=== PATIENT | female | born 1980 | race Caucasian/White ===

== ENCOUNTER 2019-06-24 12:27 | Inpatient (IN) | payer OTHER ==
[2019-06-24] MEDS ORDERED: ONDANSETRON 4 MG/2 ML VIAL IVP STA (12:46)
[2019-06-24] MEDS ORDERED: SODIUM CHLORIDE 0.9% 1,000 ML IV STA ×3 (12:46→13:57)
[2019-06-24] MEDS ORDERED: MORPHINE SULFATE 4 MG/ML SYRINGE IV STA ×2 (12:53→13:30)
[2019-06-24 13:33] LABS: ALT 45 U/L (9-52); AST 95 U/L (14-36); African American GFR (CKD) >90 (>60 ml/min/1.73 sqM); Albumin 3.7 g/dL (3.5-5.0); Alkaline Phosphatase 164 U/L (38-126); Anion Gap 13 mmol/L; Blood Urea Nitrogen 21 mg/dL (7-17); Calcium 8.1 mg/dL (8.4-10.2); Carbon Dioxide 23 mmol/L (22-30); Chloride 99 mmol/L (98-107); Glucose 119 mg/dL (74-99); Sodium 135 mmol/L (137-145); Total Bilirubin 0.8 mg/dL (0.2-1.3); Total Protein 6.3 g/dL (6.3-8.2)
--- NOTE | 2019-06-24 13:34 | ED ---
General Adult HPI - General Source: patient, RN notes reviewed, old records reviewed Mode of arrival: ambulatory Limitations: no limitations <Stanton Meza - Last Filed: 06/24/19 14:08> <Dae Villar - Last Filed: 06/24/19 14:49> - General Chief complaint: Abdominal Pain Stated complaint: stomach pain Time Seen by Provider: 06/24/19 12:46 - History of Present Illness Initial comments: 39-year-old female patient presents to ED with chief complaint of epigastric pain which radiates to her back. Patient also reports that she has had nausea vomiting for approximately 3 days. Patient does report that she has had significant alcohol intake and prior days. Patient denies any chest pain or shortness of breath. She cannot be secondary to tubal ligation. Systemic: Pt denies fatigue, fever/chills, rash. Pt denies weakness, night sweats, weight loss. Neuro: Pt denies headache, visual disturbances, syncope or pre-syncope. HEENT: Pt denies ocular discharge or irritation, otalgia, rhinorrhea, pharyngitis or notable lymphadenopathy. Cardiopulmonary: Pt denies chest pain, SOB, heart palpitations, dyspnea on exertion. : Pt denies dysuria, burning w/ urination, frequency/urgency. Denies new onset urinary or bowel incontinence. MSK: Pt denies myalgia, loss of strength or function in extremities. Neuro: Pt denies new onset weakness, paresthesias. (Stanton Meza) - Related Data Home Medications Medication Instructions Recorded Confirmed Albuterol Inhaler [Ventolin Hfa 2 puff INHALATION RT-Q6H PRN 10/08/14 06/24/19 Inhaler] Carvedilol [Coreg] 6.25 mg PO BID 06/24/19 06/24/19 Gemfibrozil [Lopid] 600 mg PO BID 06/24/19 06/24/19 Levothyroxine Sodium [Synthroid] 25 mcg PO DAILY 06/24/19 06/24/19 Lisinopril [Zestril] 10 mg PO DAILY 06/24/19 06/24/19 Lurasidone HCl [Latuda] 120 mg PO HS 06/24/19 06/24/19 QUEtiapine FUMARATE [SEROquel] 600 mg PO HS 06/24/19 06/24/19 clonazePAM [KlonoPIN] 0.5 mg PO TID 06/24/19 06/24/19 rOPINIRole HCL [Requip] 1 mg PO HS 06/24/19 06/24/19 Allergies Allergy/AdvReac Type Severity Reaction Status Date / Time cefaclor [From Ceclor] Allergy Unknown Verified 06/24/19 13:01 Childhood Penicillins Allergy Unknown Verified 06/24/19 13:01 Childhood pineapple Allergy Rash/Hives Verified 06/24/19 13:01 Review of Systems ROS Other: All systems not noted in ROS Statement are negative. <Stanton Meza - Last Filed: 06/24/19 14:08> ROS Other: All systems not noted in ROS Statement are negative. <Dae Villar - Last Filed: 06/24/19 14:49> ROS Statement: Those systems with pertinent positive or pertinent negative responses have been documented in the HPI. Past Medical History Past Medical History: Asthma, Hypertension, Pneumonia Additional Past Medical History / Comment(s): Chronic migraines, pneumonia-pt. reports she has been hospitalized 6 times for this, Left knee needs ACL repairment, PMS-pt. reports she believes she has this due to increased emotional symptoms around her period. History of Any Multi-Drug Resistant Organisms: None Reported Past Surgical History: Section, Orthopedic Surgery Additional Past Surgical History / Comment(s): Left knee meniscus repair x3. Past Anesthesia/Blood Transfusion Reactions: Unable to Obtain Past Psychological History: Anxiety, Bipolar, Depression Smoking Status: Current every day smoker Past Alcohol Use History: Occasional Past Drug Use History: Marijuana - Past Family History Mother Additional Family Medical History / Comment(s): Mom in 2004 from septic shock when she was 54 years old. Father Family Medical History: Cancer, COPD Additional Family Medical History / Comment(s): Pt. reports her father currently has prostate cancer <Stanton Meza - Last Filed: 06/24/19 14:08> General Exam Limitations: no limitations <Stanton Meza - Last Filed: 06/24/19 14:08> - General Exam Comments Initial Comments: Constitutional: NAD, AOX3, Pt has pleasant affect. HEENT: NC/AT, trachea midline, neck supple, no lymphadenopathy. Posterior pharynx non erythematous, without exudates. External ears appear normal, without discharge. Mucous membranes moist. Eyes PERRLA, EOM intact. There is no scleral icterus. No pallor noted. Cardiopulmonary: RRR, no murmurs, rubs or gallops, no JVD noted. Lungs CTAB in anterior and posterior kelly. No peripheral edema. Abdominal exam: Abdomen soft and non-distended. Abdomen moderately tender to palpation in epigastric region, no other gene of abdominal tenderness. Bowel sounds active in LLQ. No hepatosplenomegaly. No ecchymosis Neuro: CN II-XII grossly intact. No nuchal rigidity. No raccon eyes, no corbett sign, no hemotympanum. No cervical spinal tenderness. MSK: No posterior calf tenderness bilaterally, homans sign negative bilaterally. Posterior tibialis and radial pulse +2 bilaterally. Sensation intact in upper and lower extremities. Full active ROM in upper and lower extremities, 5/5 stregnth. (Stanton Meza) Course Vital Signs 06/24/19 06/24/19 06/24/19 12:30 13:00 13:18 Temperature 98.1 F Pulse Rate 131 H 116 H Respiratory 20 18 Rate Blood Pressure 87/62 101/64 97/65 O2 Sat by Pulse 97 99 Oximetry 06/24/19 06/24/19 14:00 14:30 Temperature Pulse Rate 105 H Respiratory 17 18 Rate Blood Pressure 113/75 135/77 O2 Sat by Pulse 97 98 Oximetry Procedures - Sepsis Sepsis Focused Exam #1 Time Sepsis Criteria Met: 14:45 Sepsis Focused Exam Date: 06/24/19 Sepsis Focused Exam Time: 14:49 Sepsis Focused Exam Complete: Yes Vital Signs & RN Notes Reviewed: Yes Capillary Refill: < 2 Seconds: Fingers, Toes Peripheral Pulses: Normal: Radial (R), Radial (L) Skin Color: Normal for Patient Respiratory Exam: normal lung sounds Cardiovascular Exam: tachycardia <Dae Villar - Last Filed: 06/24/19 14:49> Medical Decision Making - Lab Data Result diagrams: 06/24/19 13:00 06/24/19 13:00 - EKG Data -: EKG Interpreted by Mi <Stanton Meza - Last Filed: 06/24/19 14:08> - Lab Data Result diagrams: 06/24/19 13:00 06/24/19 13:00 <Dae Villar - Last Filed: 06/24/19 14:49> - Medical Decision Making 39-year-old female patient presents to ED with chief complaint of epigastric pain which radiates to her back. Patient also reports that she has had nausea vomiting for approximately 3 days. Patient does report that she has had significant alcohol intake and prior days. Patient denies any chest pain or shortness of breath. She cannot be secondary to tubal ligation. Patient vital signs as displayed mild hypotension responded well to fluids, tachycardia likely secondary to pain and also responding well to fluids. Physical exam displayed epigastric tenderness. To be seen noncompressive. CMP noncompressive. Lipase 2000. Lactic acid 4.4. Patient rehydrated with 3 L bolus. EKG displayed sinus tachycardia, no concern for acute ischemia. Patient will be admitted for acute pancreatitis, CT pending. Case discussed with Dr. Villar. (Stanton Meza) Case reviewed with practitioner Harvinder. Chart reviewed. Results reviewed. Case also discussed with Dr. Mora, who will admit for medical call. (Dae Villar) - Lab Data Lab Results 06/24/19 06/24/19 06/24/19 Range/Units 13:00 13:00 13:00 WBC 10.2 (3.8-10.6) k/uL RBC 4.45 (3.80-5.40) m/uL Hgb 15.3 (11.4-16.0) gm/dL Hct 41.6 (34.0-46.0) % MCV 93.5 (80.0-100.0) fL MCH 34.3 (25.0-35.0) pg MCHC 36.7 (31.0-37.0) g/dL RDW 14.0 (11.5-15.5) % Plt Count 141 L (150-450) k/uL Neutrophils % 90 % Lymphocytes % 6 % Monocytes % 3 % Eosinophils % 1 % Basophils % 0 % Neutrophils # 9.2 H (1.3-7.7) k/uL Lymphocytes # 0.6 L (1.0-4.8) k/uL Monocytes # 0.3 (0-1.0) k/uL Eosinophils # 0.1 (0-0.7) k/uL Basophils # 0.0 (0-0.2) k/uL Sodium 135 L (137-145) mmol/L Potassium 4.0 (3.5-5.1) mmol/L Chloride 99 (98-107) mmol/L Carbon Dioxide 23 (22-30) mmol/L Anion Gap 13 mmol/L BUN 21 H (7-17) mg/dL Creatinine 0.73 (0.52-1.04) mg/dL Est GFR (CKD-EPI)AfAm >90 (>60 ml/min/1.73 sqM) Est GFR (CKD-EPI)NonAf >90 (>60 ml/min/1.73 sqM) Glucose 119 H (74-99) mg/dL Plasma Lactic Acid Catrachito 4.4 H* (0.7-2.0) mmol/L Calcium 8.1 L (8.4-10.2) mg/dL Total Bilirubin 0.8 (0.2-1.3) mg/dL AST 95 H (14-36) U/L ALT 45 (9-52) U/L Alkaline Phosphatase 164 H (38-126) U/L Troponin I (0.000-0.034) ng/mL Total Protein 6.3 (6.3-8.2) g/dL Albumin 3.7 (3.5-5.0) g/dL Lipase 2009 H (23-300) U/L 06/24/19 Range/Units 13:00 WBC (3.8-10.6) k/uL RBC (3.80-5.40) m/uL Hgb (11.4-16.0) gm/dL Hct (34.0-46.0) % MCV (80.0-100.0) fL MCH (25.0-35.0) pg MCHC (31.0-37.0) g/dL RDW (11.5-15.5) % Plt Count (150-450) k/uL Neutrophils % % Lymphocytes % % Monocytes % % Eosinophils % % Basophils % % Neutrophils # (1.3-7.7) k/uL Lymphocytes # (1.0-4.8) k/uL Monocytes # (0-1.0) k/uL Eosinophils # (0-0.7) k/uL Basophils # (0-0.2) k/uL Sodium (137-145) mmol/L Potassium (3.5-5.1) mmol/L Chloride (98-107) mmol/L Carbon Dioxide (22-30) mmol/L Anion Gap mmol/L BUN (7-17) mg/dL Creatinine (0.52-1.04) mg/dL Est GFR (CKD-EPI)AfAm (>60 ml/min/1.73 sqM) Est GFR (CKD-EPI)NonAf (>60 ml/min/1.73 sqM) Glucose (74-99) mg/dL Plasma Lactic Acid Catrachito (0.7-2.0) mmol/L Calcium (8.4-10.2) mg/dL Total Bilirubin (0.2-1.3) mg/dL AST (14-36) U/L ALT (9-52) U/L Alkaline Phosphatase (38-126) U/L Troponin I <0.012 (0.000-0.034) ng/mL Total Protein (6.3-8.2) g/dL Albumin (3.5-5.0) g/dL Lipase (23-300) U/L - EKG Data EKG Comments: QRS 112, JUNI 132, QRS 86, QT/QTC 338/461. Sinus tachycardia, possible left atrial enlargement, borderline EKG. (Stanton Meza) Disposition Is patient prescribed a controlled substance at d/c from ED?: No <Stanton Meza - Last Filed: 06/24/19 14:08> <Dae Villar - Last Filed: 06/24/19 14:49> Clinical Impression: Acute pancreatitis Disposition: ADMITTED IP TO THIS HOSP Condition: Serious
[2019-06-24 13:35] LABS: Basophils % (A) 0 %; Eosinophils # (A) 0.1 k/uL (0-0.7); Eosinophils % (A) 1 %; HCT 41.6 % (34.0-46.0); HGB 15.3 gm/dL (11.4-16.0); Lymphocytes # (A) 0.6 k/uL (1.0-4.8); Lymphocytes % (A) 6 %; MCH 34.3 pg (25.0-35.0); MCHC 36.7 g/dL (31.0-37.0); MCV 93.5 fL (80.0-100.0); Mean Platelet Volume 7.8; Monocytes # (A) 0.3 k/uL (0-1.0); Monocytes % (A) 3 %; Neutrophils # (A) 9.2 k/uL (1.3-7.7); Neutrophils % (A) 90 %; Platelet Count 141 k/uL (150-450); RBC 4.45 m/uL (3.80-5.40); WBC 10.2 k/uL (3.8-10.6)
[2019-06-24] MEDS ORDERED: MORPHINE SULFATE 4 MG/ML SYRINGE IV PRN (14:05)
[2019-06-24] MEDS ORDERED: NALOXONE 0.4 MG/ML 1 ML VIAL IV PRN ×2 (14:05→16:31)
--- NOTE | 2019-06-24 14:17 | CT ---
EXAMINATION TYPE: CT abdomen pelvis w con DATE OF EXAM: 06/24/2019 COMPARISON: None HISTORY: Stomach pains CT DLP: 1451.5 mGycm Automated exposure control for dose reduction was used. TECHNIQUE: Helical acquisition of images was performed from the lung bases through the pelvis. CONTRAST: Performed without Oral Contrast and with IV Contrast, patient injected with 100 mL of Isovue 300. FINDINGS: Lung bases are clear. There is no pleural effusion. Heart size is normal. There is fatty infiltration of the liver. The bile ducts are not dilated. Gallbladder is dilated and measures 4.7 cm. Spleen appears normal. There is some fat stranding around the pancreatic head. There is retroperitoneal fluid in the anterior pararenal space bilaterally. This is more on the right side . There is fluid around the duodenum. There is no adrenal mass. Kidneys show satisfactory contrast opacification. There is no hydronephrosi s. Bladder distends smoothly. There is no retroperitoneal adenopathy. There is no inguinal hernia. Th ere is no pelvic mass. Uterus is anteverted. Lumbar spine is intact. Bony pelvis appears intact. There is wall thickening and edema of the ascending colon and transverse colon. IMPRESSION: RETROPERITONEAL FLUID AND FAT STRANDING AROUND THE PANCREAS CONSISTENT WITH PANCREATITIS. MILDLY DILA BETTE GALLBLADDER SUGGESTIVE OF CHOLECYSTITIS. FATTY INFILTRATION OF THE LIVER. DIFFUSE EDEMA IN THE LARGE BOWEL CONSISTENT WITH NONSPECIFIC COLITIS.
[2019-06-24] MEDS: SODIUM CHLORIDE 0.9% 1,000 ML IV SCH ×2 (14:38→21:12)
[2019-06-24] MEDS ORDERED: HYDROmorphone 1 MG/ML 1 ML SYRINGE IVP STA (14:48)
[2019-06-24] MEDS ORDERED: cefTRIAXone IN SWFI 1,000 MG/10 ML SYRINGE IVP STA (14:50)
[2019-06-24] MEDS ORDERED: metroNIDAZOLE-NS PMX 500 MG in SALINE 1 100ML.BAG IVPB STA (14:51)
[2019-06-24] MEDS ORDERED: LEVOFLOXACIN 750MG-D5W PMX 750 MG in DEXTROSE/WATER 1 150ML.BAG IVPB STA (14:51)
[2019-06-24] MEDS ORDERED: LEVOFLOXACIN 750MG-D5W PMX 750 MG in DEXTROSE/WATER 1 150ML.BAG IVPB SCH (15:00)
[2019-06-24 15:03] LABS: Amphetamine Screen,Urine Not Detected (NotDetected); Barbiturate Screen,Urine Not Detected (NotDetected); Benzodiazepines Screen,Urine Not Detected (NotDetected); Cocaine Screen,Urine Not Detected (NotDetected); Methadone Screen, Urine Not Detected (NotDetected); Opiate Screen,Urine Detected (NotDetected); Oxycodone Screen, Urine Not Detected (NotDetected); Phencyclidine Screen,Urine Not Detected (NotDetected); Tricyclic Antidepressant,Urine Detected (NotDetected); Urn Cannabinoid Scrn Not Detected (NotDetected)
[2019-06-24 15:04] LABS: Appearance,Urine Clear (Clear); Bacteria,Urine Moderate /hpf; Bilirubin,Urine Negative (Negative); Blood,Urine Moderate (Negative); Color,Urine Light Yellow; Glucose,Urine (UA) Negative (Negative); Ketones,Urine Trace (Negative); Leukocyte Esterase,Urine Negative (Negative); Mucus,Urine Rare /hpf; Nitrite,Urine Negative (Negative); PH, Urine 5.5 (5.0-8.0); Protein,Urine Negative (Negative); RBC,Urine 64 /hpf (0-5); Squamous Epithelial Cell,Urine 4 /hpf (0-4); Urobilinogen,Urine <2.0 mg/dL (<2.0); WBC,Urine 3 /hpf (0-5)
[2019-06-24 15:05] LABS: Specific Gravity,Urine >1.050 (1.001-1.035)
--- NOTE | 2019-06-24 15:18 | ED ---
Medical Decision Making - Medical Decision Making CT was reviewed and displayed retroperitoneal fluid and fat stranding around the pancreas consistent with pancreatitis. Mildly dilated gallbladder suggestive of cholecystitis, fatty infiltration of the liver. Diffuse edema in large bowel consistent with nonspecific colitis. Patient was began on Rocephin and Flagyl for possible cholecystitis, patient does have a penicillin ALLERGY however has been able to use Rocephin without difficulty. Blood cultures were obtained. Surgery consult. Ultrasound gallbladder was ordered. Case discussed with Dr. Villar. - Lab Data Result diagrams: 06/24/19 13:00 06/24/19 13:00 Lab Results 06/24/19 06/24/19 06/24/19 Range/Units 13:00 13:00 13:00 WBC 10.2 (3.8-10.6) k/uL RBC 4.45 (3.80-5.40) m/uL Hgb 15.3 (11.4-16.0) gm/dL Hct 41.6 (34.0-46.0) % MCV 93.5 (80.0-100.0) fL MCH 34.3 (25.0-35.0) pg MCHC 36.7 (31.0-37.0) g/dL RDW 14.0 (11.5-15.5) % Plt Count 141 L (150-450) k/uL Neutrophils % 90 % Lymphocytes % 6 % Monocytes % 3 % Eosinophils % 1 % Basophils % 0 % Neutrophils # 9.2 H (1.3-7.7) k/uL Lymphocytes # 0.6 L (1.0-4.8) k/uL Monocytes # 0.3 (0-1.0) k/uL Eosinophils # 0.1 (0-0.7) k/uL Basophils # 0.0 (0-0.2) k/uL Sodium 135 L (137-145) mmol/L Potassium 4.0 (3.5-5.1) mmol/L Chloride 99 (98-107) mmol/L Carbon Dioxide 23 (22-30) mmol/L Anion Gap 13 mmol/L BUN 21 H (7-17) mg/dL Creatinine 0.73 (0.52-1.04) mg/dL Est GFR (CKD-EPI)AfAm >90 (>60 ml/min/1.73 sqM) Est GFR (CKD-EPI)NonAf >90 (>60 ml/min/1.73 sqM) Glucose 119 H (74-99) mg/dL Plasma Lactic Acid Catrachito 4.4 H* (0.7-2.0) mmol/L Calcium 8.1 L (8.4-10.2) mg/dL Total Bilirubin 0.8 (0.2-1.3) mg/dL AST 95 H (14-36) U/L ALT 45 (9-52) U/L Alkaline Phosphatase 164 H (38-126) U/L Troponin I (0.000-0.034) ng/mL Total Protein 6.3 (6.3-8.2) g/dL Albumin 3.7 (3.5-5.0) g/dL Lipase 2009 H (23-300) U/L 06/24/19 Range/Units 13:00 WBC (3.8-10.6) k/uL RBC (3.80-5.40) m/uL Hgb (11.4-16.0) gm/dL Hct (34.0-46.0) % MCV (80.0-100.0) fL MCH (25.0-35.0) pg MCHC (31.0-37.0) g/dL RDW (11.5-15.5) % Plt Count (150-450) k/uL Neutrophils % % Lymphocytes % % Monocytes % % Eosinophils % % Basophils % % Neutrophils # (1.3-7.7) k/uL Lymphocytes # (1.0-4.8) k/uL Monocytes # (0-1.0) k/uL Eosinophils # (0-0.7) k/uL Basophils # (0-0.2) k/uL Sodium (137-145) mmol/L Potassium (3.5-5.1) mmol/L Chloride (98-107) mmol/L Carbon Dioxide (22-30) mmol/L Anion Gap mmol/L BUN (7-17) mg/dL Creatinine (0.52-1.04) mg/dL Est GFR (CKD-EPI)AfAm (>60 ml/min/1.73 sqM) Est GFR (CKD-EPI)NonAf (>60 ml/min/1.73 sqM) Glucose (74-99) mg/dL Plasma Lactic Acid Catrachito (0.7-2.0) mmol/L Calcium (8.4-10.2) mg/dL Total Bilirubin (0.2-1.3) mg/dL AST (14-36) U/L ALT (9-52) U/L Alkaline Phosphatase (38-126) U/L Troponin I <0.012 (0.000-0.034) ng/mL Total Protein (6.3-8.2) g/dL Albumin (3.5-5.0) g/dL Lipase (23-300) U/L Disposition Clinical Impression: Acute pancreatitis Disposition: ADMITTED IP TO THIS HOSP Condition: Serious Is patient prescribed a controlled substance at d/c from ED?: No Procedures - [place] Protocol (Time Out) Nurse: Myrna Gonzalez - Sepsis Sepsis Focused Exam #1 Time Sepsis Criteria Met: 14:45
[2019-06-24] MEDS: metroNIDAZOLE-NS PMX 500 MG in SALINE 1 100ML.BAG IVPB SCH (16:33)
--- NOTE | 2019-06-24 16:41 | P.HPIM ---
History of Present Illness H&P Date: 06/24/19 Chief Complaint: Abdominal pain 39-year-old female presents to ED with chief complaint of epigastric pain which radiates to her back. It is associated with nausea, vomiting for approximately 3 days. No fevers or chills. It is hard for her to be secondary to the pain. No chest pain. No recent illness. She states that she came back from [place] and she has been drinking about 3 drinks every day over the past 3 days. No diarrhea. No urinary symptoms. Never had issues with pancreatitis in the past. In the emergency department she was found to have elevated lipase and evidence of pancreatitis and cholecystitis on the CAT scan, she was started on opiates for pain management, IV fluids and was subsequently admitted for further evaluation and management. Review of Systems Complete review of system performed, pertinent positives per HPI otherwise negative. Past Medical History Past Medical History: Asthma, Hypertension, Pneumonia Additional Past Medical History / Comment(s): Chronic migraines, pneumonia-pt. reports she has been hospitalized 6 times for this, Left knee needs ACL repairment, PMS-pt. reports she believes she has this due to increased emotional symptoms around her period. History of Any Multi-Drug Resistant Organisms: None Reported Past Surgical History: Section, Orthopedic Surgery Additional Past Surgical History / Comment(s): Left knee meniscus repair x3. Past Anesthesia/Blood Transfusion Reactions: Unable to Obtain Past Psychological History: Anxiety, Bipolar, Depression Smoking Status: Current every day smoker Past Alcohol Use History: Occasional Past Drug Use History: Marijuana - Past Family History Mother Additional Family Medical History / Comment(s): Mom in 2004 from septic shock when she was 54 years old. Father Family Medical History: Cancer, COPD Additional Family Medical History / Comment(s): Pt. reports her father currently has prostate cancer Medications and Allergies Home Medications Medication Instructions Recorded Confirmed Type Albuterol Inhaler [Ventolin Hfa 2 puff INHALATION RT-Q6H PRN 10/08/14 06/24/19 History Inhaler] Carvedilol [Coreg] 6.25 mg PO BID 06/24/19 06/24/19 History Gemfibrozil [Lopid] 600 mg PO BID 06/24/19 06/24/19 History Levothyroxine Sodium [Synthroid] 25 mcg PO DAILY 06/24/19 06/24/19 History Lisinopril [Zestril] 10 mg PO DAILY 06/24/19 06/24/19 History Lurasidone HCl [Latuda] 120 mg PO HS 06/24/19 06/24/19 History QUEtiapine FUMARATE [SEROquel] 600 mg PO HS 06/24/19 06/24/19 History clonazePAM [KlonoPIN] 0.5 mg PO TID 06/24/19 06/24/19 History rOPINIRole HCL [Requip] 1 mg PO HS 06/24/19 06/24/19 History Allergies Allergy/AdvReac Type Severity Reaction Status Date / Time cefaclor [From [facility]] Allergy Unknown Verified 06/24/19 13:01 Childhood Penicillins Allergy Unknown Verified 06/24/19 13:01 Childhood pineapple Allergy Rash/Hives Verified 06/24/19 13:01 Physical Exam Vitals: Vital Signs Temp Pulse Resp BP Pulse Ox 06/24/19 14:30 105 H 18 135/77 98 06/24/19 14:00 17 113/75 97 06/24/19 13:18 97/65 06/24/19 13:00 116 H 18 101/64 99 06/24/19 12:30 98.1 F 131 H 20 87/62 97 Intake and Output 06/24/19 06/24/19 06/24/19 06:59 14:59 22:59 Other: Weight 102.058 kg Constitutional: No acute distress, conversant, pleasant Eyes:Anicteric sclerae, moist conjunctiva, no lid-lag, PERRLA, ENMT: Oropharynx clear, no erythema, exudates Neck: Supple, FROM, no masses, or JVD, No carotid bruits, No thyromegaly Lungs: Clear to auscultation, Clear to percussion, Normal respiratory effort, no accessory muscle use Cardiovascular: Tachycardic, regular, no murmurs, gallops, or rubs, No peripheral edema Abdominal: Soft, severe upper abdominal tenderness, no guarding, rebound or rigidity, Normoactive bowel sounds, No hepatomegaly, No splenomegaly, No palpable mass Skin: Normal temperature, tone, texture, turgor, no induration, No subcutaneous nodules, No rash, lesions, No ulcers Extremities: No digital cyanosis, No clubbing, Pedal pulses intact and symmetrical, Radial pulses intact and symmetrical, No calf tenderness Psychiatric: Alert and oriented to person, place and time, appropriate affect, intact judgement Neuro: Muscles Strength 5/5 in all 4 extremities, Sensation to light touch grossly present throughout, Cranial nerves II-XII grossly intact, no focal sensory deficits Results CBC & Chem 7: 06/24/19 13:00 06/24/19 13:00 Labs: Abnormal Lab Results - Last 24 Hours (Table) 06/24/19 06/24/19 06/24/19 Range/Units 13:00 13:00 13:00 Plt Count 141 L (150-450) k/uL Neutrophils # 9.2 H (1.3-7.7) k/uL Lymphocytes # 0.6 L (1.0-4.8) k/uL Sodium 135 L (137-145) mmol/L BUN 21 H (7-17) mg/dL Glucose 119 H (74-99) mg/dL Plasma Lactic Acid Catrachito 4.4 H* (0.7-2.0) mmol/L Calcium 8.1 L (8.4-10.2) mg/dL AST 95 H (14-36) U/L Alkaline Phosphatase 164 H (38-126) U/L Lipase 2009 H (23-300) U/L Ur Specific [place] (1.001-1.035) Urine Ketones (Negative) Urine Blood (Negative) Urine RBC (0-5) /hpf Urine Bacteria (None) /hpf Urine Mucus (None) /hpf Urine Opiates Screen (NotDetected) U Tricyclic Antidepress (NotDetected) 06/24/19 Range/Units 14:30 Plt Count (150-450) k/uL Neutrophils # (1.3-7.7) k/uL Lymphocytes # (1.0-4.8) k/uL Sodium (137-145) mmol/L BUN (7-17) mg/dL Glucose (74-99) mg/dL Plasma Lactic Acid Catrachito (0.7-2.0) mmol/L Calcium (8.4-10.2) mg/dL AST (14-36) U/L Alkaline Phosphatase (38-126) U/L Lipase (23-300) U/L Ur Specific [place] >1.050 H (1.001-1.035) Urine Ketones Trace H (Negative) Urine Blood Moderate H (Negative) Urine RBC 64 H (0-5) /hpf Urine Bacteria Moderate H (None) /hpf Urine Mucus Rare H (None) /hpf Urine Opiates Screen Detected H (NotDetected) U Tricyclic Antidepress Detected H (NotDetected) Assessment and Plan Plan: Acute pancreatitis Likely secondary to gallstones IV fluids Nothing by mouth Pain control with morphine Acute cholecystitis Consult surgery Nothing by mouth Ceftriaxone and Flagyl Asthma/hypertension/hypothyroidism All stable Hold by mouth meds Monitor blood pressure DVT prophylaxis Patient is ambulatory Disposition: Likely home Anticipated date of discharge 06/28 I certify that patient medical condition would require more than 2 nights stay.
--- NOTE | 2019-06-24 17:31 | US ---
EXAMINATION TYPE: US gallbladder DATE OF EXAM: 06/24/2019 COMPARISON: NONE CLINICAL HISTORY: pain, acute pancreatitis EXAM MEASUREMENTS: Liver Length: 22.8 cm Gallbladder Wall: 0.4 cm CBD: 1.0 cm Right Kidney: 11.7 x 4.7 x 5.0 cm Severe overlying bowel gas, large body habitus, technically difficult study Pancreas: mostly obscured by bowel gas, duct dilated at 5 mm Liver: limited visualization, hepatomegaly, attenuating Gallbladder: wall thickened, some possible sludge vs small stones, hydropic Evidence for sonographic Chavez's sign: patient has tender abdomen all over CBD: dilated Right Kidney: No hydronephrosis or masses seen IMPRESSION: There is echogenic bile and tiny gallstones. There is large common bile duct but no dilat ion of the intrahepatic bile ducts. This is consistent with gallbladder dysfunction. Normal right kid trang.
[2019-06-24] MEDS ORDERED: metroNIDAZOLE-NS PMX 500 MG in SALINE 1 100ML.BAG IVPB SCH (18:00)
[2019-06-24] MEDS: HYDROmorphone 1 MG/ML 1 ML SYRINGE IVP PRN ×2 (19:28→22:32)
[2019-06-24] MEDS: NICOTINE 21MG/24HR PATCH TRANSDERM SCH (20:33)
[2019-06-24] MEDS: ONDANSETRON 4 MG/2 ML VIAL IVP PRN (22:36)
[2019-06-25] MEDS: metroNIDAZOLE-NS PMX 500 MG in SALINE 1 100ML.BAG IVPB SCH ×4 (00:36→23:53)
[2019-06-25] MEDS: HYDROmorphone 1 MG/ML 1 ML SYRINGE IVP PRN ×8 (01:29→22:55)
[2019-06-25] MEDS: SODIUM CHLORIDE 0.9% 1,000 ML IV SCH ×3 (04:31→22:07)
[2019-06-25 05:43] LABS: Basophils % (A) 0 %; Eosinophils # (A) 0.1 k/uL (0-0.7); Eosinophils % (A) 1 %; HCT 44.5 % (34.0-46.0); HGB 14.9 gm/dL (11.4-16.0); Lymphocytes % (A) 10 %; MCH 32.6 pg (25.0-35.0); MCHC 33.5 g/dL (31.0-37.0); MCV 97.6 fL (80.0-100.0); Mean Platelet Volume 7.7; Monocytes # (A) 0.3 k/uL (0-1.0); Monocytes % (A) 2 %; Neutrophils # (A) 8.8 k/uL (1.3-7.7); Neutrophils % (A) 86 %; Platelet Count 110 k/uL (150-450); RBC 4.56 m/uL (3.80-5.40); RDW 14.4 % (11.5-15.5); WBC 10.2 k/uL (3.8-10.6)
[2019-06-25 05:53] LABS: ALT 40 U/L (9-52); AST 85 U/L (14-36); African American GFR (CKD) >90 (>60 ml/min/1.73 sqM); Albumin 2.9 g/dL (3.5-5.0); Alkaline Phosphatase 102 U/L (38-126); Anion Gap 10 mmol/L; Blood Urea Nitrogen 16 mg/dL (7-17); Carbon Dioxide 20 mmol/L (22-30); Chloride 104 mmol/L (98-107); Glucose 105 mg/dL (74-99); Potassium 3.8 mmol/L (3.5-5.1); Sodium 134 mmol/L (137-145); Total Protein 5.1 g/dL (6.3-8.2)
[2019-06-25 06:03] LABS: Calcium 6.2 mg/dL (8.4-10.2)
[2019-06-25] MEDS: NICOTINE 21MG/24HR PATCH TRANSDERM SCH (07:42)
--- NOTE | 2019-06-25 08:53 | P.CONS ---
History of Present Illness - Reason for Consult Consult date: 06/25/19 Pancreatitis Requesting physician: Aung Soto - Chief Complaint Abdominal pain - History of Present Illness 39-year-old female PMH HTN, asthma, migraines, marijuana, bipolar depression, admitted with acute epigastric pain radiating to her back side with nausea vom iting 3 days. Patient was celebrating over the weekend for 3 days with Bloody Lisa. Normally drinks wine. No history of ETOH abuse however she reports binge drinking more than 10 years ago after her mother . CT abdomen retroperitoneal fluid fat stranding around the pancreas consistent with pancreatitis a mildly dilated gallbladder suggesting cholecystitis fatty infiltration of the liver. Ultrasound abdomen tiny gallstones. CBD 1 cm no dilation of intrahepatic bile ducts. White count 10.2. Hemoglobin 14.9. Platelet 110. Admission total bilirubin 0.8. AST 95. ALT 45. AP 164. Lipase 2090. Lactic acid 4.4 with hydration 2.8. Today total bilirubin 1.0. AST 85. ALT 40. AP 102. Lipase 2324. BUN 16. Creatinine 0.8. Afebrile. HCG not detected. No history of pancreatitis. No changes in medications. Review of Systems Constitutional: Denies fever, chills, sweats, weight gain, or loss. HEENT: Negative for migraines, blurred vision or loss, earaches, drainage, tinnitus, oral mucosal lesions, dysphagia, or odynophagia. CARDIAC: Negative for chest pain, arrhythmias, or palpitation. RESPIRATORY: Negative for shortness of breath, hemoptysis, cough, or sputum production. GI: See HPI for pertinent findings. : Negative for hematuria, urgency, frequency, polyuria, or dysuria. GYNc: Denies possibility of . Negative vaginal discharge. MUSCULOSKELETAL: Negative for muscle aches, swelling, arthritis, and arthralgias . NEUROLOGIC: Negative for stroke or TIA. ENDOCRINE: Negative for thyroid problems. SKIN: Negative for rash or itching. PSYCHIATRIC: Negative history for depression and anxiety Past Medical History Past Medical History: Asthma, Hypertension, Pneumonia, Thyroid Disorder Additional Past Medical History / Comment(s): Chronic migraines, pneumonia-pt. reports she has been hospitalized 6 times for this, Left knee needs ACL repairment, PMS-pt. reports she believes she has this due to increased emotional symptoms around her period. History of Any Multi-Drug Resistant Organisms: None Reported Past Surgical History: Section, Orthopedic Surgery Additional Past Surgical History / Comment(s): Left knee meniscus repair x3. Past Anesthesia/Blood Transfusion Reactions: No Reported Reaction Past Psychological History: Anxiety, Bipolar, Depression Smoking Status: Current every day smoker Past Alcohol Use History: Occasional Additional Past Alcohol Use History / Comment(s): Pt. reports she drinks approximately 1 bottles of wine a week currently. Pt. admits she went through a binge drinking period in 2004 when her mother . Past Drug Use History: Marijuana - Past Family History Mother Additional Family Medical History / Comment(s): Mom in 2004 from septic shock when she was 54 years old. Father Family Medical History: Cancer, COPD Additional Family Medical History / Comment(s): Pt. reports her father currently has prostate cancer Medications and Allergies Home Medications Medication Instructions Recorded Confirmed Type Albuterol Inhaler [Ventolin Hfa 2 puff INHALATION RT-Q6H PRN 10/08/14 06/24/19 History Inhaler] Carvedilol [Coreg] 6.25 mg PO BID 06/24/19 06/24/19 History Gemfibrozil [Lopid] 600 mg PO BID 06/24/19 06/24/19 History Levothyroxine Sodium [Synthroid] 25 mcg PO DAILY 06/24/19 06/24/19 History Lisinopril [Zestril] 10 mg PO DAILY 06/24/19 06/24/19 History Lurasidone HCl [Latuda] 120 mg PO HS 06/24/19 06/24/19 History QUEtiapine FUMARATE [SEROquel] 600 mg PO HS 06/24/19 06/24/19 History clonazePAM [KlonoPIN] 0.5 mg PO TID 06/24/19 06/24/19 History rOPINIRole HCL [Requip] 1 mg PO HS 06/24/19 06/24/19 History Allergies Allergy/AdvReac Type Severity Reaction Status Date / [facility] Allergy Unknown Verified 06/24/19 13:01 Childhood Penicillins Allergy Unknown Verified 06/24/19 13:01 Childhood pineapple Allergy Rash/Hives Verified 06/24/19 13:01 Physical Exam Vitals: Vital Signs Temp Pulse Pulse Resp BP BP Pulse Ox 06/25/19 05:00 98.1 F 122 H 16 113/74 94 L 06/25/19 00:15 120 H 16 06/24/19 21:00 98.0 F 128 H 16 125/88 95 06/24/19 16:33 98.1 F 123 H 18 99/62 97 06/24/19 14:30 105 H 18 135/77 98 06/24/19 14:00 17 113/75 97 06/24/19 13:18 97/65 06/24/19 13:00 116 H 18 101/64 99 06/24/19 12:30 98.1 F 131 H 20 87/62 97 Intake and Output 06/24/19 06/25/19 06/25/19 22:59 06:59 14:59 Intake Total 590 590 Balance 590 590 Intake: Oral 590 590 Other: # Voids 2 2 General appearance: The patient is alert, oriented. HET: Head is normocephalic and atraumatic. Pupils are equal and reactive. Oropharynx is clear without lesions. Neck: Supple without lymphadenopathy. Trachea midline. Heart: S1 S2. Regular rate and rhythm. Lungs: No crackles or wheezes are heard. Abdomen: Soft, tender bilateral upper abdomen, with bowel sounds. No peritoneal signs. + hepatomegaly. Extremities: Normal skin color and turgor. No cyanosis, rash, ulceration, clubbing, or edema. Radial and pedal pulses are 2/4 bilaterally. Neurological: No focal deficits. Strength and sensation are grossly intact. Results CBC & Chem 7: 06/25/19 05:34 06/25/19 05:34 Labs: Abnormal Lab Results - Last 24 Hours (Table) 06/24/19 06/24/19 06/24/19 Range/Units 13:00 13:00 13:00 Plt Count 141 L (150-450) k/uL Neutrophils # 9.2 H (1.3-7.7) k/uL Lymphocytes # 0.6 L (1.0-4.8) k/uL Sodium 135 L (137-145) mmol/L Carbon Dioxide (22-30) mmol/L BUN 21 H (7-17) mg/dL Glucose 119 H (74-99) mg/dL Plasma Lactic Acid Catrachito 4.4 H* (0.7-2.0) mmol/L Calcium 8.1 L (8.4-10.2) mg/dL AST 95 H (14-36) U/L Alkaline Phosphatase 164 H (38-126) U/L Total Protein (6.3-8.2) g/dL Albumin (3.5-5.0) g/dL Lipase 2009 H (23-300) U/L Ur Specific [place] (1.001-1.035) Urine Ketones (Negative) Urine Blood (Negative) Urine RBC (0-5) /hpf Urine Bacteria (None) /hpf Urine Mucus (None) /hpf Urine Opiates Screen (NotDetected) U Tricyclic Antidepress (NotDetected) 06/24/19 06/24/19 06/24/19 Range/Units 14:30 17:03 20:50 Plt Count (150-450) k/uL Neutrophils # (1.3-7.7) k/uL Lymphocytes # (1.0-4.8) k/uL Sodium (137-145) mmol/L Carbon Dioxide (22-30) mmol/L BUN (7-17) mg/dL Glucose (74-99) mg/dL Plasma Lactic Acid Catr[place] 2.8 H* 2.7 H* (0.7-2.0) mmol/L Calcium (8.4-10.2) mg/dL AST (14-36) U/L Alkaline Phosphatase (38-126) U/L Total Protein (6.3-8.2) g/dL Albumin (3.5-5.0) g/dL Lipase (23-300) U/L Ur Specific [place] >1.050 H (1.001-1.035) Urine Ketones Trace H (Negative) Urine Blood Moderate H (Negative) Urine RBC 64 H (0-5) /hpf Urine Bacteria Moderate H (None) /hpf Urine Mucus Rare H (None) /hpf Urine Opiates Screen Detected H (NotDetected) U Tricyclic Antidepress Detected H (NotDetected) 06/25/19 06/25/19 06/25/19 Range/Units 00:58 05:34 05:34 Plt Count 110 L (150-450) k/uL Neutrophils # 8.8 H (1.3-7.7) k/uL Lymphocytes # (1.0-4.8) k/uL Sodium 134 L (137-145) mmol/L Carbon Dioxide 20 L (22-30) mmol/L BUN (7-17) mg/dL Glucose 105 H (74-99) mg/dL Plasma Lactic Acid [place] 2.2 H* (0.7-2.0) mmol/L Calcium 6.2 L* (8.4-10.2) mg/dL AST 85 H (14-36) U/L Alkaline Phosphatase (38-126) U/L Total Protein 5.1 L (6.3-8.2) g/dL Albumin 2.9 L (3.5-5.0) g/dL Lipase 2324 H (23-300) U/L Ur Specific [place] (1.001-1.035) Urine Ketones (Negative) Urine Blood (Negative) Urine RBC (0-5) /hpf Urine Bacteria (None) /hpf Urine Mucus (None) /hpf Urine Opiates Screen (NotDetected) U Tricyclic Antidepress (NotDetected) 06/25/19 Range/Units 05:34 Plt Count (150-450) k/uL Neutrophils # (1.3-7.7) k/uL Lymphocytes # (1.0-4.8) k/uL Sodium (137-145) mmol/L Carbon Dioxide (22-30) mmol/L BUN (7-17) mg/dL Glucose (74-99) mg/dL Plasma Lactic Acid [place] 2.2 H* (0.7-2.0) mmol/L Calcium (8.4-10.2) mg/dL AST (14-36) U/L Alkaline Phosphatase (38-126) U/L Total Protein (6.3-8.2) g/dL Albumin (3.5-5.0) g/dL Lipase (23-300) U/L Ur Specific [place] (1.001-1.035) Urine Ketones (Negative) Urine Blood (Negative) Urine RBC (0-5) /hpf Urine Bacteria (None) /hpf Urine Mucus (None) /hpf Urine Opiates Screen (NotDetected) U Tricyclic Antidepress (NotDetected) CT scan - abdomen: report reviewed (Dr. Mccoy) US - abdomen: report reviewed (Nadine) Assessment and Plan (1) Acute pancreatitis Narrative/Plan: 39 y/o female admitted with acute pancreatitis after celebrating over the weekend x 3 days with [employer] Lisa with abdominal imaging reporting a dilated CBD 1.0 cm without jaundice AST > ALT as well as small cholelithiasis. Possible acute biliary pancreatitis however an underlying superimposed alcohol induced pancreatitis cannot be excluded. Current Visit: Yes Status: Acute Code(s): K85.90 - ACUTE PANCREATITIS WITHOUT NECROSIS OR INFECTION, UNSP SNOMED Code(s): 994309330 (2) Cholelithiases Current Visit: Yes Status: Acute Code(s): K80.20 - CALCULUS OF GALLBLADDER W/O CHOLECYSTITIS W/O OBSTRUCTION SNOMED Code(s): 007189574 (3) Hepatomegaly Current Visit: Yes Status: Acute Code(s): R16.0 - HEPATOMEGALY, NOT ELSEWHERE CLASSIFIED SNOMED Code(s): 67188937 Plan: 1. Daily CBC, CMP, lipase. Check triglycerides. 2. Alcohol abstinence advised. 3. NPO except ice chips and popsicles. 4. GS consult. Thank you for this kind referral and the opportunity to participate in the care of your patient. This consultation was discussed with Dr. Mccoy. The impression and plan of care have been directed as dictated.
--- NOTE | 2019-06-25 09:39 | P.PN ---
Subjective Progress Note Date: 06/25/19 Principal diagnosis: Abdominal pain Patient still having severe abdominal pain, she is being medicated with Dilaudid. Any movement will worsen the pain. No fevers or chills. No chest pain or shortness of breath. Objective - Vital Signs Vital signs: Vital Signs Temp 98.1 F 06/25/19 05:00 Pulse 122 H 06/25/19 05:00 Resp 16 06/25/19 05:00 BP 113/74 06/25/19 05:00 Pulse Ox 94 L 06/25/19 05:00 Intake & Output 06/24/19 06/25/19 06/25/19 18:59 06:59 18:59 Intake Total 1180 Balance 1180 Weight 102.058 kg Intake: Oral 1180 Other: # Voids 2 - Exam Constitutional: No acute distress, conversant, pleasant Eyes:Anicteric sclerae, moist conjunctiva, no lid-lag, PERRLA, ENMT: Oropharynx clear, no erythema, exudates Neck: Supple, FROM, no masses, or JVD, No carotid bruits, No thyromegaly Lungs: Clear to auscultation, Clear to percussion, Normal respiratory effort, no accessory muscle use Cardiovascular: Tachycardic, regular, No murmurs, gallops, or rubs, No peripheral edema Abdominal: Soft, severely tender, no guarding, rebound or rigidity, Normoactive bowel sounds, No hepatomegaly, No splenomegaly, No palpable mass Skin: Normal temperature, tone, texture, turgor, no induration, No subcutaneous nodules, No rash, lesions, No ulcers Extremities: No digital cyanosis, No clubbing, Pedal pulses intact and sym metrical, Radial pulses intact and symmetrical, No calf tenderness Psychiatric: Alert and oriented to person, place and time, appropriate affect, intact judgement Neuro: Muscles Strength 5/5 in all 4 extremities, Sensation to light touch grossly present throughout, Cranial nerves II-XII grossly intact, no focal sensory deficits - Labs CBC & Chem 7: 06/25/19 05:34 06/25/19 05:34 Labs: Abnormal Lab Results - Last 24 Hours (Table) 06/24/19 06/24/19 06/24/19 Range/Units 13:00 13:00 13:00 Plt Count 141 L (150-450) k/uL Neutrophils # 9.2 H (1.3-7.7) k/uL Lymphocytes # 0.6 L (1.0-4.8) k/uL Sodium 135 L (137-145) mmol/L Carbon Dioxide (22-30) mmol/L BUN 21 H (7-17) mg/dL Glucose 119 H (74-99) mg/dL Plasma Lactic Acid Catrachito 4.4 H* (0.7-2.0) mmol/L Calcium 8.1 L (8.4-10.2) mg/dL AST 95 H (14-36) U/L Alkaline Phosphatase 164 H (38-126) U/L Total Protein (6.3-8.2) g/dL Albumin (3.5-5.0) g/dL Lipase 2009 H (23-300) U/L Ur Specific [place] (1.001-1.035) Urine Ketones (Negative) Urine Blood (Negative) Urine RBC (0-5) /hpf Urine Bacteria (None) /hpf Urine Mucus (None) /hpf Urine Opiates Screen (NotDetected) U Tricyclic Antidepress (NotDetected) 06/24/19 06/24/19 06/24/19 Range/Units 14:30 17:03 20:50 Plt Count (150-450) k/uL Neutrophils # (1.3-7.7) k/uL Lymphocytes # (1.0-4.8) k/uL Sodium (137-145) mmol/L Carbon Dioxide (22-30) mmol/L BUN (7-17) mg/dL Glucose (74-99) mg/dL Plasma Lactic Acid Catrachito 2.8 H* 2.7 H* (0.7-2.0) mmol/L Calcium (8.4-10.2) mg/dL AST (14-36) U/L Alkaline Phosphatase (38-126) U/L Total Protein (6.3-8.2) g/dL Albumin (3.5-5.0) g/dL Lipase (23-300) U/L Ur Specific [place] >1.050 H (1.001-1.035) Urine Ketones Trace H (Negative) Urine Blood Moderate H (Negative) Urine RBC 64 H (0-5) /hpf Urine Bacteria Moderate H (None) /hpf Urine Mucus Rare H (None) /hpf Urine Opiates Screen Detected H (NotDetected) U Tricyclic Antidepress Detected H (NotDetected) 06/25/19 06/25/19 06/25/19 Range/Units 00:58 05:34 05:34 Plt Count 110 L (150-450) k/uL Neutrophils # 8.8 H (1.3-7.7) k/uL Lymphocytes # (1.0-4.8) k/uL Sodium 134 L (137-145) mmol/L Carbon Dioxide 20 L (22-30) mmol/L BUN (7-17) mg/dL Glucose 105 H (74-99) mg/dL Plasma Lactic Acid Catrachito 2.2 H* (0.7-2.0) mmol/L Calcium 6.2 L* (8.4-10.2) mg/dL AST 85 H (14-36) U/L Alkaline Phosphatase (38-126) U/L Total Protein 5.1 L (6.3-8.2) g/dL Albumin 2.9 L (3.5-5.0) g/dL Lipase 2324 H (23-300) U/L Ur Specific [place] (1.001-1.035) Urine Ketones (Negative) Urine Blood (Negative) Urine RBC (0-5) /hpf Urine Bacteria (None) /hpf Urine Mucus (None) /hpf Urine Opiates Screen (NotDetected) U Tricyclic Antidepress (NotDetected) 06/25/19 Range/Units 05:34 Plt Count (150-450) k/uL Neutrophils # (1.3-7.7) k/uL Lymphocytes # (1.0-4.8) k/uL Sodium (137-145) mmol/L Carbon Dioxide (22-30) mmol/L BUN (7-17) mg/dL Glucose (74-99) mg/dL Plasma Lactic Acid Cat[place] 2.2 H* (0.7-2.0) mmol/L Calcium (8.4-10.2) mg/dL AST (14-36) U/L Alkaline Phosphatase (38-126) U/L Total Protein (6.3-8.2) g/dL Albumin (3.5-5.0) g/dL Lipase (23-300) U/L Ur Specific [place] (1.001-1.035) Urine Ketones (Negative) Urine Blood (Negative) Urine RBC (0-5) /hpf Urine Bacteria (None) /hpf Urine Mucus (None) /hpf Urine Opiates Screen (NotDetected) U Tricyclic Antidepress (NotDetected) Assessment and Plan Plan: Acute pancreatitis Likely secondary to gallstones, rule out alcohol induced IV fluids Nothing by mouth Pain control with Dilaudid Acute cholecystitis Consult surgery, called Nothing by mouth Ceftriaxone and Flagyl Asthma/hypertension/hypothyroidism All stable Hold by mouth meds Monitor blood pressure DVT prophylaxis Patient is ambulatory Disposition: Likely home Anticipated date of discharge 06/28 I certify that patient medical condition would require more than 2 nights stay.
[2019-06-25] MEDS: PANTOPRAZOLE 40 MG/10 ML VIAL IVP SCH (09:50)
[2019-06-25] MEDS: ALBUTEROL NEBULIZED 2.5 MG/3 ML INHALATION PRN (15:07)
--- NOTE | 2019-06-25 15:12 | P.GSCN ---
History of Present Illness Consult date: 06/25/19 History of present illness: This 39-year-old female who began experiencing acute midepigastric abdominal pain which is wrapping around to her back. She was then strength kinks the last 3 days. She states that she was having a 3 day [place] [employer] party drinking bloody Zita's. She states normally she drinks about 1 a week or so. She's never had pancreatitis before in the past. She states that her abdominal pain is still pretty severe. She admits to some nausea and vomiting. Normal bowel movements. No other complaints at this time. She denies any past surgical history other than C-sections. Past Medical History Past Medical History: Asthma, Hypertension, Pneumonia, Thyroid Disorder Additional Past Medical History / Comment(s): Chronic migraines, pneumonia-pt. reports she has been hospitalized 6 times for this, Left knee needs ACL repairment, PMS-pt. reports she believes she has this due to increased emotional symptoms around her period. History of Any Multi-Drug Resistant Organisms: None Reported Past Surgical History: Section, Orthopedic Surgery Additional Past Surgical History / Comment(s): Left knee meniscus repair x3. Past Anesthesia/Blood Transfusion Reactions: No Reported Reaction Past Psychological History: Anxiety, Bipolar, Depression Smoking Status: Current every day smoker Past Alcohol Use History: Occasional Additional Past Alcohol Use History / Comment(s): Pt. reports she drinks approximately 1 bottles of wine a week currently. Pt. admits she went through a binge drinking period in 2004 when her mother . Past Drug Use History: Marijuana - Past Family History Mother Additional Family Medical History / Comment(s): Mom in 2004 from septic shock when she was 54 years old. Father Family Medical History: Cancer, COPD Additional Family Medical History / Comment(s): Pt. reports her father currently has prostate cancer Medications and Allergies Home Medications Medication Instructions Recorded Confirmed Type Albuterol Inhaler [Ventolin Hfa 2 puff INHALATION RT-Q6H PRN 10/08/14 06/24/19 History Inhaler] Carvedilol [Coreg] 6.25 mg PO BID 06/24/19 06/24/19 History Gemfibrozil [Lopid] 600 mg PO BID 06/24/19 06/24/19 History Levothyroxine Sodium [Synthroid] 25 mcg PO DAILY 06/24/19 06/24/19 History Lisinopril [Zestril] 10 mg PO DAILY 06/24/19 06/24/19 History Lurasidone HCl [Latuda] 120 mg PO HS 06/24/19 06/24/19 History QUEtiapine FUMARATE [SEROquel] 600 mg PO HS 06/24/19 06/24/19 History clonazePAM [KlonoPIN] 0.5 mg PO TID 06/24/19 06/24/19 History rOPINIRole HCL [Requip] 1 mg PO HS 06/24/19 06/24/19 History Allergies Allergy/AdvReac Type Severity Reaction Status Date / Time cefaclor [From Ceclor] Allergy Unknown Verified 06/24/19 13:01 Childhood Penicillins Allergy Unknown Verified 06/24/19 13:01 Childhood pineapple Allergy Rash/Hives Verified 06/24/19 13:01 Surgical - Exam Osteopathic Statement: *. No significant issues noted on an osteopathic structural exam other than those noted in the History and Physical/Consult. Vital Signs Temp Pulse Resp BP Pulse Ox 98.1 F 131 H 20 87/62 97 06/24/19 12:30 06/24/19 12:30 06/24/19 12:30 06/24/19 12:30 06/24/19 12:30 - General well developed, well nourished, no distress, obese - Eyes PERRL - Neck trachea midline - Respiratory normal expansion, normal respiratory effort - Cardiovascular Rhythm: regular - Abdomen nondistended tenderness palpation midepigastric Abdomen: soft - Neurologic normal coordination, normal sensation - Psychiatric oriented to time, oriented to person, oriented to place Results - Labs 06/25/19 05:34 06/25/19 05:34 Abnormal Lab Results - Last 24 Hours (Table) 06/24/19 06/24/19 06/25/19 Range/Units 17:03 20:50 00:58 Plt Count (150-450) k/uL Neutrophils # (1.3-7.7) k/uL Sodium (137-145) mmol/L Carbon Dioxide (22-30) mmol/L Glucose (74-99) mg/dL Plasma Lactic Acid Catrachito 2.8 H* 2.7 H* 2.2 H* (0.7-2.0) mmol/L Calcium (8.4-10.2) mg/dL Ionized Calcium Rink[place] (4.5-5.3) mg/dL AST (14-36) U/L Total Protein (6.3-8.2) g/dL Albumin (3.5-5.0) g/dL Triglycerides (<150) mg/dL Lipase (23-300) U/L 06/25/19 06/25/19 06/25/19 Range/Units 05:34 05:34 05:34 Plt Count 110 L (150-450) k/uL Neutrophils # 8.8 H (1.3-7.7) k/uL Sodium 134 L (137-145) mmol/L Carbon Dioxide 20 L (22-30) mmol/L Glucose 105 H (74-99) mg/dL Plasma Lactic Acid Catr[place] 2.2 H* (0.7-2.0) mmol/L Calcium 6.2 L* (8.4-10.2) mg/dL Ionized Calcium [place] (4.5-5.3) mg/dL AST 85 H (14-36) U/L Total Protein 5.1 L (6.3-8.2) g/dL Albumin 2.9 L (3.5-5.0) g/dL Triglycerides (<150) mg/dL Lipase 2324 H (23-300) U/L 06/25/19 06/25/19 Range/Units 05:34 09:01 Plt Count (150-450) k/uL Neutrophils # (1.3-7.7) k/uL Sodium (137-145) mmol/L Carbon Dioxide (22-30) mmol/L Glucose (74-99) mg/dL Plasma Lactic Acid [place] (0.7-2.0) mmol/L Calcium (8.4-10.2) mg/dL Ionized Calcium R[place] 3.7 L (4.5-5.3) mg/dL AST (14-36) U/L Total Protein (6.3-8.2) g/dL Albumin (3.5-5.0) g/dL Triglycerides 280 H (<150) mg/dL Lipase (23-300) U/L Diabetes panel 06/25/19 06/25/19 Range/Units 05:34 05:34 Sodium 134 L (137-145) mmol/L Potassium 3.8 (3.5-5.1) mmol/L Chloride 104 (98-107) mmol/L Carbon Dioxide 20 L (22-30) mmol/L BUN 16 (7-17) mg/dL Creatinine 0.86 (0.52-1.04) mg/dL Glucose 105 H (74-99) mg/dL Calcium 6.2 L* (8.4-10.2) mg/dL AST 85 H (14-36) U/L ALT 40 (9-52) U/L Alkaline Phosphatase 102 (38-126) U/L Total Protein 5.1 L (6.3-8.2) g/dL Albumin 2.9 L (3.5-5.0) g/dL Triglycerides 280 H (<150) mg/dL Calcium panel 06/25/19 06/25/19 Range/Units 05:34 09:01 Calcium 6.2 L* (8.4-10.2) mg/dL Ionized Calcium R[place] 3.7 L (4.5-5.3) mg/dL Albumin 2.9 L (3.5-5.0) g/dL Pituitary panel 06/25/19 Range/Units 05:34 Sodium 134 L (137-145) mmol/L Potassium 3.8 (3.5-5.1) mmol/L Chloride 104 (98-107) mmol/L Carbon Dioxide 20 L (22-30) mmol/L BUN 16 (7-17) mg/dL Creatinine 0.86 (0.52-1.04) mg/dL Glucose 105 H (74-99) mg/dL Calcium 6.2 L* (8.4-10.2) mg/dL Adrenal panel 06/25/19 Range/Units 05:34 Sodium 134 L (137-145) mmol/L Potassium 3.8 (3.5-5.1) mmol/L Chloride 104 (98-107) mmol/L Carbon Dioxide 20 L (22-30) mmol/L BUN 16 (7-17) mg/dL Creatinine 0.86 (0.52-1.04) mg/dL Glucose 105 H (74-99) mg/dL Calcium 6.2 L* (8.4-10.2) mg/dL Total Bilirubin 1.0 (0.2-1.3) mg/dL AST 85 H (14-36) U/L ALT 40 (9-52) U/L Alkaline Phosphatase 102 (38-126) U/L Total Protein 5.1 L (6.3-8.2) g/dL Albumin 2.9 L (3.5-5.0) g/dL Assessment and Plan Assessment: moderate to severe pancreatitis Plan: etiology of patient's pancreatitis is unknown at this time. She did have some gallstones on CT however her common bile duct was normal caliber and her biliru bin was normal upon arrival. This is likely secondary to the alcohol she was drinking prior to her pain.she did have a significant amount of retroperitoneal fluid and inflammation around her pancreas consistent with a moderate to severe pancreatitis. Either way I do not recommend cholecystectomy until the pancreatitis is resolved as surgery could worsen her condition.. I discussed with the patient laparoscopic cholecystectomy as an outpatient after her pain and inflammation has resolved.I would continue nothing by mouth IV fluids and advance her diet to clears when her pain improves. No plans for surgical intervention at this time
[2019-06-25] MEDS: ONDANSETRON 4 MG/2 ML VIAL IVP PRN (16:47)
[2019-06-25] MEDS ORDERED: FAMOTIDINE 20 MG/2 ML VIAL IV SCH (17:12)
[2019-06-26] MEDS: HYDROmorphone 1 MG/ML 1 ML SYRINGE IVP PRN ×7 (02:44→21:33)
[2019-06-26] MEDS: SODIUM CHLORIDE 0.9% 1,000 ML IV SCH ×3 (05:32→16:50)
[2019-06-26] MEDS: ALBUTEROL NEBULIZED 2.5 MG/3 ML INHALATION PRN ×2 (05:46→13:03)
[2019-06-26] MEDS: NICOTINE 21MG/24HR PATCH TRANSDERM SCH (08:26)
[2019-06-26] MEDS: PANTOPRAZOLE 40 MG/10 ML VIAL IVP SCH (08:27)
[2019-06-26] MEDS: metroNIDAZOLE-NS PMX 500 MG in SALINE 1 100ML.BAG IVPB SCH ×2 (08:27→16:44)
[2019-06-26] MEDS: ONDANSETRON 4 MG/2 ML VIAL IVP PRN (08:27)
[2019-06-26 08:31] LABS: Basophils % (A) 0 %; Eosinophils # (A) 0.1 k/uL (0-0.7); Eosinophils % (A) 1 %; HCT 35.4 % (34.0-46.0); Lymphocytes % (A) 10 %; MCH 33.2 pg (25.0-35.0); MCHC 33.7 g/dL (31.0-37.0); MCV 98.4 fL (80.0-100.0); Macrocytosis Slight; Mean Platelet Volume 7.9; Monocytes # (A) 0.2 k/uL (0-1.0); Monocytes % (A) 2 %; Neutrophils # (A) 8.7 k/uL (1.3-7.7); Neutrophils % (A) 86 %; Platelet Count 100 k/uL (150-450); RBC 3.59 m/uL (3.80-5.40); WBC 10.2 k/uL (3.8-10.6)
[2019-06-26 08:40] LABS: HGB 11.9 gm/dL (11.4-16.0)
[2019-06-26 08:44] LABS: ALT 34 U/L (9-52); AST 44 U/L (14-36); African American GFR (CKD) >90 (>60 ml/min/1.73 sqM); Albumin 2.5 g/dL (3.5-5.0); Alkaline Phosphatase 87 U/L (38-126); Amylase 200 U/L (30-110); Anion Gap 8 mmol/L; Blood Urea Nitrogen 13 mg/dL (7-17); Carbon Dioxide 22 mmol/L (22-30); Chloride 102 mmol/L (98-107); Glucose 102 mg/dL (74-99); Potassium 3.9 mmol/L (3.5-5.1); Sodium 132 mmol/L (137-145); Total Bilirubin 0.6 mg/dL (0.2-1.3); Total Protein 4.6 g/dL (6.3-8.2)
[2019-06-26 08:57] LABS: INR 1.1 (<1.2); Prothrombin Time 11.5 sec (9.0-12.0)
[2019-06-26] MEDS ORDERED: CALCIUM GLUCONATE 1 GM in SODIUM CHLORIDE 0.9% 100 ML IVPB ONE (09:04)
[2019-06-26] MEDS ORDERED: METOCLOPRAMIDE 5 MG/ML 2 ML VIAL IVP PRN (09:09)
[2019-06-26] MEDS ORDERED: ONDANSETRON 4 MG/2 ML VIAL IVP PRN (09:13)
[2019-06-26] MEDS: clonazePAM 0.5 MG TAB PO SCH ×3 (09:41→21:32)
[2019-06-26] MEDS: CARVEDILOL 6.25 MG TAB PO SCH ×2 (11:14→16:50)
--- NOTE | 2019-06-26 11:18 | P.PN ---
Subjective Progress Note Date: 06/26/19 Principal diagnosis: Abdominal pain Doing better, pain is improving. No nausea or vomiting. No diarrhea. She was started on ice chips and popsicles by GI. Objective - Vital Signs Vital signs: Vital Signs Temp 98.0 F 06/26/19 05:00 Pulse 130 H 06/26/19 08:00 Resp 18 06/26/19 05:00 BP 118/72 06/26/19 05:00 Pulse Ox 93 L 06/26/19 05:00 Intake & Output 06/25/19 06/26/19 06/26/19 18:59 06:59 18:59 Intake Total 1120 1860 Balance 1120 1860 Intake: Intake, IV Titration 1120 1740 Amount Sodium Chloride 0.9% 1, 1120 1540 000 ml @ 140 mls/hr IV . Q7H9M [facility] Rx#:[id number] metroNIDAZOLE-NS PMX 500 200 mg In Saline 1 100ml.bag @ 100 mls/hr IVPB Q8HR [facility] Rx#:[id number] Oral 120 Other: # Voids 4 2 - Exam Constitutional: No acute distress, conversant, pleasant Eyes:Anicteric sclerae, moist conjunctiva, no lid-lag, PERRLA, ENMT: Oropharynx clear, no erythema, exudates Neck: Supple, FROM, no masses, or JVD, No carotid bruits, No thyromegaly Lungs: Clear to auscultation, Clear to percussion, Normal respiratory effort, no accessory muscle use Cardiovascular: Tachycardic, regular, No murmurs, gallops, or rubs, No peripheral edema Abdominal: Soft, severely tender, no guarding, rebound or rigidity, Normoactive bowel sounds, No hepatomegaly, No splenomegaly, No palpable mass Skin: Normal temperature, tone, texture, turgor, no induration, No subcutaneous nodules, No rash, lesions, No ulcers Extremities: No digital cyanosis, No clubbing, Pedal pulses intact and symmetrical, Radial pulses intact and symmetrical, No calf tenderness Psychiatric: Alert and oriented to person, place and time, appropriate affect, intact judgement Neuro: Muscles Strength 5/5 in all 4 extremities, Sensation to light touch grossly present throughout, Cranial nerves II-XII grossly intact, no focal sensory deficits - Labs CBC & Chem 7: 06/26/19 08:15 06/26/19 08:15 Labs: Abnormal Lab Results - Last 24 Hours (Table) 06/26/19 06/26/19 Range/Units 08:15 08:15 RBC 3.59 L (3.80-5.40) m/uL Plt Count 100 L (150-450) k/uL Neutrophils # 8.7 H (1.3-7.7) k/uL Sodium 132 L (137-145) mmol/L Glucose 102 H (74-99) mg/dL Calcium 6.0 L* (8.4-10.2) mg/dL AST 44 H (14-36) U/L Total Protein 4.6 L (6.3-8.2) g/dL Albumin 2.5 L (3.5-5.0) g/dL Amylase 200 H (30-110) U/L Lipase 940 H (23-300) U/L Microbiology - Last 24 Hours (Table) 06/24/19 15:14 Blood Culture - Preliminary Blood No Growth after 24 hours Assessment and Plan Plan: Acute pancreatitis Likely secondary to gallstones, rule out alcohol induced IV fluids She was started on ice chips and popsicles by GI. Pain control with Dilaudid Acute cholecystitis Surgery recommending outpatient cholecystectomy once pancreatitis resolves Ceftriaxone and Flagyl Bipolar disorder Resume meds Asthma/hypertension/hypothyroidism All stable Hold meds Monitor blood pressure DVT prophylaxis Patient is ambulatory Disposition: Likely home Anticipated date of discharge 06/28 I certify that patient medical condition would require more than 2 nights stay.
[2019-06-26 12:09] LABS: Glucose,Whole Blood 102 mg/dL (75-99)
[2019-06-26 12:29] LABS: ABG Base Excess -0.8 mmol/L; ABG HCO3 25 mmol/L (21-25); ABG Oxygen Saturation 94.8 % (94-97); ABG PCO2 46 mmHg (35-45); ABG PH 7.34 (7.35-7.45); ABG PO2 72 mmHg (83-108); ABG TCO2 26 mmol/L (19-24); Allen Test Performed? Yes
[2019-06-26 12:47] LABS: Glucose,Whole Blood 100 mg/dL (75-99)
--- NOTE | 2019-06-26 13:00 | XR ---
EXAMINATION TYPE: XR chest 1V portable DATE OF EXAM: 06/26/2019 CLINICAL HISTORY: Hypoxia. TECHNIQUE: Single AP portable frontal upright view of the chest is obtained. COMPARISON: Chest x-ray February 18, 2015. CT abdomen and pelvis earlier today. FINDINGS: There is diminished inspiration on current study. Cardiac silhouette size is within normal limits. There is new mild to moderate central vascular congestion with some Chelsi B lines in the pe riphery inferior left greater than right bibasilar opacities. No pleural effusion or pneumothorax. Os seous structures are intact. IMPRESSION: Low lung volumes with new mild to moderate central vascular congestion and interstitial e beth present. Developing underlying lower lung acute infiltrates are difficult to exclude.
[2019-06-26] MEDS ORDERED: FUROSEMIDE 10 MG/ML 4 ML VIAL IV STA ×2 (13:03→21:33)
[2019-06-26] MEDS ORDERED: IPRATROPIUM-ALBUTEROL 3 ML NEB INHALATION PRN (13:07)
--- NOTE | 2019-06-26 14:56 | P.PN ---
Subjective Progress Note Date: 06/26/19 Patient now in ICU secondary to respiratory distress and desat. She is complaining of abdominal pain and distention. Objective - Vital Signs Vital signs: Vital Signs Temp 99.3 F 06/26/19 11:55 Pulse 105 H 06/26/19 13:14 Resp 20 06/26/19 11:55 BP 99/63 06/26/19 12:00 Pulse Ox 91 L 06/26/19 12:05 Intake & Output 06/25/19 06/26/19 06/26/19 18:59 06:59 18:59 Intake Total 1120 1860 Balance 1120 1860 Intake: Intake, IV Titration 1120 1740 Amount Sodium Chloride 0.9% 1, 1120 1540 000 ml @ 140 mls/hr IV . Q7H9M [facility] Rx#:[id number] metroNIDAZOLE-NS PMX 500 200 mg In Saline 1 100ml.bag @ 100 mls/hr IVPB Q8HR [facility] Rx#:[id number] Oral 120 Other: # Voids 4 2 - Constitutional General appearance: Present: cooperative - Respiratory Details: on nonlabored on NC - Cardiovascular Details: tachy Rhythm: regular - Gastrointestinal Gastrointestinal Comment(s): soft, TTP mid epigastric General gastrointestinal: Present: distended - Psychiatric Psychiatric: Present: A&O x's 3 - Labs CBC & Chem 7: 06/26/19 08:15 06/26/19 08:15 Labs: Abnormal Lab Results - Last 24 Hours (Table) 06/26/19 06/26/19 06/26/19 Range/Units 08:15 08:15 12:06 RBC 3.59 L (3.80-5.40) m/uL Plt Count 100 L (150-450) k/uL Neutrophils # 8.7 H (1.3-7.7) k/uL ABG pH (7.35-7.45) ABG pCO2 (35-45) mmHg ABG pO2 (83-108) mmHg ABG Total CO2 (19-24) mmol/L Sodium 132 L (137-145) mmol/L Glucose 102 H (74-99) mg/dL POC Glucose (mg/dL) 102 H (75-99) mg/dL Calcium 6.0 L* (8.4-10.2) mg/dL AST 44 H (14-36) U/L Total Protein 4.6 L (6.3-8.2) g/dL Albumin 2.5 L (3.5-5.0) g/dL Amylase 200 H (30-110) U/L Lipase 940 H (23-300) U/L 06/26/19 06/26/19 Range/Units 12:20 12:43 RBC (3.80-5.40) m/uL Plt Count (150-450) k/uL Neutrophils # (1.3-7.7) k/uL ABG pH 7.34 L (7.35-7.45) ABG pCO2 46 H (35-45) mmHg ABG pO2 72 L (83-108) mmHg ABG Total CO2 26 H (19-24) mmol/L Sodium (137-145) mmol/L Glucose (74-99) mg/dL POC Glucose (mg/dL) 100 H (75-99) mg/dL Calcium (8.4-10.2) mg/dL AST (14-36) U/L Total Protein (6.3-8.2) g/dL Albumin (3.5-5.0) g/dL Amylase (30-110) U/L Lipase (23-300) U/L Microbiology - Last 24 Hours (Table) 06/24/19 15:14 Blood Culture - Preliminary Blood No Growth after 24 hours Assessment and Plan Assessment: moderate to severe pancreatitis Plan: Continue NPO. ICU care. no plans for surgical intervention
[2019-06-26] MEDS: IPRATROPIUM-ALBUTEROL 3 ML NEB INHALATION SCH ×4 (15:05→23:50)
--- NOTE | 2019-06-26 15:34 | P.CNPUL ---
History of Present Illness Consult date: 06/26/19 Requesting physician: Aung Soto Reason for consult: dyspnea, hypoxemia, abnormal CXR/CT Chief complaint: Acute hypoxemic respiratory failure, r/to fluid overload, interstitial merlene History of present illness: A 39-year-old daughter white female patient who was admitted on 06/24/2019 with the chief complaint of epigastric pain radiating to her back associated with nausea, and vomiting for 3 days prior to presentation. She denied any fever or chills, denied any chest pain, she recently him back from [place] where she had been drinking for a few days, no prior history of pancreatitis in the past, in the emergency department patient was found to have elevated lipase, and evidence of pancreatitis and cholecystitis on the CAT scan, which showed a retroperitoneal fluid and fat stranding around the pancreas consistent with pancreatitis, and mildly dilated gallbladder suggestive of cholecystitis in addition there was a fatty infiltration of the liver. [place] of the abdomen showed tiny gallstones, common bile duct showed a 1 cm with no dilation of intrahepatic bile ducts. Patient was being treated conservatively, by mouth except for ice and popsicles, IV fluids, antibiotics, surgical consultation was obtained, and surgery was considering surgical intervention once the panc reatitis has resolved. This morning patient was noted to be hypoxemic, pulse ox of 67% on room air, yesterday patient was not requiring any supplemental oxygen, and was maintaining O2 saturations at or above 93%. Patient complaining of increasing dyspnea, and tachycardic, started having a headache and a low-grade fever. She was placed on the 100% nonrebreather, stat blood gas was obtained, showing pO2 of 72, pCO2 46, pH of 7.34, this was done on FiO2 of 100%, and is consistent with mild hypercapnic respiratory failure, and acute hypoxemic respiratory failure. Chest x-ray was completed showing low lung volumes with the new [id number] central vascular congestion and interstitial edema. In addition patient was bronchospastic, and she does have a history of asthma, and she states she was previously treated with Zithromax and prednisone in the recent past for asthma exacerbation and tracheobronchitis. BiPAP support was considered, however patient's condition started to improve, she was started on nebulized bronchodilators, a dose of IV Lasix was given. She was refusing IV steroids at first, but in view of her wheezing and chest congestion we will start her on IV steroids. Blood cultures and lactic acid have been sent. Patient denied any chest pain, did have some epigastric discomfort, which and ongoing since admission, and abdominal discomfort across the lower quadrants, abdomen is soft, nontender. Labs today have been reviewed, showing white blood cell count of 10.2, hemoglobin of 11.9, coagulation profile was within normal limits, sodium was 132, the rest of electrolytes and renal profile were unremarkable, repeat lactic acid came back normal at 0.9, proBNP was normal at 194, her enzymes are trending down, lipase is down to 940, down from 2324 on yesterday's labs. Review of Systems All systems: negative Constitutional: Denies chills, Denies fever Eyes: denies blurred vision, denies pain Ears, nose, mouth and throat: Denies headache, Denies sore throat Cardiovascular: Denies chest pain, Denies shortness of breath Respiratory: Reports congestion, Reports cough, Reports dyspnea, Reports wheezing Gastrointestinal: Reports abdominal pain, Denies diarrhea, Denies nausea, Denies vomiting Genitourinary: Denies dysuria, Denies hematuria Musculoskeletal: Denies myalgias Integumentary: Denies pruritus, Denies rash Neurological: Denies numbness, Denies weakness Psychiatric: Denies anxiety, Denies depression Endocrine: Denies fatigue, Denies weight change Past Medical History Past Medical History: Asthma, Hypertension, Pneumonia, Thyroid Disorder Additional Past Medical History / Comment(s): Chronic migraines, pneumonia-pt. reports she has been hospitalized 6 times for this, Left knee needs ACL repairment, PMS-pt. reports she believes she has this due to increased emotional symptoms around her period. History of Any Multi-Drug Resistant Organisms: None Reported Past Surgical History: Section, Orthopedic Surgery Additional Past Surgical History / Comment(s): Left knee meniscus repair x3. Past Anesthesia/Blood Transfusion Reactions: No Reported Reaction Past Psychological History: Anxiety, Bipolar, Depression Smoking Status: Current every day smoker Past Alcohol Use History: Occasional Additional Past Alcohol Use History / Comment(s): Pt. reports she drinks approximately 1 bottles of wine a week currently. Pt. admits she went through a binge drinking period in 2004 when her mother . Past Drug Use History: Marijuana - Past Family History Mother Additional Family Medical History / Comment(s): Mom in 2004 from septic shock when she was 54 years old. Father Family Medical History: Cancer, COPD Additional Family Medical History / Comment(s): Pt. reports her father currently has prostate cancer Medications and Allergies Home Medications Medication Instructions Recorded Confirmed Type Albuterol Inhaler [Ventolin Hfa 2 puff INHALATION RT-Q6H PRN 10/08/14 06/24/19 History Inhaler] Carvedilol [Coreg] 6.25 mg PO BID 06/24/19 06/24/19 History Gemfibrozil [Lopid] 600 mg PO BID 06/24/19 06/24/19 History Levothyroxine Sodium [Synthroid] 25 mcg PO DAILY 06/24/19 06/24/19 History Lisinopril [Zestril] 10 mg PO DAILY 06/24/19 06/24/19 History Lurasidone HCl [Latuda] 120 mg PO HS 06/24/19 06/24/19 History QUEtiapine FUMARATE [SEROquel] 600 mg PO HS 06/24/19 06/24/19 History clonazePAM [KlonoPIN] 0.5 mg PO TID 06/24/19 06/24/19 History rOPINIRole HCL [Requip] 1 mg PO HS 06/24/19 06/24/19 History Allergies Allergy/AdvReac Type Severity Reaction Status Date / Time cefaclor [From [facility]] Allergy Unknown Verified 06/24/19 13:01 Childhood Penicillins Allergy Unknown Verified 06/24/19 13:01 Childhood pineapple Allergy Rash/Hives Verified 06/24/19 13:01 Physical Exam Vitals: Vital Signs Temp Pulse Pulse Resp BP Pulse Ox 06/26/19 13:14 105 H 06/26/19 13:03 108 H 06/26/19 12:05 91 L 06/26/19 12:00 99/63 82 L 06/26/19 11:55 99.3 F 133 H 20 101/66 67 L 06/26/19 08:00 130 H 06/26/19 05:57 124 H 06/26/19 05:47 126 H 06/26/19 05:00 98.0 F 135 H 18 118/72 93 L 06/26/19 00:05 126 H 18 06/25/19 19:57 98.1 F 124 H 18 115/83 94 L 06/25/19 15:20 80 Intake and Output 06/26/19 06/26/19 06/26/19 06:59 14:59 22:59 Intake Total 1240 Balance 1240 Intake: Intake, IV Titration 1120 Amount Sodium Chloride 0.9% 1, 1020 000 ml @ 140 mls/hr IV . Q7H9M [facility] Rx#:[id number] metroNIDAZOLE-NS PMX 500 100 mg In Saline 1 100ml.bag @ 100 mls/hr IVPB Q8HR [facility] Rx#:[id number] Oral 120 Other: # Voids 2 GENERAL EXAM: Alert, pleasant, 39-year-old white female, on 100% nonrebreather, in a mild respiratory distress, comfortable in no apparent distress. HEAD: Normocephalic/atraumatic. EYES: Normal reaction of pupils, equal size. Conjunctiva pink, sclera white. NOSE: Clear with pink turbinates. THROAT: No erythema or exudates. NECK: No masses, no JVD, no thyroid enlargement, no adenopathy. CHEST: No chest wall deformity. Symmetrical expansion. LUNGS: Equal air entry with diffuse wheezes, and rhonchi CVS: Regular rate and rhythm, normal S1 and S2, no gallops, no murmurs, no rubs ABDOMEN: Soft, nontender. No hepatosplenomegaly, normal bowel sounds, no guarding or rigidity. EXTREMITIES: No clubbing, no edema, no cyanosis, 2+ pulses and upper and lower extremities. MUSCULOSKELETAL: Muscle strength and tone normal. SPINE: No scoliosis or deformity SKIN: No rashes CENTRAL NERVOUS SYSTEM: Alert and oriented -3. No focal deficits, tone is normal in all 4 extremities. PSYCHIATRIC: Alert and oriented -3. Appropriate affect. Intact judgment and insight. Results - Laboratory Findings CBC and BMP: 06/26/19 08:15 06/26/19 08:15 ABG ABG pH 7.34 (7.35-7.45) L 06/26/19 12:20 ABG pCO2 46 mmHg (35-45) H 06/26/19 12:20 ABG pO2 72 mmHg (83-108) L 06/26/19 12:20 ABG O2 Saturation 94.8 % (94-97) 06/26/19 12:20 PT/INR, D-dimer PT 11.5 sec (9.0-12.0) 06/26/19 08:15 INR 1.1 (<1.2) 06/26/19 08:15 Abnormal lab findings: Abnormal Labs 06/24/19 06/24/19 06/24/19 13:00 13:00 13:00 RBC Plt Count 141 L Neutrophils # 9.2 H Lymphocytes # 0.6 L ABG pH ABG pCO2 ABG pO2 ABG Total CO2 Sodium 135 L Carbon Dioxide BUN 21 H Glucose 119 H POC Glucose (mg/dL) Plasma Lactic Acid Catr[place] 4.4 H* Calcium 8.1 L Ionized Calcium Rinku AST 95 H Alkaline Phosphatase 164 H Total Protein Albumin Triglycerides Amylase Lipase 2009 H Ur Specific [place] Urine Ketones Urine Blood Urine RBC Urine Bacteria Urine Mucus Urine Opiates Screen U Tricyclic Antidepress 06/24/19 06/24/19 06/24/19 14:30 17:03 20:50 RBC Plt Count Neutrophils # Lymphocytes # ABG pH ABG pCO2 ABG pO2 ABG Total CO2 Sodium Carbon Dioxide BUN Glucose POC Glucose (mg/dL) Plasma Lactic Acid [place] 2.8 H* 2.7 H* Calcium Ionized Calcium Rinku AST Alkaline Phosphatase Total Protein Albumin Triglycerides Amylase Lipase Ur Specific [place] >1.050 H Urine Ketones Trace H Urine Blood Moderate H Urine RBC 64 H Urine Bacteria Moderate H Urine Mucus Rare H Urine Opiates Screen Detected H U Tricyclic Antidepress Detected H 06/25/19 06/25/19 06/25/19 00:58 05:34 05:34 RBC Plt Count 110 L Neutrophils # 8.8 H Lymphocytes # ABG pH ABG pCO2 ABG pO2 ABG Total CO2 Sodium 134 L Carbon Dioxide 20 L BUN Glucose 105 H POC Glucose (mg/dL) Plasma Lactic Acid Catr[place] 2.2 H* Calcium 6.2 L* Ionized Calcium Rinku AST 85 H Alkaline Phosphatase Total Protein 5.1 L Albumin 2.9 L Triglycerides Amylase Lipase 2324 H Ur Specific [place] Urine Ketones Urine Blood Urine RBC Urine Bacteria Urine Mucus Urine Opiates Screen U Tricyclic Antidepress 06/25/19 06/25/19 06/25/19 05:34 05:34 09:01 RBC Plt Count Neutrophils # Lymphocytes # ABG pH ABG pCO2 ABG pO2 ABG Total CO2 Sodium Carbon Dioxide BUN Glucose POC Glucose (mg/dL) Plasma Lactic Acid [place] 2.2 H* Calcium Ionized Calcium Rinku 3.7 L AST Alkaline Phosphatase Total Protein Albumin Triglycerides 280 H Amylase Lipase Ur Specific [place] Urine Ketones Urine Blood Urine RBC Urine Bacteria Urine Mucus Urine Opiates Screen U Tricyclic Antidepress 06/26/19 06/26/19 06/26/19 08:15 08:15 12:06 RBC 3.59 L Plt Count 100 L Neutrophils # 8.7 H Lymphocytes # ABG pH ABG pCO2 ABG pO2 ABG Total CO2 Sodium 132 L Carbon Dioxide BUN Glucose 102 H POC Glucose (mg/dL) 102 H Plasma Lactic Acid Catr[place] Calcium 6.0 L* Ionized Calcium Rinku AST 44 H Alkaline Phosphatase Total Protein 4.6 L Albumin 2.5 L Triglycerides Amylase 200 H Lipase 940 H Ur Specific [place] Urine Ketones Urine Blood Urine RBC Urine Bacteria Urine Mucus Urine Opiates Screen U Tricyclic Antidepress 06/26/19 06/26/19 12:20 12:43 RBC Plt Count Neutrophils # Lymphocytes # ABG pH 7.34 L ABG pCO2 46 H ABG pO2 72 L ABG Total CO2 26 H Sodium Carbon Dioxide BUN Glucose POC Glucose (mg/dL) 100 H Plasma Lactic Acid [place] Calcium Ionized Calcium Rinku AST Alkaline Phosphatase Total Protein Albumin Triglycerides Amylase Lipase Ur Specific [place] Urine Ketones Urine Blood Urine RBC Urine Bacteria Urine Mucus Urine Opiates Screen U Tricyclic Antidepress - Diagnostic Findings Chest x-ray: report reviewed, image reviewed Assessment and Plan Plan: Assessment: #1. Acute hypoxemic respiratory failure, related to possibility of fluid overload, chest x-ray showed central vascular congestion, interstitial edema. There is also component of acute COPD exacerbation #2. Acute gallstone pancreatitis, and cholecystitis #3. Acute exacerbation of COPD #4. History of chronic bronchial asthma, unspecified #5. History of hypertension #6. History of hypothyroidism #7. Chronic migraines #8. history of pneumonia #9. Bipolar disorder #10. Anxiety #11. Current every day smoker Plan: Patient has been transferred to the intensive care unit, will be maintained on high flow oxygen, BiPAP support as needed, no significant ventilation abnormality evident on the blood gas at this time, no need for BiPAP right now. We'll give the patient on dose of IV Lasix, and contact IV fluids down to 50 ML per hour, echocardiogram has been ordered and is pending at this time, proBNP came back within normal limits, chest x-ray has been reviewed showing central vessel congestion and interstitial edema. We will start the patient on IV steroids, nebulized bronchodilators, Pulmicort and Perforomist. Patient will remain in the intensive care unit, surgeries following, liver enzymes are down trending, lipase is improving. We'll continue to follow I performed a history & physical examination of the patient and discussed their management with my nurse practitioner, Rohini Vanessa. I reviewed the nurse practitioner's note and agree with the documented findings and plan of care. Lung sounds are positive for diffuse wheezes throughout the lung kelly. The findings and the impression was discussed with the patient. I attest to the documentation by the nurse practitioner. Time with Patient: Greater than 30
[2019-06-26] MEDS: methylPREDNISolone SOD SUCCI 125 MG/2 ML VIAL IV SCH (16:43)
--- NOTE | 2019-06-26 17:00 | ECHOF ---
Referral Reason:hypoxemic respiratory failure MEASUREMENTS -------- HEIGHT: 172.7 cm WEIGHT: 102.1 kg BP: RVIDd: 2.7 cm (< 3.3) IVSd: 1.3 cm (0.6 - 1.1) LVIDd: 3.9 cm (3.9 - 5.3) LVPWd: 1.3 cm (0.6 - 1.1) IVSs: 1.4 cm LVIDs: 2.8 cm LVPWs: 1.6 cm LA Diam: 3.2 cm (2.7 - 3.8) Ao Diam: 3.2 cm (2.0 - 3.7) AV Cusp: 2.2 cm (1.5 - 2.6) LA Diam: 3.4 cm (2.7 - 3.8) MV EXCURSION: 14.642 mm (> 18.000) MV EF SLOPE: 68 mm/s (70 - 150) EPSS: 0.5 cm MV E Jarad: 1.01 m/s MV DecT: 156 ms MV A Jarad: 0.88 m/s MV E/A Ratio: 1.14 RAP: 5.00 mmHg RVSP: 15.61 mmHg FINDINGS -------- Sinus rhythm. This was a technically adequate study. The left ventricular size is normal. There is mild concentric left ventricular hypertrophy. Overa ll left ventricular systolic function is low-normal with, an EF between 50 - 55 %. The right ventricle is normal in size. The left atrial size is normal. The right atrial size is normal. There is mild aortic valve sclerosis. There is no evidence of aortic regurgitation. Mild mitral annular calcification present. Mild mitral regurgitation is present. Mild tricuspid regurgitation present. There is no evidence of pulmonary hypertension. The right v entricular systolic pressure, as measured by Doppler, is 15.61mmHg. There is no pulmonic regurgitation present. The aortic root size is normal. There is no pericardial effusion. CONCLUSIONS -------- 1. Sinus rhythm. 2. This was a technically adequate study. 3. The left ventricular size is normal. 4. There is mild concentric left ventricular hypertrophy. 5. Overall left ventricular systolic function is low-normal with, an EF between 50 - 55 %. 6. The right ventricle is normal in size. 7. The left atrial size is normal. 8. The right atrial size is normal. 9. There is mild aortic valve sclerosis. 10. Mild mitral annular calcification present. 11. Mild mitral regurgitation is present. 12. Mild tricuspid regurgitation present. 13. There is no evidence of pulmonary hypertension. 14. The right ventricular systolic pressure, as measured by Doppler, is 15.61mmHg. 15. There is no pulmonic regurgitation present. 16. The aortic root size is normal. 17. There is no pericardial effusion. CITY SURVEYOR: Maria Ahn RDCS
[2019-06-26] MEDS: BUDESONIDE 1 MG/2 ML NEBU INHALATION SCH (20:23)
[2019-06-26] MEDS: FORMOTEROL FUMARATE 20 MCG/2 ML NEBU INHALATION SCH (20:23)
[2019-06-26] MEDS: QUEtiapine 200 MG TAB PO SCH (21:32)
[2019-06-26] MEDS: LURASIDONE 40 MG TAB PO SCH (21:33)
--- NOTE | 2019-06-26 22:31 | P.PN ---
Subjective Progress Note Date: 06/26/19 Principal diagnosis: Abdominal pain, acute uncomplicated pancreatitis Patient seen lying in the bed after transfer from the medical floor to the ICU for respiratory distress, felt secondary to fluid overload. Continues to report some abdominal pain. Reports one bowel movement since admission. However passing flatus at this time. Still reporting diffuse abdominal pain. Objective - Vital Signs Vital signs: Vital Signs Temp 98.7 F 06/26/19 13:00 Pulse 104 H 06/26/19 15:00 Resp 16 06/26/19 15:00 BP 113/73 06/26/19 15:00 Pulse Ox 92 L 06/26/19 15:00 Intake & Output 06/25/19 06/26/19 06/26/19 18:59 06:59 18:59 Intake Total 1120 1860 75 Output Total 1500 Balance 1120 1860 -1425 Intake: IV 75 Sodium Chloride 0.9% 1, 75 000 ml @ 25 mls/hr IV . Q24H [facility] Rx#:[id number] Intake, IV Titration 1120 1740 Amount Sodium Chloride 0.9% 1, 1120 1540 000 ml @ 25 mls/hr IV . Q24H [facility] Rx#:[id number] metroNIDAZOLE-NS PMX 500 200 mg In Saline 1 100ml.bag @ 100 mls/hr IVPB Q8HR [facility] Rx#:[id number] Oral 120 Output: Urine 1500 Other: # Voids 4 2 - Exam On physical examination, patient appears comfortable in no apparent distress. HEAD: Normocephalic, atraumatic. EYES: No scleral icterus. No conjunctival injection. MOUTH: No lesions, tongue midline. NECK: Trachea midline, no gross abnormalities. CHEST: Decreased air entry bilaterally, with some expiratory wheezing heard bilaterally. HEART: Regular rate and rhythm. ABDOMEN: Soft, obese. Bowel sounds are positive. No organomegaly. No guarding or rigidity, but tender. EXTREMITIES: No pedal edema. SKIN: No rashes, no jaundice. NEUROLOGIC: Alert and oriented x3. No focal deficits. - Labs CBC & Chem 7: 06/26/19 08:15 06/26/19 08:15 Labs: Abnormal Lab Results - Last 24 Hours (Table) 06/26/19 06/26/19 06/26/19 Range/Units 08:15 08:15 12:06 RBC 3.59 L (3.80-5.40) m/uL Plt Count 100 L (150-450) k/uL Neutrophils # 8.7 H (1.3-7.7) k/uL ABG pH (7.35-7.45) ABG pCO2 (35-45) mmHg ABG pO2 (83-108) mmHg ABG Total CO2 (19-24) mmol/L Sodium 132 L (137-145) mmol/L Glucose 102 H (74-99) mg/dL POC Glucose (mg/dL) 102 H (75-99) mg/dL Calcium 6.0 L* (8.4-10.2) mg/dL AST 44 H (14-36) U/L Total Protein 4.6 L (6.3-8.2) g/dL Albumin 2.5 L (3.5-5.0) g/dL Amylase 200 H (30-110) U/L Lipase 940 H (23-300) U/L 06/26/19 06/26/19 Range/Units 12:20 12:43 RBC (3.80-5.40) m/uL Plt Count (150-450) k/uL Neutrophils # (1.3-7.7) k/uL ABG pH 7.34 L (7.35-7.45) ABG pCO2 46 H (35-45) mmHg ABG pO2 72 L (83-108) mmHg ABG Total CO2 26 H (19-24) mmol/L Sodium (137-145) mmol/L Glucose (74-99) mg/dL POC Glucose (mg/dL) 100 H (75-99) mg/dL Calcium (8.4-10.2) mg/dL AST (14-36) U/L Total Protein (6.3-8.2) g/dL Albumin (3.5-5.0) g/dL Amylase (30-110) U/L Lipase (23-300) U/L Microbiology - Last 24 Hours (Table) 06/24/19 15:14 Blood Culture - Preliminary Blood No Growth after 24 hours Assessment and Plan (1) Acute pancreatitis Narrative/Plan: 39-year-old female who was admitted with abdominal pain and findings of acute pancreatitis after recent binge alcohol drinking. Imaging reported a dilated CBD of 1 cm, with findings of cholelithiasis. Suspicion is for acute biliary pancreatitis, however EtOH induced pancreatitis cannot be excluded. Patient transferred to the ICU due to respiratory distress likely secondary to fluid hydration. Current Visit: Yes Status: Acute Code(s): K85.90 - ACUTE PANCREATITIS WI THOUT NECROSIS OR INFECTION, UNSP SNOMED Code(s): 543545605 (2) Cholelithiases Current Visit: Yes Status: Acute Code(s): K80.20 - CALCULUS OF GALLBLADDER W/O CHOLECYSTITIS W/O OBSTRUCTION SNOMED Code(s): 497027330 Plan: Supportive care Appreciate recommendations from general surgery and channel layer service Nothing by mouth for now, okay for ice chips Continue to monitor CBC, CMP and clinically Alcohol abstinence Continue pain control Encourage ambulation Thank you for allowing us to participate
[2019-06-27] MEDS: metroNIDAZOLE-NS PMX 500 MG in SALINE 1 100ML.BAG IVPB SCH ×5 (00:19→23:30)
[2019-06-27] MEDS: methylPREDNISolone SOD SUCCI 125 MG/2 ML VIAL IV SCH ×4 (00:20→23:29)
[2019-06-27] MEDS: HYDROmorphone 1 MG/ML 1 ML SYRINGE IVP PRN ×6 (00:28→23:31)
[2019-06-27 01:36] LABS: Allen Test Performed? Yes
[2019-06-27 01:41] LABS: ABG Base Excess 5.5 mmol/L; ABG HCO3 31 mmol/L (21-25); ABG Oxygen Saturation 89.9 % (94-97); ABG PCO2 53 mmHg (35-45); ABG PH 7.37 (7.35-7.45); ABG TCO2 32 mmol/L (19-24)
[2019-06-27 01:42] LABS: ABG PO2 55 mmHg (83-108)
--- NOTE | 2019-06-27 01:49 | XR ---
EXAM: XR Chest, 1 View CLINICAL HISTORY: decreased O2 saturation TECHNIQUE: Frontal view of the chest. COMPARISON: 06/26/2019 1207 FINDINGS: Lungs: Hypoventilatory lungs. Persistent bilateral interstitial alveolar opacities. Pleural space: Probable small bilateral pleural effusions. No pneumothorax. Heart: Stable cardiomediastinal silhouette. Mediastinum: See above. Bones/joints: No acute osseous abnormality. IMPRESSION: Query small bilateral pleural effusions. Persistent nonspecific bilateral alveolar and interstitial opacities.
[2019-06-27] MEDS ORDERED: LORazepam 2 MG/ML INJ IV PRN (03:47)
[2019-06-27] MEDS: IPRATROPIUM-ALBUTEROL 3 ML NEB INHALATION SCH ×6 (04:42→23:17)
[2019-06-27] MEDS: LORazepam 2 MG/ML INJ IV PRN ×3 (06:18→23:32)
[2019-06-27] MEDS: FORMOTEROL FUMARATE 20 MCG/2 ML NEBU INHALATION SCH ×2 (07:38→20:08)
[2019-06-27] MEDS: BUDESONIDE 1 MG/2 ML NEBU INHALATION SCH ×2 (07:38→20:08)
[2019-06-27 08:28] LABS: Anisocytosis Slight; Basophils % (A) 0 %; Eosinophils % (A) 0 %; HCT 31.4 % (34.0-46.0); HGB 10.5 gm/dL (11.4-16.0); Lymphocytes # (A) 0.5 k/uL (1.0-4.8); Lymphocytes % (A) 5 %; MCH 33.2 pg (25.0-35.0); MCHC 33.6 g/dL (31.0-37.0); MCV 98.7 fL (80.0-100.0); Macrocytosis Slight; Mean Platelet Volume 8.6; Monocytes # (A) 0.3 k/uL (0-1.0); Monocytes % (A) 3 %; Neutrophils # (A) 8.6 k/uL (1.3-7.7); Neutrophils % (A) 91 %; Platelet Count 120 k/uL (150-450); RBC 3.18 m/uL (3.80-5.40); RDW 17.5 % (11.5-15.5); WBC 9.5 k/uL (3.8-10.6)
[2019-06-27 08:44] LABS: ALT 32 U/L (9-52); AST 39 U/L (14-36); African American GFR (CKD) >90 (>60 ml/min/1.73 sqM); Albumin 2.5 g/dL (3.5-5.0); Alkaline Phosphatase 84 U/L (38-126); Anion Gap 9 mmol/L; Blood Urea Nitrogen 10 mg/dL (7-17); Calcium 6.6 mg/dL (8.4-10.2); Carbon Dioxide 31 mmol/L (22-30); Chloride 96 mmol/L (98-107); Glucose 108 mg/dL (74-99); Magnesium 1.4 mg/dL (1.6-2.3); Phosphorus 1.9 mg/dL (2.5-4.5); Potassium 3.5 mmol/L (3.5-5.1); Sodium 136 mmol/L (137-145); Total Bilirubin 0.6 mg/dL (0.2-1.3); Total Protein 4.8 g/dL (6.3-8.2)
[2019-06-27] MEDS: CARVEDILOL 6.25 MG TAB PO SCH ×2 (08:49→17:38)
[2019-06-27] MEDS: clonazePAM 0.5 MG TAB PO SCH ×3 (08:49→20:26)
[2019-06-27] MEDS: FUROSEMIDE 10 MG/ML 4 ML VIAL IV SCH (08:53)
[2019-06-27] MEDS: NICOTINE 21MG/24HR PATCH TRANSDERM SCH (08:53)
[2019-06-27] MEDS: PANTOPRAZOLE 40 MG/10 ML VIAL IVP SCH (08:53)
--- NOTE | 2019-06-27 09:27 | XR ---
EXAMINATION TYPE: XR chest 1V portable DATE OF EXAM: 06/27/2019 COMPARISON: 06/27/2019 earlier exam INDICATION: Decreasing O2 sat TECHNIQUE: Single frontal view of the chest is obtained. FINDINGS: The heart size is normal. The pulmonary vasculature is slightly prominent, diminished from earlier exam. There is bibasilar infiltrates. This is diminished from comparison. Pulmonary edema should be conside red. Resolving atelectasis could be considered. IMPRESSION: 1. Improving bibasilar basilar infiltrates. Correlate for atelectasis versus atypical pulmonary edema . Continued follow-up is recommended.
[2019-06-27] MEDS ORDERED: Potassium Replacement Protocol 1 EACH MISC MISCELLANE PRN (10:28)
[2019-06-27] MEDS ORDERED: Phosphorus Replacement Protoco 1 EACH MISC MISCELLANE PRN (10:28)
[2019-06-27] MEDS ORDERED: Magnesium Replacement Protocol 1 EACH MISC MISCELLANE PRN (10:28)
[2019-06-27] MEDS ORDERED: CALCIUM GLUCONATE 2 GM in SODIUM CHLORIDE 0.9% 100 ML IVPB ONE (10:30)
[2019-06-27] MEDS ORDERED: POTASSIUM PHOSPHATE 10 MMOL in SODIUM CHLORIDE 0.9% 250 ML IV ONE (11:30)
[2019-06-27] MEDS ORDERED: POTASSIUM PHOSPHATE 10 MMOL in SODIUM CHLORIDE 0.9% 250 ML IV SCH (11:30)
[2019-06-27] MEDS: MAGNESIUM SULFATE-D5W PMX 1 GM in DEXTROSE/WATER 1 100ML.BAG IVPB SCH ×3 (11:50→14:44)
[2019-06-27] MEDS: POTASSIUM CHLORIDE ER 20 MEQ TAB.ER PO SCH ×2 (11:51→15:07)
[2019-06-27 12:18] LABS: Glucose,Whole Blood 125 mg/dL (75-99)
--- NOTE | 2019-06-27 12:24 | P.PN ---
Subjective Progress Note Date: 06/27/19 Principal diagnosis: Acute hypoxic respiratory failure secondary to noncardiogenic pulmonary edema/ARDS. A 39-year-old daughter white female patient who was admitted on 06/24/2019 with the chief complaint of epigastric pain radiating to her back associated with nausea, and vomiting for 3 days prior to presentation. She denied any fever or chills, denied any chest pain, she recently him back from [place] where she had been drinking for a few days, no prior history of pancreatitis in the past, in the emergency department patient was found to have elevated lipase, and evidence of pancreatitis and cholecystitis on the CAT scan, which showed a retroperitoneal fluid and fat stranding around the pancreas consistent with pancreatitis, and mildly dilated gallbladder suggestive of cholecystitis in addition there was a fatty infiltration of the liver. Lamont of the abdomen laura wed tiny gallstones, common bile duct showed a 1 cm with no dilation of intrahepatic bile ducts. Patient was being treated conservatively, by mouth except for ice and popsicles, IV fluids, antibiotics, surgical consultation was obtained, and surgery was considering surgical intervention once the pa ncreatitis has resolved. This morning patient was noted to be hypoxemic, pulse ox of 67% on room air, yesterday patient was not requiring any supplemental oxygen, and was maintaining O2 saturations at or above 93%. Patient complaining of increasing dyspnea, and tachycardic, started having a headache and a low- grade fever. She was placed on the 100% nonrebreather, stat blood gas was obtained, showing pO2 of 72, pCO2 46, pH of 7.34, this was done on FiO2 of 100%, and is consistent with mild hypercapnic respiratory failure, and acute hypoxemic respiratory failure. Chest x-ray was completed showing low lung volumes with the new [id number] central vascular congestion and interstitial edema. In addition patient was bronchospastic, and she does have a history of asthma, and she states she was previously treated with Zithromax and prednisone in the recent past for asthma exacerbation and tracheobronchitis. BiPAP support was considered, however patient's condition started to improve, she was started on nebulized bronchodilators, a dose of IV Lasix was given. She was refusing IV s teroids at first, but in view of her wheezing and chest congestion we will start her on IV steroids. Blood cultures and lactic acid have been sent. Patient denied any chest pain, did have some epigastric discomfort, which and ongoing since admission, and abdominal discomfort across the lower quadrants, abdomen is soft, nontender. Labs today have been reviewed, showing white blood cell count of 10.2, hemoglobin of 11.9, coagulation profile was within normal limits, sodium was 132, the rest of electrolytes and renal profile were unremarkable, repeat lactic acid came back normal at 0.9, proBNP was normal at 194, her enzymes are trending down, lipase is down to 940, down from 2324 on yesterday's labs. Reevaluated today on 06/27/2019, patient remains on high flow FiO2/high flow nasal cannula, last night she became worse, and she required placement on BiPAP most of the night. The issue of intubation and mechanical ventilation was discussed with the patient last night, patient refused to be intubated. And did relatively well on BiPAP overnight and she kept it until early this morning. Today she was switched to a high flow nasal cannula, O2 saturation remains very marginal. Barely 90% on high flow nasal cannula. Chest x-ray continues to show bilateral interstitial edema, more likely consistent with ARDS secondary to acute pancreatitis. Although the possibility of cardiogenic pulmonary edema is not entirely ruled out, but felt to be less likely considering the patient had a relatively normal echocardiogram, and not much improvement in spite of diuretics. CBC is relatively normal today, WBC count 9.5 hemoglobin is 10.5. Electrolytes are normal. ABG last night showed a pO2 of 55 pCO2 of 5:30 pH of 7.37, and this was on 80% FiO2. Her BNP level was normal. And echocardiogram did not reveal any LV dysfunction. Objective - Vital Signs Vital signs: Vital Signs Temp 98.3 F 06/27/19 08:00 Pulse 104 H 06/27/19 10:00 Resp 10 L 06/27/19 10:00 BP 108/89 06/27/19 10:00 Pulse Ox 90 L 06/27/19 10:00 Intake & Output 06/26/19 06/27/19 06/27/19 18:59 06:59 18:59 Intake Total 250 400 300 Output Total 2100 2400 1650 Balance -1850 -2000 -1350 Weight 106.3 kg Intake: IV 150 300 100 Sodium Chloride 0.9% 1, 150 300 100 000 ml @ 25 mls/hr IV . Q24H [facility] Rx#:[id number] Intake, IV Titration 100 100 200 Amount cefTRIAXone 1 gm In 100 Sodium Chloride 0.9% 50 ml @ 100 mls/hr IVPB Q24HR [facility] Rx#:[id number] metroNIDAZOLE-NS PMX 500 100 100 100 mg In Saline 1 100ml.bag @ 100 mls/hr IVPB Q8HR [facility] Rx#:[id number] Output: Urine 2100 2400 1650 Other: Voiding Method Bedside Commode Bedside Commode - Exam GENERAL EXAM: Alert, pleasant, 39-year-old white female, high flow nasal cannula, O2 saturation is 90%, feels comfortable, not in distress. HEAD: Normocephalic/atraumatic. EYES: Normal reaction of pupils, equal size. Conjunctiva pink, sclera white. NOSE: Clear with pink turbinates. THROAT: No erythema or exudates. NECK: No masses, no JVD, no thyroid enlargement, no adenopathy. CHEST: No chest wall deformity. Symmetrical expansion. LUNGS: Minimal crackles bilaterally, some wheezing on forced expiratory maneuver. CVS: Regular rate and rhythm, normal S1 and S2, no gallops, no murmurs, no rubs ABDOMEN: Soft, nontender. No hepatosplenomegaly, normal bowel sounds, no guarding or rigidity. EXTREMITIES: No clubbing, no edema, no cyanosis, 2+ pulses and upper and lower extremities. MUSCULOSKELETAL: Muscle strength and tone normal. SPINE: No scoliosis or deformity SKIN: No rashes CENTRAL NERVOUS SYSTEM: Slightly anxious, alert oriented 3. PSYCHIATRIC: Anxious, intact mental status, blunt affect - Labs CBC & Chem 7: 06/27/19 07:53 06/27/19 07:53 Labs: Abnormal Lab Results - Last 24 Hours (Table) 06/26/19 06/26/19 06/27/19 Range/Units 12:20 12:43 01:34 RBC (3.80-5.40) m/uL Hgb (11.4-16.0) gm/dL Hct (34.0-46.0) % RDW (11.5-15.5) % Plt Count (150-450) k/uL Neutrophils # (1.3-7.7) k/uL Lymphocytes # (1.0-4.8) k/uL ABG pH 7.34 L (7.35-7.45) ABG pCO2 46 H 53 H (35-45) mmHg ABG pO2 72 L 55 L* (83-108) mmHg ABG HCO3 31 H (21-25) mmol/L ABG Total CO2 26 H 32 H (19-24) mmol/L ABG O2 Saturation 89.9 L (94-97) % Sodium (137-145) mmol/L Chloride (98-107) mmol/L Carbon Dioxide (22-30) mmol/L Glucose (74-99) mg/dL POC Glucose (mg/dL) 100 H (75-99) mg/dL Calcium (8.4-10.2) mg/dL Ionized Calcium Rinku (4.5-5.3) mg/dL Phosphorus (2.5-4.5) mg/dL Magnesium (1.6-2.3) mg/dL AST (14-36) U/L Total Protein (6.3-8.2) g/dL Albumin (3.5-5.0) g/dL Lipase (23-300) U/L 06/27/19 06/27/19 Range/Units 07:53 07:53 RBC 3.18 L (3.80-5.40) m/uL Hgb 10.5 L (11.4-16.0) gm/dL Hct 31.4 L (34.0-46.0) % RDW 17.5 H (11.5-15.5) % Plt Count 120 L (150-450) k/uL Neutrophils # 8.6 H (1.3-7.7) k/uL Lymphocytes # 0.5 L (1.0-4.8) k/uL ABG pH (7.35-7.45) ABG pCO2 (35-45) mmHg ABG pO2 (83-108) mmHg ABG HCO3 (21-25) mmol/L ABG Total CO2 (19-24) mmol/L ABG O2 Saturation (94-97) % Sodium 136 L (137-145) mmol/L Chloride 96 L (98-107) mmol/L Carbon Dioxide 31 H (22-30) mmol/L Glucose 108 H (74-99) mg/dL POC Glucose (mg/dL) (75-99) mg/dL Calcium 6.6 L (8.4-10.2) mg/dL Ionized Calcium Rinku 4.0 L (4.5-5.3) mg/dL Phosphorus 1.9 L (2.5-4.5) mg/dL Magnesium 1.4 L (1.6-2.3) mg/dL AST 39 H (14-36) U/L Total Protein 4.8 L (6.3-8.2) g/dL Albumin 2.5 L (3.5-5.0) g/dL Lipase 431 H (23-300) U/L Microbiology - Last 24 Hours (Table) 06/24/19 15:14 Blood Culture - Preliminary Blood No Growth after 48 hours Assessment and Plan Assessment: #1. Acute hypoxemic respiratory failure, secondary to noncardiogenic pulmonary edema/ARDS, secondary to acute pancreatitis. #2. Acute gallstone pancreatitis, and cholecystitis #3. Acute exacerbation of COPD, possible asthma, however the patient has been a smoker, and she may have a combination of COPD and bronchial asthma. #4. History of chronic moderate severe bronchial asthma, #5. History of hypertension #6. History of hypothyroidism #7. Chronic migraines #8. history of pneumonia #9. Bipolar disorder #10. Anxiety #11. Current every day smoker #12 suspect ARDS secondary to acute pancreatitis. Recommendation: Continue to monitor the patient in the ICU. Continue high flow O2, intermittently place the patient on BiPAP depending on her overall clinical status, continue steroids, antibiotics, bronchodilators, GI and DVT prophylaxis, keep the patient nothing by mouth except for water, continue to monitor pancreatic enzymes, lipase today is 431, no malaise was done today. Patient was made aware of how serious her condition is, she doesn't seem to comprehend that she has a potential serious problem, and she may actually eventually and up requiring intubation and mechanical ventilation. Explained to her about her condition, and I explained to her that she needs to remain in the ICU, and we'll continue to follow. Time with Patient: Less than 30
[2019-06-27 12:42] LABS: Appearance,Urine Clear (Clear); Bilirubin,Urine Negative (Negative); Blood,Urine Negative (Negative); Color,Urine Light Yellow; Glucose,Urine (UA) Negative (Negative); Ketones,Urine 1+ (Negative); Leukocyte Esterase,Urine Negative (Negative); Nitrite,Urine Negative (Negative); Protein,Urine Negative (Negative); Specific Gravity,Urine 1.007 (1.001-1.035); Urobilinogen,Urine <2.0 mg/dL (<2.0)
[2019-06-27] MEDS ORDERED: SODIUM PHOSPHATE 10 MMOL in SODIUM CHLORIDE 0.9% 250 ML IVPB ONE (13:30)
--- NOTE | 2019-06-27 14:28 | P.PN ---
Subjective Progress Note Date: 06/27/19 Principal diagnosis: Abdominal pain Patient doing well. Currently off BiPAP on high flow nasal cannula, satting in the low 90s when I saw her. Denied shortness of breath or chest pain. She is feeling hungry and asking to eat. Objective - Vital Signs Vital signs: Vital Signs Temp 98.3 F 06/27/19 08:00 Pulse 105 H 06/27/19 13:28 Resp 10 L 06/27/19 10:00 BP 108/89 06/27/19 10:00 Pulse Ox 90 L 06/27/19 10:00 Intake & Output 06/26/19 06/27/19 06/27/19 18:59 06:59 18:59 Intake Total 250 400 300 Output Total 2100 2400 1650 Balance -1850 -1999 -1350 Weight 106.3 kg Intake: IV 150 300 100 Sodium Chloride 0.9% 1, 150 300 100 000 ml @ 25 mls/hr IV . Q24H [facility] Rx#:[id number] Intake, IV Titration 100 100 200 Amount cefTRIAXone 1 gm In 100 Sodium Chloride 0.9% 50 ml @ 100 mls/hr IVPB Q24HR [facility] Rx#:[id number] metroNIDAZOLE-NS PMX 500 100 100 100 mg In Saline 1 100ml.bag @ 100 mls/hr IVPB Q8HR [facility] Rx#:[id number] Output: Urine 2100 2400 1650 Other: Voiding Method Bedside Commode Bedside Commode - Exam Constitutional: No acute distress, conversant, pleasant Eyes:Anicteric sclerae, moist conjunctiva, no lid-lag, PERRLA, ENMT: Oropharynx clear, no erythema, exudates Neck: Supple, FROM, no masses, or JVD, No carotid bruits, No thyromegaly Lungs: Clear to auscultation, Clear to percussion, Normal respiratory effort, no accessory muscle use Cardiovascular: Tachycardic, regular, No murmurs, gallops, or rubs, No perip heral edema Abdominal: Soft, severely tender, no guarding, rebound or rigidity, Normoactive bowel sounds, No hepatomegaly, No splenomegaly, No palpable mass Skin: Normal temperature, tone, texture, turgor, no induration, No subcutaneous nodules, No rash, lesions, No ulcers Extremities: No digital cyanosis, No clubbing, Pedal pulses intact and symmetrical, Radial pulses intact and symmetrical, No calf tenderness Psychiatric: Alert and oriented to person, place and time, appropriate affect, intact judgement Neuro: Muscles Strength 5/5 in all 4 extremities, Sensation to light touch grossly present throughout, Cranial nerves II-XII grossly intact, no focal sensory deficits - Labs CBC & Chem 7: 06/27/19 07:53 06/27/19 07:53 Labs: Abnormal Lab Results - Last 24 Hours (Table) 06/27/19 06/27/19 06/27/19 Range/Units 01:34 07:53 07:53 RBC 3.18 L (3.80-5.40) m/uL Hgb 10.5 L (11.4-16.0) gm/dL Hct 31.4 L (34.0-46.0) % RDW 17.5 H (11.5-15.5) % Plt Count 120 L (150-450) k/uL Neutrophils # 8.6 H (1.3-7.7) k/uL Lymphocytes # 0.5 L (1.0-4.8) k/uL ABG pCO2 53 H (35-45) mmHg ABG pO2 55 L* (83-108) mmHg ABG HCO3 31 H (21-25) mmol/L ABG Total CO2 32 H (19-24) mmol/L ABG O2 Saturation 89.9 L (94-97) % Sodium 136 L (137-145) mmol/L Chloride 96 L (98-107) mmol/L Carbon Dioxide 31 H (22-30) mmol/L Glucose 108 H (74-99) mg/dL POC Glucose (mg/dL) (75-99) mg/dL Calcium 6.6 L (8.4-10.2) mg/dL Ionized Calcium Rinku 4.0 L (4.5-5.3) mg/dL Phosphorus 1.9 L (2.5-4.5) mg/dL Magnesium 1.4 L (1.6-2.3) mg/dL AST 39 H (14-36) U/L Total Protein 4.8 L (6.3-8.2) g/dL Albumin 2.5 L (3.5-5.0) g/dL Lipase 431 H (23-300) U/L Urine Ketones (Negative) 06/27/19 06/27/19 Range/Units 11:55 12:15 RBC (3.80-5.40) m/uL Hgb (11.4-16.0) gm/dL Hct (34.0-46.0) % RDW (11.5-15.5) % Plt Count (150-450) k/uL Neutrophils # (1.3-7.7) k/uL Lymphocytes # (1.0-4.8) k/uL ABG pCO2 (35-45) mmHg ABG pO2 (83-108) mmHg ABG HCO3 (21-25) mmol/L ABG Total CO2 (19-24) mmol/L ABG O2 Saturation (94-97) % Sodium (137-145) mmol/L Chloride (98-107) mmol/L Carbon Dioxide (22-30) mmol/L Glucose (74-99) mg/dL POC Glucose (mg/dL) 125 H (75-99) mg/dL Calcium (8.4-10.2) mg/dL Ionized Calcium Rinku (4.5-5.3) mg/dL Phosphorus (2.5-4.5) mg/dL Magnesium (1.6-2.3) mg/dL AST (14-36) U/L Total Protein (6.3-8.2) g/dL Albumin (3.5-5.0) g/dL Lipase (23-300) U/L Urine Ketones 1+ H (Negative) Microbiology - Last 24 Hours (Table) 06/24/19 15:14 Blood Culture - Preliminary Blood No Growth after 48 hours Assessment and Plan Plan: Acute pancreatitis Likely secondary to gallstones, rule out alcohol induced IV fluids Advance diet ?, RN will call surgery Pain control with Dilaudid Acute cholecystitis Surgery recommending outpatient cholecystectomy once pancreatitis resolves Ceftriaxone and Flagyl Acute hypoxic respiratory faiilure: Likely sec to fluid overload/pulm edema. ARDS from acute pancreatitis less likely Echo looking ok, BNP ok. Pulm on board. Bipolar disorder Resume meds Asthma/hypertension/hypothyroidism All stable Hold meds Monitor blood pressure DVT prophylaxis Patient is ambulatory Disposition: Likely home Anticipated date of discharge 06/30
[2019-06-27] MEDS ORDERED: QUEtiapine 50 MG TAB PO SCH (16:15)
--- NOTE | 2019-06-27 16:21 | P.CN ---
Psychiatric Consult - . Consult date: 06/27/19 Consult:: 06/27/19 16:08 IDENTIFYING DATA: This patient is a 39-year-old female who is as a 2-year-old daughter and lives with her uncle currently collects Social Security disability. HISTORY OF PRESENT ILLNESS: The patient was admitted to the hospital for acute pancreatitis likely secondary to gallstone complicated by acute respiratory failure/ARDS. Psychiatry was consulted for anxiety and depression. According to nurse outside the patient's room, patient has been fidgeting and taking off her mask at times has been irritable. Patient was interviewed at the bedside and was cooperative and appropriate with a video game script writer. Patient states that she does not like being in the hospital and feels claustrophobic when her mask is on her face, states that it is hard to sleep with it on. Patient claims that anxiety is also that as she misses her daughter at home however understands that she does need to be here and how serious her lung in injury and pancreatitis were. Patient claims that she has had stressors at home claiming that her mother 13 years ago. Patient also spoke of moving up to [facility] from [place] approximately a month ago. She states that she was in [place] with her best friend and met her fianc got with him and he ended up passing away secondary to a stroke. Patient states that being in the hospital is away from her comfort and feels that since her Seroquel was restarted she was able to sleep better last night along with her look to it as well. Patient claims that she is concerned about not being able to find a psychiatrist and also not being registered with Medicaid for insurance coverage. At this time patient denies any suicidal or homical ideations, intent or plan. Patient denies any auditory, visual hallucinations and denies any paranoia or delusions. PAST PSYCHIATRIC HISTORY: Patient's last admission to the mental health unit was in 2014 for an overdose. Patient has a diagnoses of bipolar disorder, anxiety, depression. Patient currently does not have an outpatient psychiatrist as she is recently moved to [facility] from [place] and is attempting to get established. PAST MEDICAL HISTORY: Asthma, migraines. ALLERGIES: As per EMR. CHEMICAL DEPENDENCY HISTORY: Patient claims that she smokes marijuana approximately 2 times a month. Patient also claims that she does drink alcohol 3-4 times per week. She also states that she does smoke cigarettes 1 pack per day. She denies any other recreational drug use.. FAMILY PSYCHIATRIC HISTORY: Claims her father had bipolar as well. FAMILY CHEMICAL DEPENDENCY HISTORY:denies. SOCIAL HISTORY: Patient is originally from [facility] however moved to [place] approximately 4 years ago and now moved back up to [facility] last month. Patient currently lives with her uncle and her 2-year-old daughter. She is . She currently collects Social Security disability. MENTAL STATUS EXAM: General Appearance: Patient appears to be stated age, alert and directable. Patient does not appear to be in acute distress Behavior: Patient is laying down calmly, no agitated behavior. Speech: Patient's speech is fluent and nonpressured. Mood/Affect: Patient reports their mood is "okay", affect is congruent and constricted Suicidality/Homicidality: Patient denies having any suicidal or homicidal ideation intent or plan. Perceptions: Patient denies any auditory or visual hallucinations. Though content/process: There is no evidence of any delusional thought content and thought process is linear and goal-directed. Memory and concentration: AOX3, grossly intact for the purposes of this session. Can spell "WORLD" backwards Judgment and insight: fair IMPRESSIONS: History of bipolar disorder unspecified. Anxiety disorder unspecified Cannabis use disorder PLAN: -At this time patient patient does NOT meet criteria for inpatient psychiatric admission. -Would recommend the following medication changes/additions: At this time ordered 50 mg Seroquel daily by mouth +600 mg daily at bedtime for good stabilization/irritability/insomnia. Patient can continue on the to do 120 mg daily at bedtime. Would recommend that the 2 to be given with dinner to allow for better absorption. Can continue Ativan to 4 hours when necessary for anxiety. Klonopin currently at 0.5 mg 3 times a day by mouth however patient is not able to take this as she is on BiPAP. Can increase to 1 mg twice a day or 3 times a day tomorrow if patient continues to be fairly anxious. -It was explained to patient that the steroids plus the beta agonists are possibly contributing to/exacerbating her anxiety and that it would be a transient treatment in order for her lungs to recover. Attempt to limit these when possible. -Continue 1:1 sitter for safety -Psychiatry will sign off at this point Thank you for the consult
[2019-06-27] MEDS: POTASSIUM CHLORIDE 10 MEQ in WATER FOR INJECTION 1 100ML.BAG IVPB SCH ×2 (16:30→17:36)
[2019-06-27] MEDS ORDERED: QUEtiapine 50 MG TAB PO ONE (16:30)
[2019-06-27 17:06] LABS: Glucose,Whole Blood 139 mg/dL (75-99)
--- NOTE | 2019-06-27 18:27 | P.PN ---
Subjective Progress Note Date: 06/27/19 Patient is still requiring high flow NC and Bipap. She is still ahving abdominal pain but states it is not worse than yesterday Objective - Vital Signs Vital signs: Vital Signs Temp 98.3 F 06/27/19 16:00 Pulse 102 H 06/27/19 18:00 Resp 15 06/27/19 18:00 BP 92/77 06/27/19 18:00 Pulse Ox 91 L 06/27/19 18:00 Intake & Output 06/26/19 06/27/19 06/27/19 18:59 06:59 18:59 Intake Total 100 678 6457 Output Total 2100 2400 2800 Balance -1850 -1999 -1200 Weight 106.3 kg Intake: IV 150 300 300 Sodium Chloride 0.9% 1, 150 300 300 000 ml @ 25 mls/hr IV . Q24H [facility] Rx#:[id number] Intake, IV Titration 120 359 8623 Amount Calcium Gluconate 2 gm In 100 Sodium Chloride 0.9% 100 ml @ 100 mls/hr IVPB ONCE ONE Rx#:[id number] Magnesium Sulfate-D5w Pmx 300 1 gm In Dextrose/Water 1 100ml.bag @ 100 mls/hr IVPB Q1H [facility] Rx#: [id number] Potassium Chloride 10 meq 200 In Water For Injection 1 100ml.bag @ 100 mls/hr IVPB Q1H [facility] Rx#: [id number] Potassium Phosphate 10 250 mmol In Sodium Chloride 0 .9% 250 ml @ 125 mls/hr IV ONCE ONE Rx#:[id number] Sodium Phosphate 10 mmol 250 In Sodium Chloride 0.9% 250 ml @ 125 mls/hr IVPB ONCE ONE Rx#:[id number] cefTRIAXone 1 gm In 100 Sodium Chloride 0.9% 50 ml @ 100 mls/hr IVPB Q24HR [facility] Rx#:[id number] metroNIDAZOLE-NS PMX 500 100 100 100 mg In Saline 1 100ml.bag @ 100 mls/hr IVPB Q8HR [facility] Rx#:[id number] Output: Urine 2100 2400 2800 Other: Voiding Method Bedside Commode Bedside Commode # Voids 1 - Constitutional General appearance: Present: cooperative - Respiratory Details: on high flow NC - Cardiovascular Details: tachy - Gastrointestinal Gastrointestinal Comment(s): distended, TTP mid epigastric - Psychiatric Psychiatric: Present: A&O x's 3 - Labs CBC & Chem 7: 06/27/19 07:53 06/27/19 07:53 Labs: Abnormal Lab Results - Last 24 Hours (Table) 06/27/19 06/27/19 06/27/19 Range/Units 01:34 07:53 07:53 RBC 3.18 L (3.80-5.40) m/uL Hgb 10.5 L (11.4-16.0) gm/dL Hct 31.4 L (34.0-46.0) % RDW 17.5 H (11.5-15.5) % Plt Count 120 L (150-450) k/uL Neutrophils # 8.6 H (1.3-7.7) k/uL Lymphocytes # 0.5 L (1.0-4.8) k/uL ABG pCO2 53 H (35-45) mmHg ABG pO2 55 L* (83-108) mmHg ABG HCO3 31 H (21-25) mmol/L ABG Total CO2 32 H (19-24) mmol/L ABG O2 Saturation 89.9 L (94-97) % Sodium 136 L (137-145) mmol/L Chloride 96 L (98-107) mmol/L Carbon Dioxide 31 H (22-30) mmol/L Glucose 108 H (74-99) mg/dL POC Glucose (mg/dL) (75-99) mg/dL Calcium 6.6 L (8.4-10.2) mg/dL Ionized Calcium Rinku 4.0 L (4.5-5.3) mg/dL Phosphorus 1.9 L (2.5-4.5) mg/dL Magnesium 1.4 L (1.6-2.3) mg/dL AST 39 H (14-36) U/L Total Protein 4.8 L (6.3-8.2) g/dL Albumin 2.5 L (3.5-5.0) g/dL Lipase 431 H (23-300) U/L Urine Ketones (Negative) 06/27/19 06/27/19 06/27/19 Range/Units 11:55 12:15 17:03 RBC (3.80-5.40) m/uL Hgb (11.4-16.0) gm/dL Hct (34.0-46.0) % RDW (11.5-15.5) % Plt Count (150-450) k/uL Neutrophils # (1.3-7.7) k/uL Lymphocytes # (1.0-4.8) k/uL ABG pCO2 (35-45) mmHg ABG pO2 (83-108) mmHg ABG HCO3 (21-25) mmol/L ABG Total CO2 (19-24) mmol/L ABG O2 Saturation (94-97) % Sodium (137-145) mmol/L Chloride (98-107) mmol/L Carbon Dioxide (22-30) mmol/L Glucose (74-99) mg/dL POC Glucose (mg/dL) 125 H 139 H (75-99) mg/dL Calcium (8.4-10.2) mg/dL Ionized Calcium Rinku (4.5-5.3) mg/dL Phosphorus (2.5-4.5) mg/dL Magnesium (1.6-2.3) mg/dL AST (14-36) U/L Total Protein (6.3-8.2) g/dL Albumin (3.5-5.0) g/dL Lipase (23-300) U/L Urine Ketones 1+ H (Negative) Microbiology - Last 24 Hours (Table) 06/24/19 15:14 Blood Culture - Preliminary Blood No Growth after 72 hours 06/26/19 13:55 Blood Culture - Preliminary Blood No Growth after 24 hours 06/26/19 13:50 Blood Culture - Preliminary Blood No Growth after 24 hours Assessment and Plan Assessment: moderate to severe pancreatitis Plan: Sips of clears ok if resp status allows her to without aspiration risk. ICU care. no plans for surgical intervention patient can follow up with me after resolution of pancreatitis for cholecystectomy. If pancreatitis worsens or appears to be necrotic requiring surgery I would recommend transfer to tertiary care facility.
--- NOTE | 2019-06-27 19:41 | P.PN ---
Subjective Progress Note Date: 06/27/19 Principal diagnosis: Abdominal pain, acute uncomplicated pancreatitis Patient seen lying in the bed after. Continues to report some abdominal pain. Asking for diet to be advanced. Objective - Vital Signs Vital signs: Vital Signs Temp 98.3 F 06/27/19 16:00 Pulse 102 H 06/27/19 18:00 Resp 15 06/27/19 18:00 BP 92/77 06/27/19 18:00 Pulse Ox 91 L 06/27/19 18:00 Intake & Output 06/27/19 06/27/19 06/28/19 06:59 18:59 06:59 Intake Total 400 1600 Output Total 2400 2800 Balance -2000 -1200 Weight 106.3 kg Intake: IV 300 300 Sodium Chloride 0.9% 1, 300 300 000 ml @ 25 mls/hr IV . Q24H [facility] Rx#:[id number] Intake, IV Titration 100 1300 Amount Calcium Gluconate 2 gm In 100 Sodium Chloride 0.9% 100 ml @ 100 mls/hr IVPB ONCE ONE Rx#:[id number] Magnesium Sulfate-D5w Pmx 300 1 gm In Dextrose/Water 1 100ml.bag @ 100 mls/hr IVPB Q1H [facility] Rx#: [id number] Potassium Chloride 10 meq 200 In Water For Injection 1 100ml.bag @ 100 mls/hr IVPB Q1H [facility] Rx#: [id number] Potassium Phosphate 10 250 mmol In Sodium Chloride 0 .9% 250 ml @ 125 mls/hr IV ONCE ONE Rx#:[id number] Sodium Phosphate 10 mmol 250 In Sodium Chloride 0.9% 250 ml @ 125 mls/hr IVPB ONCE ONE Rx#:[id number] cefTRIAXone 1 gm In 100 Sodium Chloride 0.9% 50 ml @ 100 mls/hr IVPB Q24HR [facility] Rx#:[id number] metroNIDAZOLE-NS PMX 500 100 100 mg In Saline 1 100ml.bag @ 100 mls/hr IVPB Q8HR [facility] Rx#:[id number] Output: Urine 2400 2800 Other: Voiding Method Bedside Commode # Voids 1 - Exam On physical examination, patient appears comfortable in no apparent distress. HEAD: Normocephalic, atraumatic. EYES: No scleral icterus. No conjunctival injection. MOUTH: No lesions, tongue midline. NECK: Trachea midline, no gross abnormalities. CHEST: Decreased air entry bilaterally, with some expiratory wheezing heard bilaterally. HEART: Regular rate and rhythm. ABDOMEN: Soft, obese. Bowel sounds are positive. No organomegaly. No guarding or rigidity, but tender. EXTREMITIES: No pedal edema. SKIN: No rashes, no jaundice. NEUROLOGIC: Alert and oriented x3. No focal deficits. - Labs CBC & Chem 7: 06/27/19 07:53 06/27/19 07:53 Labs: Abnormal Lab Results - Last 24 Hours (Table) 06/27/19 06/27/19 06/27/19 Range/Units 01:34 07:53 07:53 RBC 3.18 L (3.80-5.40) m/uL Hgb 10.5 L (11.4-16.0) gm/dL Hct 31.4 L (34.0-46.0) % RDW 17.5 H (11.5-15.5) % Plt Count 120 L (150-450) k/uL Neutrophils # 8.6 H (1.3-7.7) k/uL Lymphocytes # 0.5 L (1.0-4.8) k/uL ABG pCO2 53 H (35-45) mmHg ABG pO2 55 L* (83-108) mmHg ABG HCO3 31 H (21-25) mmol/L ABG Total CO2 32 H (19-24) mmol/L ABG O2 Saturation 89.9 L (94-97) % Sodium 136 L (137-145) mmol/L Chloride 96 L (98-107) mmol/L Carbon Dioxide 31 H (22-30) mmol/L Glucose 108 H (74-99) mg/dL POC Glucose (mg/dL) (75-99) mg/dL Calcium 6.6 L (8.4-10.2) mg/dL Ionized Calcium Rinku 4.0 L (4.5-5.3) mg/dL Phosphorus 1.9 L (2.5-4.5) mg/dL Magnesium 1.4 L (1.6-2.3) mg/dL AST 39 H (14-36) U/L Total Protein 4.8 L (6.3-8.2) g/dL Albumin 2.5 L (3.5-5.0) g/dL Lipase 431 H (23-300) U/L Urine Ketones (Negative) 06/27/19 06/27/19 06/27/19 Range/Units 11:55 12:15 17:03 RBC (3.80-5.40) m/uL Hgb (11.4-16.0) gm/dL Hct (34.0-46.0) % RDW (11.5-15.5) % Plt Count (150-450) k/uL Neutrophils # (1.3-7.7) k/uL Lymphocytes # (1.0-4.8) k/uL ABG pCO2 (35-45) mmHg ABG pO2 (83-108) mmHg ABG HCO3 (21-25) mmol/L ABG Total CO2 (19-24) mmol/L ABG O2 Saturation (94-97) % Sodium (137-145) mmol/L Chloride (98-107) mmol/L Carbon Dioxide (22-30) mmol/L Glucose (74-99) mg/dL POC Glucose (mg/dL) 125 H 139 H (75-99) mg/dL Calcium (8.4-10.2) mg/dL Ionized Calcium Rinku (4.5-5.3) mg/dL Phosphorus (2.5-4.5) mg/dL Magnesium (1.6-2.3) mg/dL AST (14-36) U/L Total Protein (6.3-8.2) g/dL Albumin (3.5-5.0) g/dL Lipase (23-300) U/L Urine Ketones 1+ H (Negative) Microbiology - Last 24 Hours (Table) 06/24/19 15:14 Blood Culture - Preliminary Blood No Growth after 72 hours 06/26/19 13:55 Blood Culture - Preliminary Blood No Growth after 24 hours 06/26/19 13:50 Blood Culture - Preliminary Blood No Growth after 24 hours Assessment and Plan (1) Acute pancreatitis Narrative/Plan: 39-year-old female who was admitted with abdominal pain and findings of acute pancreatitis after recent binge alcohol drinking. Imaging reported a dilated CBD of 1 cm, with findings of cholelithiasis. Suspicion is for acute biliary pancreatitis, however EtOH induced pancreatitis cannot be excluded. Current Visit: Yes Status: Acute Code(s): K85.90 - ACUTE PANCREATITIS WITHOUT NECROSIS OR INFECTION, UNSP SNOMED Code(s): 911790701 (2) Cholelithiases Current Visit: Yes Status: Acute Code(s): K80.20 - CALCULUS OF GALLBLADDER W/O CHOLECYSTITIS W/O OBSTRUCTION SNOMED Code(s): 896223961 Plan: Supportive care Appreciate recommendations from general surgery and clinic charge nurse service Okay for clear liquid diet when off of BiPAP Continue to monitor CBC, CMP and clinically Alcohol abstinence Continue pain control Encourage ambulation Thank you for allowing us to participate in the care of this patient we will continue to
[2019-06-27] MEDS: SODIUM CHLORIDE 0.9% 1,000 ML IV SCH (19:52)
[2019-06-27] MEDS: QUEtiapine 200 MG TAB PO SCH (20:25)
[2019-06-27] MEDS: LURASIDONE 40 MG TAB PO SCH (20:25)
[2019-06-28] MEDS: IPRATROPIUM-ALBUTEROL 3 ML NEB INHALATION SCH ×6 (03:16→23:14)
[2019-06-28 05:17] LABS: Anisocytosis Slight; Basophils % (A) 0 %; Eosinophils % (A) 0 %; HCT 28.2 % (34.0-46.0); HGB 9.6 gm/dL (11.4-16.0); Lymphocytes # (A) 0.5 k/uL (1.0-4.8); Lymphocytes % (A) 6 %; MCH 33.4 pg (25.0-35.0); MCV 98.2 fL (80.0-100.0); Macrocytosis Slight; Mean Platelet Volume 8.5; Monocytes # (A) 0.5 k/uL (0-1.0); Monocytes % (A) 5 %; Neutrophils # (A) 8.1 k/uL (1.3-7.7); Neutrophils % (A) 88 %; Platelet Count 135 k/uL (150-450); RBC 2.87 m/uL (3.80-5.40); RDW 17.6 % (11.5-15.5); WBC 9.2 k/uL (3.8-10.6)
[2019-06-28 05:42] LABS: Ionized Calcium 4.4 mg/dL (4.5-5.3)
[2019-06-28] MEDS: methylPREDNISolone SOD SUCCI 125 MG/2 ML VIAL IV SCH (05:44)
[2019-06-28 05:52] LABS: ALT 25 U/L (9-52); AST 51 U/L (14-36); African American GFR (CKD) >90 (>60 ml/min/1.73 sqM); Albumin 2.5 g/dL (3.5-5.0); Alkaline Phosphatase 139 U/L (38-126); Anion Gap 4 mmol/L; Blood Urea Nitrogen 11 mg/dL (7-17); Calcium 7.7 mg/dL (8.4-10.2); Carbon Dioxide 30 mmol/L (22-30); Chloride 100 mmol/L (98-107); Glucose 136 mg/dL (74-99); Magnesium 2.3 mg/dL (1.6-2.3); Potassium 4.6 mmol/L (3.5-5.1); Sodium 134 mmol/L (137-145); Total Bilirubin 0.4 mg/dL (0.2-1.3); Total Protein 4.6 g/dL (6.3-8.2)
[2019-06-28] MEDS: LORazepam 2 MG/ML INJ IV PRN ×3 (06:19→21:23)
[2019-06-28] MEDS: HYDROmorphone 1 MG/ML 1 ML SYRINGE IVP PRN ×5 (06:19→22:34)
[2019-06-28] MEDS: CARVEDILOL 6.25 MG TAB PO SCH ×2 (06:34→17:55)
[2019-06-28] MEDS: FORMOTEROL FUMARATE 20 MCG/2 ML NEBU INHALATION SCH ×2 (07:37→19:45)
[2019-06-28] MEDS: BUDESONIDE 1 MG/2 ML NEBU INHALATION SCH ×2 (07:37→19:45)
--- NOTE | 2019-06-28 07:46 | XR ---
EXAMINATION TYPE: XR chest 1V portable DATE OF EXAM: 06/28/2019 COMPARISON: 06/27/2019 INDICATION: Adventitious lung sounds TECHNIQUE: Single frontal view of the chest is obtained. FINDINGS: The heart size is normal. The pulmonary vasculature is normal. There is a right lower lobe infiltrate which has worsened. A left perihilar infiltrate is present whi ch has worsened. Correlate for atelectasis and pneumonia. A typical pulmonary edema is considered les s likely. Continued follow-up is recommended. IMPRESSION: 1. Right lower lobe and left perihilar infiltrate worsening from comparison study.
[2019-06-28 08:30] LABS: Glucose,Whole Blood 132 mg/dL (75-99)
[2019-06-28] MEDS: NICOTINE 21MG/24HR PATCH TRANSDERM SCH (08:41)
[2019-06-28] MEDS: metroNIDAZOLE-NS PMX 500 MG in SALINE 1 100ML.BAG IVPB SCH ×2 (08:41→17:55)
[2019-06-28] MEDS: FUROSEMIDE 10 MG/ML 4 ML VIAL IV SCH (08:41)
[2019-06-28] MEDS: clonazePAM 0.5 MG TAB PO SCH ×3 (08:41→22:35)
[2019-06-28] MEDS: QUEtiapine 50 MG TAB PO SCH (08:41)
[2019-06-28] MEDS: PANTOPRAZOLE 40 MG/10 ML VIAL IVP SCH (08:42)
[2019-06-28] MEDS: INSULIN ASPART (NovoLOG) 100 UNIT/ML VIAL SQ SCH ×3 (08:53→19:10)
--- NOTE | 2019-06-28 09:28 | P.PN ---
Subjective Progress Note Date: 06/28/19 Principal diagnosis: Abdominal pain Doing well, still requiring bipap on and off. Still with abdominal pain but that is improved. Started on clears, doing ok with it. Objective - Vital Signs Vital signs: Vital Signs Temp 97.7 F 06/28/19 04:00 Pulse 100 06/28/19 08:00 Resp 17 06/28/19 07:00 BP 118/77 06/28/19 07:00 Pulse Ox 93 L 06/28/19 07:00 Intake & Output 06/27/19 06/28/19 06/28/19 18:59 06:59 18:59 Intake Total 1600 325 Output Total 2800 1100 525 Balance -1200 -775 -525 Weight 108 kg Intake: IV 300 325 Sodium Chloride 0.9% 1, 300 325 000 ml @ 25 mls/hr IV . Q24H [facility] Rx#:[id number] Intake, IV Titration 1300 Amount Calcium Gluconate 2 gm In 100 Sodium Chloride 0.9% 100 ml @ 100 mls/hr IVPB ONCE ONE Rx#:[id number] Magnesium Sulfate-D5w Pmx 300 1 gm In Dextrose/Water 1 100ml.bag @ 100 mls/hr IVPB Q1H [facility] Rx#: [id number] Potassium Chloride 10 meq 200 In Water For Injection 1 100ml.bag @ 100 mls/hr IVPB Q1H [facility] Rx#: [id number] Potassium Phosphate 10 250 mmol In Sodium Chloride 0 .9% 250 ml @ 125 mls/hr IV ONCE ONE Rx#:[id number] Sodium Phosphate 10 mmol 250 In Sodium Chloride 0.9% 250 ml @ 125 mls/hr IVPB ONCE ONE Rx#:[id number] cefTRIAXone 1 gm In 100 Sodium Chloride 0.9% 50 ml @ 100 mls/hr IVPB Q24HR [facility] Rx#:[id number] metroNIDAZOLE-NS PMX 500 100 mg In Saline 1 100ml.bag @ 100 mls/hr IVPB Q8HR [facility] Rx#:[id number] Output: Urine 2800 1100 525 Other: Voiding Method Bedside Commode # Voids 1 1 - Exam Constitutional: No acute distress, conversant, pleasant Eyes:Anicteric sclerae, moist conjunctiva, no lid-lag, PERRLA, ENMT: Oropharynx clear, no erythema, exudates Neck: Supple, FROM, no masses, or JVD, No carotid bruits, No thyromegaly Lungs: Clear to auscultation, Clear to percussion, Normal respiratory effort, no accessory muscle use Cardiovascular: Tachycardic, regular, No murmurs, gallops, or rubs, No p eripheral edema Abdominal: Soft, severely tender, no guarding, rebound or rigidity, Normoactive bowel sounds, No hepatomegaly, No splenomegaly, No palpable mass Skin: Normal temperature, tone, texture, turgor, no induration, No subcutaneous nodules, No rash, lesions, No ulcers Extremities: No digital cyanosis, No clubbing, Pedal pulses intact and symmetrical, Radial pulses intact and symmetrical, No calf tenderness Psychiatric: Alert and oriented to person, place and time, appropriate affect, intact judgement Neuro: Muscles Strength 5/5 in all 4 extremities, Sensation to light touch gross ly present throughout, Cranial nerves II-XII grossly intact, no focal sensory deficits - Labs CBC & Chem 7: 06/28/19 04:46 06/28/19 04:46 Labs: Abnormal Lab Results - Last 24 Hours (Table) 06/27/19 06/27/19 06/27/19 Range/Units 11:55 12:15 17:03 RBC (3.80-5.40) m/uL Hgb (11.4-16.0) gm/dL Hct (34.0-46.0) % RDW (11.5-15.5) % Plt Count (150-450) k/uL Neutrophils # (1.3-7.7) k/uL Lymphocytes # (1.0-4.8) k/uL Sodium (137-145) mmol/L Creatinine (0.52-1.04) mg/dL Glucose (74-99) mg/dL POC Glucose (mg/dL) 125 H 139 H (75-99) mg/dL Calcium (8.4-10.2) mg/dL Ionized Calcium Rinku (4.5-5.3) mg/dL Phosphorus (2.5-4.5) mg/dL AST (14-36) U/L Alkaline Phosphatase (38-126) U/L Total Protein (6.3-8.2) g/dL Albumin (3.5-5.0) g/dL Lipase (23-300) U/L Urine Ketones 1+ H (Negative) 06/28/19 06/28/19 06/28/19 Range/Units 04:46 04:46 04:46 RBC 2.87 L (3.80-5.40) m/uL Hgb 9.6 L (11.4-16.0) gm/dL Hct 28.2 L (34.0-46.0) % RDW 17.6 H (11.5-15.5) % Plt Count 135 L (150-450) k/uL Neutrophils # 8.1 H (1.3-7.7) k/uL Lymphocytes # 0.5 L (1.0-4.8) k/uL Sodium 134 L (137-145) mmol/L Creatinine 0.37 L (0.52-1.04) mg/dL Glucose 136 H (74-99) mg/dL POC Glucose (mg/dL) (75-99) mg/dL Calcium 7.7 L (8.4-10.2) mg/dL Ionized Calcium Rinku 4.4 L (4.5-5.3) mg/dL Phosphorus (2.5-4.5) mg/dL AST 51 H (14-36) U/L Alkaline Phosphatase 139 H (38-126) U/L Total Protein 4.6 L (6.3-8.2) g/dL Albumin 2.5 L (3.5-5.0) g/dL Lipase 344 H (23-300) U/L Urine Ketones (Negative) 06/28/19 06/28/19 Range/Units 04:46 08:28 RBC (3.80-5.40) m/uL Hgb (11.4-16.0) gm/dL Hct (34.0-46.0) % RDW (11.5-15.5) % Plt Count (150-450) k/uL Neutrophils # (1.3-7.7) k/uL Lymphocytes # (1.0-4.8) k/uL Sodium (137-145) mmol/L Creatinine (0.52-1.04) mg/dL Glucose (74-99) mg/dL POC Glucose (mg/dL) 132 H (75-99) mg/dL Calcium (8.4-10.2) mg/dL Ionized Calcium Rinku (4.5-5.3) mg/dL Phosphorus 2.0 L (2.5-4.5) mg/dL AST (14-36) U/L Alkaline Phosphatase (38-126) U/L Total Protein (6.3-8.2) g/dL Albumin (3.5-5.0) g/dL Lipase (23-300) U/L Urine Ketones (Negative) Microbiology - Last 24 Hours (Table) 06/24/19 15:14 Blood Culture - Preliminary Blood No Growth after 72 hours 06/26/19 13:55 Blood Culture - Preliminary Blood No Growth after 24 hours 06/26/19 13:50 Blood Culture - Preliminary Blood No Growth after 24 hours Assessment and Plan Plan: Acute pancreatitis Likely secondary to gallstones, rule out alcohol induced Lipase improving, started on clears Pain control with Dilaudid Acute cholecystitis Surgery recommending outpatient cholecystectomy once pancreatitis resolves Ceftriaxone and Flagyl Acute hypoxic respiratory faiilure: Likely sec to fluid overload/pulm edema. ARDS from acute pancreatitis less likely On lasix Echo looking ok, BNP ok. Pulm on board. Bipolar disorder Resume meds Asthma/hypertension/hypothyroidism All stable Hold meds Monitor blood pressure DVT prophylaxis Patient is ambulatory Disposition: Likely home Anticipated date of discharge 06/30
[2019-06-28] MEDS: SODIUM PHOSPHATE 10 MMOL in SODIUM CHLORIDE 0.9% 250 ML IV SCH ×2 (11:51→14:56)
[2019-06-28 12:24] LABS: Glucose,Whole Blood 104 mg/dL (75-99)
--- NOTE | 2019-06-28 13:45 | P.PN ---
Subjective Progress Note Date: 06/28/19 Principal diagnosis: Acute hypoxic respiratory failure secondary to noncardiogenic pulmonary edema/ARDS. A 39-year-old daughter white female patient who was admitted on 06/24/2019 with the chief complaint of epigastric pain radiating to her back associated with nausea, and vomiting for 3 days prior to presentation. She denied any fever or chills, denied any chest pain, she recently him back from [place] where she had been drinking for a few days, no prior history of pancreatitis in the past, in the emergency department patient was found to have elevated lipase, and evidence of pancreatitis and cholecystitis on the CAT scan, which showed a retroperitoneal fluid and fat stranding around the pancreas consistent with pancreatitis, and mildly dilated gallbladder suggestive of cholecystitis in addition there was a fatty infiltration of the liver. [place] of the abdomen laura wed tiny gallstones, common bile duct showed a 1 cm with no dilation of intrahepatic bile ducts. Patient was being treated conservatively, by mouth except for ice and popsicles, IV fluids, antibiotics, surgical consultation was obtained, and surgery was considering surgical intervention once the pa ncreatitis has resolved. This morning patient was noted to be hypoxemic, pulse ox of 67% on room air, yesterday patient was not requiring any supplemental oxygen, and was maintaining O2 saturations at or above 93%. Patient complaining of increasing dyspnea, and tachycardic, started having a headache and a low- grade fever. She was placed on the 100% nonrebreather, stat blood gas was obtained, showing pO2 of 72, pCO2 46, pH of 7.34, this was done on FiO2 of 100%, and is consistent with mild hypercapnic respiratory failure, and acute hypoxemic respiratory failure. Chest x-ray was completed showing low lung volumes with the new [id number] central vascular congestion and interstitial edema. In addition patient was bronchospastic, and she does have a history of asthma, and she states she was previously treated with Zithromax and prednisone in the recent past for asthma exacerbation and tracheobronchitis. BiPAP support was considered, however patient's condition started to improve, she was started on nebulized bronchodilators, a dose of IV Lasix was given. She was refusing IV s teroids at first, but in view of her wheezing and chest congestion we will start her on IV steroids. Blood cultures and lactic acid have been sent. Patient denied any chest pain, did have some epigastric discomfort, which and ongoing since admission, and abdominal discomfort across the lower quadrants, abdomen is soft, nontender. Labs today have been reviewed, showing white blood cell count of 10.2, hemoglobin of 11.9, coagulation profile was within normal limits, sodium was 132, the rest of electrolytes and renal profile were unremarkable, repeat lactic acid came back normal at 0.9, proBNP was normal at 194, her enzymes are trending down, lipase is down to 940, down from 2324 on yesterday's labs. Reevaluated today on 06/27/2019, patient remains on high flow FiO2/high flow nasal cannula, last night she became worse, and she required placement on BiPAP most of the night. The issue of intubation and mechanical ventilation was discussed with the patient last night, patient refused to be intubated. And did relatively well on BiPAP overnight and she kept it until early this morning. Today she was switched to a high flow nasal cannula, O2 saturation remains very marginal. Barely 90% on high flow nasal cannula. Chest x-ray continues to show bilateral interstitial edema, more likely consistent with ARDS secondary to acute pancreatitis. Although the possibility of cardiogenic pulmonary edema is not entirely ruled out, but felt to be less likely considering the patient had a relatively normal echocardiogram, and not much improvement in spite of diuretics. CBC is relatively normal today, WBC count 9.5 hemoglobin is 10.5. Electrolytes are normal. ABG last night showed a pO2 of 55 pCO2 of 5:30 pH of 7.37, and this was on 80% FiO2. Her BNP level was normal. And echocardiogram did not reveal any LV dysfunction. Reevaluated today on 06/28/2019, patient remains on high FiO2, and intermittently on BiPAP. O2 saturation remains marginal. Chest x-ray continues to show b ilateral interstitial infiltrates. Patient denies being in distress, but again her O2 saturation is in the low 90s on a high flow nasal cannula and on BiPAP. Patient denies any cough, no wheezing, no fever, no chills, her amylase level today is down to 344 electrolytes are normal. CBC is relatively unremarkable. Objective - Vital Signs Vital signs: Vital Signs Temp 97.7 F 06/28/19 04:00 Pulse 99 06/28/19 11:37 Resp 17 06/28/19 07:00 BP 118/77 06/28/19 07:00 Pulse Ox 93 L 06/28/19 07:00 Intake & Output 06/27/19 06/28/19 06/28/19 18:59 06:59 18:59 Intake Total 1600 325 Output Total 2800 1100 525 Balance -1200 -775 -525 Weight 108 kg Intake: IV 300 325 Sodium Chloride 0.9% 1, 300 325 000 ml @ 25 mls/hr IV . Q24H [facility] Rx#:[id number] Intake, IV Titration 1300 Amount Calcium Gluconate 2 gm In 100 Sodium Chloride 0.9% 100 ml @ 100 mls/hr IVPB ONCE ONE Rx#:[id number] Magnesium Sulfate-D5w Pmx 300 1 gm In Dextrose/Water 1 100ml.bag @ 100 mls/hr IVPB Q1H [facility] Rx#: [id number] Potassium Chloride 10 meq 200 In Water For Injection 1 100ml.bag @ 100 mls/hr IVPB Q1H [facility] Rx#: [id number] Potassium Phosphate 10 250 mmol In Sodium Chloride 0 .9% 250 ml @ 125 mls/hr IV ONCE ONE Rx#:[id number] Sodium Phosphate 10 mmol 250 In Sodium Chloride 0.9% 250 ml @ 125 mls/hr IVPB ONCE ONE Rx#:[id number] cefTRIAXone 1 gm In 100 Sodium Chloride 0.9% 50 ml @ 100 mls/hr IVPB Q24HR [facility] Rx#:[id number] metroNIDAZOLE-NS PMX 500 100 mg In Saline 1 100ml.bag @ 100 mls/hr IVPB Q8HR [facility] Rx#:[id number] Output: Urine 2800 1100 525 Other: Voiding Method Bedside Commode # Voids 1 1 - Exam GENERAL EXAM: Alert, pleasant, 39-year-old white female, high flow nasal cannula, O2 saturation is 90%, feels comfortable, not in distress. Unchanged from yesterday. HEAD: Normocephalic/atraumatic. EYES: Normal reaction of pupils, equal size. Conjunctiva pink, sclera white. NOSE: Clear with pink turbinates. THROAT: No erythema or exudates. NECK: No masses, no JVD, no thyroid enlargement, no adenopathy. CHEST: No chest wall deformity. Symmetrical expansion. LUNGS: Minimal crackles bilaterally, some wheezing on forced expiratory maneuver. CVS: Regular rate and rhythm, normal S1 and S2, no gallops, no murmurs, no rubs ABDOMEN: Soft, nontender. No hepatosplenomegaly, normal bowel sounds, no guarding or rigidity. EXTREMITIES: No clubbing, no edema, no cyanosis, 2+ pulses and upper and lower extremities. MUSCULOSKELETAL: Muscle strength and tone normal. SPINE: No scoliosis or deformity SKIN: No rashes CENTRAL NERVOUS SYSTEM: Slightly anxious, alert oriented 3. PSYCHIATRIC: Anxious, intact mental status, blunt affect - Labs CBC & Chem 7: 06/28/19 04:46 06/28/19 04:46 Labs: Abnormal Lab Results - Last 24 Hours (Table) 06/27/19 06/28/19 06/28/19 Range/Units 17:03 04:46 04:46 RBC 2.87 L (3.80-5.40) m/uL Hgb 9.6 L (11.4-16.0) gm/dL Hct 28.2 L (34.0-46.0) % RDW 17.6 H (11.5-15.5) % Plt Count 135 L (150-450) k/uL Neutrophils # 8.1 H (1.3-7.7) k/uL Lymphocytes # 0.5 L (1.0-4.8) k/uL Sodium 134 L (137-145) mmol/L Creatinine 0.37 L (0.52-1.04) mg/dL Glucose 136 H (74-99) mg/dL POC Glucose (mg/dL) 139 H (75-99) mg/dL Calcium 7.7 L (8.4-10.2) mg/dL Ionized Calcium Rinku 4.4 L (4.5-5.3) mg/dL Phosphorus (2.5-4.5) mg/dL AST 51 H (14-36) U/L Alkaline Phosphatase 139 H (38-126) U/L Total Protein 4.6 L (6.3-8.2) g/dL Albumin 2.5 L (3.5-5.0) g/dL Lipase (23-300) U/L 06/28/19 06/28/19 06/28/19 Range/Units 04:46 04:46 08:28 RBC (3.80-5.40) m/uL Hgb (11.4-16.0) gm/dL Hct (34.0-46.0) % RDW (11.5-15.5) % Plt Count (150-450) k/uL Neutrophils # (1.3-7.7) k/uL Lymphocytes # (1.0-4.8) k/uL Sodium (137-145) mmol/L Creatinine (0.52-1.04) mg/dL Glucose (74-99) mg/dL POC Glucose (mg/dL) 132 H (75-99) mg/dL Calcium (8.4-10.2) mg/dL Ionized Calcium Rinku (4.5-5.3) mg/dL Phosphorus 2.0 L (2.5-4.5) mg/dL AST (14-36) U/L Alkaline Phosphatase (38-126) U/L Total Protein (6.3-8.2) g/dL Albumin (3.5-5.0) g/dL Lipase 344 H (23-300) U/L 06/28/19 Range/Units 12:08 RBC (3.80-5.40) m/uL Hgb (11.4-16.0) gm/dL Hct (34.0-46.0) % RDW (11.5-15.5) % Plt Count (150-450) k/uL Neutrophils # (1.3-7.7) k/uL Lymphocytes # (1.0-4.8) k/uL Sodium (137-145) mmol/L Creatinine (0.52-1.04) mg/dL Glucose (74-99) mg/dL POC Glucose (mg/dL) 104 H (75-99) mg/dL Calcium (8.4-10.2) mg/dL Ionized Calcium Rinku (4.5-5.3) mg/dL Phosphorus (2.5-4.5) mg/dL AST (14-36) U/L Alkaline Phosphatase (38-126) U/L Total Protein (6.3-8.2) g/dL Albumin (3.5-5.0) g/dL Lipase (23-300) U/L Microbiology - Last 24 Hours (Table) 06/24/19 15:14 Blood Culture - Preliminary Blood No Growth after 72 hours 06/26/19 13:55 Blood Culture - Preliminary Blood No Growth after 24 hours 06/26/19 13:50 Blood Culture - Preliminary Blood No Growth after 24 hours Assessment and Plan Assessment: #1. Acute hypoxemic respiratory failure, secondary to noncardiogenic pulmonary edema/ARDS, secondary to acute pancreatitis. #2. Acute gallstone pancreatitis, and cholecystitis #3. Acute exacerbation of COPD, possible asthma, however the patient has been a smoker, and she may have a combination of COPD and bronchial asthma. #4. History of chronic moderate severe bronchial asthma, #5. History of hypertension #6. History of hypothyroidism #7. Chronic migraines #8. history of pneumonia #9. Bipolar disorder #10. Anxiety #11. Current every day smoker #12 suspect ARDS secondary to acute pancreatitis. Recommendation: Discussed her condition with her and with her family member today, made aware that her condition is potentially very serious, and she may still and up requiring intubation and mechanical ventilation. Patient is very well aware of the potential deterioration in her condition, and if she does deteriorate will consider intubation and mechanical ventilation. In the meantimeContinue to monitor the patient in the ICU. Continue high flow O2, intermittently place the patient on BiPAP depending on her overall clinical status, continue steroids, antibiotics, bronchodilators, GI and DVT prophylaxis, keep the patient nothing by mouth except for water, continue to monitor pancreatic enzymes, lipase today is 344, . Patient was made aware of how serious her condition is, she doesn't seem to comprehend that she has a potential serious problem, and she may actually eventually and up requiring intubation and mechanical ventilation. We'll continue to monitor in the ICU Time with Patient: Less than 30
[2019-06-28 17:34] LABS: Glucose,Whole Blood 113 mg/dL (75-99)
[2019-06-28] MEDS: methylPREDNISolone SOD SUCCI 40 MG/ML 1 ML VIAL IV SCH (17:55)
[2019-06-28] MEDS: SODIUM CHLORIDE 0.9% 1,000 ML IV SCH (19:14)
[2019-06-28 20:48] LABS: Glucose,Whole Blood 128 mg/dL (75-99)
[2019-06-28] MEDS: LURASIDONE 40 MG TAB PO SCH (21:23)
[2019-06-28] MEDS: QUEtiapine 200 MG TAB PO SCH (21:23)
[2019-06-29] MEDS: methylPREDNISolone SOD SUCCI 40 MG/ML 1 ML VIAL IV SCH ×4 (01:27→17:26)
[2019-06-29] MEDS: metroNIDAZOLE-NS PMX 500 MG in SALINE 1 100ML.BAG IVPB SCH ×2 (01:27→08:19)
[2019-06-29] MEDS: INSULIN ASPART (NovoLOG) 100 UNIT/ML VIAL SQ SCH ×5 (01:35→21:32)
[2019-06-29] MEDS: IPRATROPIUM-ALBUTEROL 3 ML NEB INHALATION SCH ×5 (03:14→19:54)
[2019-06-29] MEDS: HYDROmorphone 1 MG/ML 1 ML SYRINGE IVP PRN ×2 (03:14→06:45)
[2019-06-29 06:01] LABS: ALT 25 U/L (9-52); AST 28 U/L (14-36); African American GFR (CKD) >90 (>60 ml/min/1.73 sqM); Albumin 2.5 g/dL (3.5-5.0); Alkaline Phosphatase 69 U/L (38-126); Anion Gap 5 mmol/L; Blood Urea Nitrogen 14 mg/dL (7-17); Carbon Dioxide 31 mmol/L (22-30); Chloride 100 mmol/L (98-107); Glucose 140 mg/dL (74-99); Phosphorus 2.9 mg/dL (2.5-4.5); Potassium 4.3 mmol/L (3.5-5.1); Sodium 136 mmol/L (137-145); Total Bilirubin 0.2 mg/dL (0.2-1.3); Total Protein 4.7 g/dL (6.3-8.2)
[2019-06-29 06:13] LABS: Anisocytosis Slight; Basophils % (A) 0 %; Eosinophils # (A) 0.1 k/uL (0-0.7); Eosinophils % (A) 1 %; HCT 30.5 % (34.0-46.0); HGB 10.4 gm/dL (11.4-16.0); Lymphocytes # (A) 0.7 k/uL (1.0-4.8); Lymphocytes % (A) 9 %; MCH 33.4 pg (25.0-35.0); MCHC 34.1 g/dL (31.0-37.0); Macrocytosis Slight; Mean Platelet Volume 9.7; Monocytes # (A) 0.5 k/uL (0-1.0); Monocytes % (A) 7 %; Neutrophils # (A) 6.4 k/uL (1.3-7.7); Neutrophils % (A) 82 %; Platelet Count 106 k/uL (150-450); RBC 3.11 m/uL (3.80-5.40); RDW 17.8 % (11.5-15.5); WBC 7.8 k/uL (3.8-10.6)
[2019-06-29 06:58] LABS: Glucose,Whole Blood 146 mg/dL (75-99)
[2019-06-29] MEDS: CARVEDILOL 6.25 MG TAB PO SCH ×2 (07:14→17:26)
[2019-06-29] MEDS: BUDESONIDE 1 MG/2 ML NEBU INHALATION SCH ×2 (07:15→19:54)
[2019-06-29] MEDS: FORMOTEROL FUMARATE 20 MCG/2 ML NEBU INHALATION SCH ×2 (07:15→19:54)
[2019-06-29] MEDS: SODIUM CHLORIDE 0.9% 1,000 ML IV SCH (07:15)
[2019-06-29] MEDS: FUROSEMIDE 10 MG/ML 4 ML VIAL IV SCH (08:18)
[2019-06-29] MEDS: clonazePAM 0.5 MG TAB PO SCH ×2 (08:19→15:26)
[2019-06-29] MEDS: QUEtiapine 50 MG TAB PO SCH (08:19)
[2019-06-29] MEDS: NICOTINE 21MG/24HR PATCH TRANSDERM SCH (08:19)
[2019-06-29] MEDS: PANTOPRAZOLE 40 MG/10 ML VIAL IVP SCH (08:19)
--- NOTE | 2019-06-29 08:22 | XR ---
EXAMINATION TYPE: XR chest 1V portable DATE OF EXAM: 06/29/2019 COMPARISON: 06/28/2019 INDICATION: Adventitious lung sounds TECHNIQUE: Single frontal view of the chest is obtained. FINDINGS: The heart size is normal. The pulmonary vasculature is normal. Bibasilar infiltrates are present and similar to prior study. Continued follow-up is recommended. IMPRESSION: 1. Continued follow-up of bibasilar infiltrates is recommended.
--- NOTE | 2019-06-29 09:33 | P.PN ---
Subjective Progress Note Date: 06/29/19 Principal diagnosis: Abdominal pain Patient is still hypoxic at times, especially when she is not wearing BiPAP or the nasal cannula. Currently she is on high flow nasal cannula. He is not complaining of shortness of breath, chest pain. She states that her abdominal pain is getting better. Objective - Vital Signs Vital signs: Vital Signs Temp 98.8 F 06/29/19 04:00 Pulse 93 06/29/19 07:35 Resp 14 06/29/19 06:00 BP 103/70 06/29/19 06:00 Pulse Ox 95 06/29/19 07:18 Intake & Output 06/28/19 06/29/19 06/29/19 18:59 06:59 18:59 Intake Total 1325 375 Output Total 2024 152 Balance -700 -1150 Weight 108 kg 107.4 kg Intake: IV 225 375 Sodium Chloride 0.9% 1, 225 275 000 ml @ 25 mls/hr IV . Q24H [facility] Rx#:[id number] metroNIDAZOLE-NS PMX 500 100 mg In Saline 1 100ml.bag @ 100 mls/hr IVPB Q8HR [facility] Rx#:[id number] Intake, IV Titration 500 Amount Sodium Phosphate 10 mmol 500 In Sodium Chloride 0.9% 250 ml @ 125 mls/hr IV Q2H [facility] Rx#:[id number] Oral 600 Output: Urine 2024 152 Other: Voiding Method Bedside Commode # Voids 1 0 - Exam Constitutional: No acute distress, conversant, pleasant Eyes:Anicteric sclerae, moist conjunctiva, no lid-lag, PERRLA, ENMT: Oropharynx clear, no erythema, exudates Neck: Supple, FROM, no masses, or JVD, No carotid bruits, No thyromegaly Lungs: Clear to auscultation, Clear to percussion, Normal respiratory effort, no accessory muscle use Cardiovascular: Tachycardic, regular, No murmurs, gallops, or rubs, No peripheral edema Abdominal: Soft, severely tender, no guarding, rebound or rigidity, Normoactive bowel sounds, No hepatomegaly, No splenomegaly, No palpable mass Skin: Normal temperature, tone, texture, turgor, no induration, No subcutaneous nodules, No rash, lesions, No ulcers Extremities: No digital cyanosis, No clubbing, Pedal pulses intact and symmetrical, Radial pulses intact and symmetrical, No calf tenderness Psychiatric: Alert and oriented to person, place and time, appropriate affect, intact judgement Neuro: Muscles Strength 5/5 in all 4 extremities, Sensation to light touch grossly present throughout, Cranial nerves II-XII grossly intact, no focal sensory deficits - Labs CBC & Chem 7: 06/29/19 05:25 06/29/19 05:25 Labs: Abnormal Lab Results - Last 24 Hours (Table) 06/28/19 06/28/19 06/28/19 Range/Units 12:08 17:30 20:45 RBC (3.80-5.40) m/uL Hgb (11.4-16.0) gm/dL Hct (34.0-46.0) % RDW (11.5-15.5) % Plt Count (150-450) k/uL Lymphocytes # (1.0-4.8) k/uL Sodium (137-145) mmol/L Carbon Dioxide (22-30) mmol/L Creatinine (0.52-1.04) mg/dL Glucose (74-99) mg/dL POC Glucose (mg/dL) 104 H 113 H 128 H (75-99) mg/dL Calcium (8.4-10.2) mg/dL Total Protein (6.3-8.2) g/dL Albumin (3.5-5.0) g/dL 06/29/19 06/29/19 06/29/19 Range/Units 05:25 05:25 06:55 RBC 3.11 L (3.80-5.40) m/uL Hgb 10.4 L (11.4-16.0) gm/dL Hct 30.5 L (34.0-46.0) % RDW 17.8 H (11.5-15.5) % Plt Count 106 L (150-450) k/uL Lymphocytes # 0.7 L (1.0-4.8) k/uL Sodium 136 L (137-145) mmol/L Carbon Dioxide 31 H (22-30) mmol/L Creatinine 0.44 L (0.52-1.04) mg/dL Glucose 140 H (74-99) mg/dL POC Glucose (mg/dL) 146 H (75-99) mg/dL Calcium 8.0 L (8.4-10.2) mg/dL Total Protein 4.7 L (6.3-8.2) g/dL Albumin 2.5 L (3.5-5.0) g/dL Microbiology - Last 24 Hours (Table) 06/24/19 15:14 Blood Culture - Preliminary Blood No Growth after 96 hours 06/26/19 13:55 Blood Culture - Preliminary Blood No Growth after 48 hours 06/26/19 13:50 Blood Culture - Preliminary Blood No Growth after 48 hours Assessment and Plan Plan: Acute pancreatitis Likely secondary to gallstones, rule out alcohol induced Advance diet Pain control with Dilaudid Acute cholecystitis Surgery recommending outpatient cholecystectomy once pancreatitis resolves Ceftriaxone and Flagyl Acute hypoxic respiratory faiilure: Likely sec to fluid overload/pulm edema. ARDS from acute pancreatitis less likely On lasix Echo looking ok, BNP ok. Pulm on board. Bipolar disorder Resume meds Asthma/hypertension/hypothyroidism All stable Hold meds Monitor blood pressure DVT prophylaxis Patient is ambulatory Disposition: Likely home Anticipated date of discharge 07/01
[2019-06-29] MEDS: HYDROmorphone 0.5 MG/0.5 ML SYRINGE IVP PRN ×3 (09:54→21:30)
[2019-06-29 11:48] LABS: Glucose,Whole Blood 140 mg/dL (75-99)
--- NOTE | 2019-06-29 11:52 | P.PN ---
Subjective Progress Note Date: 06/29/19 Principal diagnosis: Acute hypoxic respiratory failure secondary to noncardiogenic pulmonary edema/ARDS. A 39-year-old daughter white female patient who was admitted on 06/24/2019 with the chief complaint of epigastric pain radiating to her back associated with nausea, and vomiting for 3 days prior to presentation. She denied any fever or chills, denied any chest pain, she recently him back from [place] where she had been drinking for a few days, no prior history of pancreatitis in the past, in the emergency department patient was found to have elevated lipase, and evidence of pancreatitis and cholecystitis on the CAT scan, which showed a retroperitoneal fluid and fat stranding around the pancreas consistent with pancreatitis, and mildly dilated gallbladder suggestive of cholecystitis in addition there was a fatty infiltration of the liver. Josephine of the abdomen laura wed tiny gallstones, common bile duct showed a 1 cm with no dilation of intrahepatic bile ducts. Patient was being treated conservatively, by mouth except for ice and popsicles, IV fluids, antibiotics, surgical consultation was obtained, and surgery was considering surgical intervention once the pa ncreatitis has resolved. This morning patient was noted to be hypoxemic, pulse ox of 67% on room air, yesterday patient was not requiring any supplemental oxygen, and was maintaining O2 saturations at or above 93%. Patient complaining of increasing dyspnea, and tachycardic, started having a headache and a low- grade fever. She was placed on the 100% nonrebreather, stat blood gas was obtained, showing pO2 of 72, pCO2 46, pH of 7.34, this was done on FiO2 of 100%, and is consistent with mild hypercapnic respiratory failure, and acute hypoxemic respiratory failure. Chest x-ray was completed showing low lung volumes with the new [id number] central vascular congestion and interstitial edema. In addition patient was bronchospastic, and she does have a history of asthma, and she states she was previously treated with Zithromax and prednisone in the recent past for asthma exacerbation and tracheobronchitis. BiPAP support was considered, however patient's condition started to improve, she was started on nebulized bronchodilators, a dose of IV Lasix was given. She was refusing IV s teroids at first, but in view of her wheezing and chest congestion we will start her on IV steroids. Blood cultures and lactic acid have been sent. Patient denied any chest pain, did have some epigastric discomfort, which and ongoing since admission, and abdominal discomfort across the lower quadrants, abdomen is soft, nontender. Labs today have been reviewed, showing white blood cell count of 10.2, hemoglobin of 11.9, coagulation profile was within normal limits, sodium was 132, the rest of electrolytes and renal profile were unremarkable, repeat lactic acid came back normal at 0.9, proBNP was normal at 194, her enzymes are trending down, lipase is down to 940, down from 2324 on yesterday's labs. Reevaluated today on 06/27/2019, patient remains on high flow FiO2/high flow nasal cannula, last night she became worse, and she required placement on BiPAP most of the night. The issue of intubation and mechanical ventilation was discussed with the patient last night, patient refused to be intubated. And did relatively well on BiPAP overnight and she kept it until early this morning. Today she was switched to a high flow nasal cannula, O2 saturation remains very marginal. Barely 90% on high flow nasal cannula. Chest x-ray continues to show bilateral interstitial edema, more likely consistent with ARDS secondary to acute pancreatitis. Although the possibility of cardiogenic pulmonary edema is not entirely ruled out, but felt to be less likely considering the patient had a relatively normal echocardiogram, and not much improvement in spite of diuretics. CBC is relatively normal today, WBC count 9.5 hemoglobin is 10.5. Electrolytes are normal. ABG last night showed a pO2 of 55 pCO2 of 5:30 pH of 7.37, and this was on 80% FiO2. Her BNP level was normal. And echocardiogram did not reveal any LV dysfunction. Reevaluated today on 06/28/2019, patient remains on high FiO2, and intermittently on BiPAP. O2 saturation remains marginal. Chest x-ray continues to show b ilateral interstitial infiltrates. Patient denies being in distress, but again her O2 saturation is in the low 90s on a high flow nasal cannula and on BiPAP. Patient denies any cough, no wheezing, no fever, no chills, her amylase level today is down to 344 electrolytes are normal. CBC is relatively unremarkable. Reevaluated today on 06/29/2019, patient remains marginal, she has been intermittently on high FiO2, BiPAP, and now on airvo at high flow and high FiO2. O2 saturation remains marginal in the low 90s at best. Clinically however the patient does not seem to be in any distress. And feels comfortable. Denies any cough, no wheezing, denies any shortness of breath denies any chest pain. CBC is relatively normal hemoglobin is 10.4 electrodes are normal renal profile is normal patient remains empirically on antibiotics, she is also on bronchodilators, steroids, and the dose of diuretics was increased this morning. Chest x-ray continues to show significant airspace disease in both lungs specially the bases a left lower lobe and right lower lobe. Objective - Vital Signs Vital signs: Vital Signs Temp 98.3 F 06/29/19 08:00 Pulse 90 06/29/19 11:34 Resp 12 06/29/19 11:00 BP 114/82 06/29/19 11:00 Pulse Ox 93 L 06/29/19 11:00 Intake & Output 06/28/19 06/29/19 06/29/19 18:59 06:59 18:59 Intake Total 1325 375 475 Output Total 2024 1524 1999 Balance -700 -9560 -1525 Weight 108 kg 107.4 kg Intake: IV 225 375 225 Sodium Chloride 0.9% 1, 225 275 125 000 ml @ 25 mls/hr IV . Q24H [facility] Rx#:[id number] metroNIDAZOLE-NS PMX 500 100 100 mg In Saline 1 100ml.bag @ 100 mls/hr IVPB Q8HR [facility] Rx#:[id number] Intake, IV Titration 500 Amount Sodium Phosphate 10 mmol 500 In Sodium Chloride 0.9% 250 ml @ 125 mls/hr IV Q2H [facility] Rx#:[id number] Oral 600 250 Output: Urine 2024 1524 1999 Other: Voiding Method Bedside Commode # Voids 1 0 4 - Exam GENERAL EXAM: Alert, pleasant, 39-year-old white female, high flow oxygen.. HEAD: Normocephalic/atraumatic. EYES: Normal reaction of pupils, equal size. Conjunctiva pink, sclera white. NOSE: Clear with pink turbinates. THROAT: No erythema or exudates. NECK: No masses, no JVD, no thyroid enlargement, no adenopathy. CHEST: No chest wall deformity. Symmetrical expansion. LUNGS: Crackles and rhonchi at the bases no wheezes. CVS: Regular rate and rhythm, normal S1 and S2, no gallops, no murmurs, no rubs ABDOMEN: Soft, nontender. No hepatosplenomegaly, normal bowel sounds, no guarding or rigidity. EXTREMITIES: No clubbing, no edema, no cyanosis, 2+ pulses and upper and lower extremities. MUSCULOSKELETAL: Muscle strength and tone normal. SPINE: No scoliosis or deformity SKIN: No rashes CENTRAL NERVOUS SYSTEM: Slightly anxious, alert oriented 3. PSYCHIATRIC: Anxious, intact mental status, blunt affect - Labs CBC & Chem 7: 06/29/19 05:25 06/29/19 05:25 Labs: Abnormal Lab Results - Last 24 Hours (Table) 06/28/19 06/28/19 06/28/19 Range/Units 12:08 17:30 20:45 RBC (3.80-5.40) m/uL Hgb (11.4-16.0) gm/dL Hct (34.0-46.0) % RDW (11.5-15.5) % Plt Count (150-450) k/uL Lymphocytes # (1.0-4.8) k/uL Sodium (137-145) mmol/L Carbon Dioxide (22-30) mmol/L Creatinine (0.52-1.04) mg/dL Glucose (74-99) mg/dL POC Glucose (mg/dL) 104 H 113 H 128 H (75-99) mg/dL Calcium (8.4-10.2) mg/dL Total Protein (6.3-8.2) g/dL Albumin (3.5-5.0) g/dL Lipase (23-300) U/L 06/29/19 06/29/19 06/29/19 Range/Units 05:25 05:25 05:25 RBC 3.11 L (3.80-5.40) m/uL Hgb 10.4 L (11.4-16.0) gm/dL Hct 30.5 L (34.0-46.0) % RDW 17.8 H (11.5-15.5) % Plt Count 106 L (150-450) k/uL Lymphocytes # 0.7 L (1.0-4.8) k/uL Sodium 136 L (137-145) mmol/L Carbon Dioxide 31 H (22-30) mmol/L Creatinine 0.44 L (0.52-1.04) mg/dL Glucose 140 H (74-99) mg/dL POC Glucose (mg/dL) (75-99) mg/dL Calcium 8.0 L (8.4-10.2) mg/dL Total Protein 4.7 L (6.3-8.2) g/dL Albumin 2.5 L (3.5-5.0) g/dL Lipase 310 H (23-300) U/L 06/29/19 Range/Units 06:55 RBC (3.80-5.40) m/uL Hgb (11.4-16.0) gm/dL Hct (34.0-46.0) % RDW (11.5-15.5) % Plt Count (150-450) k/uL Lymphocytes # (1.0-4.8) k/uL Sodium (137-145) mmol/L Carbon Dioxide (22-30) mmol/L Creatinine (0.52-1.04) mg/dL Glucose (74-99) mg/dL POC Glucose (mg/dL) 146 H (75-99) mg/dL Calcium (8.4-10.2) mg/dL Total Protein (6.3-8.2) g/dL Albumin (3.5-5.0) g/dL Lipase (23-300) U/L Microbiology - Last 24 Hours (Table) 06/24/19 15:14 Blood Culture - Preliminary Blood No Growth after 96 hours 06/26/19 13:55 Blood Culture - Preliminary Blood No Growth after 48 hours 06/26/19 13:50 Blood Culture - Preliminary Blood No Growth after 48 hours Assessment and Plan Assessment: #1. Acute hypoxemic respiratory failure, secondary to noncardiogenic pulmonary edema/ARDS, secondary to acute pancreatitis. #2. Acute gallstone pancreatitis, and cholecystitis #3. Acute exacerbation of COPD, possible asthma, however the patient has been a smoker, and she may have a combination of COPD and bronchial asthma. #4. History of chronic moderate severe bronchial asthma, #5. History of hypertension #6. History of hypothyroidism #7. Chronic migraines #8. history of pneumonia #9. Bipolar disorder #10. Anxiety #11. Current every day smoker #12 suspect ARDS secondary to acute pancreatitis. Recommendation: Continue to titrate FiO2, keep O2 saturation above 90%. Continue pain control however the dose of narcotics will be cut down significantly/Dilaudid. Continue steroids, antibiotics, and diuretics. Bronchodilators. Continue GI and DVT prophylaxis. Continue to monitor pancreatic enzymes, her lipase today is down to 310. And it is gradually improving. Updated the patient on her condition, and I explained to her that she will remain in the ICU, and I would not be surprised if she ends up requiring intubation and mechanical ventilation, but at least not at this point yet. We'll continue to follow. Time with Patient: Less than 30
[2019-06-29] MEDS: LORazepam 2 MG/ML INJ IV PRN ×3 (12:09→19:52)
[2019-06-29] MEDS: metroNIDAZOLE 500 MG TAB PO SCH (15:26)
[2019-06-29 16:58] LABS: Glucose,Whole Blood 136 mg/dL (75-99)
[2019-06-29 20:39] LABS: Glucose,Whole Blood 210 mg/dL (75-99)
[2019-06-29] MEDS ORDERED: FUROSEMIDE 10 MG/ML 4 ML VIAL IV SCH (21:00)
[2019-06-29] MEDS: QUEtiapine 200 MG TAB PO SCH (21:32)
[2019-06-29] MEDS: LURASIDONE 40 MG TAB PO SCH (21:32)
[2019-06-30] MEDS: methylPREDNISolone SOD SUCCI 40 MG/ML 1 ML VIAL IV SCH ×4 (00:27→17:24)
[2019-06-30] MEDS: metroNIDAZOLE 500 MG TAB PO SCH ×3 (00:27→16:05)
[2019-06-30] MEDS: clonazePAM 0.5 MG TAB PO SCH ×3 (00:27→17:24)
[2019-06-30] MEDS: IPRATROPIUM-ALBUTEROL 3 ML NEB INHALATION SCH ×7 (01:13→23:48)
[2019-06-30 05:50] LABS: Basophils % (A) 0 %; Eosinophils % (A) 0 %; HCT 32.9 % (34.0-46.0); HGB 10.8 gm/dL (11.4-16.0); Lymphocytes # (A) 0.9 k/uL (1.0-4.8); Lymphocytes % (A) 11 %; MCH 32.8 pg (25.0-35.0); MCHC 32.8 g/dL (31.0-37.0); MCV 99.9 fL (80.0-100.0); Macrocytosis Slight; Mean Platelet Volume 8.3; Monocytes # (A) 0.4 k/uL (0-1.0); Monocytes % (A) 5 %; Neutrophils # (A) 6.7 k/uL (1.3-7.7); Neutrophils % (A) 81 %; RDW 15.7 % (11.5-15.5); WBC 8.3 k/uL (3.8-10.6)
[2019-06-30 05:53] LABS: Platelet Count 259 k/uL (150-450)
[2019-06-30 06:07] LABS: African American GFR (CKD) >90 (>60 ml/min/1.73 sqM); Anion Gap 8 mmol/L; Blood Urea Nitrogen 24 mg/dL (7-17); Calcium 8.5 mg/dL (8.4-10.2); Carbon Dioxide 31 mmol/L (22-30); Chloride 97 mmol/L (98-107); Glucose 167 mg/dL (74-99); Phosphorus 3.6 mg/dL (2.5-4.5); Sodium 136 mmol/L (137-145)
[2019-06-30] MEDS: LORazepam 2 MG/ML INJ IV PRN ×3 (06:43→20:08)
[2019-06-30 07:01] LABS: Glucose,Whole Blood 163 mg/dL (75-99)
[2019-06-30] MEDS: FUROSEMIDE 10 MG/ML 4 ML VIAL IV SCH ×2 (07:16→17:24)
[2019-06-30] MEDS: CARVEDILOL 6.25 MG TAB PO SCH ×2 (07:17→17:24)
[2019-06-30] MEDS: INSULIN ASPART (NovoLOG) 100 UNIT/ML VIAL SQ SCH ×4 (07:17→20:42)
[2019-06-30] MEDS: QUEtiapine 50 MG TAB PO SCH (08:13)
[2019-06-30] MEDS: PANTOPRAZOLE 40 MG TABLET PO SCH (08:13)
[2019-06-30] MEDS: HYDROmorphone 0.5 MG/0.5 ML SYRINGE IVP PRN ×5 (08:13→22:08)
[2019-06-30] MEDS: NICOTINE 21MG/24HR PATCH TRANSDERM SCH (08:29)
[2019-06-30] MEDS: BUDESONIDE 1 MG/2 ML NEBU INHALATION SCH ×2 (08:35→19:24)
[2019-06-30] MEDS: FORMOTEROL FUMARATE 20 MCG/2 ML NEBU INHALATION SCH ×2 (08:35→19:24)
--- NOTE | 2019-06-30 09:07 | P.PN ---
Subjective Progress Note Date: 06/30/19 Principal diagnosis: Abdominal pain Patient is still requiring 15 L of high flow nasal cannula, whenever she gets out to the bedside commode she desats to the 80s. She is not complaining from shortness of breath or chest pain. No nausea or vomiting. Abdominal pain getting better. Objective - Vital Signs Vital signs: Vital Signs Temp 98.0 F 06/30/19 08:00 Pulse 95 06/30/19 09:02 Resp 19 06/30/19 08:00 BP 115/86 06/30/19 08:00 Pulse Ox 90 L 06/30/19 08:00 Intake & Output 06/29/19 06/30/19 06/30/19 18:59 06:59 18:59 Intake Total 875 50 Output Total 4000 1075 1100 Balance -7689 -9157 -7837 Weight 107.4 kg 105.2 kg Intake: IV 375 Sodium Chloride 0.9% 1, 275 000 ml @ 25 mls/hr IV . Q24H [facility] Rx#:[id number] metroNIDAZOLE-NS PMX 500 100 mg In Saline 1 100ml.bag @ 100 mls/hr IVPB Q8HR [facility] Rx#:[id number] Intake, IV Titration 50 Amount cefTRIAXone 1 gm In 50 Sodium Chloride 0.9% 50 ml @ 100 mls/hr IVPB Q24HR [facility] Rx#:[id number] Oral 500 Output: Urine 4000 1075 1100 Other: Voiding Method Bedside Commode # Voids 4 1 0 - Exam Constitutional: No acute distress, conversant, pleasant Eyes:Anicteric sclerae, moist conjunctiva, no lid-lag, PERRLA, ENMT: Oropharynx clear, no erythema, exudates Neck: Supple, FROM, no masses, or JVD, No carotid bruits, No thyromegaly Lungs: Clear to auscultation, Clear to percussion, Normal respiratory effort, no accessory muscle use Cardiovascular: Tachycardic, regular, No murmurs, gallops, or rubs, No peripheral edema Abdominal: Soft, severely tender, no guarding, rebound or rigidity, Normoactive bowel sounds, No hepatomegaly, No splenomegaly, No palpable mass Skin: Normal temperature, tone, texture, turgor, no induration, No subcutaneous nodules, No rash, lesions, No ulcers Extremities: No digital cyanosis, No clubbing, Pedal pulses intact and symmet rical, Radial pulses intact and symmetrical, No calf tenderness Psychiatric: Alert and oriented to person, place and time, appropriate affect, intact judgement Neuro: Muscles Strength 5/5 in all 4 extremities, Sensation to light touch grossly present throughout, Cranial nerves II-XII grossly intact, no focal sensory deficits - Labs CBC & Chem 7: 06/30/19 04:33 06/30/19 04:33 Labs: Abnormal Lab Results - Last 24 Hours (Table) 06/29/19 06/29/19 06/29/19 Range/Units 05:25 11:46 16:55 RBC (3.80-5.40) m/uL Hgb (11.4-16.0) gm/dL Hct (34.0-46.0) % RDW (11.5-15.5) % Lymphocytes # (1.0-4.8) k/uL Sodium (137-145) mmol/L Chloride (98-107) mmol/L Carbon Dioxide (22-30) mmol/L BUN (7-17) mg/dL Glucose (74-99) mg/dL POC Glucose (mg/dL) 140 H 136 H (75-99) mg/dL Lipase 310 H (23-300) U/L 06/29/19 06/30/19 06/30/19 Range/Units 20:36 04:33 04:33 RBC 3.30 L (3.80-5.40) m/uL Hgb 10.8 L (11.4-16.0) gm/dL Hct 32.9 L (34.0-46.0) % RDW 15.7 H (11.5-15.5) % Lymphocytes # 0.9 L (1.0-4.8) k/uL Sodium 136 L (137-145) mmol/L Chloride 97 L (98-107) mmol/L Carbon Dioxide 31 H (22-30) mmol/L BUN 24 H (7-17) mg/dL Glucose 167 H (74-99) mg/dL POC Glucose (mg/dL) 210 H (75-99) mg/dL Lipase (23-300) U/L 06/30/19 Range/Units 06:59 RBC (3.80-5.40) m/uL Hgb (11.4-16.0) gm/dL Hct (34.0-46.0) % RDW (11.5-15.5) % Lymphocytes # (1.0-4.8) k/uL Sodium (137-145) mmol/L Chloride (98-107) mmol/L Carbon Dioxide (22-30) mmol/L BUN (7-17) mg/dL Glucose (74-99) mg/dL POC Glucose (mg/dL) 163 H (75-99) mg/dL Lipase (23-300) U/L Microbiology - Last 24 Hours (Table) 06/24/19 15:14 Blood Culture - Preliminary Blood No Growth after 120 hours 06/26/19 13:55 Blood Culture - Preliminary Blood No Growth after 72 hours 06/26/19 13:50 Blood Culture - Preliminary Blood No Growth after 72 hours Assessment and Plan Plan: Acute pancreatitis Resolved Likely secondary to gallstones, rule out alcohol induced Currently on a regular diet Acute cholecystitis Surgery recommending outpatient cholecystectomy once pancreatitis resolves Ceftriaxone and Flagyl Acute hypoxic respiratory faiilure: Likely sec to fluid overload/pulm edema. ARDS from acute pancreatitis in the differential as well On lasix, steroids and nebulizers Echo looking ok, BNP ok. Pulm on board. Bipolar disorder Resume meds Hypertension/hypothyroidism All stable Hold meds Monitor blood pressure DVT prophylaxis Patient is ambulatory Disposition: Likely home Anticipated date of discharge 07/03
--- NOTE | 2019-06-30 09:25 | XR ---
EXAMINATION TYPE: XR chest 1V portable DATE OF EXAM: 06/30/2019 COMPARISON: 06/29/2019 INDICATION: Adventitious lung sounds TECHNIQUE: Single frontal view of the chest is obtained. FINDINGS: The heart size is normal. The pulmonary vasculature is normal. Right lower lobe infiltrate is present. This is more consolidated than comparison. Left lower lung fi eld infiltrate is largely resolved. IMPRESSION: 1. Resolving lower lobe infiltrates. Moderate residual remains at the right lung base and continued f ollow-up is recommended.
[2019-06-30] MEDS: GABAPENTIN 100 MG CAP PO SCH ×2 (11:44→16:00)
[2019-06-30 11:50] LABS: Glucose,Whole Blood 218 mg/dL (75-99)
--- NOTE | 2019-06-30 13:57 | P.PN ---
Subjective Progress Note Date: 06/30/19 Principal diagnosis: Acute hypoxic respiratory failure secondary to noncardiogenic pulmonary edema/ARDS. A 39-year-old daughter white female patient who was admitted on 06/24/2019 with the chief complaint of epigastric pain radiating to her back associated with nausea, and vomiting for 3 days prior to presentation. She denied any fever or chills, denied any chest pain, she recently him back from [place] where she had been drinking for a few days, no prior history of pancreatitis in the past, in the emergency department patient was found to have elevated lipase, and evidence of pancreatitis and cholecystitis on the CAT scan, which showed a retroperitoneal fluid and fat stranding around the pancreas consistent with pancreatitis, and mildly dilated gallbladder suggestive of cholecystitis in addition there was a fatty infiltration of the liver. [place] of the abdomen laura wed tiny gallstones, common bile duct showed a 1 cm with no dilation of intrahepatic bile ducts. Patient was being treated conservatively, by mouth except for ice and popsicles, IV fluids, antibiotics, surgical consultation was obtained, and surgery was considering surgical intervention once the pa ncreatitis has resolved. This morning patient was noted to be hypoxemic, pulse ox of 67% on room air, yesterday patient was not requiring any supplemental oxygen, and was maintaining O2 saturations at or above 93%. Patient complaining of increasing dyspnea, and tachycardic, started having a headache and a low- grade fever. She was placed on the 100% nonrebreather, stat blood gas was obtained, showing pO2 of 72, pCO2 46, pH of 7.34, this was done on FiO2 of 100%, and is consistent with mild hypercapnic respiratory failure, and acute hypoxemic respiratory failure. Chest x-ray was completed showing low lung volumes with the new [id number] central vascular congestion and interstitial edema. In addition patient was bronchospastic, and she does have a history of asthma, and she states she was previously treated with Zithromax and prednisone in the recent past for asthma exacerbation and tracheobronchitis. BiPAP support was considered, however patient's condition started to improve, she was started on nebulized bronchodilators, a dose of IV Lasix was given. She was refusing IV s teroids at first, but in view of her wheezing and chest congestion we will start her on IV steroids. Blood cultures and lactic acid have been sent. Patient denied any chest pain, did have some epigastric discomfort, which and ongoing since admission, and abdominal discomfort across the lower quadrants, abdomen is soft, nontender. Labs today have been reviewed, showing white blood cell count of 10.2, hemoglobin of 11.9, coagulation profile was within normal limits, sodium was 132, the rest of electrolytes and renal profile were unremarkable, repeat lactic acid came back normal at 0.9, proBNP was normal at 194, her enzymes are trending down, lipase is down to 940, down from 2324 on yesterday's labs. Reevaluated today on 06/27/2019, patient remains on high flow FiO2/high flow nasal cannula, last night she became worse, and she required placement on BiPAP most of the night. The issue of intubation and mechanical ventilation was discussed with the patient last night, patient refused to be intubated. And did relatively well on BiPAP overnight and she kept it until early this morning. Today she was switched to a high flow nasal cannula, O2 saturation remains very marginal. Barely 90% on high flow nasal cannula. Chest x-ray continues to show bilateral interstitial edema, more likely consistent with ARDS secondary to acute pancreatitis. Although the possibility of cardiogenic pulmonary edema is not entirely ruled out, but felt to be less likely considering the patient had a relatively normal echocardiogram, and not much improvement in spite of diuretics. CBC is relatively normal today, WBC count 9.5 hemoglobin is 10.5. Electrolytes are normal. ABG last night showed a pO2 of 55 pCO2 of 5:30 pH of 7.37, and this was on 80% FiO2. Her BNP level was normal. And echocardiogram did not reveal any LV dysfunction. Reevaluated today on 06/28/2019, patient remains on high FiO2, and intermittently on BiPAP. O2 saturation remains marginal. Chest x-ray continues to show b ilateral interstitial infiltrates. Patient denies being in distress, but again her O2 saturation is in the low 90s on a high flow nasal cannula and on BiPAP. Patient denies any cough, no wheezing, no fever, no chills, her amylase level today is down to 344 electrolytes are normal. CBC is relatively unremarkable. Reevaluated today on 06/29/2019, patient remains marginal, she has been intermittently on high FiO2, BiPAP, and now on airvo at high flow and high FiO2. O2 saturation remains marginal in the low 90s at best. Clinically however the patient does not seem to be in any distress. And feels comfortable. Denies any cough, no wheezing, denies any shortness of breath denies any chest pain. CBC is relatively normal hemoglobin is 10.4 electrodes are normal renal profile is normal patient remains empirically on antibiotics, she is also on bronchodilators, steroids, and the dose of diuretics was increased this morning. Chest x-ray continues to show significant airspace disease in both lungs specially the bases a left lower lobe and right lower lobe. Reevaluated today on 06/30/2019, remains in the ICU, remains on high flow FiO2, she is presently on high flow nasal cannula at 15 L/m. Intermittently on BiPAP especially at night. Patient is improving. Chest x-ray is showing slight improvement. Less shortness of breath, minimal productive cough is noted. Denies any fever no chills no hemoptysis and no chest pain. Patient desaturates easily with any activity. Chest x-ray clearly showed some airspace disease involving mostly the right lower lobe, and to lesser extent the left lower lobe today. CBC is normal hemoglobin is 10.8 electrodes are normal renal profile is normal, no lipase was done today. Blood sugar is 167 Objective - Vital Signs Vital signs: Vital Signs Temp 97.9 F 06/30/19 12:00 Pulse 95 06/30/19 13:00 Resp 12 06/30/19 13:00 BP 90/71 06/30/19 13:00 Pulse Ox 94 L 06/30/19 13:00 Intake & Output 06/29/19 06/30/19 06/30/19 18:59 06:59 18:59 Intake Total 875 50 Output Total 4000 1075 2050 Balance -3124 -1074 Weight 107.4 kg 105.2 kg Intake: IV 375 Sodium Chloride 0.9% 1, 275 000 ml @ 25 mls/hr IV . Q24H [facility] Rx#:[id number] metroNIDAZOLE-NS PMX 500 100 mg In Saline 1 100ml.bag @ 100 mls/hr IVPB Q8HR [facility] Rx#:[id number] Intake, IV Titration 50 Amount cefTRIAXone 1 gm In 50 Sodium Chloride 0.9% 50 ml @ 100 mls/hr IVPB Q24HR [facility] Rx#:[id number] Oral 500 Output: Urine 4000 1075 2050 Other: Voiding Method Bedside Commode Bedside Commode # Voids 4 1 0 - Exam GENERAL EXAM: Revealed a 59-year-old female on high flow nasal cannula, in no distress. Quite calm today. HEAD: Normocephalic/atraumatic. EYES: Normal reaction of pupils, equal size. Conjunctiva pink, sclera white. NOSE: Clear with pink turbinates. THROAT: No erythema or exudates. NECK: No masses, no JVD, no thyroid enlargement, no adenopathy. CHEST: No chest wall deformity. Symmetrical expansion. LUNGS: Crackles at the bases, no wheezes. Special that the right base. CVS: Regular rate and rhythm, normal S1 and S2, no gallops, no murmurs, no rubs ABDOMEN: Soft, nontender. No hepatosplenomegaly, normal bowel sounds, no guarding or rigidity. EXTREMITIES: No clubbing, no edema, no cyanosis, 2+ pulses and upper and lower extremities. MUSCULOSKELETAL: Muscle strength and tone normal. SPINE: No scoliosis or deformity SKIN: No rashes CENTRAL NERVOUS SYSTEM: Alert oriented 3, no gross focal neurologic deficits. PSYCHIATRIC: Normal mood affect and normal mental status examination. - Labs CBC & Chem 7: 06/30/19 04:33 06/30/19 04:33 Labs: Abnormal Lab Results - Last 24 Hours (Table) 06/29/19 06/29/19 06/30/19 Range/Units 16:55 20:36 04:33 RBC (3.80-5.40) m/uL Hgb (11.4-16.0) gm/dL Hct (34.0-46.0) % RDW (11.5-15.5) % Lymphocytes # (1.0-4.8) k/uL Sodium 136 L (137-145) mmol/L Chloride 97 L (98-107) mmol/L Carbon Dioxide 31 H (22-30) mmol/L BUN 24 H (7-17) mg/dL Glucose 167 H (74-99) mg/dL POC Glucose (mg/dL) 136 H 210 H (75-99) mg/dL 06/30/19 06/30/19 06/30/19 Range/Units 04:33 06:59 11:46 RBC 3.30 L (3.80-5.40) m/uL Hgb 10.8 L (11.4-16.0) gm/dL Hct 32.9 L (34.0-46.0) % RDW 15.7 H (11.5-15.5) % Lymphocytes # 0.9 L (1.0-4.8) k/uL Sodium (137-145) mmol/L Chloride (98-107) mmol/L Carbon Dioxide (22-30) mmol/L BUN (7-17) mg/dL Glucose (74-99) mg/dL POC Glucose (mg/dL) 163 H 218 H (75-99) mg/dL Microbiology - Last 24 Hours (Table) 06/24/19 15:14 Blood Culture - Preliminary Blood No Growth after 120 hours 06/26/19 13:55 Blood Culture - Preliminary Blood No Growth after 72 hours 06/26/19 13:50 Blood Culture - Preliminary Blood No Growth after 72 hours Assessment and Plan Assessment: #1. Acute hypoxemic respiratory failure, secondary to noncardiogenic pulmonary edema/ARDS, secondary to acute pancreatitis. #2. Acute gallstone pancreatitis, and cholecystitis #3. Acute exacerbation of COPD, possible asthma, however the patient has been a smoker, and she may have a combination of COPD and bronchial asthma. #4. History of chronic moderate severe bronchial asthma, #5. History of hypertension #6. History of hypothyroidism #7. Chronic migraines #8. history of pneumonia #9. Bipolar disorder #10. Anxiety #11. Current every day smoker #12 suspect ARDS secondary to acute pancreatitis. Recommendation: Continue to titrate FiO2, keep O2 saturation above 90%. Continue pain control however the dose of narcotics will be cut down significantly/Dilaudid. Continue steroids, antibiotics, and diuretics. Bronchodilators. Continue GI and DVT prophylaxis. Continue incentive spirometry. Patient will remain in the ICU, her O2 saturation remains marginal in spite of a high flow nasal cannula, we'll continue to follow. Time with Patient: Less than 30
[2019-06-30] MEDS: SODIUM CHLORIDE 0.9% 1,000 ML IV SCH (16:18)
[2019-06-30 17:18] LABS: Glucose,Whole Blood 141 mg/dL (75-99)
[2019-06-30 20:35] LABS: Glucose,Whole Blood 170 mg/dL (75-99)
[2019-06-30] MEDS: LURASIDONE 40 MG TAB PO SCH (20:42)
[2019-06-30] MEDS: QUEtiapine 200 MG TAB PO SCH (20:42)
[2019-07-01] MEDS: GABAPENTIN 100 MG CAP PO SCH ×3 (00:41→16:25)
[2019-07-01] MEDS: clonazePAM 0.5 MG TAB PO SCH ×3 (00:41→16:26)
[2019-07-01] MEDS: methylPREDNISolone SOD SUCCI 40 MG/ML 1 ML VIAL IV SCH ×4 (00:41→17:26)
[2019-07-01] MEDS: metroNIDAZOLE 500 MG TAB PO SCH ×3 (00:41→16:26)
[2019-07-01] MEDS: IPRATROPIUM-ALBUTEROL 3 ML NEB INHALATION SCH ×5 (03:16→19:09)
[2019-07-01 05:40] LABS: HCT 34.4 % (34.0-46.0); HGB 11.6 gm/dL (11.4-16.0); MCH 32.9 pg (25.0-35.0); MCHC 33.6 g/dL (31.0-37.0); Macrocytosis Slight; Mean Platelet Volume 7.8; Platelet Count 357 k/uL (150-450); RBC 3.51 m/uL (3.80-5.40); RDW 15.5 % (11.5-15.5); WBC 11.2 k/uL (3.8-10.6)
[2019-07-01 05:50] LABS: African American GFR (CKD) >90 (>60 ml/min/1.73 sqM); Anion Gap 8 mmol/L; Blood Urea Nitrogen 31 mg/dL (7-17); Calcium 8.9 mg/dL (8.4-10.2); Carbon Dioxide 34 mmol/L (22-30); Chloride 94 mmol/L (98-107); Glucose 164 mg/dL (74-99); Sodium 136 mmol/L (137-145)
[2019-07-01 07:10] LABS: Glucose,Whole Blood 171 mg/dL (75-99)
[2019-07-01] MEDS: CARVEDILOL 6.25 MG TAB PO SCH ×2 (07:11→17:26)
[2019-07-01] MEDS: FUROSEMIDE 10 MG/ML 4 ML VIAL IV SCH ×2 (07:11→17:25)
[2019-07-01] MEDS: HYDROmorphone 0.5 MG/0.5 ML SYRINGE IVP PRN ×5 (07:11→20:39)
[2019-07-01] MEDS: INSULIN ASPART (NovoLOG) 100 UNIT/ML VIAL SQ SCH ×4 (07:11→20:40)
--- NOTE | 2019-07-01 07:17 | XR ---
EXAMINATION TYPE: XR chest 1V portable DATE OF EXAM: 07/01/2019 CLINICAL HISTORY: Difficulty breathing pulmonary edema progress study. TECHNIQUE: Single AP portable upright view of the chest is obtained. COMPARISON: Chest x-ray from one day earlier FINDINGS: Persistent bibasilar opacities. Upper lungs are clear without pneumothorax. Cardiac silhou ette size is stable and within normal limits. Osseous structures are intact. IMPRESSION: Overall stable findings, persistent bibasilar acute infiltrate and/or atelectasis
[2019-07-01 09:11] LABS: Band Neutrophils % 2 %; Eosinophils # (M) 0.11 k/uL (0-0.7); Lymphocytes # (M) 2.02 k/uL (1.0-4.8); Metamyelocytes # (M) 0.34 k/uL (0); Metamyelocytes % 3 %; Monocytes # (M) 0.34 k/uL (0-1.0); Myelocytes # (M) 0.22 k/uL (0); Myelocytes % 2 %; Neutrophils % (M) 73 %; Nucleated Red Blood Cells 0 /100 WBC (0-0); Total Cells Counted 200
[2019-07-01] MEDS: FORMOTEROL FUMARATE 20 MCG/2 ML NEBU INHALATION SCH ×2 (09:20→19:23)
[2019-07-01] MEDS: BUDESONIDE 1 MG/2 ML NEBU INHALATION SCH ×2 (09:20→19:09)
[2019-07-01] MEDS: QUEtiapine 50 MG TAB PO SCH (09:49)
[2019-07-01] MEDS: PANTOPRAZOLE 40 MG TABLET PO SCH (09:49)
[2019-07-01] MEDS: NICOTINE 21MG/24HR PATCH TRANSDERM SCH (10:12)
--- NOTE | 2019-07-01 11:19 | P.PN ---
Subjective Progress Note Date: 07/01/19 Principal diagnosis: Acute hypoxic respiratory failure secondary to noncardiogenic pulmonary edema/ARDS. A 39-year-old daughter white female patient who was admitted on 06/24/2019 with the chief complaint of epigastric pain radiating to her back associated with nausea, and vomiting for 3 days prior to presentation. She denied any fever or chills, denied any chest pain, she recently him back from [place] where she had been drinking for a few days, no prior history of pancreatitis in the past, in the emergency department patient was found to have elevated lipase, and evidence of pancreatitis and cholecystitis on the CAT scan, which showed a retroperitoneal fluid and fat stranding around the pancreas consistent with pancreatitis, and mildly dilated gallbladder suggestive of cholecystitis in addition there was a fatty infiltration of the liver. [place] of the abdomen laura wed tiny gallstones, common bile duct showed a 1 cm with no dilation of intrahepatic bile ducts. Patient was being treated conservatively, by mouth except for ice and popsicles, IV fluids, antibiotics, surgical consultation was obtained, and surgery was considering surgical intervention once the pa ncreatitis has resolved. This morning patient was noted to be hypoxemic, pulse ox of 67% on room air, yesterday patient was not requiring any supplemental oxygen, and was maintaining O2 saturations at or above 93%. Patient complaining of increasing dyspnea, and tachycardic, started having a headache and a low- grade fever. She was placed on the 100% nonrebreather, stat blood gas was obtained, showing pO2 of 72, pCO2 46, pH of 7.34, this was done on FiO2 of 100%, and is consistent with mild hypercapnic respiratory failure, and acute hypoxemic respiratory failure. Chest x-ray was completed showing low lung volumes with the new [id number] central vascular congestion and interstitial edema. In addition patient was bronchospastic, and she does have a history of asthma, and she states she was previously treated with Zithromax and prednisone in the recent past for asthma exacerbation and tracheobronchitis. BiPAP support was considered, however patient's condition started to improve, she was started on nebulized bronchodilators, a dose of IV Lasix was given. She was refusing IV s teroids at first, but in view of her wheezing and chest congestion we will start her on IV steroids. Blood cultures and lactic acid have been sent. Patient denied any chest pain, did have some epigastric discomfort, which and ongoing since admission, and abdominal discomfort across the lower quadrants, abdomen is soft, nontender. Labs today have been reviewed, showing white blood cell count of 10.2, hemoglobin of 11.9, coagulation profile was within normal limits, sodium was 132, the rest of electrolytes and renal profile were unremarkable, repeat lactic acid came back normal at 0.9, proBNP was normal at 194, her enzymes are trending down, lipase is down to 940, down from 2324 on yesterday's labs. Reevaluated today on 06/27/2019, patient remains on high flow FiO2/high flow nasal cannula, last night she became worse, and she required placement on BiPAP most of the night. The issue of intubation and mechanical ventilation was discussed with the patient last night, patient refused to be intubated. And did relatively well on BiPAP overnight and she kept it until early this morning. Today she was switched to a high flow nasal cannula, O2 saturation remains very marginal. Barely 90% on high flow nasal cannula. Chest x-ray continues to show bilateral interstitial edema, more likely consistent with ARDS secondary to acute pancreatitis. Although the possibility of cardiogenic pulmonary edema is not entirely ruled out, but felt to be less likely considering the patient had a relatively normal echocardiogram, and not much improvement in spite of diuretics. CBC is relatively normal today, WBC count 9.5 hemoglobin is 10.5. Electrolytes are normal. ABG last night showed a pO2 of 55 pCO2 of 5:30 pH of 7.37, and this was on 80% FiO2. Her BNP level was normal. And echocardiogram did not reveal any LV dysfunction. Reevaluated today on 06/28/2019, patient remains on high FiO2, and intermittently on BiPAP. O2 saturation remains marginal. Chest x-ray continues to show b ilateral interstitial infiltrates. Patient denies being in distress, but again her O2 saturation is in the low 90s on a high flow nasal cannula and on BiPAP. Patient denies any cough, no wheezing, no fever, no chills, her amylase level today is down to 344 electrolytes are normal. CBC is relatively unremarkable. Reevaluated today on 06/29/2019, patient remains marginal, she has been intermittently on high FiO2, BiPAP, and now on airvo at high flow and high FiO2. O2 saturation remains marginal in the low 90s at best. Clinically however the patient does not seem to be in any distress. And feels comfortable. Denies any cough, no wheezing, denies any shortness of breath denies any chest pain. CBC is relatively normal hemoglobin is 10.4 electrodes are normal renal profile is normal patient remains empirically on antibiotics, she is also on bronchodilators, steroids, and the dose of diuretics was increased this morning. Chest x-ray continues to show significant airspace disease in both lungs specially the bases a left lower lobe and right lower lobe. Reevaluated today on 06/30/2019, remains in the ICU, remains on high flow FiO2, she is presently on high flow nasal cannula at 15 L/m. Intermittently on BiPAP especially at night. Patient is improving. Chest x-ray is showing slight improvement. Less shortness of breath, minimal productive cough is noted. Denies any fever no chills no hemoptysis and no chest pain. Patient desaturates easily with any activity. Chest x-ray clearly showed some airspace disease involving mostly the right lower lobe, and to lesser extent the left lower lobe today. CBC is normal hemoglobin is 10.8 electrodes are normal renal profile is normal, no lipase was done today. Blood sugar is 167 Patient was reevaluated today on 07/01/2019, remains on airvo however I was able to cut down her FiO2 to 50%, and her flow down to 40 L/m, plan to switch her to a high flow nasal cannula, and we'll continue to titrate the FiO2. Patient is feeling much better compared to how she felt upon presentation. Her chest x-ray continues to show steady improvement in her by lateral interstitial infiltrates especially in the right lower lobe and left lower lobe. Patient denies any cough, no wheezing, no chest pain. No fever, no chills, no hemoptysis. Her WBC count is 11.2 hemoglobin is 11.6. Electrodes are normal renal profile is normal. No lipase was ordered today. Her last amylase was normal. Objective - Vital Signs Vital signs: Vital Signs Temp 97.9 F 07/01/19 08:00 Pulse 96 07/01/19 10:00 Resp 20 07/01/19 10:00 BP 124/85 07/01/19 10:00 Pulse Ox 94 L 07/01/19 10:00 Intake & Output 06/30/19 07/01/19 07/01/19 18:59 06:59 18:59 Intake Total 50 960 50 Output Total 3600 1300 100 Balance -3550 -340 -50 Weight 102.7 kg Intake: Intake, IV Titration 50 50 Amount cefTRIAXone 1 gm In 50 50 Sodium Chloride 0.9% 50 ml @ 100 mls/hr IVPB Q24HR [facility] Rx#:[id number] Oral 960 Output: Urine 3600 1300 100 Other: Voiding Method Bedside Commode Bedside Commode Bedside Commode # Voids 1 0 0 - Exam GENERAL EXAM: Revealed a 59-year-old female on high flow nasal cannula, in no distress. Quite calm today. HEAD: Normocephalic/atraumatic. EYES: Normal reaction of pupils, equal size. Conjunctiva pink, sclera white. NOSE: Clear with pink turbinates. THROAT: No erythema or exudates. NECK: No masses, no JVD, no thyroid enlargement, no adenopathy. CHEST: No chest wall deformity. Symmetrical expansion. LUNGS: Slightly diminished breath sounds at the bases no crackles or rhonchi or wheezes. CVS: Regular rate and rhythm, normal S1 and S2, no gallops, no murmurs, no rubs ABDOMEN: Soft, nontender. No hepatosplenomegaly, normal bowel sounds, no guarding or rigidity. EXTREMITIES: No clubbing, no edema, no cyanosis, 2+ pulses and upper and lower extremities. MUSCULOSKELETAL: Muscle strength and tone normal. SPINE: No scoliosis or deformity SKIN: No rashes CENTRAL NERVOUS SYSTEM: Alert oriented 3, no gross focal neurologic deficits. PSYCHIATRIC: Normal mood affect and normal mental status examination. - Labs CBC & Chem 7: 07/01/19 05:04 07/01/19 05:04 Labs: Abnormal Lab Results - Last 24 Hours (Table) 06/30/19 06/30/19 06/30/19 Range/Units 11:46 17:04 20:31 WBC (3.8-10.6) k/uL RBC (3.80-5.40) m/uL Neutrophils # (Manual) (1.3-7.7) k/uL Metamyelocytes # (Man) (0) k/uL Myelocytes # (Manual) (0) k/uL Sodium (137-145) mmol/L Chloride (98-107) mmol/L Carbon Dioxide (22-30) mmol/L BUN (7-17) mg/dL Glucose (74-99) mg/dL POC Glucose (mg/dL) 218 H 141 H 170 H (75-99) mg/dL 07/01/19 07/01/19 07/01/19 Range/Units 05:04 05:04 07:07 WBC 11.2 H (3.8-10.6) k/uL RBC 3.51 L (3.80-5.40) m/uL Neutrophils # (Manual) 8.40 H (1.3-7.7) k/uL Metamyelocytes # (Man) 0.34 H (0) k/uL Myelocytes # (Manual) 0.22 H (0) k/uL Sodium 136 L (137-145) mmol/L Chloride 94 L (98-107) mmol/L Carbon Dioxide 34 H (22-30) mmol/L BUN 31 H (7-17) mg/dL Glucose 164 H (74-99) mg/dL POC Glucose (mg/dL) 171 H (75-99) mg/dL Microbiology - Last 24 Hours (Table) 06/24/19 15:14 Blood Culture - Final Blood No Growth after 144 hours 06/26/19 13:55 Blood Culture - Preliminary Blood No Growth after 96 hours 06/26/19 13:50 Blood Culture - Preliminary Blood No Growth after 96 hours Assessment and Plan Assessment: #1. Acute hypoxemic respiratory failure, secondary to noncardiogenic pulmonary edema/ARDS, secondary to acute pancreatitis. Improving slowly but steadily. #2. Acute gallstone pancreatitis, and cholecystitis #3. Acute exacerbation of COPD, possible asthma, however the patient has been a smoker, and she may have a combination of COPD and bronchial asthma. #4. History of chronic moderate severe bronchial asthma, #5. History of hypertension #6. History of hypothyroidism #7. Chronic migraines #8. history of pneumonia #9. Bipolar disorder #10. Anxiety #11. Current every day smoker #12 suspect ARDS secondary to acute pancreatitis. Recommendation: Continue to titrate FiO2, keep O2 saturation above 90%. Continue steroids, antibiotics, and diuretics. Bronchodilators. Continue GI and DVT prophylaxis. Continue incentive spirometry. Consider transferring the patient out of the ICU in the next 24 hours. In the meantime I have instructed that a slight therapist to continue titrating the FiO2 and continue to titrate the flow as tolerated and to maintain O2 saturation above 90%. We'll continue to follow. Time with Patient: Less than 30
[2019-07-01 12:09] LABS: Glucose,Whole Blood 217 mg/dL (75-99)
--- NOTE | 2019-07-01 15:40 | P.PN ---
Subjective Progress Note Date: 07/01/19 Principal diagnosis: The patient is a 39-year-old female with a past medical history of asthma that was admitted with acute pancreatitis after presenting with epigastric abdominal pain with nausea and vomiting. The patient was placed on standard treatment for pancreatitis including being made nothing by mouth except for ice and popsicles, she was placed on IV fluids, empiric IV antibiotics with Rocephin and azithromycin and Flagyl. Workup with CT abdomen and pelvis showed a retroperitoneal fluid and fat stranding consistent with pancreatitis. The patient continued to have SIRS as due to her pancreatitis and subsequently went into respiratory failure with hypoxemia and hypercapnia secondary to ARDS/asthma exacerbation triggered by her acute pancreatitis, right upper quadrant ultrasound was consistent with tiny gallstones with CBD at 1 cm. the patient was placed on BiPAP along with DuoNeb bronchodilator breathing treatments, and IV steroids and Lasix. Echocardiogram performed showed a preserved LVEF of 55-60%. Chest x-ray continued to show bilateral interstitial edema. Patient was continued on high flow nasal cannula, AirVO2 and intermittent BiPAP general surgery was consulted and recommended no surgical intervention until the resolution of her pancreatitis with plans to follow-up for lap cholecystectomy in clinic. Patient seen and examined and follow-up, remains on airvo. Chest x-ray continues to show steady improvement WBC count is 11.2 remains afebrile no acute events overnight. Objective - Vital Signs Vital signs: Vital Signs Temp 98.4 F 07/01/19 12:00 Pulse 93 07/01/19 12:12 Resp 12 07/01/19 12:00 BP 122/80 07/01/19 11:00 Pulse Ox 94 L 07/01/19 12:00 Intake & Output 06/30/19 07/01/19 07/01/19 18:59 06:59 18:59 Intake Total 50 960 50 Output Total 3600 1300 350 Balance -3550 -340 -300 Weight 102.7 kg Intake: Intake, IV Titration 50 50 Amount cefTRIAXone 1 gm In 50 50 Sodium Chloride 0.9% 50 ml @ 100 mls/hr IVPB Q24HR [facility] Rx#:[id number] Oral 960 Output: Urine 3600 1300 350 Other: Voiding Method Bedside Commode Bedside Commode Bedside Commode # Voids 1 0 0 - Exam Constitutional: Currently on high flow nasal cannula in no distress Eyes: Anicteric sclerae, moist conjunctiva, no lid-lag, PERRLA ENMT: NC/AT,Oropharynx clear, no erythema, exudates Neck:Supple, FROM, no masses, or JVD, No carotid bruits; No thyromegaly Lungs: Diminished in the bases with right sided basilar crackles Cardiovascular: Heart regular in rate and rhythm, No murmurs, gallops, or rubs no peripheral edema Abdominal: Soft Nontender, nom distended, no guarding, no rebound or rigidity, Normoactive bowel sounds No hepatomegaly, No splenomegaly, No palpable mass No abdominal wall hernia noted Skin: Normal temperature, tone, texture, turgor, No induration No subcutaneous nodules, No rash, lesions, No ulcers Extremities:No digital cyanosis No clubbing, Pedal pulses intact and symmetrical Radial pulses intact and symmetrical Normal gait and station, No calf tenderness Psychiatric: Alert and oriented to person, place and time, Appropriate affect Intact judgement Neuro: Muscles Strength 5/5 in all 4 extremities, Sensation to light touch grossly present throughout, Cranial nerves II-XII grossly intact. No focal sensory deficits - Labs CBC & Chem 7: 07/01/19 05:04 07/01/19 05:04 Labs: Abnormal Lab Results - Last 24 Hours (Table) 06/30/19 06/30/19 07/01/19 Range/Units 17:04 20:31 05:04 WBC 11.2 H (3.8-10.6) k/uL RBC 3.51 L (3.80-5.40) m/uL Neutrophils # (Manual) 8.40 H (1.3-7.7) k/uL Metamyelocytes # (Man) 0.34 H (0) k/uL Myelocytes # (Manual) 0.22 H (0) k/uL Sodium (137-145) mmol/L Chloride (98-107) mmol/L Carbon Dioxide (22-30) mmol/L BUN (7-17) mg/dL Glucose (74-99) mg/dL POC Glucose (mg/dL) 141 H 170 H (75-99) mg/dL 07/01/19 07/01/19 07/01/19 Range/Units 05:04 07:07 11:43 WBC (3.8-10.6) k/uL RBC (3.80-5.40) m/uL Neutrophils # (Manual) (1.3-7.7) k/uL Metamyelocytes # (Man) (0) k/uL Myelocytes # (Manual) (0) k/uL Sodium 136 L (137-145) mmol/L Chloride 94 L (98-107) mmol/L Carbon Dioxide 34 H (22-30) mmol/L BUN 31 H (7-17) mg/dL Glucose 164 H (74-99) mg/dL POC Glucose (mg/dL) 171 H 217 H (75-99) mg/dL Microbiology - Last 24 Hours (Table) 06/24/19 15:14 Blood Culture - Final Blood No Growth after 144 hours 06/26/19 13:55 Blood Culture - Preliminary Blood No Growth after 96 hours 06/26/19 13:50 Blood Culture - Preliminary Blood No Growth after 96 hours Assessment and Plan (1) Acute hypoxemic respiratory failure Narrative/Plan: * Secondary to ARDS in the setting of acute pancreatitis * Continues on high flow nasal cannula AirV02 at FiO2 of 50% * Continue with supportive therapy is DuoNeb bronchodilator breathing treatments Current Visit: Yes Status: Acute Code(s): J96.01 - ACUTE RESPIRATORY FAILURE WITH HYPOXIA SNOMED Code(s): 559146314 (2) ARDS (adult respiratory distress syndrome) Narrative/Plan: * Continue supportive treatments with supplemental oxygen and steroids * Underlying trigger acute pancreatitis has resolved Current Visit: Yes Status: Acute Code(s): J80 - ACUTE RESPIRATORY DISTRESS SYNDROME SNOMED Code(s): 95582917 (3) Acute pancreatitis Current Visit: Yes Status: Acute Code(s): K85.90 - ACUTE PANCREATITIS WITHOUT NECROSIS OR INFECTION, UNSP SNOMED Code(s): 062134063 (4) Acute cholecystitis Narrative/Plan: * Evaluated by general surgery * Planning for laparoscopic cholecystectomy after pancreatitis resolves * Patient currently on empiric antibiotics with Flagyl and Rocephin Current Visit: Yes Status: Acute Code(s): K81.0 - ACUTE CHOLECYSTITIS SNOMED Code(s): 91031899 (5) Asthma exacerbation Narrative/Plan: * Continue systemic steroids breathing treatments and antibiotics Current Visit: No Status: Acute Code(s): J45.901 - UNSPECIFIED ASTHMA WITH (ACUTE) EXACERBATION SNOMED Code(s): 608445807 Plan: Disposition: Likely home Anticipated date of discharge 3-5 days
[2019-07-01] MEDS: SODIUM CHLORIDE 0.9% 1,000 ML IV SCH (16:31)
[2019-07-01 16:42] LABS: Glucose,Whole Blood 206 mg/dL (75-99)
[2019-07-01] MEDS: LORazepam 2 MG/ML INJ IV PRN (17:25)
[2019-07-01] MEDS ORDERED: DOCUSATE 100 MG CAP PO PRN (20:14)
[2019-07-01 20:15] LABS: Glucose,Whole Blood 157 mg/dL (75-99)
[2019-07-01] MEDS: LURASIDONE 40 MG TAB PO SCH (20:38)
[2019-07-01] MEDS: QUEtiapine 200 MG TAB PO SCH (20:39)
[2019-07-02] MEDS: methylPREDNISolone SOD SUCCI 40 MG/ML 1 ML VIAL IV SCH ×4 (00:29→17:29)
[2019-07-02] MEDS: HYDROmorphone 0.5 MG/0.5 ML SYRINGE IVP PRN ×2 (00:29→05:53)
[2019-07-02] MEDS: metroNIDAZOLE 500 MG TAB PO SCH ×3 (00:29→15:46)
[2019-07-02] MEDS: GABAPENTIN 100 MG CAP PO SCH ×4 (00:29→21:12)
[2019-07-02] MEDS: clonazePAM 0.5 MG TAB PO SCH ×4 (00:29→21:12)
[2019-07-02] MEDS: IPRATROPIUM-ALBUTEROL 3 ML NEB INHALATION SCH ×7 (00:55→23:52)
[2019-07-02] MEDS: LORazepam 2 MG/ML INJ IV PRN (03:04)
[2019-07-02 05:33] LABS: Basophils # (A) 0.1 k/uL (0-0.2); Basophils % (A) 1 %; Eosinophils # (A) 0.1 k/uL (0-0.7); Eosinophils % (A) 0 %; HCT 35.5 % (34.0-46.0); HGB 11.9 gm/dL (11.4-16.0); Lymphocytes # (A) 1.3 k/uL (1.0-4.8); Lymphocytes % (A) 9 %; MCH 32.8 pg (25.0-35.0); MCHC 33.5 g/dL (31.0-37.0); MCV 97.8 fL (80.0-100.0); Macrocytosis Slight; Mean Platelet Volume 7.7; Monocytes # (A) 0.6 k/uL (0-1.0); Monocytes % (A) 4 %; Neutrophils # (A) 12.6 k/uL (1.3-7.7); Neutrophils % (A) 85 %; Platelet Count 403 k/uL (150-450); RBC 3.63 m/uL (3.80-5.40); RDW 15.4 % (11.5-15.5); WBC 14.8 k/uL (3.8-10.6)
[2019-07-02 05:52] LABS: African American GFR (CKD) >90 (>60 ml/min/1.73 sqM); Anion Gap 8 mmol/L; Blood Urea Nitrogen 29 mg/dL (7-17); Calcium 8.9 mg/dL (8.4-10.2); Carbon Dioxide 35 mmol/L (22-30); Chloride 91 mmol/L (98-107); Glucose 175 mg/dL (74-99); Potassium 3.9 mmol/L (3.5-5.1); Sodium 134 mmol/L (137-145)
[2019-07-02 07:18] LABS: Glucose,Whole Blood 175 mg/dL (75-99)
--- NOTE | 2019-07-02 07:26 | XR ---
EXAMINATION TYPE: XR chest 1V portable DATE OF EXAM: 07/02/2019 COMPARISON: 07/01/2019 HISTORY: Shortness of breath TECHNIQUE: Single frontal view of the chest is obtained. FINDINGS: There is a slightly improving right basilar consolidation and haziness overlying the left hemidiaphragm. Remainder the lungs are well aerated. Cardiomediastinal silhouette is upper limits of normal and stable. Osseous structures are grossly intact. IMPRESSION: Improving bibasilar opacities, right greater than left. Considerations again are for pne umonia or atelectasis.
[2019-07-02] MEDS: FORMOTEROL FUMARATE 20 MCG/2 ML NEBU INHALATION SCH ×2 (08:14→19:40)
[2019-07-02] MEDS: BUDESONIDE 1 MG/2 ML NEBU INHALATION SCH ×2 (08:14→19:40)
[2019-07-02 08:39] LABS: Glucose,Whole Blood 229 mg/dL (75-99)
[2019-07-02] MEDS: PANTOPRAZOLE 40 MG TABLET PO SCH (08:42)
[2019-07-02] MEDS: CARVEDILOL 6.25 MG TAB PO SCH ×2 (08:43→17:29)
[2019-07-02] MEDS: QUEtiapine 50 MG TAB PO SCH (08:43)
[2019-07-02] MEDS: INSULIN ASPART (NovoLOG) 100 UNIT/ML VIAL SQ SCH ×4 (08:44→21:13)
[2019-07-02] MEDS: FUROSEMIDE 10 MG/ML 4 ML VIAL IV SCH (08:48)
[2019-07-02] MEDS: NICOTINE 21MG/24HR PATCH TRANSDERM SCH (09:26)
[2019-07-02] MEDS: Acetaminophen-Codeine 300-30mg TAB PO PRN ×3 (09:34→22:01)
--- NOTE | 2019-07-02 10:18 | P.PN ---
Subjective Progress Note Date: 07/02/19 Principal diagnosis: Acute hypoxemic respiratory failure related to ARDS/ALI A 39-year-old daughter white female patient who was admitted on 06/24/2019 with the chief complaint of epigastric pain radiating to her back associated with nausea, and vomiting for 3 days prior to presentation. She denied any fever or chills, denied any chest pain, she recently him back from [place] where she had been drinking for a few days, no prior history of pancreatitis in the past, in the emergency department patient was found to have elevated lipase, and evidence of pancreatitis and cholecystitis on the CAT scan, which showed a retroperitoneal fluid and fat stranding around the pancreas consistent with pancreatitis, and mildly dilated gallbladder suggestive of cholecystitis in addition there was a fatty infiltration of the liver. [place] of the abdomen showed tiny gallstones, common bile duct showed a 1 cm with no dilation of intrahepatic bile ducts. Patient was being treated conservatively, by mouth except for ice and popsicles, IV fluids, antibiotics, surgical consultation was obtained, and surgery was considering surgical intervention once the pancreatitis has resolved. This morning patient was noted to be hypoxemic, pulse ox of 67% on room air, yesterday patient was not requiring any supplemental oxygen, and was maintaining O2 saturations at or above 93%. Patient complaining of increasing dyspnea, and tachycardic, started having a headache and a low-grade fever. She was placed on the 100% nonrebreather, stat blood gas was obtained, showing pO2 of 72, pCO2 46, pH of 7.34, this was done on FiO2 of 100%, and is consistent with mild hypercapnic respiratory failure, and acute hypoxemic respiratory failure. Chest x-ray was completed showing low lung volumes with the new [id number] central vascular congestion and interstitial edema. In addition patient was bronchospastic, and she does have a history of asthma, and she states she was previously treated with Zithromax and prednisone in the recent past for asthma exacerbation and tracheobronchitis. BiPAP support was considered, however patient's condition started to improve, she was started on nebulized bronchodilators, a dose of IV Lasix was given. She was refusing IV steroids at first, but in view of her wheezing and chest congestion we will start her on IV steroids. Blood cultures and lactic acid have been sent. Patient denied any chest pain, did have some epigastric discomfort, which and ongoing since admission, and abdominal discomfort across the lower quadrants, abdomen is soft, nontender. Labs today have been reviewed, showing white blood cell count of 10.2, hemoglobin of 11.9, coagulation profile was within normal limits, sodium was 132, the rest of electrolytes and renal profile were unremarkable, repeat lactic acid came back normal at 0.9, proBNP was normal at 194, her enzymes are trending down, lipase is down to 940, down from 2324 on yesterday's labs. Reevaluated today on 06/27/2019, patient remains on high flow FiO2/high flow nasal cannula, last night she became worse, and she required placement on BiPAP most of the night. The issue of intubation and mechanical ventilation was discussed with the patient last night, patient refused to be intubated. And did relatively well on BiPAP overnight and she kept it until early this morning. Today she was switched to a high flow nasal cannula, O2 saturation remains very marginal. Barely 90% on high flow nasal cannula. Chest x-ray continues to show bilateral interstitial edema, more likely consistent with ARDS secondary to acute pancreatitis. Although the possibility of cardiogenic pulmonary edema is not entirely ruled out, but felt to be less likely considering the patient had a relatively normal echocardiogram, and not much improvement in spite of diuretics. CBC is relatively normal today, WBC count 9.5 hemoglobin is 10.5. Electrolytes are normal. ABG last night showed a pO2 of 55 pCO2 of 5:30 pH of 7.37, and this was on 80% FiO2. Her BNP level was normal. And echocardiogram did not reveal any LV dysfunction. Reevaluated today on 06/28/2019, patient remains on high FiO2, and intermittently on BiPAP. O2 saturation remains marginal. Chest x-ray continues to show bilateral interstitial infiltrates. Patient denies being in distress, but again her O2 saturation is in the low 90s on a high flow nasal cannula and on BiPAP. Patient denies any cough, no wheezing, no fever, no chills, her amylase level today is down to 344 electrolytes are normal. CBC is relatively unremarkable. Reevaluated today on 06/29/2019, patient remains marginal, she has been intermittently on high FiO2, BiPAP, and now on airvo at high flow and high FiO2. O2 saturation remains marginal in the low 90s at best. Clinically however the patient does not seem to be in any distress. And feels comfortable. Denies any cough, no wheezing, denies any shortness of breath denies any chest pain. CBC is relatively normal hemoglobin is 10.4 electrodes are normal renal profile is normal patient remains empirically on antibiotics, she is also on bronchodilators, steroids, and the dose of diuretics was increased this morning. Chest x-ray continues to show significant airspace disease in both lungs specially the bases a left lower lobe and right lower lobe. Reevaluated today on 06/30/2019, remains in the ICU, remains on high flow FiO2, she is presently on high flow nasal cannula at 15 L/m. Intermittently on BiPAP especially at night. Patient is improving. Chest x-ray is showing slight improvement. Less shortness of breath, minimal productive cough is noted. Denies any fever no chills no hemoptysis and no chest pain. Patient desaturates easily with any activity. Chest x-ray clearly showed some airspace disease involving mostly the right lower lobe, and to lesser extent the left lower lobe today. CBC is normal hemoglobin is 10.8 electrodes are normal renal profile is normal, no lipase was done today. Blood sugar is 167 Patient was reevaluated today on 07/01/2019, remains on airvo however I was able to cut down her FiO2 to 50%, and her flow down to 40 L/m, plan to switch her to a high flow nasal cannula, and we'll continue to titrate the FiO2. Patient is feeling much better compared to how she felt upon presentation. Her chest x-ray continues to show steady improvement in her by lateral interstitial infiltrates especially in the right lower lobe and left lower lobe. Patient denies any cough, no wheezing, no chest pain. No fever, no chills, no hemoptysis. Her WBC count is 11.2 hemoglobin is 11.6. Electrodes are normal renal profile is normal. No lipase was ordered today. Her last amylase was normal. On 07/02/2019 patient seen in follow-up in the intensive care unit, she is awake and alert, oriented 3, she remains on Airvo currently at 50 L/m, and FiO2 of 56%, her pulse ox is 94%. Using her incentive spirometer, achieving 2000 on it, lung sounds are clear, with crackles at the bases. She is tolerating AIrvo well, no tachypnea, denies any dyspnea. She does desaturate with exertion, she is afebrile, hemodynamically patient is stable. States occasionally she has so me burning sensation in her lungs. No wheezing noted. Culture showed no growth, we were unable to send the sputum culture. Today's chest x-ray has been reviewed and improvement in bibasilar opacities, right greater than the left. Patient is on empiric antibiotics in the form of Rocephin and Flagyl, surgical services are following. Denies abdominal pain, denies any nausea or vomiting, patient is tolerating regular diet, carbohydrate consistent. Remains on IV steroids 40 mg every 6 hours. Objective - Vital Signs Vital signs: Vital Signs Temp 97.9 F 07/02/19 08:18 Pulse 93 07/02/19 08:54 Resp 10 L 07/02/19 08:00 BP 111/76 07/02/19 08:00 Pulse Ox 95 07/02/19 08:00 Intake & Output 07/01/19 07/02/19 07/02/19 18:59 06:59 18:59 Intake Total 50 720 Output Total 1300 1150 Balance -1250 -430 Weight 103.7 kg Intake: Intake, IV Titration 50 Amount cefTRIAXone 1 gm In 50 Sodium Chloride 0.9% 50 ml @ 100 mls/hr IVPB Q24HR [facility] Rx#:[id number] Oral 720 Output: Urine 1300 1150 Other: Voiding Method Bedside Commode Bedside Commode # Voids 0 0 0 - Exam GENERAL EXAM: Alert, pleasant, 39-year-old white female, on Airvo at 50 l/min or 55 % comfortable in no apparent distress. HEAD: Normocephalic/atraumatic. EYES: Normal reaction of pupils, equal size. Conjunctiva pink, sclera white. NOSE: Clear with pink turbinates. THROAT: No erythema or exudates. NECK: No masses, no JVD, no thyroid enlargement, no adenopathy. CHEST: No chest wall deformity. Symmetrical expansion. LUNGS: Equal air entry bibasilar crackles, no wheezes CVS: Regular rate and rhythm, normal S1 and S2, no gallops, no murmurs, no rubs ABDOMEN: Soft, nontender. No hepatosplenomegaly, normal bowel sounds, no guarding or rigidity. EXTREMITIES: No clubbing, no edema, no cyanosis, 2+ pulses and upper and lower extremities. MUSCULOSKELETAL: Muscle strength and tone normal. SPINE: No scoliosis or deformity SKIN: No rashes CENTRAL NERVOUS SYSTEM: Alert and oriented -3. No focal deficits, tone is nor mal in all 4 extremities. PSYCHIATRIC: Alert and oriented -3. Appropriate affect. Intact judgment and insight. - Labs CBC & Chem 7: 07/02/19 05:11 07/02/19 05:11 Labs: Abnormal Lab Results - Last 24 Hours (Table) 07/01/19 07/01/19 07/01/19 Range/Units 11:43 16:39 20:12 WBC (3.8-10.6) k/uL RBC (3.80-5.40) m/uL Neutrophils # (1.3-7.7) k/uL Sodium (137-145) mmol/L Chloride (98-107) mmol/L Carbon Dioxide (22-30) mmol/L BUN (7-17) mg/dL Glucose (74-99) mg/dL POC Glucose (mg/dL) 217 H 206 H 157 H (75-99) mg/dL 07/02/19 07/02/19 07/02/19 Range/Units 05:11 05:11 07:14 WBC 14.8 H (3.8-10.6) k/uL RBC 3.63 L (3.80-5.40) m/uL Neutrophils # 12.6 H (1.3-7.7) k/uL Sodium 134 L (137-145) mmol/L Chloride 91 L (98-107) mmol/L Carbon Dioxide 35 H (22-30) mmol/L BUN 29 H (7-17) mg/dL Glucose 175 H (74-99) mg/dL POC Glucose (mg/dL) 175 H (75-99) mg/dL 07/02/19 Range/Units 08:36 WBC (3.8-10.6) k/uL RBC (3.80-5.40) m/uL Neutrophils # (1.3-7.7) k/uL Sodium (137-145) mmol/L Chloride (98-107) mmol/L Carbon Dioxide (22-30) mmol/L BUN (7-17) mg/dL Glucose (74-99) mg/dL POC Glucose (mg/dL) 229 H (75-99) mg/dL Microbiology - Last 24 Hours (Table) 06/26/19 13:55 Blood Culture - Preliminary Blood No Growth after 120 hours 06/26/19 13:50 Blood Culture - Preliminary Blood No Growth after 120 hours Assessment and Plan Plan: Assessment: #1. Acute hypoxemic respiratory failure, secondary to noncardiogenic pulmonary edema/ARDS, secondary to acute pancreatitis, improving slowly #2. Acute gallstone pancreatitis, and cholecystitis #3. Acute exacerbation of COPD #4. History of chronic moderately severe bronchial asthma #5. History of hypertension #6. History of hypothyroidism #7. Chronic migraines #8. history of pneumonia #9. Bipolar disorder #10. Anxiety #11. Current every day smoker #12. Suspect ARDS secondary to acute pancreatitis Plan: Continue to wean FiO2, continue with incentive spirometry use, today's chest x- ray has been reviewed and improving bibasilar opacities, continue with IV steroids, nebulized bronchodilators and antibiotics. Will remain in the ICU for another 24 hours, may consider transferring out of the intensive care unit tomorrow. Surgery is following, LFTs are improving, lipase is improving, patient is tolerating regular diet. We'll continue to follow. I performed a history & physical examination of the patient and discussed their management with my nurse practitioner, Rohini Vanessa. I reviewed the nurse practitioner's note and agree with the documented findings and plan of care. Lung sounds are positive for diffuse wheezes throughout the lung kelly. The findings and the impression was discussed with the patient. I attest to the documentation by the nurse practitioner. Time with Patient: Less than 30
[2019-07-02 11:41] LABS: Glucose,Whole Blood 253 mg/dL (75-99)
[2019-07-02 17:06] LABS: Glucose,Whole Blood 250 mg/dL (75-99)
[2019-07-02] MEDS: LORazepam 1 MG TAB PO PRN (17:33)
[2019-07-02] MEDS: SODIUM CHLORIDE 0.9% 1,000 ML IV SCH (17:48)
[2019-07-02] MEDS: LURASIDONE 40 MG TAB PO SCH (20:40)
[2019-07-02] MEDS: QUEtiapine 200 MG TAB PO SCH (20:41)
[2019-07-02 20:56] LABS: Glucose,Whole Blood 195 mg/dL (75-99)
[2019-07-03] MEDS: metroNIDAZOLE 500 MG TAB PO SCH ×4 (00:34→23:12)
[2019-07-03] MEDS: methylPREDNISolone SOD SUCCI 40 MG/ML 1 ML VIAL IV SCH ×5 (00:34→23:12)
[2019-07-03] MEDS: LORazepam 1 MG TAB PO PRN ×3 (01:39→18:14)
[2019-07-03] MEDS: IPRATROPIUM-ALBUTEROL 3 ML NEB INHALATION SCH ×5 (03:16→19:38)
[2019-07-03] MEDS: Acetaminophen-Codeine 300-30mg TAB PO PRN ×4 (04:32→23:11)
[2019-07-03 06:21] LABS: ALT 30 U/L (9-52); AST 21 U/L (14-36); African American GFR (CKD) >90 (>60 ml/min/1.73 sqM); Albumin 3.1 g/dL (3.5-5.0); Alkaline Phosphatase 67 U/L (38-126); Anion Gap 10 mmol/L; Blood Urea Nitrogen 27 mg/dL (7-17); Calcium 8.9 mg/dL (8.4-10.2); Carbon Dioxide 33 mmol/L (22-30); Chloride 92 mmol/L (98-107); Glucose 234 mg/dL (74-99); Potassium 4.2 mmol/L (3.5-5.1); Sodium 135 mmol/L (137-145); Total Bilirubin 0.3 mg/dL (0.2-1.3); Total Protein 5.6 g/dL (6.3-8.2)
[2019-07-03] MEDS: CARVEDILOL 6.25 MG TAB PO SCH ×2 (06:40→17:05)
[2019-07-03] MEDS: INSULIN ASPART (NovoLOG) 100 UNIT/ML VIAL SQ SCH ×4 (06:40→20:23)
[2019-07-03 06:43] LABS: Basophils # (A) 0.1 k/uL (0-0.2); Basophils % (A) 0 %; Eosinophils % (A) 0 %; HCT 34.9 % (34.0-46.0); HGB 11.7 gm/dL (11.4-16.0); Lymphocytes # (A) 1.3 k/uL (1.0-4.8); Lymphocytes % (A) 7 %; MCH 33.2 pg (25.0-35.0); MCHC 33.5 g/dL (31.0-37.0); MCV 99.1 fL (80.0-100.0); Macrocytosis Slight; Monocytes # (A) 0.7 k/uL (0-1.0); Monocytes % (A) 4 %; Neutrophils # (A) 14.7 k/uL (1.3-7.7); Neutrophils % (A) 87 %; Platelet Count 381 k/uL (150-450); RBC 3.52 m/uL (3.80-5.40); RDW 15.2 % (11.5-15.5); WBC 16.8 k/uL (3.8-10.6)
[2019-07-03 06:50] LABS: Glucose,Whole Blood 214 mg/dL (75-99)
[2019-07-03] MEDS: FORMOTEROL FUMARATE 20 MCG/2 ML NEBU INHALATION SCH ×2 (08:04→19:36)
[2019-07-03] MEDS: BUDESONIDE 1 MG/2 ML NEBU INHALATION SCH ×2 (08:04→19:36)
--- NOTE | 2019-07-03 08:04 | P.PN ---
Subjective Progress Note Date: 07/02/19 Principal diagnosis: The patient is a 39-year-old female with a past medical history of asthma that was admitted with acute pancreatitis after presenting with epigastric abdominal pain with nausea and vomiting. The patient was placed on standard treatment for pancreatitis including being made nothing by mouth except for ice and popsicles, she was placed on IV fluids, empiric IV antibiotics with Rocephin and azithromycin and Flagyl. Workup with CT abdomen and pelvis showed a retroperitoneal fluid and fat stranding consistent with pancreatitis. The patient continued to have SIRS as due to her pancreatitis and subsequently went into respiratory failure with hypoxemia and hypercapnia secondary to ARDS/asthma exacerbation triggered by her acute pancreatitis, right upper quadrant ultrasound was consistent with tiny gallstones with CBD at 1 cm. the patient was placed on BiPAP along with DuoNeb bronchodilator breathing treatments, and IV steroids and Lasix. Echocardiogram performed showed a preserved LVEF of 55-60%. Chest x-ray continued to show bilateral interstitial edema. Patient was continued on high flow nasal cannula, AirVO2 and intermittent BiPAP general surgery was consulted and recommended no surgical intervention until the resolution of her pancreatitis with plans to follow-up for lap cholecystectomy in clinic. Patient seen and examined and follow-up, remains on airvo current FiO2 of 55%. Chest x-ray continues to show steady improvement up to 14.8, she remains afebrile currently on antibiotics with Rocephin and Flagyl. Noted desaturations with minimal exertion. Blood sugars have been elevated. Patient mentions some pleuritic pain currently on Dilaudid Objective - Vital Signs Vital signs: Vital Signs Temp 97.8 F 07/02/19 12:00 Pulse 97 07/02/19 12:17 Resp 18 07/02/19 12:00 BP 104/74 07/02/19 12:00 Pulse Ox 90 L 07/02/19 12:00 Intake & Output 07/01/19 07/02/19 07/02/19 18:59 06:59 18:59 Intake Total 50 720 550 Output Total 1300 1150 1200 Balance -1250 -430 -650 Weight 103.7 kg Intake: Intake, IV Titration 50 100 Amount cefTRIAXone 1 gm In 50 100 Sodium Chloride 0.9% 50 ml @ 100 mls/hr IVPB Q24HR [facility] Rx#:[id number] Oral 720 450 Output: Urine 1300 1150 1200 Other: Voiding Method Bedside Commode Bedside Commode Bedside Commode # Voids 0 0 0 - Exam Constitutional: Currently on high flow nasal cannula in no distress Eyes: Anicteric sclerae, moist conjunctiva, no lid-lag, PERRLA ENMT: NC/AT,Oropharynx clear, no erythema, exudates Neck:Supple, FROM, no masses, or JVD, No carotid bruits; No thyromegaly Lungs: Diminished in the bases with right sided basilar crackles Cardiovascular: Heart regular in rate and rhythm, No murmurs, gallops, or rubs no peripheral edema Abdominal: Soft Nontender, nom distended, no guarding, no rebound or rigidity, Normoactive bowel sounds No hepatomegaly, No splenomegaly, No palpable mass No abdominal wall hernia noted Skin: Normal temperature, tone, texture, turgor, No induration No subcutaneous nodules, No rash, lesions, No ulcers Extremities:No digital cyanosis No clubbing, Pedal pulses intact and symmetrical Radial pulses intact and symmetrical Normal gait and station, No calf tenderness Psychiatric: Alert and oriented to person, place and time, Appropriate affect Intact judgement Neuro: Muscles Strength 5/5 in all 4 extremities, Sensation to light touch grossly present throughout, Cranial nerves II-XII grossly intact. No focal sensory deficits - Labs CBC & Chem 7: 07/03/19 05:39 07/03/19 05:39 Labs: Abnormal Lab Results - Last 24 Hours (Table) 07/01/19 07/01/19 07/02/19 Range/Units 16:39 20:12 05:11 WBC 14.8 H (3.8-10.6) k/uL RBC 3.63 L (3.80-5.40) m/uL Neutrophils # 12.6 H (1.3-7.7) k/uL Sodium (137-145) mmol/L Chloride (98-107) mmol/L Carbon Dioxide (22-30) mmol/L BUN (7-17) mg/dL Glucose (74-99) mg/dL POC Glucose (mg/dL) 206 H 157 H (75-99) mg/dL 07/02/19 07/02/19 07/02/19 Range/Units 05:11 07:14 08:36 WBC (3.8-10.6) k/uL RBC (3.80-5.40) m/uL Neutrophils # (1.3-7.7) k/uL Sodium 134 L (137-145) mmol/L Chloride 91 L (98-107) mmol/L Carbon Dioxide 35 H (22-30) mmol/L BUN 29 H (7-17) mg/dL Glucose 175 H (74-99) mg/dL POC Glucose (mg/dL) 175 H 229 H (75-99) mg/dL 07/02/19 Range/Units 11:39 WBC (3.8-10.6) k/uL RBC (3.80-5.40) m/uL Neutrophils # (1.3-7.7) k/uL Sodium (137-145) mmol/L Chloride (98-107) mmol/L Carbon Dioxide (22-30) mmol/L BUN (7-17) mg/dL Glucose (74-99) mg/dL POC Glucose (mg/dL) 253 H (75-99) mg/dL Microbiology - Last 24 Hours (Table) 06/26/19 13:55 Blood Culture - Preliminary Blood No Growth after 120 hours 06/26/19 13:50 Blood Culture - Preliminary Blood No Growth after 120 hours Assessment and Plan (1) Acute hypoxemic respiratory failure Narrative/Plan: * Secondary to ARDS in the setting of acute pancreatitis * Continues on high flow nasal cannula AirV02 at FiO2 of 50% * Continue with supportive therapy is DuoNeb bronchodilator breathing treatments Current Visit: Yes Status: Acute Code(s): J96.01 - ACUTE RESPIRATORY FAILURE WITH HYPOXIA SNOMED Code(s): 232329286 (2) ARDS (adult respiratory distress syndrome) Narrative/Plan: * Continue supportive treatments with supplemental oxygen and steroids * Underlying trigger acute pancreatitis has resolved Current Visit: Yes Status: Acute Code(s): J80 - ACUTE RESPIRATORY DISTRESS SYNDROME SNOMED Code(s): 10168497 (3) Acute pancreatitis Narrative/Plan: * Secondary to hepatobiliary disease triggered by acute cholecystitis * Now resolved Current Visit: Yes Status: Resolved Code(s): K85.90 - ACUTE PANCREATITIS WITHOUT NECROSIS OR INFECTION, UNSP SNOMED Code(s): 727600708 (4) Acute cholecystitis Narrative/Plan: * Evaluated by general surgery * Planning for laparoscopic cholecystectomy after pancreatitis resolves (outpatient follow up) * Patient currently on empiric antibiotics with Flagyl and Rocephin will d/c Rocpehin today Current Visit: Yes Status: Acute Code(s): K81.0 - ACUTE CHOLECYSTITIS SNOMED Code(s): 35227668 (5) Asthma exacerbation Narrative/Plan: * Continue systemic steroids breathing treatments and antibiotics Current Visit: No Status: Acute Code(s): J45.901 - UNSPECIFIED ASTHMA WITH (ACUTE) EXACERBATION SNOMED Code(s): 847117749 Plan: Disposition: Likely home Anticipated date of discharge 3-5 days
[2019-07-03] MEDS: QUEtiapine 50 MG TAB PO SCH (08:30)
[2019-07-03] MEDS: clonazePAM 0.5 MG TAB PO SCH ×3 (08:30→21:16)
[2019-07-03] MEDS: PANTOPRAZOLE 40 MG TABLET PO SCH (08:30)
[2019-07-03] MEDS: GABAPENTIN 100 MG CAP PO SCH ×3 (08:30→21:16)
[2019-07-03] MEDS: NICOTINE 21MG/24HR PATCH TRANSDERM SCH (08:31)
[2019-07-03] MEDS ORDERED: FUROSEMIDE 10 MG/ML 4 ML VIAL IV STA (08:46)
--- NOTE | 2019-07-03 08:46 | P.PN ---
Subjective Progress Note Date: 07/03/19 Principal diagnosis: Acute hypoxemic respiratory failure related to ARDS/ALI A 39-year-old daughter white female patient who was admitted on 06/24/2019 with the chief complaint of epigastric pain radiating to her back associated with nausea, and vomiting for 3 days prior to presentation. She denied any fever or chills, denied any chest pain, she recently him back from [place] where she had been drinking for a few days, no prior history of pancreatitis in the past, in the emergency department patient was found to have elevated lipase, and evidence of pancreatitis and cholecystitis on the CAT scan, which showed a retroperitoneal fluid and fat stranding around the pancreas consistent with pancreatitis, and mildly dilated gallbladder suggestive of cholecystitis in addition there was a fatty infiltration of the liver. [place] of the abdomen showed tiny gallstones, common bile duct showed a 1 cm with no dilation of intrahepatic bile ducts. Patient was being treated conservatively, by mouth except for ice and popsicles, IV fluids, antibiotics, surgical consultation was obtained, and surgery was considering surgical intervention once the pancreatitis has resolved. This morning patient was noted to be hypoxemic, pulse ox of 67% on room air, yesterday patient was not requiring any supplemental oxygen, and was maintaining O2 saturations at or above 93%. Patient complaining of increasing dyspnea, and tachycardic, started having a headache and a low-grade fever. She was placed on the 100% nonrebreather, stat blood gas was obtained, showing pO2 of 72, pCO2 46, pH of 7.34, this was done on FiO2 of 100%, and is consistent with mild hypercapnic respiratory failure, and acute hypoxemic respiratory failure. Chest x-ray was completed showing low lung volumes with the new [id number] central vascular congestion and interstitial edema. In addition patient was bronchospastic, and she does have a history of asthma, and she states she was previously treated with Zithromax and prednisone in the recent past for asthma exacerbation and tracheobronchitis. BiPAP support was considered, however patient's condition started to improve, she was started on nebulized bronchodilators, a dose of IV Lasix was given. She was refusing IV steroids at first, but in view of her wheezing and chest congestion we will start her on IV steroids. Blood cultures and lactic acid have been sent. Patient denied any chest pain, did have some epigastric discomfort, which and ongoing since admission, and abdominal discomfort across the lower quadrants, abdomen is soft, nontender. Labs today have been reviewed, showing white blood cell count of 10.2, hemoglobin of 11.9, coagulation profile was within normal limits, sodium was 132, the rest of electrolytes and renal profile were unremarkable, repeat lactic acid came back normal at 0.9, proBNP was normal at 194, her enzymes are trending down, lipase is down to 940, down from 2324 on yesterday's labs. Reevaluated today on 06/27/2019, patient remains on high flow FiO2/high flow nasal cannula, last night she became worse, and she required placement on BiPAP most of the night. The issue of intubation and mechanical ventilation was discussed with the patient last night, patient refused to be intubated. And did relatively well on BiPAP overnight and she kept it until early this morning. Today she was switched to a high flow nasal cannula, O2 saturation remains very marginal. Barely 90% on high flow nasal cannula. Chest x-ray continues to show bilateral interstitial edema, more likely consistent with ARDS secondary to acute pancreatitis. Although the possibility of cardiogenic pulmonary edema is not entirely ruled out, but felt to be less likely considering the patient had a relatively normal echocardiogram, and not much improvement in spite of diuretics. CBC is relatively normal today, WBC count 9.5 hemoglobin is 10.5. Electrolytes are normal. ABG last night showed a pO2 of 55 pCO2 of 5:30 pH of 7.37, and this was on 80% FiO2. Her BNP level was normal. And echocardiogram did not reveal any LV dysfunction. Reevaluated today on 06/28/2019, patient remains on high FiO2, and intermittently on BiPAP. O2 saturation remains marginal. Chest x-ray continues to show bilateral interstitial infiltrates. Patient denies being in distress, but again her O2 saturation is in the low 90s on a high flow nasal cannula and on BiPAP. Patient denies any cough, no wheezing, no fever, no chills, her amylase level today is down to 344 electrolytes are normal. CBC is relatively unremarkable. Reevaluated today on 06/29/2019, patient remains marginal, she has been intermittently on high FiO2, BiPAP, and now on airvo at high flow and high FiO2. O2 saturation remains marginal in the low 90s at best. Clinically however the patient does not seem to be in any distress. And feels comfortable. Denies any cough, no wheezing, denies any shortness of breath denies any chest pain. CBC is relatively normal hemoglobin is 10.4 electrodes are normal renal profile is normal patient remains empirically on antibiotics, she is also on bronchodilators, steroids, and the dose of diuretics was increased this morning. Chest x-ray continues to show significant airspace disease in both lungs specially the bases a left lower lobe and right lower lobe. Reevaluated today on 06/30/2019, remains in the ICU, remains on high flow FiO2, she is presently on high flow nasal cannula at 15 L/m. Intermittently on BiPAP especially at night. Patient is improving. Chest x-ray is showing slight improvement. Less shortness of breath, minimal productive cough is noted. Denies any fever no chills no hemoptysis and no chest pain. Patient desaturates easily with any activity. Chest x-ray clearly showed some airspace disease involving mostly the right lower lobe, and to lesser extent the left lower lobe today. CBC is normal hemoglobin is 10.8 electrodes are normal renal profile is normal, no lipase was done today. Blood sugar is 167 Patient was reevaluated today on 07/01/2019, remains on airvo however I was able to cut down her FiO2 to 50%, and her flow down to 40 L/m, plan to switch her to a high flow nasal cannula, and we'll continue to titrate the FiO2. Patient is feeling much better compared to how she felt upon presentation. Her chest x-ray continues to show steady improvement in her by lateral interstitial infiltrates especially in the right lower lobe and left lower lobe. Patient denies any cough, no wheezing, no chest pain. No fever, no chills, no hemoptysis. Her WBC count is 11.2 hemoglobin is 11.6. Electrodes are normal renal profile is normal. No lipase was ordered today. Her last amylase was normal. On 07/02/2019 patient seen in follow-up in the intensive care unit, she is awake and alert, oriented 3, she remains on Airvo currently at 50 L/m, and FiO2 of 56%, her pulse ox is 94%. Using her incentive spirometer, achieving 2000 on it, lung sounds are clear, with crackles at the bases. She is tolerating AIrvo well, no tachypnea, denies any dyspnea. She does desaturate with exertion, she is afebrile, hemodynamically patient is stable. States occasionally she has so me burning sensation in her lungs. No wheezing noted. Culture showed no growth, we were unable to send the sputum culture. Today's chest x-ray has been reviewed and improvement in bibasilar opacities, right greater than the left. Patient is on empiric antibiotics in the form of Rocephin and Flagyl, surgical services are following. Denies abdominal pain, denies any nausea or vomiting, patient is tolerating regular diet, carbohydrate consistent. Remains on IV steroids 40 mg every 6 hours. On 07/03/2019 patient has been seen in follow-up in the intensive care unit, remains on Airvo at 50 l/min, Fio2 of 49%. Dyspnea, occasional cough, at times she's been controlled sputum, no fever or chills. Patient is in negative fluid balance, no significant edema, chest x-ray has been reviewed, showing stable findings with bibasilar opacities, right greater than the left. Her culture showed no growth. She completed Rocephin, Flagyl, she states there is still some occasional sensation of some burning posterior left chest, patient epigastric discomfort, overall much improved since admission. LFTs are normal on today's labs, last lipase was done on the , and was down to 310. He is tolerating regular diet, today's labs have been reviewed. Yesterday patient received a dose of Lasix, patient's oxygenation did improve with that, we'll give the patient on the dose of IV Lasix today. Objective - Vital Signs Vital signs: Vital Signs Temp 97.5 F L 07/03/19 08:00 Pulse 86 07/03/19 08:33 Resp 6 L 07/03/19 08:00 BP 122/86 07/03/19 08:00 Pulse Ox 92 L 07/03/19 08:00 Intake & Output 07/02/19 07/03/19 07/03/19 18:59 06:59 18:59 Intake Total 1200 500 Output Total 1400 650 0 Balance -200 -150 0 Weight 102.1 kg Intake: Intake, IV Titration 100 Amount cefTRIAXone 1 gm In 100 Sodium Chloride 0.9% 50 ml @ 100 mls/hr IVPB Q24HR [facility] Rx#:[id number] Oral 1100 500 Output: Urine 1400 650 0 Other: Voiding Method Bedside Commode Bedside Commode # Voids 0 0 0 # Bowel Movements 1 - Exam GENERAL EXAM: Alert, pleasant, 39-year-old white female, on Airvo at 50 l/min or 55 % comfortable in no apparent distress. HEAD: Normocephalic/atraumatic. EYES: Normal reaction of pupils, equal size. Conjunctiva pink, sclera white. NOSE: Clear with pink turbinates. THROAT: No erythema or exudates. NECK: No masses, no JVD, no thyroid enlargement, no adenopathy. CHEST: No chest wall deformity. Symmetrical expansion. LUNGS: Equal air entry bibasilar crackles, no wheezes CVS: Regular rate and rhythm, normal S1 and S2, no gallops, no murmurs, no rubs ABDOMEN: Soft, nontender. No hepatosplenomegaly, normal bowel sounds, no guarding or rigidity. EXTREMITIES: No clubbing, no edema, no cyanosis, 2+ pulses and upper and lower extremities. MUSCULOSKELETAL: Muscle strength and tone normal. SPINE: No scoliosis or deformity SKIN: No rashes CENTRAL NERVOUS SYSTEM: Alert and oriented -3. No focal deficits, tone is normal in all 4 extremities. PSYCHIATRIC: Alert and oriented -3. Appropriate affect. Intact judgment and insight. - Labs CBC & Chem 7: 07/03/19 05:39 07/03/19 05:39 Labs: Abnormal Lab Results - Last 24 Hours (Table) 07/02/19 07/02/19 07/02/19 Range/Units 08:36 11:39 17:03 WBC (3.8-10.6) k/uL RBC (3.80-5.40) m/uL Neutrophils # (1.3-7.7) k/uL Sodium (137-145) mmol/L Chloride (98-107) mmol/L Carbon Dioxide (22-30) mmol/L BUN (7-17) mg/dL Glucose (74-99) mg/dL POC Glucose (mg/dL) 229 H 253 H 250 H (75-99) mg/dL Total Protein (6.3-8.2) g/dL Albumin (3.5-5.0) g/dL 07/02/19 07/03/19 07/03/19 Range/Units 20:54 05:39 05:39 WBC 16.8 H (3.8-10.6) k/uL RBC 3.52 L (3.80-5.40) m/uL Neutrophils # 14.7 H (1.3-7.7) k/uL Sodium 135 L (137-145) mmol/L Chloride 92 L (98-107) mmol/L Carbon Dioxide 33 H (22-30) mmol/L BUN 27 H (7-17) mg/dL Glucose 234 H (74-99) mg/dL POC Glucose (mg/dL) 195 H (75-99) mg/dL Total Protein 5.6 L (6.3-8.2) g/dL Albumin 3.1 L (3.5-5.0) g/dL 07/03/19 Range/Units 06:36 WBC (3.8-10.6) k/uL RBC (3.80-5.40) m/uL Neutrophils # (1.3-7.7) k/uL Sodium (137-145) mmol/L Chloride (98-107) mmol/L Carbon Dioxide (22-30) mmol/L BUN (7-17) mg/dL Glucose (74-99) mg/dL POC Glucose (mg/dL) 214 H (75-99) mg/dL Total Protein (6.3-8.2) g/dL Albumin (3.5-5.0) g/dL Microbiology - Last 24 Hours (Table) 06/26/19 13:55 Blood Culture - Final Blood No Growth after 144 hours 06/26/19 13:50 Blood Culture - Final Blood No Growth after 144 hours Assessment and Plan Plan: Assessment: #1. Acute hypoxemic respiratory failure, secondary to noncardiogenic pulmonary edema/ARDS, secondary to acute pancreatitis, improving slowly #2. Acute gallstone pancreatitis, and cholecystitis #3. Acute exacerbation of COPD #4. History of chronic moderately severe bronchial asthma #5. History of hypertension #6. History of hypothyroidism #7. Chronic migraines #8. history of pneumonia #9. Bipolar disorder #10. Anxiety #11. Current every day smoker #12. Suspect ARDS secondary to acute pancreatitis Plan: Chest x-ray has been reviewed, showing bibasilar infiltrates, atelectasis, yesterday patient received a dose of Lasix, and her oxygenation did improve with that, we'll give the patient on the dose of IV Lasix today, 40 mg, we'll add Mucinex, continue with IV steroids, continue with nebulized bronchodilators, switch the patient to high flow nasal cannula at 15 L, continue weaning FiO2. I performed a history & physical examination of the patient and discussed their management with my nurse practitioner, Rohini Vanessa. I reviewed the nurse pra ctitioner's note and agree with the documented findings and plan of care. Lung sounds are positive for diffuse wheezes throughout the lung kelly. The findings and the impression was discussed with the patient. I attest to the documentation by the nurse practitioner.
--- NOTE | 2019-07-03 09:29 | XR ---
EXAMINATION TYPE: XR chest 1V portable DATE OF EXAM: 07/03/2019 COMPARISON: 07/02/2019 HISTORY: Shortness of breath TECHNIQUE: Single frontal view of the chest is obtained. FINDINGS: There are persistent similar-appearing bibasilar opacities. Cardiomediastinal silhouette i s upper limits of normal. Osseous structures are grossly intact. No pneumothorax. IMPRESSION: Similar-appearing bibasilar opacities, suspicious for multifocal pneumonia.
[2019-07-03] MEDS: guaiFENesin 600 MG TABLET.ER PO SCH ×2 (10:12→20:16)
[2019-07-03 12:12] LABS: Glucose,Whole Blood 230 mg/dL (75-99)
--- NOTE | 2019-07-03 13:19 | P.PN ---
Subjective Progress Note Date: 07/03/19 Principal diagnosis: The patient is a 39-year-old female with a past medical history of asthma that was admitted with acute pancreatitis after presenting with epigastric abdominal pain with nausea and vomiting. The patient was placed on standard treatment for pancreatitis including being made nothing by mouth except for ice and popsicles, she was placed on IV fluids, empiric IV antibiotics with Rocephin and azithromycin and Flagyl. Workup with CT abdomen and pelvis showed a retroperitoneal fluid and fat stranding consistent with pancreatitis. The patient continued to have SIRS as due to her pancreatitis and subsequently went into respiratory failure with hypoxemia and hypercapnia secondary to ARDS/asthma exacerbation triggered by her acute pancreatitis, right upper quadrant ultrasound was consistent with tiny gallstones with CBD at 1 cm. the patient was placed on BiPAP along with DuoNeb bronchodilator breathing treatments, and IV steroids and Lasix. Echocardiogram performed showed a preserved LVEF of 55-60%. Chest x-ray continued to show bilateral interstitial edema. Patient was continued on high flow nasal cannula, AirVO2 and intermittent BiPAP general surgery was consulted and recommended no surgical intervention until the resolution of her pancreatitis with plans to follow-up for lap cholecystectomy in clinic. The patient seen and examined follow-up, was on Airvo2 50 L/min overnight and was de-escalated to nasal cannula high flow at 15 L this morning. The patient's blood sugars have been slightly elevated due to her steroids she is receiving correctional scale insulin coverage. Chest x-ray shows similar bibasilar opacities right greater than left, White count is elevated secondary to steroids that 16.8, patient's remains afebrile. The patient mentions some occasional burning on her left chest. Otherwise no acute events overnight Objective - Vital Signs Vital signs: Vital Signs Temp 97.5 F L 07/03/19 12:00 Pulse 77 07/03/19 12:00 Resp 12 07/03/19 12:00 BP 114/63 07/03/19 12:00 Pulse Ox 95 07/03/19 12:00 Intake & Output 07/02/19 07/03/19 07/03/19 18:59 06:59 18:59 Intake Total 1200 500 Output Total 3721 280 2731 Balance -200 -150 -2150 Weight 102.1 kg Intake: Intake, IV Titration 100 Amount cefTRIAXone 1 gm In 100 Sodium Chloride 0.9% 50 ml @ 100 mls/hr IVPB Q24HR ANS[facility] Rx#:[id number] Oral 1100 500 Output: Urine 5653 357 9006 Other: Voiding Method Bedside Commode Bedside Commode Bedside Commode # Voids 0 0 0 # Bowel Movements 1 1 - Exam Constitutional: Currently on high flow nasal cannula in no distress Eyes: Anicteric sclerae, moist conjunctiva, no lid-lag, PERRLA ENMT: NC/AT,Oropharynx clear, no erythema, exudates Neck:Supple, FROM, no masses, or JVD, No carotid bruits; No thyromegaly Lungs: Diminished in the bases with right sided basilar crackles Cardiovascular: Heart regular in rate and rhythm, No murmurs, gallops, or rubs no peripheral edema Abdominal: Soft Nontender, nom distended, no guarding, no rebound or rigidity, Normoactive bowel sounds No hepatomegaly, No splenomegaly, No palpable mass No abdominal wall hernia noted Skin: Normal temperature, tone, texture, turgor, No induration No subcutaneous nodules, No rash, lesions, No ulcers Extremities:No digital cyanosis No clubbing, Pedal pulses intact and symmetrical Radial pulses intact and symmetrical Normal gait and station, No calf tenderness Psychiatric: Alert and oriented to person, place and time, Appropriate affect Intact judgement Neuro: Muscles Strength 5/5 in all 4 extremities, Sensation to light touch grossly present throughout, Cranial nerves II-XII grossly intact. No focal sensory deficits - Labs CBC & Chem 7: 07/03/19 05:39 07/03/19 05:39 Labs: Abnormal Lab Results - Last 24 Hours (Table) 07/02/19 07/02/19 07/03/19 Range/Units 17:03 20:54 05:39 WBC 16.8 H (3.8-10.6) k/uL RBC 3.52 L (3.80-5.40) m/uL Neutrophils # 14.7 H (1.3-7.7) k/uL Sodium (137-145) mmol/L Chloride (98-107) mmol/L Carbon Dioxide (22-30) mmol/L BUN (7-17) mg/dL Glucose (74-99) mg/dL POC Glucose (mg/dL) 250 H 195 H (75-99) mg/dL Total Protein (6.3-8.2) g/dL Albumin (3.5-5.0) g/dL 07/03/19 07/03/19 07/03/19 Range/Units 05:39 06:36 11:50 WBC (3.8-10.6) k/uL RBC (3.80-5.40) m/uL Neutrophils # (1.3-7.7) k/uL Sodium 135 L (137-145) mmol/L Chloride 92 L (98-107) mmol/L Carbon Dioxide 33 H (22-30) mmol/L BUN 27 H (7-17) mg/dL Glucose 234 H (74-99) mg/dL POC Glucose (mg/dL) 214 H 230 H (75-99) mg/dL Total Protein 5.6 L (6.3-8.2) g/dL Albumin 3.1 L (3.5-5.0) g/dL Microbiology - Last 24 Hours (Table) 06/26/19 13:55 Blood Culture - Final Blood No Growth after 144 hours 06/26/19 13:50 Blood Culture - Final Blood No Growth after 144 hours Assessment and Plan (1) Acute hypoxemic respiratory failure Narrative/Plan: * Secondary to ARDS in the setting of acute pancreatitis * Continues on high flow nasal cannula AirV02 at FiO2 of 50% * Continue with supportive therapy is DuoNeb bronchodilator breathing treatments Current Visit: Yes Status: Acute Code(s): J96.01 - ACUTE RESPIRATORY FAILURE WITH HYPOXIA SNOMED Code(s): 603543079 (2) ARDS (adult respiratory distress syndrome) Narrative/Plan: * Continue supportive treatments with supplemental oxygen and steroids * Underlying trigger acute pancreatitis has resolved Current Visit: Yes Status: Acute Code(s): J80 - ACUTE RESPIRATORY DISTRESS SYNDROME SNOMED Code(s): 20698293 (3) Acute pancreatitis Narrative/Plan: * Secondary to hepatobiliary disease triggered by acute cholecystitis * Now resolved Current Visit: Yes Status: Resolved Code(s): K85.90 - ACUTE PANCREATITIS WITHOUT NECROSIS OR INFECTION, UNSP SNOMED Code(s): 627897944 (4) Acute cholecystitis Narrative/Plan: * Evaluated by general surgery * Planning for laparoscopic cholecystectomy after pancreatitis resolves (outpatient follow up) * Patient currently on empiric antibiotics with Flagyl and Rocephin will d/c Rocpehin today Current Visit: Yes Status: Acute Code(s): K81.0 - ACUTE CHOLECYSTITIS SNOMED Code(s): 45359587 (5) Asthma exacerbation Narrative/Plan: * Continue systemic steroids breathing treatments and antibiotics Current Visit: No Status: Acute Code(s): J45.901 - UNSPECIFIED ASTHMA WITH (ACUTE) EXACERBATION SNOMED Code(s): 875020776 (6) Steroid-induced hyperglycemia Narrative/Plan: * Continue with correctional scale coverage we will initiate long-acting insulin 15 units of Levemir Current Visit: Yes Status: Acute Code(s): R73.9 - HYPERGLYCEMIA, UNSPECIFIED; T38.0X5A - ADVERSE EFFECT OF GLUCOCORT/SYNTH ANALOG, INIT SNOMED Code(s): 566912276 Plan: Disposition: Stable for transfer to the medical floor Likely home Anticipated date of discharge 3-5 days
[2019-07-03 14:18] VITALS: BMI 34.2
[2019-07-03 16:57] LABS: Glucose,Whole Blood 180 mg/dL (75-99)
[2019-07-03] MEDS: QUEtiapine 200 MG TAB PO SCH (20:16)
[2019-07-03] MEDS: LURASIDONE 40 MG TAB PO SCH (20:16)
[2019-07-03 20:24] LABS: Glucose,Whole Blood 181 mg/dL (75-99)
[2019-07-04] MEDS: LORazepam 1 MG TAB PO PRN ×3 (01:27→17:45)
[2019-07-04] MEDS: IPRATROPIUM-ALBUTEROL 3 ML NEB INHALATION SCH ×7 (01:35→23:35)
[2019-07-04] MEDS ORDERED: Acetaminophen-Codeine 300-30mg TAB ONE (04:30)
[2019-07-04] MEDS: methylPREDNISolone SOD SUCCI 40 MG/ML 1 ML VIAL IV SCH ×4 (06:36→23:21)
[2019-07-04 06:56] LABS: Glucose,Whole Blood 232 mg/dL (75-99)
[2019-07-04] MEDS: CARVEDILOL 6.25 MG TAB PO SCH ×2 (07:26→16:11)
[2019-07-04] MEDS: INSULIN ASPART (NovoLOG) 100 UNIT/ML VIAL SQ SCH ×4 (07:26→21:06)
--- NOTE | 2019-07-04 08:21 | XR ---
EXAMINATION TYPE: XR chest 1V portable DATE OF EXAM: 07/04/2019 COMPARISON: 07/03/2019 INDICATION: Short of breath TECHNIQUE: Single frontal view of the chest is obtained. FINDINGS: The heart size is normal. The pulmonary vasculature is normal. Bibasilar infiltrates are present likely atelectasis. This is improving from comparison. Resolving pn eumonia could be considered. IMPRESSION: 1. Mild bibasilar infiltrates more likely related atelectasis or possibly resolving pneumonia. Contin ued follow-up is recommended
[2019-07-04] MEDS: NICOTINE 21MG/24HR PATCH TRANSDERM SCH (08:42)
[2019-07-04] MEDS: clonazePAM 0.5 MG TAB PO SCH ×3 (08:42→21:05)
[2019-07-04] MEDS: metroNIDAZOLE 500 MG TAB PO SCH ×3 (08:42→23:20)
[2019-07-04] MEDS: GABAPENTIN 100 MG CAP PO SCH ×3 (08:43→21:05)
[2019-07-04] MEDS: QUEtiapine 50 MG TAB PO SCH (08:44)
[2019-07-04] MEDS: PANTOPRAZOLE 40 MG TABLET PO SCH (08:44)
[2019-07-04] MEDS: guaiFENesin 600 MG TABLET.ER PO SCH ×2 (08:44→21:05)
[2019-07-04] MEDS: FORMOTEROL FUMARATE 20 MCG/2 ML NEBU INHALATION SCH ×2 (08:53→19:14)
[2019-07-04] MEDS: BUDESONIDE 1 MG/2 ML NEBU INHALATION SCH ×2 (08:53→19:14)
[2019-07-04] MEDS ORDERED: FUROSEMIDE 10 MG/ML 4 ML VIAL IV STA (09:47)
--- NOTE | 2019-07-04 09:52 | P.PN ---
Subjective Progress Note Date: 07/04/19 Principal diagnosis: Acute hypoxemic respiratory failure related to ARDS/ALI A 39-year-old daughter white female patient who was admitted on 06/24/2019 with the chief complaint of epigastric pain radiating to her back associated with nausea, and vomiting for 3 days prior to presentation. She denied any fever or chills, denied any chest pain, she recently him back from [place] where she had been drinking for a few days, no prior history of pancreatitis in the past, in the emergency department patient was found to have elevated lipase, and evidence of pancreatitis and cholecystitis on the CAT scan, which showed a retroperitoneal fluid and fat stranding around the pancreas consistent with pancreatitis, and mildly dilated gallbladder suggestive of cholecystitis in addition there was a fatty infiltration of the liver. [place] of the abdomen showed tiny gallstones, common bile duct showed a 1 cm with no dilation of intrahepatic bile ducts. Patient was being treated conservatively, by mouth except for ice and popsicles, IV fluids, antibiotics, surgical consultation was obtained, and surgery was considering surgical intervention once the pancreatitis has resolved. This morning patient was noted to be hypoxemic, pulse ox of 67% on room air, yesterday patient was not requiring any supplemental oxygen, and was maintaining O2 saturations at or above 93%. Patient complaining of increasing dyspnea, and tachycardic, started having a headache and a low-grade fever. She was placed on the 100% nonrebreather, stat blood gas was obtained, showing pO2 of 72, pCO2 46, pH of 7.34, this was done on FiO2 of 100%, and is consistent with mild hypercapnic respiratory failure, and acute hypoxemic respiratory failure. Chest x-ray was completed showing low lung volumes with the new [id number] central vascular congestion and interstitial edema. In addition patient was bronchospastic, and she does have a history of asthma, and she states she was previously treated with Zithromax and prednisone in the recent past for asthma exacerbation and tracheobronchitis. BiPAP support was considered, however patient's condition started to improve, she was started on nebulized bronchodilators, a dose of IV Lasix was given. She was refusing IV steroids at first, but in view of her wheezing and chest congestion we will start her on IV steroids. Blood cultures and lactic acid have been sent. Patient denied any chest pain, did have some epigastric discomfort, which and ongoing since admission, and abdominal discomfort across the lower quadrants, abdomen is soft, nontender. Labs today have been reviewed, showing white blood cell count of 10.2, hemoglobin of 11.9, coagulation profile was within normal limits, sodium was 132, the rest of electrolytes and renal profile were unremarkable, repeat lactic acid came back normal at 0.9, proBNP was normal at 194, her enzymes are trending down, lipase is down to 940, down from 2324 on yesterday's labs. Reevaluated today on 06/27/2019, patient remains on high flow FiO2/high flow nasal cannula, last night she became worse, and she required placement on BiPAP most of the night. The issue of intubation and mechanical ventilation was discussed with the patient last night, patient refused to be intubated. And did relatively well on BiPAP overnight and she kept it until early this morning. Today she was switched to a high flow nasal cannula, O2 saturation remains very marginal. Barely 90% on high flow nasal cannula. Chest x-ray continues to show bilateral interstitial edema, more likely consistent with ARDS secondary to acute pancreatitis. Although the possibility of cardiogenic pulmonary edema is not entirely ruled out, but felt to be less likely considering the patient had a relatively normal echocardiogram, and not much improvement in spite of diuretics. CBC is relatively normal today, WBC count 9.5 hemoglobin is 10.5. Electrolytes are normal. ABG last night showed a pO2 of 55 pCO2 of 5:30 pH of 7.37, and this was on 80% FiO2. Her BNP level was normal. And echocardiogram did not reveal any LV dysfunction. Reevaluated today on 06/28/2019, patient remains on high FiO2, and intermittently on BiPAP. O2 saturation remains marginal. Chest x-ray continues to show bilateral interstitial infiltrates. Patient denies being in distress, but again her O2 saturation is in the low 90s on a high flow nasal cannula and on BiPAP. Patient denies any cough, no wheezing, no fever, no chills, her amylase level today is down to 344 electrolytes are normal. CBC is relatively unremarkable. Reevaluated today on 06/29/2019, patient remains marginal, she has been intermittently on high FiO2, BiPAP, and now on airvo at high flow and high FiO2. O2 saturation remains marginal in the low 90s at best. Clinically however the patient does not seem to be in any distress. And feels comfortable. Denies any cough, no wheezing, denies any shortness of breath denies any chest pain. CBC is relatively normal hemoglobin is 10.4 electrodes are normal renal profile is normal patient remains empirically on antibiotics, she is also on bronchodilators, steroids, and the dose of diuretics was increased this morning. Chest x-ray continues to show significant airspace disease in both lungs specially the bases a left lower lobe and right lower lobe. Reevaluated today on 06/30/2019, remains in the ICU, remains on high flow FiO2, she is presently on high flow nasal cannula at 15 L/m. Intermittently on BiPAP especially at night. Patient is improving. Chest x-ray is showing slight improvement. Less shortness of breath, minimal productive cough is noted. Denies any fever no chills no hemoptysis and no chest pain. Patient desaturates easily with any activity. Chest x-ray clearly showed some airspace disease involving mostly the right lower lobe, and to lesser extent the left lower lobe today. CBC is normal hemoglobin is 10.8 electrodes are normal renal profile is normal, no lipase was done today. Blood sugar is 167 Patient was reevaluated today on 07/01/2019, remains on airvo however I was able to cut down her FiO2 to 50%, and her flow down to 40 L/m, plan to switch her to a high flow nasal cannula, and we'll continue to titrate the FiO2. Patient is feeling much better compared to how she felt upon presentation. Her chest x-ray continues to show steady improvement in her by lateral interstitial infiltrates especially in the right lower lobe and left lower lobe. Patient denies any cough, no wheezing, no chest pain. No fever, no chills, no hemoptysis. Her WBC count is 11.2 hemoglobin is 11.6. Electrodes are normal renal profile is normal. No lipase was ordered today. Her last amylase was normal. On 07/02/2019 patient seen in follow-up in the intensive care unit, she is awake and alert, oriented 3, she remains on Airvo currently at 50 L/m, and FiO2 of 56%, her pulse ox is 94%. Using her incentive spirometer, achieving 2000 on it, lung sounds are clear, with crackles at the bases. She is tolerating AIrvo well, no tachypnea, denies any dyspnea. She does desaturate with exertion, she is afebrile, hemodynamically patient is stable. States occasionally she has so me burning sensation in her lungs. No wheezing noted. Culture showed no growth, we were unable to send the sputum culture. Today's chest x-ray has been reviewed and improvement in bibasilar opacities, right greater than the left. Patient is on empiric antibiotics in the form of Rocephin and Flagyl, surgical services are following. Denies abdominal pain, denies any nausea or vomiting, patient is tolerating regular diet, carbohydrate consistent. Remains on IV steroids 40 mg every 6 hours. On 07/03/2019 patient has been seen in follow-up in the intensive care unit, remains on Airvo at 50 l/min, Fio2 of 49%. Dyspnea, occasional cough, at times she's been controlled sputum, no fever or chills. Patient is in negative fluid balance, no significant edema, chest x-ray has been reviewed, showing stable findings with bibasilar opacities, right greater than the left. Her culture showed no growth. She completed Rocephin, Flagyl, she states there is still some occasional sensation of some burning posterior left chest, patient epigastric discomfort, overall much improved since admission. LFTs are normal on today's labs, last lipase was done on the , and was down to 310. He is tolerating regular diet, today's labs have been reviewed. Yesterday patient received a dose of Lasix, patient's oxygenation did improve with that, we'll give the patient on the dose of IV Lasix today. On 07/04/2019 patient seen in follow-up in intensive care. Patient is doing well, FiO2 is down to 7 L, with a pulse ox of from 92-95%. Afebrile, breathing has improved significantly, patient is tolerating ambulation in the room, no acute distress, today's chest x-ray has been reviewed showing mild bibasilar infiltrates. Yesterday we give the patient additionally was of IV Lasix, patient has diuresed, oxygenation continues to improve, she is in -3150 ML fluid balance over the last 24 hours. Culture showed no growth, we were unable to send sputum culture, antibiotic coverage is with Flagyl. Objective - Vital Signs Vital signs: Vital Signs Temp 98.4 F 07/04/19 04:00 Pulse 72 07/04/19 09:22 Resp 14 07/04/19 07:00 BP 123/44 07/04/19 07:00 Pulse Ox 91 L 07/04/19 07:00 Intake & Output 07/03/19 07/04/19 07/04/19 18:59 06:59 18:59 Output Total 2350 800 Balance -2350 -800 Weight 102.1 kg 103 kg Output: Urine 2350 800 Other: Voiding Method Bedside Commode Bedside Commode # Voids 0 # Bowel Movements 1 1 - Exam GENERAL EXAM: Alert, pleasant, 39-year-old white female, on 7 l/min with a Pulse ox of 92 comfortable in no apparent distress. HEAD: Normocephalic/atraumatic. EYES: Normal reaction of pupils, equal size. Conjunctiva pink, sclera white. NOSE: Clear with pink turbinates. THROAT: No erythema or exudates. NECK: No masses, no JVD, no thyroid enlargement, no adenopathy. CHEST: No chest wall deformity. Symmetrical expansion. LUNGS: Equal air entry bibasilar crackles, no wheezes CVS: Regular rate and rhythm, normal S1 and S2, no gallops, no murmurs, no rubs ABDOMEN: Soft, nontender. No hepatosplenomegaly, normal bowel sounds, no guarding or rigidity. EXTREMITIES: No clubbing, no edema, no cyanosis, 2+ pulses and upper and lower extremities. MUSCULOSKELETAL: Muscle strength and tone normal. SPINE: No scoliosis or deformity SKIN: No rashes CENTRAL NERVOUS SYSTEM: Alert and oriented -3. No focal deficits, tone is normal in all 4 extremities. PSYCHIATRIC: Alert and oriented -3. Appropriate affect. Intact judgment and insight. - Labs CBC & Chem 7: 07/03/19 05:39 07/03/19 05:39 Labs: Abnormal Lab Results - Last 24 Hours (Table) 07/03/19 07/03/19 07/03/19 Range/Units 11:50 16:55 20:20 POC Glucose (mg/dL) 230 H 180 H 181 H (75-99) mg/dL 07/04/19 Range/Units 06:52 POC Glucose (mg/dL) 232 H (75-99) mg/dL Assessment and Plan Plan: Assessment: #1. Acute hypoxemic respiratory failure, secondary to noncardiogenic pulmonary edema/ARDS, secondary to acute pancreatitis, improving slowly #2. Acute gallstone pancreatitis, and cholecystitis #3. Acute exacerbation of COPD #4. History of chronic moderately severe bronchial asthma #5. History of hypertension #6. History of hypothyroidism #7. Chronic migraines #8. history of pneumonia #9. Bipolar disorder #10. Anxiety #11. Current every day smoker #12. Suspect ARDS secondary to acute pancreatitis Plan: Today's chest x-ray shows improving bibasilar infiltrates, patient has diuresed extensively, oxygenation continues to improve, we'll give the patient 1 more dose of Lasix today, continue with IV steroids, nebulized bronchodilators, vital signs are stable, no fever or chills, any stable to transfer out of the intensive care unit to general medical floor. Continue to follow. I performed a history & physical examination of the patient and discussed their management with my nurse practitioner, Rohini Vanessa. I reviewed the nurse practitioner's note and agree with the documented findings and plan of care. Lung sounds are positive for diffuse wheezes throughout the lung kelly. The findings and the impression was discussed with the patient. I attest to the documentation by the nurse practitioner. Time with Patient: Less than 30
[2019-07-04] MEDS: INSULIN DETEMIR (LEVEMIR) 100 UNIT/ML SYR SQ SCH (10:21)
[2019-07-04 10:23] LABS: Glucose,Whole Blood 142 mg/dL (75-99)
[2019-07-04] MEDS: Acetaminophen-Codeine 300-30mg TAB PO PRN ×3 (11:10→23:20)
--- NOTE | 2019-07-04 12:50 | P.PN ---
Subjective Progress Note Date: 07/04/19 Principal diagnosis: The patient is a 39-year-old female with a past medical history of asthma that was admitted with acute pancreatitis after presenting with epigastric abdominal pain with nausea and vomiting. The patient was placed on standard treatment for pancreatitis including being made nothing by mouth except for ice and popsicles, she was placed on IV fluids, empiric IV antibiotics with Rocephin and azithromycin and Flagyl. Workup with CT abdomen and pelvis showed a retroperitoneal fluid and fat stranding consistent with pancreatitis. The patient continued to have SIRS as due to her pancreatitis and subsequently went into respiratory failure with hypoxemia and hypercapnia secondary to ARDS/asthma exacerbation triggered by her acute pancreatitis, right upper quadrant ultrasound was consistent with tiny gallstones with CBD at 1 cm. the patient was placed on BiPAP along with DuoNeb bronchodilator breathing treatments, and IV steroids and Lasix. Echocardiogram performed showed a preserved LVEF of 55-60%. Chest x-ray continued to show bilateral interstitial edema. Patient was continued on high flow nasal cannula, AirVO2 and intermittent BiPAP general surgery was consulted and recommended no surgical intervention until the resolution of her pancreatitis with plans to follow-up for lap cholecystectomy in clinic. Patient seen and examined follow-up doing well, oxygen weaned down to 7 L via nasal cannula currently with decent saturations from 90-95%, chest x-ray showing bibasilar infiltrates. The patient has no complaints or concerns Objective - Vital Signs Vital signs: Vital Signs Temp 98.4 F 07/04/19 04:00 Pulse 72 07/04/19 09:22 Resp 14 07/04/19 07:00 BP 123/44 07/04/19 07:00 Pulse Ox 91 L 07/04/19 07:00 Intake & Output 07/03/19 07/04/19 07/04/19 18:59 06:59 18:59 Output Total 2350 800 Balance -2350 -800 Weight 102.1 kg 103 kg Output: Urine 2350 800 Other: Voiding Method Bedside Commode Bedside Commode # Voids 0 # Bowel Movements 1 1 - Exam Constitutional: Currently on high flow nasal cannula in no distress Eyes: Anicteric sclerae, moist conjunctiva, no lid-lag, PERRLA ENMT: NC/AT,Oropharynx clear, no erythema, exudates Neck:Supple, FROM, no masses, or JVD, No carotid bruits; No thyromegaly Lungs: Diminished in the bases with right sided basilar crackles Cardiovascular: Heart regular in rate and rhythm, No murmurs, gallops, or rubs no peripheral edema Abdominal: Soft Nontender, nom distended, no guarding, no rebound or rigidity, Normoactive bowel sounds No hepatomegaly, No splenomegaly, No palpable mass No abdominal wall hernia noted Skin: Normal temperature, tone, texture, turgor, No induration No subcutaneous nodules, No rash, lesions, No ulcers Extremities:No digital cyanosis No clubbing, Pedal pulses intact and symmetric al Radial pulses intact and symmetrical Normal gait and station, No calf tenderness Psychiatric: Alert and oriented to person, place and time, Appropriate affect Intact judgement Neuro: Muscles Strength 5/5 in all 4 extremities, Sensation to light touch grossly present throughout, Cranial nerves II-XII grossly intact. No focal sensory deficits - Labs CBC & Chem 7: 07/03/19 05:39 07/03/19 05:39 Labs: Abnormal Lab Results - Last 24 Hours (Table) 07/03/19 07/03/19 07/04/19 Range/Units 16:55 20:20 06:52 POC Glucose (mg/dL) 180 H 181 H 232 H (75-99) mg/dL 07/04/19 Range/Units 10:20 POC Glucose (mg/dL) 142 H (75-99) mg/dL Assessment and Plan (1) Acute hypoxemic respiratory failure Narrative/Plan: * Secondary to ARDS in the setting of acute pancreatitis * Patient doing well on 7 L tolerating ambulation without any significant desat urations we'll continue to wean as tolerated * Continue with supportive therapy is DuoNeb bronchodilator breathing treatments Current Visit: Yes Status: Acute Code(s): J96.01 - ACUTE RESPIRATORY FAILURE WITH HYPOXIA SNOMED Code(s): 841737419 (2) ARDS (adult respiratory distress syndrome) Narrative/Plan: * Continue supportive treatments with supplemental oxygen and steroids * Underlying trigger acute pancreatitis has resolved * Plans to transition to oral steroids in the morning Current Visit: Yes Status: Acute Code(s): J80 - ACUTE RESPIRATORY DISTRESS SYNDROME SNOMED Code(s): 94551273 (3) Acute pancreatitis Narrative/Plan: * Secondary to hepatobiliary disease triggered by acute cholecystitis * Now resolved Current Visit: Yes Status: Resolved Code(s): K85.90 - ACUTE PANCREATITIS WITHOUT NECROSIS OR INFECTION, UNSP SNOMED Code(s): 851589631 (4) Acute cholecystitis Narrative/Plan: * Evaluated by general surgery * Planning for laparoscopic cholecystectomy after pancreatitis resolves (outpatient follow up) * Patient currently on empiric antibiotics with Flagyl and Rocephin will d/c Rocpehin today Current Visit: Yes Status: Acute Code(s): K81.0 - ACUTE CHOLECYSTITIS SNOMED Code(s): 67845398 (5) Asthma exacerbation Narrative/Plan: * Continue systemic steroids breathing treatments and antibiotics Current Visit: No Status: Acute Code(s): J45.901 - UNSPECIFIED ASTHMA WITH (ACUTE) EXACERBATION SNOMED Code(s): 697162065 (6) Steroid-induced hyperglycemia Narrative/Plan: * Continue with correctional scale coverage we will initiate long-acting insulin 15 units of Levemir Current Visit: Yes Status: Acute Code(s): R73.9 - HYPERGLYCEMIA, UNSPECIFIED; T38.0X5A - ADVERSE EFFECT OF GLUCOCORT/SYNTH ANALOG, INIT SNOMED Code(s): 094629365 Plan: Disposition: Stable for transfer to the medical floor Likely home Anticipated date of discharge 1-2 days
[2019-07-04 13:03] LABS: Glucose,Whole Blood 251 mg/dL (75-99)
[2019-07-04 17:12] LABS: Glucose,Whole Blood 136 mg/dL (75-99)
[2019-07-04 20:47] LABS: Glucose,Whole Blood 155 mg/dL (75-99)
[2019-07-04] MEDS: QUEtiapine 200 MG TAB PO SCH (21:05)
[2019-07-04] MEDS: LURASIDONE 40 MG TAB PO SCH (21:06)
[2019-07-05] MEDS: LORazepam 1 MG TAB PO PRN (03:11)
[2019-07-05] MEDS: IPRATROPIUM-ALBUTEROL 3 ML NEB INHALATION SCH ×3 (03:33→11:07)
[2019-07-05 05:11] VITALS: BP 102/61; RESP 20; TEMP 97.6
[2019-07-05] MEDS: methylPREDNISolone SOD SUCCI 40 MG/ML 1 ML VIAL IV SCH (05:22)
[2019-07-05] MEDS: Acetaminophen-Codeine 300-30mg TAB PO PRN ×2 (05:22→11:20)
[2019-07-05 07:16] LABS: Glucose,Whole Blood 227 mg/dL (75-99)
[2019-07-05] MEDS: BUDESONIDE 1 MG/2 ML NEBU INHALATION SCH (07:30)
[2019-07-05] MEDS: FORMOTEROL FUMARATE 20 MCG/2 ML NEBU INHALATION SCH (07:30)
[2019-07-05] MEDS: metroNIDAZOLE 500 MG TAB PO SCH (08:00)
[2019-07-05] MEDS: clonazePAM 0.5 MG TAB PO SCH (08:00)
[2019-07-05] MEDS: NICOTINE 21MG/24HR PATCH TRANSDERM SCH (08:00)
[2019-07-05] MEDS: PANTOPRAZOLE 40 MG TABLET PO SCH (08:01)
[2019-07-05] MEDS: CARVEDILOL 6.25 MG TAB PO SCH (08:01)
[2019-07-05] MEDS: QUEtiapine 50 MG TAB PO SCH (08:01)
[2019-07-05] MEDS: INSULIN ASPART (NovoLOG) 100 UNIT/ML VIAL SQ SCH ×2 (08:01→11:22)
[2019-07-05] MEDS: guaiFENesin 600 MG TABLET.ER PO SCH (08:01)
[2019-07-05] MEDS: GABAPENTIN 100 MG CAP PO SCH (08:01)
[2019-07-05] MEDS: INSULIN DETEMIR (LEVEMIR) 100 UNIT/ML SYR SQ SCH (08:08)
[2019-07-05] MEDS ORDERED: predniSONE 20 MG TAB PO SCH (09:00)
--- NOTE | 2019-07-05 09:59 | P.DS ---
Providers Date of admission: 06/24/19 14:21 Expected date of discharge: 07/05/19 Attending physician: Kelle Michaels DO Consults: 06/24/19 14:47 Consult Physician Stat Consulting Provider: Guevara Betancourt Consult Reason/Comments: acute pancreatitis, possible cholecystitis on CT Do you want consulting provider notified?: Yes 06/26/19 12:59 Consult Physician Stat Consulting Provider: Darnell Workman Consult Reason/Comments: icu management Do you want consulting provider notified?: Already Contacted 06/27/19 11:34 Consult Physician Urgent Consulting Provider: Anil Holbrook Consult Reason/Comments: Anxiety and depression Do you want consulting provider notified?: Already Contacted Primary care physician: Stated None - Discharge Diagnosis(es) (1) Acute hypoxemic respiratory failure Current Visit: Yes Status: Acute (2) ARDS (adult respiratory distress syndrome) Current Visit: Yes Status: Acute (3) Acute pancreatitis Current Visit: Yes Status: Resolved (4) Acute cholecystitis Current Visit: Yes Status: Acute (5) Asthma exacerbation Current Visit: No Status: Acute (6) Steroid-induced hyperglycemia Current Visit: Yes Status: Acute Hospital Course: The patient is a 39-year-old female with a past medical history of asthma that was admitted with acute pancreatitis after presenting with epigastric abdominal pain with nausea and vomiting. The patient was placed on standard treatment for pancreatitis including being made nothing by mouth except for ice and popsicles, she was placed on IV fluids, empiric IV antibiotics with Rocephin and azithromycin and Flagyl. Workup with CT abdomen and pelvis showed a retroperitoneal fluid and fat stranding consistent with pancreatitis. The patient continued to have SIRS as due to her pancreatitis and subsequently went into respiratory failure with hypoxemia and hypercapnia secondary to ARDS/asthma exacerbation triggered by her acute pancreatitis, right upper quadrant ultrasound was consistent with tiny gallstones with CBD at 1 cm. the patient was placed on BiPAP along with DuoNeb bronchodilator breathing treatments, and IV steroids and Lasix. Echocardiogram performed showed a preserved LVEF of 55-60%. Chest x-ray continued to show bilateral interstitial edema with infiltrates. Patient was continued on high flow nasal cannula, AirVO2 and intermittent BiPAP general surgery and was eventually weaned down to 4 L via nasal cannula by time of discharge and was consulted and recommended no surgical intervention until the resolution of her pancreatitis with plans to follow-up for lap cholecystectomy in clinic. Patient was discharged home in stable condition told to follow-up with pulmonary Dr. Farris in 1 week and general surgery Dr. betancourt's group in 1 week. This discharge process took approximately 35 minutes Focused exam: Respiratory : unlabored On 4 L nasal cannula clear to auscultation bilaterally but diminished in the bases Patient Condition at Discharge: Good Plan - Discharge Summary Discharge Rx Participant: No New Discharge Prescriptions: Continue Albuterol Inhaler [Ventolin Hfa Inhaler] 2 puff INHALATION RT-Q6H PRN PRN Reason: Shortness Of Breath Or Wheezing rOPINIRole HCL [Requip] 1 mg PO HS Lurasidone HCl [Latuda] 120 mg PO HS Lisinopril [Zestril] 10 mg PO DAILY Levothyroxine Sodium [Synthroid] 25 mcg PO DAILY Gemfibrozil [Lopid] 600 mg PO BID Carvedilol [Coreg] 6.25 mg PO BID clonazePAM [KlonoPIN] 0.5 mg PO TID QUEtiapine FUMARATE [SEROquel] 600 mg PO HS Discharge Medication List Albuterol Inhaler [Ventolin Hfa Inhaler] 2 puff INHALATION RT-Q6H PRN 10/08/14 [History] Carvedilol [Coreg] 6.25 mg PO BID 06/24/19 [History] Gemfibrozil [Lopid] 600 mg PO BID 06/24/19 [History] Levothyroxine Sodium [Synthroid] 25 mcg PO DAILY 06/24/19 [History] Lisinopril [Zestril] 10 mg PO DAILY 06/24/19 [History] Lurasidone HCl [Latuda] 120 mg PO HS 06/24/19 [History] QUEtiapine FUMARATE [SEROquel] 600 mg PO HS 06/24/19 [History] clonazePAM [KlonoPIN] 0.5 mg PO TID 06/24/19 [History] rOPINIRole HCL [Requip] 1 mg PO HS 06/24/19 [History] Follow up Appointment(s)/Referral(s): Guevara Betancourt DO [Doctor of Osteopathic Medicine] - 1 Week (Gallbladder to be removed. ) Los Farris DO [Doctor of Osteopathic Medicine] - 1 Week [facility], [NON-STAFF] - 1-2 Days None,Stated [Primary Care Provider] - 1-2 days Patient Instructions/Handouts: Pancreatitis (DC) Activity/Diet/Wound Care/Special Instructions: Regular diet Limited activity until follow up with primary care drMary Discharge Disposition: HOME SELF-CARE
--- NOTE | 2019-07-05 10:53 | P.PN ---
Subjective Progress Note Date: 07/05/19 Principal diagnosis: Acute hypoxemic respiratory failure related to ARDS/ALI A 39-year-old daughter white female patient who was admitted on 06/24/2019 with the chief complaint of epigastric pain radiating to her back associated with nausea, and vomiting for 3 days prior to presentation. She denied any fever or chills, denied any chest pain, she recently him back from [place] where she had been drinking for a few days, no prior history of pancreatitis in the past, in the emergency department patient was found to have elevated lipase, and evidence of pancreatitis and cholecystitis on the CAT scan, which showed a retroperitoneal fluid and fat stranding around the pancreas consistent with pancreatitis, and mildly dilated gallbladder suggestive of cholecystitis in addition there was a fatty infiltration of the liver. [place] of the abdomen showed tiny gallstones, common bile duct showed a 1 cm with no dilation of intrahepatic bile ducts. Patient was being treated conservatively, by mouth except for ice and popsicles, IV fluids, antibiotics, surgical consultation was obtained, and surgery was considering surgical intervention once the pancreatitis has resolved. This morning patient was noted to be hypoxemic, pulse ox of 67% on room air, yesterday patient was not requiring any supplemental oxygen, and was maintaining O2 saturations at or above 93%. Patient complaining of increasing dyspnea, and tachycardic, started having a headache and a low-grade fever. She was placed on the 100% nonrebreather, stat blood gas was obtained, showing pO2 of 72, pCO2 46, pH of 7.34, this was done on FiO2 of 100%, and is consistent with mild hypercapnic respiratory failure, and acute hypoxemic respiratory failure. Chest x-ray was completed showing low lung volumes with the new [id number] central vascular congestion and interstitial edema. In addition patient was bronchospastic, and she does have a history of asthma, and she states she was previously treated with Zithromax and prednisone in the recent past for asthma exacerbation and tracheobronchitis. BiPAP support was considered, however patient's condition started to improve, she was started on nebulized bronchodilators, a dose of IV Lasix was given. She was refusing IV steroids at first, but in view of her wheezing and chest congestion we will start her on IV steroids. Blood cultures and lactic acid have been sent. Patient denied any chest pain, did have some epigastric discomfort, which and ongoing since admission, and abdominal discomfort across the lower quadrants, abdomen is soft, nontender. Labs today have been reviewed, showing white blood cell count of 10.2, hemoglobin of 11.9, coagulation profile was within normal limits, sodium was 132, the rest of electrolytes and renal profile were unremarkable, repeat lactic acid came back normal at 0.9, proBNP was normal at 194, her enzymes are trending down, lipase is down to 940, down from 2324 on yesterday's labs. Reevaluated today on 06/27/2019, patient remains on high flow FiO2/high flow nasal cannula, last night she became worse, and she required placement on BiPAP most of the night. The issue of intubation and mechanical ventilation was discussed with the patient last night, patient refused to be intubated. And did relatively well on BiPAP overnight and she kept it until early this morning. Today she was switched to a high flow nasal cannula, O2 saturation remains very marginal. Barely 90% on high flow nasal cannula. Chest x-ray continues to show bilateral interstitial edema, more likely consistent with ARDS secondary to acute pancreatitis. Although the possibility of cardiogenic pulmonary edema is not entirely ruled out, but felt to be less likely considering the patient had a relatively normal echocardiogram, and not much improvement in spite of diuretics. CBC is relatively normal today, WBC count 9.5 hemoglobin is 10.5. Electrolytes are normal. ABG last night showed a pO2 of 55 pCO2 of 5:30 pH of 7.37, and this was on 80% FiO2. Her BNP level was normal. And echocardiogram did not reveal any LV dysfunction. Reevaluated today on 06/28/2019, patient remains on high FiO2, and intermittently on BiPAP. O2 saturation remains marginal. Chest x-ray continues to show bilateral interstitial infiltrates. Patient denies being in distress, but again her O2 saturation is in the low 90s on a high flow nasal cannula and on BiPAP. Patient denies any cough, no wheezing, no fever, no chills, her amylase level today is down to 344 electrolytes are normal. CBC is relatively unremarkable. Reevaluated today on 06/29/2019, patient remains marginal, she has been intermittently on high FiO2, BiPAP, and now on airvo at high flow and high FiO2. O2 saturation remains marginal in the low 90s at best. Clinically however the patient does not seem to be in any distress. And feels comfortable. Denies any cough, no wheezing, denies any shortness of breath denies any chest pain. CBC is relatively normal hemoglobin is 10.4 electrodes are normal renal profile is normal patient remains empirically on antibiotics, she is also on bronchodilators, steroids, and the dose of diuretics was increased this morning. Chest x-ray continues to show significant airspace disease in both lungs specially the bases a left lower lobe and right lower lobe. Reevaluated today on 06/30/2019, remains in the ICU, remains on high flow FiO2, she is presently on high flow nasal cannula at 15 L/m. Intermittently on BiPAP especially at night. Patient is improving. Chest x-ray is showing slight improvement. Less shortness of breath, minimal productive cough is noted. Denies any fever no chills no hemoptysis and no chest pain. Patient desaturates easily with any activity. Chest x-ray clearly showed some airspace disease involving mostly the right lower lobe, and to lesser extent the left lower lobe today. CBC is normal hemoglobin is 10.8 electrodes are normal renal profile is normal, no lipase was done today. Blood sugar is 167 Patient was reevaluated today on 07/01/2019, remains on airvo however I was able to cut down her FiO2 to 50%, and her flow down to 40 L/m, plan to switch her to a high flow nasal cannula, and we'll continue to titrate the FiO2. Patient is feeling much better compared to how she felt upon presentation. Her chest x-ray continues to show steady improvement in her by lateral interstitial infiltrates especially in the right lower lobe and left lower lobe. Patient denies any cough, no wheezing, no chest pain. No fever, no chills, no hemoptysis. Her WBC count is 11.2 hemoglobin is 11.6. Electrodes are normal renal profile is normal. No lipase was ordered today. Her last amylase was normal. On 07/02/2019 patient seen in follow-up in the intensive care unit, she is awake and alert, oriented 3, she remains on Airvo currently at 50 L/m, and FiO2 of 56%, her pulse ox is 94%. Using her incentive spirometer, achieving 2000 on it, lung sounds are clear, with crackles at the bases. She is tolerating AIrvo well, no tachypnea, denies any dyspnea. She does desaturate with exertion, she is afebrile, hemodynamically patient is stable. States occasionally she has so me burning sensation in her lungs. No wheezing noted. Culture showed no growth, we were unable to send the sputum culture. Today's chest x-ray has been reviewed and improvement in bibasilar opacities, right greater than the left. Patient is on empiric antibiotics in the form of Rocephin and Flagyl, surgical services are following. Denies abdominal pain, denies any nausea or vomiting, patient is tolerating regular diet, carbohydrate consistent. Remains on IV steroids 40 mg every 6 hours. On 07/03/2019 patient has been seen in follow-up in the intensive care unit, remains on Airvo at 50 l/min, Fio2 of 49%. Dyspnea, occasional cough, at times she's been controlled sputum, no fever or chills. Patient is in negative fluid balance, no significant edema, chest x-ray has been reviewed, showing stable findings with bibasilar opacities, right greater than the left. Her culture showed no growth. She completed Rocephin, Flagyl, she states there is still some occasional sensation of some burning posterior left chest, patient epigastric discomfort, overall much improved since admission. LFTs are normal on today's labs, last lipase was done on the , and was down to 310. He is tolerating regular diet, today's labs have been reviewed. Yesterday patient received a dose of Lasix, patient's oxygenation did improve with that, we'll give the patient on the dose of IV Lasix today. On 07/04/2019 patient seen in follow-up in intensive care. Patient is doing well, FiO2 is down to 7 L, with a pulse ox of from 92-95%. Afebrile, breathing has improved significantly, patient is tolerating ambulation in the room, no acute distress, today's chest x-ray has been reviewed showing mild bibasilar infiltrates. Yesterday we give the patient additionally was of IV Lasix, patient has diuresed, oxygenation continues to improve, she is in -3150 ML fluid balance over the last 24 hours. Culture showed no growth, we were unable to send sputum culture, antibiotic coverage is with Flagyl. On 07/05/2019 patient seen in follow-up on medical surgical floor. She is in no acute distress, she is ambulating about the room, no compensatory shortness of breath, lung sounds are clear on today's exam, no rhonchi, no rales, no wheezing, FiO2 is down to 4 L, patient has been afebrile, no complaints of cough or congestion, no complaints of chest pain, no abdominal pain. All culture data remains negative thus far, no fever or chills. No new chest x-rays or labs. She has been transitioned to oral prednisone, her pancreatitis has resolved, she completed a course of antibiotics, from pulmonary perspective she stable, and can be discharged home today. Objective - Vital Signs Vital signs: Vital Signs Temp 97.6 F 07/05/19 04:25 Pulse 92 07/05/19 07:52 Resp 20 07/05/19 04:25 BP 102/61 07/05/19 04:25 Pulse Ox 98 07/05/19 07:31 Intake & Output 07/04/19 07/05/19 07/05/19 18:59 06:59 18:59 Intake Total 100 Balance 100 Intake: Oral 100 Other: Voiding Method Bedside Commode - Exam GENERAL EXAM: Alert, pleasant, 39-year-old white female, on 6 l/min with a Pulse ox of 98 comfortable in no apparent distress. HEAD: Normocephalic/atraumatic. EYES: Normal reaction of pupils, equal size. Conjunctiva pink, sclera white. NOSE: Clear with pink turbinates. THROAT: No erythema or exudates. NECK: No masses, no JVD, no thyroid enlargement, no adenopathy. CHEST: No chest wall deformity. Symmetrical expansion. LUNGS: Equal air entry, with no rhonchi, no rales, no wheezes CVS: Regular rate and rhythm, normal S1 and S2, no gallops, no murmurs, no rubs ABDOMEN: Soft, nontender. No hepatosplenomegaly, normal bowel sounds, no guardi ng or rigidity. EXTREMITIES: No clubbing, no edema, no cyanosis, 2+ pulses and upper and lower extremities. MUSCULOSKELETAL: Muscle strength and tone normal. SPINE: No scoliosis or deformity SKIN: No rashes CENTRAL NERVOUS SYSTEM: Alert and oriented -3. No focal deficits, tone is normal in all 4 extremities. PSYCHIATRIC: Alert and oriented -3. Appropriate affect. Intact judgment and insight. - Labs CBC & Chem 7: 07/03/19 05:39 07/03/19 05:39 Labs: Abnormal Lab Results - Last 24 Hours (Table) 07/04/19 07/04/19 07/04/19 Range/Units 13:00 17:05 20:43 POC Glucose (mg/dL) 251 H 136 H 155 H (75-99) mg/dL 07/05/19 Range/Units 07:13 POC Glucose (mg/dL) 227 H (75-99) mg/dL Assessment and Plan Plan: Assessment: #1. Acute hypoxemic respiratory failure, secondary to noncardiogenic pulmonary edema/ARDS, secondary to acute pancreatitis, improving slowly #2. Acute gallstone pancreatitis, and cholecystitis #3. Acute exacerbation of COPD #4. History of chronic moderately severe bronchial asthma #5. History of hypertension #6. History of hypothyroidism #7. Chronic migraines #8. history of pneumonia #9. Bipolar disorder #10. Anxiety #11. Current every day smoker #12. Suspect ARDS secondary to acute pancreatitis Plan: Patient is stable for discharge from pulmonary perspective, she continues to improve, weaning FiO2, currently down to 4 L, completely home oxygen assessment, patient will likely need short-term home oxygen. No dyspnea, vital signs are stable, afebrile, culture dated remains negative thus far, from pulmonary perspective we can stop her oral prednisone, she has completed her antibiotics, her pancreatitis has resolved, no abdominal pain, she'll need follow-up with Dr. Hunter in the office in 7-10 days. I performed a history & physical examination of the patient and discussed their management with my nurse practitioner, Rohini Vanessa. I reviewed the nurse practitioner's note and agree with the documented findings and plan of care. Lung sounds are positive for diffuse wheezes throughout the lung kelly. The findings and the impression was discussed with the patient. I attest to the documentation by the nurse practitioner. Time with Patient: Less than 30
[2019-07-05 11:16] VITALS: PULSE 84
== END 2019-07-05 11:36 | disposition home health service (06) | DRG 438 ==
LOC: EC 12:27 → 4MS4W 14:21 → 3NMEDONC 15:03 → 2SICU 06-26 12:38 → 4MS4W 07-04 16:00
PROVIDERS: ADMIT Internal Medicine; ATTEND Internal Medicine
PROC: 5A09457 Assistance with Respiratory Ventilation, 24-96 Consecutive Hours, Continuous Positive Airway Pressure (ICD-10-PCS; principal; 2019-06-26)
PROC: B51N1ZA Fluoroscopy of Left Upper Extremity Veins using Low Osmolar Contrast, Guidance (ICD-10-PCS; 2019-07-02 09:50)
PROC: 05HF33Z Insertion of Infusion Device into Left Cephalic Vein, Percutaneous Approach (ICD-10-PCS; 2019-07-02 09:50)
DX: K85.10 Biliary acute pancreatitis without necrosis or infection (principal); J96.01 Acute respiratory failure with hypoxia; J96.02 Acute respiratory failure with hypercapnia; F31.30 Bipolar disorder, current episode depressed, mild or moderate severity, unspecified; J44.1 Chronic obstructive pulmonary disease with (acute) exacerbation; J81.1 Chronic pulmonary edema; K80.00 Calculus of gallbladder with acute cholecystitis without obstruction; J45.901 Unspecified asthma with (acute) exacerbation; R65.10 Systemic inflammatory response syndrome (SIRS) of non-infectious origin without acute organ dysfunction; E03.9 Hypothyroidism, unspecified; E87.70 Fluid overload, unspecified; F17.200 Nicotine dependence, unspecified, uncomplicated; F41.9 Anxiety disorder, unspecified; G43.909 Migraine, unspecified, not intractable, without status migrainosus; I10 Essential (primary) hypertension; K52.9 Noninfective gastroenteritis and colitis, unspecified; T38.0X5A Adverse effect of glucocorticoids and synthetic analogues, initial encounter; Z79.4 Long term (current) use of insulin; Z79.890 Hormone replacement therapy; Z79.899 Other long term (current) drug therapy; Z82.5 Family history of asthma and other chronic lower respiratory diseases; Z87.01 Personal history of pneumonia (recurrent); Z88.0 Allergy status to penicillin; Z98.51 Tubal ligation status; Z88.1 Allergy status to other antibiotic agents; Z91.018 Allergy to other foods; Z80.42 Family history of malignant neoplasm of prostate; R73.9 Hyperglycemia, unspecified
CPT/HCPCS: 36410; 36415; 36600; 71045; 74177; 76705; 76937; 80048; 80053; 80306; 81001; 81003; 81025; 82150; 82330; 82805; 83605; 83690; 83735; 83880; 84100; 84132; 84478; 84484; 85025; 85610; 87040; 93005; 93306; 94640; 94660; 94760; 96361; 96374; 96375; 96376; 99285

== ENCOUNTER 2020-03-19 13:08 | Emergency (ER) | payer OTHER ==
[2020-03-19 13:17] VITALS: TEMP 98.8
[2020-03-19 14:32] LABS: Basophils % (A) 1 %; Eosinophils # (A) 0.1 k/uL (0-0.7); Eosinophils % (A) 2 %; HCT 41.7 % (34.0-46.0); HGB 13.7 gm/dL (11.4-16.0); Lymphocytes # (A) 1.9 k/uL (1.0-4.8); Lymphocytes % (A) 28 %; MCH 31.2 pg (25.0-35.0); MCV 94.5 fL (80.0-100.0); Mean Platelet Volume 8.2; Monocytes # (A) 0.4 k/uL (0-1.0); Monocytes % (A) 6 %; Neutrophils # (A) 4.1 k/uL (1.3-7.7); Neutrophils % (A) 60 %; Platelet Count 282 k/uL (150-450); RBC 4.41 m/uL (3.80-5.40); RDW 12.7 % (11.5-15.5); WBC 6.8 k/uL (3.8-10.6)
[2020-03-19 14:44] LABS: ALT 21 U/L (4-34); AST 26 U/L (14-36); African American GFR (CKD) >90 (>60 ml/min/1.73 sqM); Albumin 4.6 g/dL (3.5-5.0); Alkaline Phosphatase 83 U/L (38-126); Anion Gap 7 mmol/L; Blood Urea Nitrogen 15 mg/dL (7-17); C Reactive Protein 11.9 mg/L (<10.0); Calcium 10.1 mg/dL (8.4-10.2); Carbon Dioxide 24 mmol/L (22-30); Chloride 105 mmol/L (98-107); Glucose 92 mg/dL (74-99); Non-African American GFR(CKD) >90 (>60 ml/min/1.73 sqM); Potassium 4.6 mmol/L (3.5-5.1); Sodium 136 mmol/L (137-145); Total Bilirubin 0.4 mg/dL (0.2-1.3); Total Protein 7.3 g/dL (6.3-8.2)
--- NOTE | 2020-03-19 15:08 | ED ---
SOB HPI - General Chief Complaint: Shortness of Breath Stated Complaint: SHILA, joint pain Time Seen by Provider: 03/19/20 13:29 Source: patient Mode of arrival: ambulatory Limitations: no limitations - History of Present Illness Initial Comments: The patient is a 39-year-old female has a history of asthma who presents to the emergency room with reported wheezing and shortness of breath. Patient states that she has had upper respiratory symptoms for the past 8 weeks. She saw the Dr. Vazquez in office. States that she was on a course of Levaquin which she finished and had no improvement in her symptoms. He then placed her on a 21 day course of prednisone. She finished the prednisone last week. She states that she continues to have increased work of breathing and wheezing. She has been using her inhalers and nebulizers at home without improvement. Denies fevers or chills. Does admit to a productive cough with brown sputum production. A few days for the patient also began having pain in the big toe. States that it is swollen, warm to the touch and painful with range of motion. Denies history of similar in the past. No history of gout. Denies trauma. There are no alleviating, precipitating or modifying factors - Related Data Home Medications Medication Instructions Recorded Confirmed Albuterol Inhaler (Mhu) [Ventolin 2 puff INHALATION RT-Q6H PRN 10/08/14 06/24/19 Hfa Inhaler (Mhu)] Carvedilol [Coreg] 6.25 mg PO BID 06/24/19 06/24/19 Gemfibrozil [Lopid] 600 mg PO BID 06/24/19 06/24/19 Levothyroxine Sodium [Synthroid] 25 mcg PO DAILY 06/24/19 06/24/19 Lisinopril [Zestril] 10 mg PO DAILY 06/24/19 06/24/19 Lurasidone HCl [Latuda] 120 mg PO HS 06/24/19 06/24/19 QUEtiapine FUMARATE [SEROquel] 600 mg PO HS 06/24/19 06/24/19 clonazePAM [KlonoPIN] 0.5 mg PO TID 06/24/19 06/24/19 rOPINIRole HCL [Requip] 1 mg PO HS 06/24/19 06/24/19 Previous Rx's Medication Instructions Recorded Albuterol Nebulized [Ventolin 2.5 mg INHALATION Q4H #25 nebu 03/19/20 Nebulized] Doxycycline Monohydrate [Monodox] 100 mg PO Q12HR #20 cap 03/19/20 predniSONE [Deltasone] 20 mg PO BID #10 tab 03/19/20 Allergies Allergy/AdvReac Type Severity Reaction Status Date / Time cefaclor [From Ceclor] Allergy Unknown Verified 03/19/20 13:17 Childhood Penicillins Allergy Unknown Verified 03/19/20 13:17 Childhood pineapple Allergy Rash/Hives Verified 03/19/20 13:17 Review of Systems ROS Statement: Those systems with pertinent positive or pertinent negative responses have been documented in the HPI. ROS Other: All systems not noted in ROS Statement are negative. Past Medical History Past Medical History: Asthma, Hypertension, Pneumonia, Thyroid Disorder Additional Past Medical History / Comment(s): Chronic migraines, pneumonia History of Any Multi-Drug Resistant Organisms: None Reported Past Surgical History: Section, Orthopedic Surgery Additional Past Surgical History / Comment(s): Left knee meniscus repair x3. Past Anesthesia/Blood Transfusion Reactions: No Reported Reaction Past Psychological History: Anxiety, Bipolar, Depression Smoking Status: Current every day smoker Past Alcohol Use History: Occasional Past Drug Use History: Marijuana - Past Family History Mother Additional Family Medical History / Comment(s): Mom in 2004 from septic shock when she was 54 years old. Father Family Medical History: Cancer, COPD Additional Family Medical History / Comment(s): Pt. reports her father currently has prostate cancer General Exam Limitations: no limitations General appearance: alert, in no apparent distress Head exam: Present: atraumatic, normocephalic, normal inspection Eye exam: Present: normal appearance, PERRL, EOMI. Absent: scleral icterus, conjunctival injection, periorbital swelling ENT exam: Present: normal exam, mucous membranes moist Neck exam: Present: normal inspection. Absent: tenderness, meningismus, lymphadenopathy Respiratory exam: Present: wheezes (all lung kelly). Absent: respiratory distress, rales, rhonchi, stridor Cardiovascular Exam: Present: regular rate, normal rhythm, normal heart sounds. Absent: systolic murmur, diastolic murmur, rubs, gallop, clicks GI/Abdominal exam: Present: soft, normal bowel sounds. Absent: distended, tenderness, guarding, rebound, rigid Extremities exam: Present: full ROM, tenderness (to palpation of bilateral fist MCP joitn in toe), normal capillary refill. Absent: pedal edema, joint swelling, calf tenderness Back exam: Present: normal inspection Neurological exam: Present: alert, oriented X3, CN II-XII intact Psychiatric exam: Present: normal affect, normal mood Skin exam: Present: warm, dry, intact, normal color. Absent: rash Course Vital Signs 03/19/20 03/19/20 03/19/20 13:14 13:41 13:45 Temperature 98.8 F Pulse Rate 91 Respiratory 18 20 Rate Blood Pressure 116/76 O2 Sat by Pulse 99 96 Oximetry 03/19/20 03/19/20 03/19/20 14:00 14:30 15:00 Temperature Pulse Rate 95 104 H 92 Respiratory 11 L 21 13 Rate Blood Pressure 126/91 116/86 116/91 O2 Sat by Pulse 97 Oximetry Medical Decision Making - Medical Decision Making Upon arrival patient placed in room 3. Thorough history and physical exam was performed. Patient placed on continuous pulse ox and cardiac monitoring. Laboratory studies were obtained. Patient was sent for CT for chest due to continued symptoms with Manuel patient treatment. CBC and CMP are unremarkable. HCG is not detected. CT the patient's chest demonstrates no acute bony e mbolism. Minimal changes suggestive atelectasis. Patient was also sent for viral foot x-ray which demonstrates narrowing of the first metatarsal phalangeal joint with no acute osseous immobility. I discussed results with the patient. Vitals has maintained within normal limits 1 the emergency room. Patient does not want to be admitted to the hospital even though she has failed outpatient treatment. I will prescribe the patient and additional 5 day course of steroids. She is to discontinue her use of Motrin at home. Also place the patient on doxycycline and refill her albuterol. The patient needs to follow up Dr. Vazquez in office in regards to her symptoms. I also recommended orthopedic follow-up for her foot pain. The patient is a new worsening symptoms she should return to the emergency room. The patient was in agreement with the treatment plan she was discharged home in stable condition - Lab Data Result diagrams: 03/19/20 13:59 03/19/20 13:59 Lab Results 05/13/20 05/13/20 05/13/20 Range/Units 13:59 13:59 13:59 WBC 6.8 (3.8-10.6) k/uL RBC 4.41 (3.80-5.40) m/uL Hgb 13.7 (11.4-16.0) gm/dL Hct 41.7 (34.0-46.0) % MCV 94.5 (80.0-100.0) fL MCH 31.2 (25.0-35.0) pg MCHC 33.0 (31.0-37.0) g/dL RDW 12.7 (11.5-15.5) % Plt Count 282 (150-450) k/uL Neutrophils % 60 % Lymphocytes % 28 % Monocytes % 6 % Eosinophils % 2 % Basophils % 1 % Neutrophils # 4.1 (1.3-7.7) k/uL Lymphocytes # 1.9 (1.0-4.8) k/uL Monocytes # 0.4 (0-1.0) k/uL Eosinophils # 0.1 (0-0.7) k/uL Basophils # 0.0 (0-0.2) k/uL PT 10.1 (9.0-12.0) sec INR 1.0 (<1.2) APTT 24.4 (22.0-30.0) sec Sodium 136 L (137-145) mmol/L Potassium 4.6 (3.5-5.1) mmol/L Chloride 105 (98-107) mmol/L Carbon Dioxide 24 (22-30) mmol/L Anion Gap 7 mmol/L BUN 15 (7-17) mg/dL Creatinine 0.70 (0.52-1.04) mg/dL Est GFR (CKD-EPI)AfAm >90 (>60 ml/min/1.73 sqM) Est GFR (CKD-EPI)NonAf >90 (>60 ml/min/1.73 sqM) Glucose 92 (74-99) mg/dL Plasma Lactic Acid Catrachito (0.7-2.0) mmol/L Uric Acid (3.7-7.4) mg/dL Calcium 10.1 (8.4-10.2) mg/dL Total Bilirubin 0.4 (0.2-1.3) mg/dL AST 26 (14-36) U/L ALT 21 (4-34) U/L Alkaline Phosphatase 83 (38-126) U/L C-Reactive Protein 11.9 H (<10.0) mg/L Total Protein 7.3 (6.3-8.2) g/dL Albumin 4.6 (3.5-5.0) g/dL Urine HCG, Qual (Not Detectd) Coronavirus (PCR) (Not Detected) 03/19/20 03/19/20 03/19/20 Range/Units 13:59 13:59 14:25 WBC (3.8-10.6) k/uL RBC (3.80-5.40) m/uL Hgb (11.4-16.0) gm/dL Hct (34.0-46.0) % MCV (80.0-100.0) fL MCH (25.0-35.0) pg MCHC (31.0-37.0) g/dL RDW (11.5-15.5) % Plt Count (150-450) k/uL Neutrophils % % Lymphocytes % % Monocytes % % Eosinophils % % Basophils % % Neutrophils # (1.3-7.7) k/uL Lymphocytes # (1.0-4.8) k/uL Monocytes # (0-1.0) k/uL Eosinophils # (0-0.7) k/uL Basophils # (0-0.2) k/uL PT (9.0-12.0) sec INR (<1.2) APTT (22.0-30.0) sec Sodium (137-145) mmol/L Potassium (3.5-5.1) mmol/L Chloride (98-107) mmol/L Carbon Dioxide (22-30) mmol/L Anion Gap mmol/L BUN (7-17) mg/dL Creatinine (0.52-1.04) mg/dL Est GFR (CKD-EPI)AfAm (>60 ml/min/1.73 sqM) Est GFR (CKD-EPI)NonAf (>60 ml/min/1.73 sqM) Glucose (74-99) mg/dL Plasma Lactic Acid Catrachito 0.8 (0.7-2.0) mmol/L Uric Acid 6.8 (3.7-7.4) mg/dL Calcium (8.4-10.2) mg/dL Total Bilirubin (0.2-1.3) mg/dL AST (14-36) U/L ALT (4-34) U/L Alkaline Phosphatase (38-126) U/L C-Reactive Protein (<10.0) mg/L Total Protein (6.3-8.2) g/dL Albumin (3.5-5.0) g/dL Urine HCG, Qual (Not Detectd) Coronavirus (PCR) Not Detected (Not Detected) 03/19/20 Range/Units 15:00 WBC (3.8-10.6) k/uL RBC (3.80-5.40) m/uL Hgb (11.4-16.0) gm/dL Hct (34.0-46.0) % MCV (80.0-100.0) fL MCH (25.0-35.0) pg MCHC (31.0-37.0) g/dL RDW (11.5-15.5) % Plt Count (150-450) k/uL Neutrophils % % Lymphocytes % % Monocytes % % Eosinophils % % Basophils % % Neutrophils # (1.3-7.7) k/uL Lymphocytes # (1.0-4.8) k/uL Monocytes # (0-1.0) k/uL Eosinophils # (0-0.7) k/uL Basophils # (0-0.2) k/uL PT (9.0-12.0) sec INR (<1.2) APTT (22.0-30.0) sec Sodium (137-145) mmol/L Potassium (3.5-5.1) mmol/L Chloride (98-107) mmol/L Carbon Dioxide (22-30) mmol/L Anion Gap mmol/L BUN (7-17) mg/dL Creatinine (0.52-1.04) mg/dL Est GFR (CKD-EPI)AfAm (>60 ml/min/1.73 sqM) Est GFR (CKD-EPI)NonAf (>60 ml/min/1.73 sqM) Glucose (74-99) mg/dL Plasma Lactic Acid Catrachito (0.7-2.0) mmol/L Uric Acid (3.7-7.4) mg/dL Calcium (8.4-10.2) mg/dL Total Bilirubin (0.2-1.3) mg/dL AST (14-36) U/L ALT (4-34) U/L Alkaline Phosphatase (38-126) U/L C-Reactive Protein (<10.0) mg/L Total Protein (6.3-8.2) g/dL Albumin (3.5-5.0) g/dL Urine HCG, Qual Not Detected (Not Detectd) Coronavirus (PCR) (Not Detected) - EKG Data EKG Comments: EKG demonstrates normal sinus rhythm with ventricular rate 93. [place] interval 136. QRS 82. QTC of 437. No acute ST segment elevations or depressions concerning for ischemic changes Disposition Clinical Impression: Shortness of breath, Acute tracheobronchitis, Foot pain, bilateral Disposition: HOME SELF-CARE Condition: Stable Instructions (If sedation given, give patient instructions): Asthma (ED), Chronic Cough (ED) Additional Instructions: Please follow up with orthopedics and Dr. Workman for reevaluation of your symptoms. Return to the emergency room for any new or worsening symptoms. Do not take Motrin while taking the steroids Prescriptions: predniSONE [Deltasone] 20 mg PO BID #10 tab Doxycycline Monohydrate [Monodox] 100 mg PO Q12HR #20 cap Albuterol Nebulized [Ventolin Nebulized] 2.5 mg INHALATION Q4H #25 nebu Is patient prescribed a controlled substance at d/c from ED?: No Referrals: Dionna Gonzalez MD [Primary Care Provider] - 1-2 days Stanton Roldan MD [STAFF PHYSICIAN] - 1-2 days Time of Disposition: 16:14
--- NOTE | 2020-03-19 15:15 | CT ---
CT CHEST FOR PULMONARY EMBOLISM. EXAMINATION TYPE: CT chest angio for PE DATE OF EXAM: 03/19/2020 INDICATION: Shortness of breath. CT DLP: 531.8 mGycm, Automated exposure control for dose reduction was used. CONTRAST: Patient injected with 100 mL of Isovue 370. COMPARISON: None TECHNIQUE: CT of the chest is performed on a spiral scan at 2 mm thick sections. Study is performed with intravenous contrast timed for evaluation for pulmonary embolism. This will limit additional po rtions of the evaluation. 3-D MIP images reconstructed by the technologist are reviewed on the compu ter in the coronal and sagittal planes. FINDINGS: No persistent filling defects are evident to suggest an acute pulmonary embolism. No mediastinal or hilar adenopathy enlarged by CT criteria is evident. The ascending aorta diameter at the level of the main pulmonary artery is 3.7 cm. The main pulmonary artery diameter at the bifur cation is 3.1 cm. Few small right apical blebs are present. Minimal compressive atelectasis within the dependent portio ns of the lungs may be present. Some atelectasis is at the right middle lobe base. Limited CT section through the upper abdomen are unremarkable. IMPRESSIONS: 1. No acute pulmonary embolism. 2. Minimal changes suggestive for atelectasis.
[2020-03-19] MEDS ORDERED: KETOROLAC 30 MG/ML 1 ML VIAL IVP STA (15:22)
[2020-03-19 15:24] LABS: Partial Thromboplastin Time 24.4 sec (22.0-30.0); Prothrombin Time 10.1 sec (9.0-12.0)
[2020-03-19 15:31] VITALS: BP 116/91; PULSE 92; RESP 13
--- NOTE | 2020-03-19 15:35 | XR ---
EXAMINATION TYPE: XR foot complete bilateral DATE OF EXAM: 03/19/2020 COMPARISON: None HISTORY: Pain in joints TECHNIQUE: 3 views bilateral feet FINDINGS: Left foot: There is narrowing of the joint space between the first metatarsophalangeal joint space. N o acute fractures are evident. Remaining joint spaces appear preserved. Soft tissues are unremarkable . Right foot: There is narrowing of the joint space between the first metatarsophalangeal joint space. No acute fractures are evident. Remaining joint spaces appear preserved. Soft tissues are unremarkabl e. IMPRESSION: 1. Narrowing of the first metatarsophalangeal joint space bilaterally. 2. No acute osseous abnormality.
[2020-03-19] MEDS ORDERED: predniSONE 20 MG TAB PO STA (16:05)
[2020-03-19] MEDS ORDERED: DOXYCYCLINE 100 MG CAP PO STA (16:13)
== END 2020-03-19 16:27 | disposition home or self-care (01) ==
LOC: EC 13:08
DX: J20.9 Acute bronchitis, unspecified (principal); M79.671 Pain in right foot; M79.672 Pain in left foot; Z32.02 Encounter for pregnancy test, result negative; J45.909 Unspecified asthma, uncomplicated; I10 Essential (primary) hypertension; E07.9 Disorder of thyroid, unspecified; F41.9 Anxiety disorder, unspecified; F31.9 Bipolar disorder, unspecified; F17.200 Nicotine dependence, unspecified, uncomplicated; Z79.02 Long term (current) use of antithrombotics/antiplatelets; Z79.890 Hormone replacement therapy; Z79.899 Other long term (current) drug therapy; Z88.0 Allergy status to penicillin; Z88.1 Allergy status to other antibiotic agents; Z91.018 Allergy to other foods
CPT/HCPCS: 36415; 93005; 80053; 83605; 84550; 85025; 85610; 85730; 86140; 81025; 87635; 73630; 71275; 99285; 96374; J1885; J7512; Q9967

== ENCOUNTER 2020-06-07 18:52 | Emergency (ER) | payer MEDICARE, OTHER ==
[2020-06-07 19:02] VITALS: TEMP 99
[2020-06-07] MEDS ORDERED: MORPHINE SULFATE 4 MG/ML SYRINGE IM STA (19:39)
[2020-06-07] MEDS ORDERED: KETOROLAC 30 MG/ML 1 ML VIAL IM STA (19:39)
[2020-06-07] MEDS ORDERED: IPRATROPIUM-ALBUTEROL 3 ML NEB INHALATION STA (19:39)
[2020-06-07] MEDS ORDERED: predniSONE 50 MG TAB PO STA (19:39)
[2020-06-07] MEDS ORDERED: CLINDAMYCIN 150 MG CAP PO STA (19:39)
--- NOTE | 2020-06-07 19:54 | XR ---
EXAMINATION TYPE: XR chest 2V DATE OF EXAM: 06/07/2020 COMPARISON: 04/24/2020 HISTORY: Cough TECHNIQUE: 2 views FINDINGS: Heart and mediastinum are normal. Lungs are clear of infiltrate. There is no heart failure. Costophrenic angles are clear. There are no hilar masses. Bony thorax is intact. IMPRESSION: Normal chest. Increased density at the right cardiac border probably due to minimal pectu s chest deformity. No adverse change.
--- NOTE | 2020-06-07 19:55 | ED ---
General Adult HPI - General Chief complaint: Dental/Oral Stated complaint: Mouth Pain,SOB Time Seen by Provider: 06/07/20 19:21 Source: patient Mode of arrival: ambulatory Limitations: no limitations - History of Present Illness Initial comments: 40-year-old female patient presents to the emergency department today for evaluation of right lower dental pain. Patient states the pain started around 0200 this morning and has been getting worse throughout the day. Patient did recently have a tooth removed from the area but believes it is the volar causing her discomfort. She denies any fevers or chills. Denies trismus or difficulty swallowing. She states that she also is having some wheezing and shortness of breath. States she has been having increased frequency of symptoms over the last 6 months. She does do breathing treatments including steroid inhalation treatment at home. She does see a search and rescue officer. She has been on a couple of courses of steroids. She does admit to smoking cigarettes. Denies any fever or chills. Denies significant cough. Patient denies any recent rash, chest pain, abdominal pain, diarrhea, constipation, back pain, numbness, tingling, dizziness, weakness, hematuria, dysuria, urinary urgency, urinary frequency, headache, visual changes, or any other complaints. - Related Data Home Medications Medication Instructions Recorded Confirmed Albuterol Inhaler (Mhu) [Ventolin 2 puff INHALATION RT-Q6H PRN 10/08/14 06/24/19 Hfa Inhaler (Mhu)] Levothyroxine Sodium [Synthroid] 25 mcg PO DAILY 06/24/19 06/24/19 Lurasidone HCl [Latuda] 120 mg PO HS 06/24/19 06/24/19 QUEtiapine FUMARATE [SEROquel] 600 mg PO HS 06/24/19 06/24/19 carvediloL [Coreg] 6.25 mg PO BID 06/24/19 06/24/19 clonazePAM [KlonoPIN] 0.5 mg PO TID 06/24/19 06/24/19 gemfibroziL [Lopid] 600 mg PO BID 06/24/19 06/24/19 lisinopriL [Zestril] 10 mg PO DAILY 06/24/19 06/24/19 rOPINIRole HCL [Requip] 1 mg PO HS 06/24/19 06/24/19 Previous Rx's Medication Instructions Recorded Albuterol Nebulized [Ventolin 2.5 mg INHALATION Q4H #25 nebu 03/19/20 Nebulized] Doxycycline Monohydrate [Monodox] 100 mg PO Q12HR #20 cap 03/19/20 predniSONE [Deltasone] 20 mg PO BID #10 tab 03/19/20 Clindamycin HCl 300 mg PO Q6H #40 cap 06/07/20 Ibuprofen [Motrin] 600 mg PO Q8HR PRN #30 tab 06/07/20 predniSONE 50 mg PO DAILY #5 tablet 06/07/20 Allergies Allergy/AdvReac Type Severity Reaction Status Date / Time cefaclor [From Ceclor] Allergy Unknown Verified 06/07/20 18:57 Childhood Penicillins Allergy Unknown Verified 06/07/20 18:57 Childhood pineapple Allergy Rash/Hives Verified 06/07/20 18:57 Review of Systems ROS Statement: Those systems with pertinent positive or pertinent negative responses have been documented in the HPI. ROS Other: All systems not noted in ROS Statement are negative. Past Medical History Past Medical History: Asthma, Hypertension, Pneumonia, Thyroid Disorder Additional Past Medical History / Comment(s): Chronic migraines History of Any Multi-Drug Resistant Organisms: None Reported Past Surgical History: Section, Orthopedic Surgery Additional Past Surgical History / Comment(s): Left knee meniscus repair x3. Past Anesthesia/Blood Transfusion Reactions: No Reported Reaction Past Psychological History: Anxiety, Bipolar, Depression Smoking Status: Current every day smoker Past Alcohol Use History: None Reported, Occasional Past Drug Use History: Marijuana - Past Family History Mother Additional Family Medical History / Comment(s): Mom in 2004 from septic shock when she was 52 years old. Father Family Medical History: Cancer, COPD Additional Family Medical History / Comment(s): Pt. reports her father currently has prostate cancer General Exam Limitations: no limitations General appearance: alert, in no apparent distress, other (this is a well- developed, well-nourished adult female patient in no acute distress.) Eye exam: Present: normal appearance, PERRL, EOMI. Absent: scleral icterus, conjunctival injection, periorbital swelling ENT exam: Present: normal oropharynx (there is poor dentition noted on exam. There is erythema and gingival hyperplasia noted around tooth #32. There is no evidence of drainable abscess.), mucous membranes moist Respiratory exam: Present: wheezes (there is coarse inspiratory and expiratory wheezing noted in the posterior lung kelly.), other (patient is in no respiratory distress. Respirations are even and unlabored. She is able to speak full sentences without difficulty. No abdominal accessory muscle use.). Absent: normal lung sounds bilaterally, respiratory distress, rales, rhonchi, stridor Cardiovascular Exam: Present: regular rate, normal rhythm, normal heart sounds. Absent: systolic murmur, diastolic murmur, rubs, gallop, clicks Neurological exam: Present: alert, oriented X3, CN II-XII intact Psychiatric exam: Present: normal affect, normal mood Skin exam: Present: warm, dry, intact, normal color. Absent: rash Course Vital Signs 06/07/20 06/07/20 06/07/20 18:58 20:14 20:21 Temperature 99 F Pulse Rate 104 H 102 H 104 H Respiratory 18 Rate Blood Pressure 126/82 O2 Sat by Pulse 96 Oximetry 06/07/20 20:40 Temperature Pulse Rate 96 Respiratory 16 Rate Blood Pressure 147/80 O2 Sat by Pulse 98 Oximetry Medical Decision Making - Medical Decision Making 40-year-old female patient presents to the emergency department today for evaluation of right lower dental pain. She is also reporting shortness of breath and wheezing for the last 6 months on and off. Physical examination did reveal gingival erythema or hyperplasia noted around tooth #32. There is no evidence of drainable abscess. She has no trismus or difficulty swallowing. Lung sounds did reveal coarse inspiratory and expiratory wheezing. Chest x-ray was negative. We will treat for acute bronchitis with prednisone. She is instructed follow up with her search and rescue officer as soon as possible. She is instructed to dentistry as soon as possible. She is instructed to follow up with her primary care physician for recheck in 1-2 days. Return parameters were discussed in detail. She verbalizes understanding and agree with this plan. - Radiology Data Radiology results: report reviewed, image reviewed 2 views of the chest are obtained. Report was reviewed in its entirety. Impression by Dr. Ramey shows normal chest. Increased density at the right cardiac border probably due to minimal pectus chest deformity. No adverse change. Disposition Clinical Impression: Dental infection, Wheezing Disposition: HOME SELF-CARE Condition: Good Instructions (If sedation given, give patient instructions): Dental Abscess (ED), Wheezing (ED) Additional Instructions: Continue home breathing treatments. Complete steroid prescription and full. Follow-up with your primary care physician and search and rescue officer for further evaluation. Follow-up with dentistry as soon as possible. Return to the emergency department immediately for any new, worsening, or concerning symptoms. Prescriptions: Clindamycin HCl 300 mg PO Q6H #40 cap Ibuprofen [Motrin] 600 mg PO Q8HR PRN #30 tab PRN Reason: Pain predniSONE 50 mg PO DAILY #5 tablet Is patient prescribed a controlled substance at d/c from ED?: No Referrals: Dionna Gonzalez MD [Primary Care Provider] - 1-2 days Time of Disposition: 20:12
[2020-06-07] MEDS ORDERED: ACET/COD 300 MG/30 MG STARTER PACK 6 TAB BTL PO STA (20:12)
[2020-06-07 20:43] VITALS: BP 147/80; PULSE 96; RESP 16
== END 2020-06-07 20:46 | disposition home or self-care (01) ==
LOC: EC 18:52
DX: K04.7 Periapical abscess without sinus (principal); R06.2 Wheezing; R06.02 Shortness of breath; I10 Essential (primary) hypertension; E07.9 Disorder of thyroid, unspecified; G43.901 Migraine, unspecified, not intractable, with status migrainosus; F41.9 Anxiety disorder, unspecified; F31.9 Bipolar disorder, unspecified; F17.210 Nicotine dependence, cigarettes, uncomplicated; Z79.51 Long term (current) use of inhaled steroids; Z79.899 Other long term (current) drug therapy; Z79.890 Hormone replacement therapy; Z88.1 Allergy status to other antibiotic agents; Z88.0 Allergy status to penicillin; Z91.018 Allergy to other foods; Z87.09 Personal history of other diseases of the respiratory system
CPT/HCPCS: 94640; 71046; 99285; 96372 ×2; J2270; J1885; J7512

== ENCOUNTER → 2020-06-20 | Outpatient (CLI) | payer MEDICARE, OTHER | END | disposition home or self-care (01) | LOC: LABWHC1 12:39 | PROVIDERS: ATTEND Nurse Practitioner Family | DX: J02.9 Acute pharyngitis, unspecified (principal); R09.81 Nasal congestion | CPT/HCPCS: U0003; C9803 ==

== ENCOUNTER → 2020-07-18 | Outpatient (CLI) | payer MEDICARE, OTHER | END | disposition home or self-care (01) | LOC: LABWHC1 16:06 | PROVIDERS: ATTEND Nurse Practitioner Family | DX: E03.9 Hypothyroidism, unspecified (principal); E87.8 Other disorders of electrolyte and fluid balance, not elsewhere classified; R79.9 Abnormal finding of blood chemistry, unspecified; E83.52 Hypercalcemia | CPT/HCPCS: 36415; 83970 ==

== ENCOUNTER → 2020-11-24 | Outpatient (CLI) | payer MEDICARE, OTHER ==
[2020-11-24 16:12] LABS: Basophils % (A) 1 %; Eosinophils # (A) 0.2 k/uL (0-0.7); Eosinophils % (A) 3 %; HCT 41.9 % (34.0-46.0); HGB 13.8 gm/dL (11.4-16.0); Lymphocytes # (A) 2.4 k/uL (1.0-4.8); Lymphocytes % (A) 39 %; MCH 31.7 pg (25.0-35.0); MCHC 33.1 g/dL (31.0-37.0); Mean Platelet Volume 8.5; Monocytes # (A) 0.4 k/uL (0-1.0); Monocytes % (A) 6 %; Neutrophils # (A) 2.9 k/uL (1.3-7.7); Neutrophils % (A) 49 %; Platelet Count 212 k/uL (150-450); RBC 4.36 m/uL (3.80-5.40); RDW 12.9 % (11.5-15.5); WBC 6.1 k/uL (3.8-10.6)
[2020-11-24 20:40] LABS: Erythrocyte Sedimentation Rate 10 mm/hr (0-20)
[2020-11-25 00:40] LABS: Anti-Smith Ab Interp NEGATIVE (NEGATIVE); DNA Double-Stranded NEGATIVE (NEGATIVE)
[2020-11-25 00:57] LABS: ALT 16 U/L (8-44); AST 23 U/L (13-35); African American GFR (CKD) 127.4 (60.0-200.0); Albumin/Globulin Ratio 2.11 (1.60-3.17); Alkaline Phosphatase 98 U/L (41-126); BUN/Creat Ratio 22.86 Ratio (12.00-20.00); Calcium 9.1 mg/dL (8.7-10.3); Carbon Dioxide 31.2 mmol/L (21.6-31.8); Chloride 105 mmol/L (96-109); Globulin 1.8 g/dL (1.6-3.3); Glucose 78 mg/dL (70-110); Non-African American GFR(CKD) 109.9 (60.0-200.0); Potassium 4.6 mmol/L (3.5-5.5); Rheumatoid Factor, Qnt <4 IU/mL (0-13); Sodium 142 mmol/L (135-145); Total Bilirubin 0.2 mg/dL (0.3-1.2); Total Protein 5.6 g/dL (6.2-8.2)
== END | disposition home or self-care (01) ==
LOC: LABWHC1 15:11
PROVIDERS: ATTEND Nurse Practitioner Family
DX: E55.9 Vitamin D deficiency, unspecified (principal); E78.2 Mixed hyperlipidemia; E03.9 Hypothyroidism, unspecified; M13.89 Other specified arthritis, multiple sites; R53.83 Other fatigue
CPT/HCPCS: 36415; 80053; 82306; 83970; 84439; 84443; 85025; 85652; 86038; 86225; 86235; 86431

== ENCOUNTER 2020-12-01 10:44 | Emergency (ER) | payer MEDICARE, OTHER ==
[2020-12-01] MEDS ORDERED: METOCLOPRAMIDE 5 MG/ML 2 ML VIAL IVP STA (10:57)
[2020-12-01] MEDS ORDERED: SODIUM CHLORIDE 0.9% 1,000 ML IV STA (10:57)
[2020-12-01] MEDS ORDERED: diphenhydrAMINE 50 MG/ML 1 ML VIAL IVP STA (10:57)
[2020-12-01] MEDS ORDERED: KETOROLAC 15 MG/ML 1 ML VIAL IVP STA (10:58)
--- NOTE | 2020-12-01 11:00 | ED ---
General Adult HPI - General Chief complaint: Headache Stated complaint: headache Time Seen by Provider: 12/01/20 10:53 Source: patient, RN notes reviewed Mode of arrival: wheelchair Limitations: no limitations - History of Present Illness Initial comments: Patient 40-year-old female presented to the emergency room today with a chief complaint of migraine headache. Patient does admit that headache started on the right side and is gone all over. She states similar to migraines that she's had in the past. She has been some photosensitivity states she's had a few episodes of nausea vomiting. Patient does admit that she's tried her Imitrex at home also with some Zofran. She states she had a difficult time because she was having nausea and vomiting. Patient denies any other complaints or symptoms currently. - Related Data Home Medications Medication Instructions Recorded Confirmed carvediloL [Coreg] 6.25 mg PO BID 06/24/19 12/01/20 rOPINIRole HCL [Requip] 1 mg PO HS 06/24/19 12/01/20 Allergies Allergy/AdvReac Type Severity Reaction Status Date / Time cefaclor [From Ceclor] Allergy Unknown Verified 12/01/20 12:39 Childhood Penicillins Allergy Unknown Verified 12/01/20 12:39 Childhood pineapple Allergy Rash/Hives Verified 12/01/20 12:39 Review of Systems ROS Statement: Those systems with pertinent positive or pertinent negative responses have been documented in the HPI. ROS Other: All systems not noted in ROS Statement are negative. Past Medical History Past Medical History: Asthma, Hypertension, Pneumonia, Thyroid Disorder Additional Past Medical History / Comment(s): Chronic migraines History of Any Multi-Drug Resistant Organisms: None Reported Past Surgical History: Section, Orthopedic Surgery Additional Past Surgical History / Comment(s): Left knee meniscus repair x3. Past Anesthesia/Blood Transfusion Reactions: No Reported Reaction Past Psychological History: Anxiety, Bipolar, Depression Smoking Status: Current every day smoker Past Alcohol Use History: Occasional Past Drug Use History: Marijuana, Opiates - Past Family History Mother Additional Family Medical History / Comment(s): Mom in 2004 from septic shock when she was 52 years old. Father Family Medical History: Cancer, COPD Additional Family Medical History / Comment(s): Pt. reports her father currently has prostate cancer General Exam - General Exam Comments Initial Comments: General: The patient is awake and alert, in no distress, and does not appear acutely ill. Eye: Pupils are equal, round and reactive to light, extra-ocular movements are intact. No nystagmus. There is normal conjunctiva bilaterally. No signs of icterus. Ears, nose, mouth and throat: There are moist mucous membranes and no oral lesions. Neck: The neck is supple, there is no tenderness or JVD. Cardiovascular: There is a regular rate and rhythm. No murmur, rub or gallop is appreciated. Respiratory: Lungs are clear to auscultation, respirations are non-labored, breath sounds are equal. No wheezes, stridor, rales, or rhonchi. Musculoskeletal: Normal ROM, no tenderness. Strength 5/5. Sensation intact. Neurological: A&O x 3. CN II-XII intact, There are no obvious motor or sensory deficits. Coordination appears grossly intact. Speech is normal. Skin: Skin is warm and dry and no rashes or lesions are noted. Psychiatric: Cooperative, appropriate mood & affect, normal judgment. Limitations: no limitations Course Vital Signs 12/01/20 10:46 Temperature 98.6 F Pulse Rate 94 Respiratory 18 Rate Blood Pressure 142/98 O2 Sat by Pulse 99 Oximetry Medical Decision Making - Medical Decision Making 40-year-old female presented to the emergency room today with chief complaint of migraine headache. Does admit to history of migraines and states his symptoms feel similar just increased. States because of nausea vomiting was having a difficult time keeping her meds down at home. Patient's CT the head is unremarkable. Patient does not feeling better after medications for her, Benadryl, Reglan here the emergency room. Patient was given IV fluids well. Still feeling somewhat nauseous. Will be given dose of Zofran. Patient is advised close follow-up with family doctor. Advised to return here to emergency room symptoms increase or worsen or fail concerns she states understanding and is in agreement. Disposition Clinical Impression: Migraine Disposition: HOME SELF-CARE Condition: Good Instructions (If sedation given, give patient instructions): Migraine Headache (ED) Additional Instructions: Please follow-up with family doctor/neurologist in the next 2 days. Please r eturn to emergency room if the symptoms increase or worsen or for any other concerns. Is patient prescribed a controlled substance at d/c from ED?: No Referrals: Dionna Gonzalez MD [Primary Care Provider] - 1-2 days Time of Disposition: 12:48
--- NOTE | 2020-12-01 12:06 | CT ---
EXAMINATION TYPE: CT brain wo con DATE OF EXAM: 12/01/2020 COMPARISON: 10/11/2012 HISTORY: Headache CT DLP: 1100.[address] of the brain was performed. The ventricles, basal cisterns and sulci overlying the cerebral convexities demonstrate a normal appe arance. There is no evidence for intracranial hemorrhage or sulcal effacement. No mass effects are seen. Osseous calvarium is intact. If symptoms persist consider MRI as clinically warranted. IMPRESSION: 1. No acute intracranial process is seen at this time.
[2020-12-01] MEDS ORDERED: DEXAMETHASONE SOD PHOSPHATE 10 MG/ML 1 ML VIAL IV STA (12:36)
[2020-12-01] MEDS ORDERED: ONDANSETRON 4 MG/2 ML VIAL IVP STA (12:36)
[2020-12-01 13:09] VITALS: TEMP 98
[2020-12-01 13:14] VITALS: BP 134/100; PULSE 80; RESP 16
== END 2020-12-01 13:14 | disposition home or self-care (01) ==
LOC: EC 10:44
DX: G43.909 Migraine, unspecified, not intractable, without status migrainosus (principal); I10 Essential (primary) hypertension; F17.200 Nicotine dependence, unspecified, uncomplicated; Z79.899 Other long term (current) drug therapy; Z88.0 Allergy status to penicillin; Z88.1 Allergy status to other antibiotic agents; Z91.018 Allergy to other foods
CPT/HCPCS: 70450; 99283; 96374; 96375 ×4; 96361 ×2; J1200; J1100; J2765; J2405; J1885

== ENCOUNTER 2021-05-04 17:22 | Emergency (ER) | payer MEDICARE, OTHER ==
[2021-05-04 17:33] VITALS: RESP 16; TEMP 98.1
--- NOTE | 2021-05-04 18:58 | ED ---
Fall HPI - General Chief Complaint: Fall Stated Complaint: fall, toe injury Time Seen by Provider: 05/04/21 18:33 Source: patient, EMS, RN notes reviewed Mode of arrival: EMS Limitations: no limitations - History of Present Illness Initial Comments: 41-year-old female presents emergency from she went of ankle pain. Patient states that she's had ongoing issue her right foot but states that she rolled her right ankle and injured her left ankle while ago. Patient states she's had no prior x-rays. Patient has appointment on the seventh with Dr. Spear patient denies any head injury no loss conscious she has small abrasion to her right knee but states that she is up-to-date on her tetanus. Patient states that she was at [facility] for PTSD. Patient states she's not suicidal or homicidal. Patient has issues with ongoing arthritis. - Related Data Home Medications Medication Instructions Recorded Confirmed carvediloL [Coreg] 6.25 mg PO BID 06/24/19 12/01/20 rOPINIRole HCL [Requip] 1 mg PO HS 06/24/19 12/01/20 Albuterol Inhaler [Ventolin Hfa 2 puff INHALATION RT-Q4H PRN 12/01/20 12/01/20 Inhaler] Artificial Tears-Hypromellose 1 drops BOTH EYES TID PRN 12/01/20 12/01/20 [Artificial Tear Drops] Aspirin EC [Ecotrin] 325 mg PO BID 12/01/20 12/01/20 Atorvastatin [Lipitor] 20 mg PO HS 12/01/20 12/01/20 Baclofen [Lioresal] 20 mg PO BID PRN 12/01/20 12/01/20 Erenumab-Aooe [Aimovig 70 mg PO QMONTHLY 12/01/20 12/01/20 Autoinjector] Fluticasone Nasal Stanton [Flonase 2 spr EA NOSTRIL DAILY 12/01/20 12/01/20 Nasal Stanton] Ipratropium-Albuterol Nebulize 3 ml INHALATION RT-QID PRN 12/01/20 12/01/20 [Duoneb 0.5 mg-3 mg/3 ml Soln] Meloxicam [Mobic] 15 mg PO DAILY 12/01/20 12/01/20 SUMAtriptan succinate [Imitrex] 50 mg PO ONCE PRN 12/01/20 12/01/20 Topiramate [Topamax] 50 mg PO BID 12/01/20 12/01/20 clonazePAM [KlonoPIN] 0.5 mg PO HS 12/01/20 12/01/20 clonazePAM [KlonoPIN] 1 mg PO BID-W/MEALS 12/01/20 12/01/20 diphenhydrAMINE [Benadryl] 25 mg PO QID PRN 12/01/20 12/01/20 lisinopriL [Zestril] 5 mg PO DAILY 12/01/20 12/01/20 valACYclovir [Valtrex] 500 mg PO BID PRN 12/01/20 12/01/20 Allergies Allergy/AdvReac Type Severity Reaction Status Date / Time cefaclor [From [facility]] Allergy Unknown Verified 05/04/21 17:27 Childhood Penicillins Allergy Unknown Verified 05/04/21 17:27 Childhood pineapple Allergy Rash/Hives Verified 05/04/21 17:27 Review of Systems ROS Statement: Those systems with pertinent positive or pertinent negative responses have been documented in the HPI. ROS Other: All systems not noted in ROS Statement are negative. Past Medical History Past Medical History: Asthma, Hypertension, Pneumonia, Thyroid Disorder Additional Past Medical History / Comment(s): Chronic migraines History of Any Multi-Drug Resistant Organisms: None Reported Past Surgical History: Section, Orthopedic Surgery Additional Past Surgical History / Comment(s): Left knee meniscus repair x3. Past Anesthesia/Blood Transfusion Reactions: No Reported Reaction Past Psychological History: Anxiety, Bipolar, Depression Smoking Status: Current every day smoker Past Alcohol Use History: Occasional Past Drug Use History: Marijuana, Opiates - Past Family History Mother Additional Family Medical History / Comment(s): Mom in 2004 from septic shock when she was 52 years old. Father Family Medical History: Cancer, COPD Additional Family Medical History / Comment(s): Pt. reports her father currently has prostate cancer General Exam Limitations: no limitations General appearance: alert, in no apparent distress Head exam: Present: atraumatic, normocephalic, normal inspection Respiratory exam: Present: normal lung sounds bilaterally. Absent: respiratory distress, wheezes, rales, rhonchi, stridor Cardiovascular Exam: Present: regular rate, normal rhythm, normal heart sounds. Absent: systolic murmur, diastolic murmur, rubs, gallop, clicks Extremities exam: Present: other (Right ankle mild swelling right foot mild swelling, left ankle moderate swelling times with palpation otherwise normal exam) Neurological exam: Present: alert, oriented X3 Skin exam: Present: warm, dry, intact, normal color. Absent: rash Course Vital Signs 05/04/21 17:27 Temperature 98.1 F Pulse Rate 88 Respiratory 16 Rate Blood Pressure 131/75 O2 Sat by Pulse 97 Oximetry Medical Decision Making - Medical Decision Making 41-year-old presented for ankle injuries. Patient states that ongoing joint pain. Patient is scheduled follow-up with orthopedics. Patient's x-ray shows possible ligamentous injury. Patient has no acute fracture neurovascular intact we discharged stable condition. Disposition Clinical Impression: Fall, Ankle sprain, Arthralgia Disposition: HOME SELF-CARE Condition: Stable Instructions (If sedation given, give patient instructions): Ankle Sprain (ED) Additional Instructions: Please return to the Emergency Department if symptoms worsen or any other con cerns. Is patient prescribed a controlled substance at d/c from ED?: No Referrals: None,Stated [Primary Care Provider] - 1-2 days Ivan Reis DPM [Doctor of Osteopathic Medicine] - 1-2 days Time of Disposition: 19:30
--- NOTE | 2021-05-04 19:15 | XR ---
RESULT: HISTORY: pain TECHNIQUE: 3 views each of the bilateral ankles. COMPARISON: None. FINDINGS: Right ankle: There is no acute fracture or dislocation. The visualized joint spaces are preserved. Th e ankle mortise is congruent. Left ankle: There is soft tissue edema overlying the lateral malleolus. No evidence of displaced frac ture or dislocation. There is mild widening of the medial clear space. IMPRESSION: Soft tissue edema overlying the left lateral malleolus. Also mild widening of the left medial clear space, suggestive of ligamentous injury. Otherwise no displaced fracture of the bilateral ankles.
[2021-05-04 19:53] VITALS: BP 128/79; PULSE 98
== END 2021-05-04 19:53 | disposition home or self-care (01) ==
LOC: EC 17:22
DX: S93.401A Sprain of unspecified ligament of right ankle, initial encounter (principal); S93.402A Sprain of unspecified ligament of left ankle, initial encounter; I10 Essential (primary) hypertension; J45.909 Unspecified asthma, uncomplicated; G43.909 Migraine, unspecified, not intractable, without status migrainosus; F31.9 Bipolar disorder, unspecified; F41.9 Anxiety disorder, unspecified; F17.200 Nicotine dependence, unspecified, uncomplicated; F12.90 Cannabis use, unspecified, uncomplicated; F11.90 Opioid use, unspecified, uncomplicated; Z79.1 Long term (current) use of non-steroidal anti-inflammatories (NSAID); Z79.82 Long term (current) use of aspirin; Z79.51 Long term (current) use of inhaled steroids; Z79.899 Other long term (current) drug therapy; Z88.0 Allergy status to penicillin; Z88.1 Allergy status to other antibiotic agents; W10.9XXA Fall (on) (from) unspecified stairs and steps, initial encounter; X50.1XXA Overexertion from prolonged static or awkward postures, initial encounter
CPT/HCPCS: 73610; 29515; 99284; L4350

== ENCOUNTER 2021-07-04 17:52 | Emergency (ER) | payer MEDICARE, OTHER ==
[2021-07-04] MEDS ORDERED: ZIPRASIDONE 20 MG VIAL IM STA (18:14)
[2021-07-04] MEDS ORDERED: LORazepam 2 MG/ML INJ IM STA (18:14)
--- NOTE | 2021-07-04 19:01 | ED ---
General Adult HPI - General Source: patient, police, RN notes reviewed Mode of arrival: wheelchair Limitations: altered mental status <Dae Villar - Last Filed: 07/04/21 18:57> <Joni Faria - Last Filed: 07/05/21 01:02> - General Chief complaint: Psychiatric Symptoms Stated complaint: Petition Time Seen by Provider: 07/04/21 18:00 - History of Present Illness Initial comments: Patient is a 41-year-old female presenting to the emergency Department with agitation. Patient is in secretary of police custody. Patient is making threats to multiple people. Patient is agitated and uncooperative. Patient again reexamined and still agitated. Patient does admit to alcohol intake and stress. (Dae Villar) - Related Data Home Medications Medication Instructions Recorded Confirmed carvediloL [Coreg] 6.25 mg PO BID 06/24/19 07/04/21 rOPINIRole HCL [Requip] 1 mg PO HS 06/24/19 07/04/21 Erenumab-Aooe [Aimovig 70 mg PO QMONTHLY 12/01/20 07/04/21 Autoinjector] Meloxicam [Mobic] 15 mg PO DAILY 12/01/20 07/04/21 Topiramate [Topamax] 50 mg PO BID 12/01/20 07/04/21 clonazePAM [KlonoPIN] 1 mg PO DAILY 12/01/20 07/04/21 clonazePAM [KlonoPIN] 2 mg PO HS 12/01/20 07/04/21 lisinopriL [Zestril] 5 mg PO DAILY 12/01/20 07/04/21 Butalb/APAP/Caff 50-325-40Mg 1 - 2 tab PO Q6H PRN 07/04/21 07/04/21 [Fioricet 50-325-40] Doxepin HCl 6 mg PO DAILY 07/04/21 07/04/21 Gabapentin 600 mg PO TID 07/04/21 07/04/21 QUEtiapine FUMARATE [SEROquel XR] 400 mg PO HS 07/04/21 07/04/21 QUEtiapine FUMARATE [SEROquel] 400 mg PO HS 07/04/21 07/04/21 SUMAtriptan SUCCINATE [Imitrex] 100 mg PO BID 07/04/21 07/04/21 Allergies Allergy/AdvReac Type Severity Reaction Status Date / Time cefaclor [From Ceclor] Allergy Unknown Verified 05/04/21 17:27 Childhood Penicillins Allergy Unknown Verified 05/04/21 17:27 Childhood pineapple Allergy Rash/Hives Verified 05/04/21 17:27 Review of Systems ROS Other: All systems not noted in ROS Statement are negative. Constitutional: Denies: fever Eyes: Denies: eye pain ENT: Denies: ear pain Respiratory: Denies: cough Cardiovascular: Denies: chest pain Endocrine: Denies: fatigue Gastrointestinal: Denies: abdominal pain Genitourinary: Denies: dysuria Musculoskeletal: Denies: back pain Psychiatric: Reports: depression, homicidal thoughts <Dae Villar - Last Filed: 07/04/21 18:57> ROS Other: All systems not noted in ROS Statement are negative. <Joni Faria - Last Filed: 07/05/21 01:02> ROS Statement: Those systems with pertinent positive or pertinent negative responses have been documented in the HPI. Past Medical History Past Medical History: Asthma, Hypertension, Pneumonia, Thyroid Disorder Additional Past Medical History / Comment(s): Chronic migraines History of Any Multi-Drug Resistant Organisms: None Reported Past Surgical History: Section, Orthopedic Surgery Additional Past Surgical History / Comment(s): Left knee meniscus repair x3. Past Anesthesia/Blood Transfusion Reactions: No Reported Reaction Past Psychological History: Anxiety, Bipolar, Depression Smoking Status: Current every day smoker Past Alcohol Use History: Occasional Past Drug Use History: Marijuana, Opiates - Past Family History Mother Additional Family Medical History / Comment(s): Mom in 2004 from septic shock when she was 52 years old. Father Family Medical History: Cancer, COPD Additional Family Medical History / Comment(s): Pt. reports her father currently has prostate cancer <Dea Villar - Last Filed: 07/04/21 18:57> General Exam Limitations: altered mental status General appearance: alert Head exam: Present: atraumatic, normocephalic Eye exam: Present: normal appearance Neck exam: Present: normal inspection. Absent: tenderness Respiratory exam: Present: normal lung sounds bilaterally Cardiovascular Exam: Present: regular rate, normal rhythm GI/Abdominal exam: Present: soft. Absent: tenderness Extremities exam: Present: normal inspection Neurological exam: Present: alert. Absent: motor sensory deficit Psychiatric exam: Present: agitated Skin exam: Present: normal color <Dae Villar - Last Filed: 07/04/21 18:57> Course Vital Signs 07/04/21 21:27 Temperature 98 F Pulse Rate 80 Respiratory 18 Rate Blood Pressure 127/77 O2 Sat by Pulse 98 Oximetry Procedures - Restraint - Face to Face Restraint Occurrence 1 Patient's Immediate Situation: Endangers self safety, Endangers others' safety, Endangers staff safety Patient's Reaction to the Intervention: Uncooperative Patient's Medical & Behavioral Condition: Awake, Alert Need to Continue or Terminate Restraint or Seclusion: Continue Face to Face Eval of Restraint Date: 07/04/21 Face to Face Eval of Restraint Time: 18:30 <Dae Villar - Last Filed: 07/04/21 18:57> Medical Decision Making - Lab Data Lab Results 07/04/21 07/04/21 Range/Units 19:15 23:27 Urine Opiates Screen Not Detected (NotDetected) Ur Oxycodone Screen Not Detected (NotDetected) Urine Methadone Screen Not Detected (NotDetected) Ur Propoxyphene Screen Not Detected (NotDetected) Ur Barbiturates Screen Detected H (NotDetected) U Tricyclic Antidepress Detected H (NotDetected) Ur Phencyclidine Scrn Not Detected (NotDetected) Ur Amphetamines Screen Detected H (NotDetected) U Methamphetamines Scrn Detected H (NotDetected) U Benzodiazepines Scrn Detected H (NotDetected) Urine Cocaine Screen Not Detected (NotDetected) U Marijuana (THC) Screen Detected H (NotDetected) Serum Alcohol 155 mg/dL Disposition <Dae Villar - Last Filed: 07/04/21 18:57> Is patient prescribed a controlled substance at d/c from ED?: No <Joni Faria - Last Filed: 07/05/21 01:02> Clinical Impression: Alcohol intoxication Disposition: HOME SELF-CARE Condition: Fair Instructions (If sedation given, give patient instructions): Alcohol Intoxication (ED) Referrals: None,Stated [Primary Care Provider] - 1-2 days
[2021-07-04 21:27] VITALS: BP 127/77; PULSE 80; RESP 18; TEMP 98
[2021-07-04 23:58] LABS: Urn Cannabinoid Scrn Detected (NotDetected)
[2021-07-04 23:59] LABS: Amphetamine Screen,Urine Detected (NotDetected); Barbiturate Screen,Urine Detected (NotDetected); Benzodiazepines Screen,Urine Detected (NotDetected); Cocaine Screen,Urine Not Detected (NotDetected); Methadone Screen, Urine Not Detected (NotDetected); Opiate Screen,Urine Not Detected (NotDetected); Oxycodone Screen, Urine Not Detected (NotDetected); Phencyclidine Screen,Urine Not Detected (NotDetected); Tricyclic Antidepressant,Urine Detected (NotDetected)
== END 2021-07-05 01:21 | disposition home or self-care (01) ==
LOC: EC 17:52
DX: F10.129 Alcohol abuse with intoxication, unspecified (principal); J45.909 Unspecified asthma, uncomplicated; I10 Essential (primary) hypertension; F41.9 Anxiety disorder, unspecified; F31.9 Bipolar disorder, unspecified; F17.200 Nicotine dependence, unspecified, uncomplicated; F12.90 Cannabis use, unspecified, uncomplicated; Z88.0 Allergy status to penicillin; Z91.018 Allergy to other foods; Z88.1 Allergy status to other antibiotic agents; Y90.6 Blood alcohol level of 120-199 mg/100 ml
CPT/HCPCS: 99285; 96372 ×2; 36415; 80306; G0480; J2060; J3486; 80320

== ENCOUNTER → 2021-08-12 | Outpatient (CLI) | payer MEDICARE, OTHER ==
--- NOTE | 2021-08-12 09:56 | US ---
EXAMINATION TYPE: US pelvic complete DATE OF EXAM: 08/12/2021 COMPARISON: CLINICAL HISTORY: R63.0 ANOREXIA,R63.4 WEIGHT LOSS. Unexplained weight loss. Tubal ligation. No nicol n. TECHNIQUE: Transabdominal (TA). Transabdominal sonographic images of the pelvis were acquired. Date of LMP: Unknown, EXAM MEASUREMENTS: Uterus: 9.1 x 5.6 x 6.8 cm Endometrial Stripe: 0.8 cm Right Ovary: 3.0 x 2.2 x 1.8 cm Left Ovary: 2.4 x 1.5 x 1.4 cm 1. Uterus: Anteverted slightly heterogenous 2. Endometrium: wnl 3. Right Ovary: follicles seen 4. Left Ovary: follicles seen 5. Bilateral Adnexa: wnl 6. Posterior cul-de-sac: free fluid seen IMPRESSION: 1. No acute abnormality pelvic ultrasound
--- NOTE | 2021-08-12 10:11 | US ---
EXAMINATION TYPE: US abdomen complete DATE OF EXAM: 08/12/2021 COMPARISON: CLINICAL HISTORY: R63.0 ANOREXIA,R63.4 WEIGHT LOSS. Unexplained weight loss. No pain. GB removed. EXAM MEASUREMENTS: Liver Length: 21.4 cm CBD: 1.0 cm Spleen: 10.5 cm Right Kidney: 12.9 x 5.3 x 4.9 cm Left Kidney: 12.0 x 4.9 x 6.1 cm Pancreas: Appears small in size Liver: Enlarged in size. Gallbladder: Surgically absent Evidence for sonographic Chavez's sign: neg CBD: wnl Spleen: wnl Right Kidney: No hydronephrosis or masses seen Left Kidney: No hydronephrosis or masses seen Upper IVC: wnl Abd Aorta: No AAA visualized IMPRESSION: 1. Hepatomegaly 2. There may be some pancreas atrophy present.
== END | disposition home or self-care (01) ==
LOC: RADUSWWP 08:12
PROVIDERS: ATTEND Family Medicine
DX: R16.0 Hepatomegaly, not elsewhere classified (principal)
CPT/HCPCS: 76700; 76856

== ENCOUNTER 2021-08-22 02:57 | Emergency (ER) | payer MEDICARE, OTHER ==
[2021-08-22 03:03] VITALS: BP 112/79; PULSE 114; RESP 18; TEMP 97.6
[2021-08-22] MEDS ORDERED: IPRATROPIUM-ALBUTEROL 3 ML NEB INHALATION STA (03:15)
--- NOTE | 2021-08-22 03:26 | ED ---
SOB HPI - General Chief Complaint: Shortness of Breath Stated Complaint: SHILA Time Seen by Provider: 08/22/21 03:11 Source: patient Mode of arrival: wheelchair - History of Present Illness Initial Comments: This patient is 41-year-old woman who presents with complaint of cough and shortness of breath that is been getting worse over the past couple days. The patient had previously been to [facility] where she received a dose of steroids. She states that she was feeling better for a brief period then she feels that the medication was wearing off and her symptoms recurred tonight. MD Complaint: shortness of breath, cough Onset/Timin -: days(s) Consistency: constant Improves With: nothing Worsens With: nothing Associated Symptoms: cough, sputum production Treatments Prior to Arrival: bronchodilator - Related Data Home Oxygen Therapy: No Home Medications Medication Instructions Recorded Confirmed carvediloL [Coreg] 6.25 mg PO BID 06/24/19 07/04/21 rOPINIRole HCL [Requip] 1 mg PO HS 06/24/19 07/04/21 Erenumab-Aooe [Aimovig 70 mg PO QMONTHLY 12/01/20 07/04/21 Autoinjector] Meloxicam [Mobic] 15 mg PO DAILY 12/01/20 07/04/21 Topiramate [Topamax] 50 mg PO BID 12/01/20 07/04/21 clonazePAM [KlonoPIN] 1 mg PO DAILY 12/01/20 07/04/21 clonazePAM [KlonoPIN] 2 mg PO HS 12/01/20 07/04/21 lisinopriL [Zestril] 5 mg PO DAILY 12/01/20 07/04/21 Butalb/APAP/Caff 50-325-40Mg 1 - 2 tab PO Q6H PRN 07/04/21 07/04/21 [Fioricet 50-325-40] Doxepin HCl 6 mg PO DAILY 07/04/21 07/04/21 Gabapentin 600 mg PO TID 07/04/21 07/04/21 QUEtiapine FUMARATE [SEROquel XR] 400 mg PO HS 07/04/21 07/04/21 QUEtiapine FUMARATE [SEROquel] 400 mg PO HS 07/04/21 07/04/21 SUMAtriptan SUCCINATE [Imitrex] 100 mg PO BID 07/04/21 07/04/21 Previous Rx's Medication Instructions Recorded levoFLOXacin 500 mg PO DAILY 1 Days #7 tab 08/22/21 predniSONE 50 mg PO DAILY #5 tab 08/22/21 Allergies Allergy/AdvReac Type Severity Reaction Status Date / Time cefaclor [From Ceclor] Allergy Unknown Verified 08/22/21 03:03 Childhood Penicillins Allergy Unknown Verified 08/22/21 03:03 Childhood pineapple Allergy Rash/Hives Verified 08/22/21 03:03 Review of Systems ROS Statement: Those systems with pertinent positive or pertinent negative responses have been documented in the HPI. ROS Other: All systems not noted in ROS Statement are negative. Constitutional: Denies: fever, chills, weakness Respiratory: Reports: cough, dyspnea. Denies: hemoptysis Cardiovascular: Denies: chest pain, palpitations Gastrointestinal: Denies: abdominal pain, nausea, vomiting Genitourinary: Denies: dysuria, hematuria Musculoskeletal: Denies: back pain Skin: Denies: rash Neurological: Denies: headache, weakness, numbness Past Medical History Past Medical History: Asthma, Hypertension, Pneumonia, Thyroid Disorder Additional Past Medical History / Comment(s): Chronic migraines History of Any Multi-Drug Resistant Organisms: None Reported Past Surgical History: Section, Orthopedic Surgery Additional Past Surgical History / Comment(s): Left knee meniscus repair x3. Past Anesthesia/Blood Transfusion Reactions: No Reported Reaction Past Psychological History: Anxiety, Bipolar, Depression Smoking Status: Current every day smoker Past Alcohol Use History: Occasional Past Drug Use History: Marijuana, Opiates - Past Family History Mother Additional Family Medical History / Comment(s): Mom in 2004 from septic shock when she was 52 years old. Father Family Medical History: Cancer, COPD Additional Family Medical History / Comment(s): Pt. reports her father currently has prostate cancer Course Vital Signs 08/22/21 02:59 Temperature 97.6 F Pulse Rate 114 H Respiratory 18 Rate Blood Pressure 112/79 O2 Sat by Pulse 92 L Oximetry Medical Decision Making - Medical Decision Making Patient is 41-year-old woman who is found to have pneumonia but wanting to refuse treatment. She did leave while I was attending to another patient before I was able to speak with her. - Lab Data Result diagrams: 08/22/21 04:00 08/22/21 04:00 Lab Results 08/22/21 08/22/21 08/22/21 Range/Units 04:00 04:00 04:00 WBC 10.8 H (3.8-10.6) k/uL RBC 4.32 (3.80-5.40) m/uL Hgb 14.1 (11.4-16.0) gm/dL Hct 42.6 (34.0-46.0) % MCV 98.6 (80.0-100.0) fL MCH 32.6 (25.0-35.0) pg MCHC 33.1 (31.0-37.0) g/dL RDW 13.3 (11.5-15.5) % Plt Count 268 (150-450) k/uL MPV 8.6 Neutrophils % 82 % Lymphocytes % 14 % Monocytes % 3 % Eosinophils % 0 % Basophils % 0 % Neutrophils # 8.8 H (1.3-7.7) k/uL Lymphocytes # 1.5 (1.0-4.8) k/uL Monocytes # 0.3 (0-1.0) k/uL Eosinophils # 0.0 (0-0.7) k/uL Basophils # 0.0 (0-0.2) k/uL PT 9.9 (9.0-12.0) sec INR 0.9 (<1.2) APTT 20.5 L (22.0-30.0) sec D-Dimer 0.36 (<0.60) mg/L FEU Sodium 142 (137-145) mmol/L Potassium 4.1 (3.5-5.1) mmol/L Chloride 106 (98-107) mmol/L Carbon Dioxide 20 L (22-30) mmol/L Anion Gap 16 mmol/L BUN 14 (7-17) mg/dL Creatinine 0.42 L (0.52-1.04) mg/dL Est GFR (CKD-EPI)AfAm >90 (>60 ml/min/1.73 sqM) Est GFR (CKD-EPI)NonAf >90 (>60 ml/min/1.73 sqM) Glucose 111 H (74-99) mg/dL Lactic Ac Sepsis Rflx Plasma Lactic Acid Catrachito (0.7-2.0) mmol/L Calcium 9.6 (8.4-10.2) mg/dL Total Bilirubin 0.3 (0.2-1.3) mg/dL AST 20 (14-36) U/L ALT 11 (4-34) U/L Alkaline Phosphatase 117 (38-126) U/L Troponin I (0.000-0.034) ng/mL NT-Pro-B Natriuret Pep pg/mL Total Protein 7.4 (6.3-8.2) g/dL Albumin 4.5 (3.5-5.0) g/dL Serum Alcohol 190 mg/dL Coronavirus (PCR) (Not Detectd) 08/22/21 08/22/21 08/22/21 Range/Units 04:00 04:00 04:00 WBC (3.8-10.6) k/uL RBC (3.80-5.40) m/uL Hgb (11.4-16.0) gm/dL Hct (34.0-46.0) % MCV (80.0-100.0) fL MCH (25.0-35.0) pg MCHC (31.0-37.0) g/dL RDW (11.5-15.5) % Plt Count (150-450) k/uL MPV Neutrophils % % Lymphocytes % % Monocytes % % Eosinophils % % Basophils % % Neutrophils # (1.3-7.7) k/uL Lymphocytes # (1.0-4.8) k/uL Monocytes # (0-1.0) k/uL Eosinophils # (0-0.7) k/uL Basophils # (0-0.2) k/uL PT (9.0-12.0) sec INR (<1.2) APTT (22.0-30.0) sec D-Dimer (<0.60) mg/L FEU Sodium (137-145) mmol/L Potassium (3.5-5.1) mmol/L Chloride (98-107) mmol/L Carbon Dioxide (22-30) mmol/L Anion Gap mmol/L BUN (7-17) mg/dL Creatinine (0.52-1.04) mg/dL Est GFR (CKD-EPI)AfAm (>60 ml/min/1.73 sqM) Est GFR (CKD-EPI)NonAf (>60 ml/min/1.73 sqM) Glucose (74-99) mg/dL Lactic Ac Sepsis Rflx Plasma Lactic Acid Catrachito 3.9 H* (0.7-2.0) mmol/L Calcium (8.4-10.2) mg/dL Total Bilirubin (0.2-1.3) mg/dL AST (14-36) U/L ALT (4-34) U/L Alkaline Phosphatase (38-126) U/L Troponin I <0.012 (0.000-0.034) ng/mL NT-Pro-B Natriuret Pep 67 pg/mL Total Protein (6.3-8.2) g/dL Albumin (3.5-5.0) g/dL Serum Alcohol mg/dL Coronavirus (PCR) (Not Detectd) 08/22/21 08/22/21 Range/Units 05:04 05:39 WBC (3.8-10.6) k/uL RBC (3.80-5.40) m/uL Hgb (11.4-16.0) gm/dL Hct (34.0-46.0) % MCV (80.0-100.0) fL MCH (25.0-35.0) pg MCHC (31.0-37.0) g/dL RDW (11.5-15.5) % Plt Count (150-450) k/uL MPV Neutrophils % % Lymphocytes % % Monocytes % % Eosinophils % % Basophils % % Neutrophils # (1.3-7.7) k/uL Lymphocytes # (1.0-4.8) k/uL Monocytes # (0-1.0) k/uL Eosinophils # (0-0.7) k/uL Basophils # (0-0.2) k/uL PT (9.0-12.0) sec INR (<1.2) APTT (22.0-30.0) sec D-Dimer (<0.60) mg/L FEU Sodium (137-145) mmol/L Potassium (3.5-5.1) mmol/L Chloride (98-107) mmol/L Carbon Dioxide (22-30) mmol/L Anion Gap mmol/L BUN (7-17) mg/dL Creatinine (0.52-1.04) mg/dL Est GFR (CKD-EPI)AfAm (>60 ml/min/1.73 sqM) Est GFR (CKD-EPI)NonAf (>60 ml/min/1.73 sqM) Glucose (74-99) mg/dL Lactic Ac Sepsis Rflx Y Plasma Lactic Acid Catrachito (0.7-2.0) mmol/L Calcium (8.4-10.2) mg/dL Total Bilirubin (0.2-1.3) mg/dL AST (14-36) U/L ALT (4-34) U/L Alkaline Phosphatase (38-126) U/L Troponin I (0.000-0.034) ng/mL NT-Pro-B Natriuret Pep pg/mL Total Protein (6.3-8.2) g/dL Albumin (3.5-5.0) g/dL Serum Alcohol mg/dL Coronavirus (PCR) Not Detected (Not Detectd) Disposition Clinical Impression: Pneumonia, Alcohol abuse Disposition: Left Against Medical Advice Condition: Undetermined Instructions (If sedation given, give patient instructions): Abuse of Alcohol (DC), Pneumonia (ED) Prescriptions: levoFLOXacin 500 mg PO DAILY 1 Days #7 tab predniSONE 50 mg PO DAILY #5 tab Is patient prescribed a controlled substance at d/c from ED?: No Referrals: Dionna Gonzalez MD [Primary Care Provider] - 1-2 days
[2021-08-22] MEDS ORDERED: LORazepam 2 MG/ML INJ IV STA (03:58)
[2021-08-22] MEDS ORDERED: ALBUTEROL HFA INHALER INHALATION ONE (04:00)
--- NOTE | 2021-08-22 04:05 | XR ---
EXAMINATION TYPE: XR chest 2V DATE OF EXAM: 08/22/2021 COMPARISON: 06/07/2020 HISTORY: Short of breath TECHNIQUE: 2 views FINDINGS: There is right posterior lower lobe patchy airspace infiltrate. There are no hilar masses. There is no heart failure. Heart size is normal. Costophrenic angles are clear. IMPRESSION: There is mild right lower lobe pneumonia that is new compared to old exam.
[2021-08-22 04:20] LABS: Basophils % (A) 0 %; Eosinophils % (A) 0 %; HCT 42.6 % (34.0-46.0); HGB 14.1 gm/dL (11.4-16.0); Lymphocytes # (A) 1.5 k/uL (1.0-4.8); Lymphocytes % (A) 14 %; MCH 32.6 pg (25.0-35.0); MCHC 33.1 g/dL (31.0-37.0); MCV 98.6 fL (80.0-100.0); Mean Platelet Volume 8.6; Monocytes # (A) 0.3 k/uL (0-1.0); Monocytes % (A) 3 %; Neutrophils # (A) 8.8 k/uL (1.3-7.7); Neutrophils % (A) 82 %; Platelet Count 268 k/uL (150-450); RBC 4.32 m/uL (3.80-5.40); RDW 13.3 % (11.5-15.5); WBC 10.8 k/uL (3.8-10.6)
[2021-08-22 04:42] LABS: ALT 11 U/L (4-34); AST 20 U/L (14-36); African American GFR (CKD) >90 (>60 ml/min/1.73 sqM); Albumin 4.5 g/dL (3.5-5.0); Alkaline Phosphatase 117 U/L (38-126); Anion Gap 16 mmol/L; Blood Urea Nitrogen 14 mg/dL (7-17); Calcium 9.6 mg/dL (8.4-10.2); Carbon Dioxide 20 mmol/L (22-30); Chloride 106 mmol/L (98-107); Glucose 111 mg/dL (74-99); INR 0.9 (<1.2); Non-African American GFR(CKD) >90 (>60 ml/min/1.73 sqM); Potassium 4.1 mmol/L (3.5-5.1); Prothrombin Time 9.9 sec (9.0-12.0); Sodium 142 mmol/L (137-145); Total Bilirubin 0.3 mg/dL (0.2-1.3); Total Protein 7.4 g/dL (6.3-8.2)
[2021-08-22 04:56] LABS: Partial Thromboplastin Time 20.5 sec (22.0-30.0)
[2021-08-22 05:03] LABS: Alcohol 190 mg/dL
[2021-08-22] MEDS ORDERED: LEVOFLOXACIN 750MG-D5W PMX 750 MG in DEXTROSE/WATER 1 150ML.BAG IVPB STA (05:23)
[2021-08-22] MEDS ORDERED: AZITHROMYCIN 500 MG TAB PO STA (05:23)
== END 2021-08-22 06:24 ==
LOC: EC 02:57
DX: J18.9 Pneumonia, unspecified organism (principal); F10.10 Alcohol abuse, uncomplicated; I10 Essential (primary) hypertension; J45.909 Unspecified asthma, uncomplicated; F31.9 Bipolar disorder, unspecified; F41.9 Anxiety disorder, unspecified; F17.200 Nicotine dependence, unspecified, uncomplicated; F12.90 Cannabis use, unspecified, uncomplicated; F11.90 Opioid use, unspecified, uncomplicated; Y90.6 Blood alcohol level of 120-199 mg/100 ml; Z79.1 Long term (current) use of non-steroidal anti-inflammatories (NSAID); Z79.52 Long term (current) use of systemic steroids; Z79.899 Other long term (current) drug therapy
CPT/HCPCS: 96374 ×2; 99285 ×2; 36415; 94640; 85379; 83880; 80053; 83605; 84484; 85025; 85610; 85730; 87040; 87635; 71046; G0480; J2060; 80320

== ENCOUNTER 2021-10-21 17:39 | Emergency (ER) | payer MEDICARE, OTHER ==
[2021-10-21] MEDS ORDERED: ALBUTEROL HFA INHALER INHALATION STA (19:28)
[2021-10-21] MEDS ORDERED: SODIUM CHLORIDE 0.9% 1,000 ML IV ONE (19:28)
[2021-10-21] MEDS ORDERED: DEXAMETHASONE SOD PHOSPHATE 10 MG/ML 1 ML VIAL IVP STA (19:28)
--- NOTE | 2021-10-21 19:47 | XR ---
EXAMINATION TYPE: XR chest 1V portable DATE OF EXAM: 10/21/2021 COMPARISON: 09/28/2021 HISTORY: Shortness of breath. TECHNIQUE: Single frontal view of the chest is obtained. FINDINGS: There is mild bibasilar hazy opacity. No pleural effusion, or pneumothorax seen. The card iac silhouette size is within normal limits. The osseous structures are intact. IMPRESSION: Mild bibasilar opacity, may represent atelectasis. Developing infiltrate is better exclud ed clinically.
--- NOTE | 2021-10-21 20:00 | ED ---
General Adult HPI - General Chief complaint: Upper Respiratory Infection Stated complaint: Covid +, SOB, Weakness, chest pain Time Seen by Provider: 10/21/21 18:25 Source: patient, RN notes reviewed, old records reviewed Mode of arrival: ambulatory Limitations: no limitations - History of Present Illness Initial comments: This is a 41-year-old female presents emergency department stating that she started having a cough and runny nose and some shortness of breath on Tuesday and it turned into some fatigue as well. Patient came to the today because she continues to be fatigue and cough and mildly short of breath. Patient states she doesn't positive for COVID yesterday. Patient does want the monoclonal antibodies. Patient denies any recent fever chills that she knows of. Patient states she has lost some of her taste. Patient denies any abdominal pain patient denies nausea vomiting or diarrhea. Patient denies any swelling of her legs or calf tenderness. - Related Data Home Medications Medication Instructions Recorded Confirmed carvediloL [Coreg] 6.25 mg PO BID 06/24/19 07/04/21 rOPINIRole HCL [Requip] 1 mg PO HS 06/24/19 07/04/21 Erenumab-Aooe [Aimovig 70 mg PO QMONTHLY 12/01/20 07/04/21 Autoinjector] Meloxicam [Mobic] 15 mg PO DAILY 12/01/20 07/04/21 Topiramate [Topamax] 50 mg PO BID 12/01/20 07/04/21 clonazePAM [KlonoPIN] 1 mg PO DAILY 12/01/20 07/04/21 clonazePAM [KlonoPIN] 2 mg PO HS 12/01/20 07/04/21 lisinopriL [Zestril] 5 mg PO DAILY 12/01/20 07/04/21 Butalb/APAP/Caff 50-325-40Mg 1 - 2 tab PO Q6H PRN 07/04/21 07/04/21 [Fioricet 50-325-40] Doxepin HCl 6 mg PO DAILY 07/04/21 07/04/21 Gabapentin 600 mg PO TID 07/04/21 07/04/21 QUEtiapine FUMARATE [SEROquel XR] 400 mg PO HS 07/04/21 07/04/21 QUEtiapine FUMARATE [SEROquel] 400 mg PO HS 07/04/21 07/04/21 SUMAtriptan SUCCINATE [Imitrex] 100 mg PO BID 07/04/21 07/04/21 Previous Rx's Medication Instructions Recorded levoFLOXacin 500 mg PO DAILY 1 Days #7 tab 08/22/21 predniSONE 50 mg PO DAILY #5 tab 08/22/21 Albuterol Inhaler [Ventolin Hfa 2 puff INHALATION RT-QID #18 gm 10/21/21 Inhaler] Dexamethasone [Decadron] 6 mg PO DAILY #7 tablet 10/21/21 Allergies Allergy/AdvReac Type Severity Reaction Status Date / Time cefaclor [From [facility]] Allergy Unknown Verified 10/21/21 18:23 Childhood Penicillins Allergy Unknown Verified 10/21/21 18:23 Childhood pineapple Allergy Rash/Hives Verified 10/21/21 18:23 Review of Systems ROS Statement: Those systems with pertinent positive or pertinent negative responses have been documented in the HPI. ROS Other: All systems not noted in ROS Statement are negative. Past Medical History Past Medical History: Asthma, Hypertension, Pneumonia, Thyroid Disorder Additional Past Medical History / Comment(s): Chronic migraines History of Any Multi-Drug Resistant Organisms: None Reported Past Surgical History: Section, Orthopedic Surgery Additional Past Surgical History / Comment(s): Left knee meniscus repair x3. Past Anesthesia/Blood Transfusion Reactions: No Reported Reaction Past Psychological History: Anxiety, Bipolar, Depression Smoking Status: Current every day smoker Past Alcohol Use History: Occasional Past Drug Use History: Marijuana - Past Family History Mother Additional Family Medical History / Comment(s): Mom in 2004 from septic shock when she was 52 years old. Father Family Medical History: Cancer, COPD Additional Family Medical History / Comment(s): Pt. reports her father currently has prostate cancer General Exam - General Exam Comments Initial Comments: GENERAL: Patient is well-developed and well-nourished. Patient is nontoxic and well- hydrated and is in mild distress. ENT: Neck is soft and supple. No significant lymphadenopathy is noted. Oropharynx is clear. Moist mucous membranes. Neck has full range of motion without eliciting any pain. EYES: The sclera were anicteric and conjunctiva were pink and moist. Extraocular movements were intact and pupils were equal round and reactive to light. Eyelids were unremarkable. PULMONARY: Patient has crackles in the bilateral bases as well as some expiratory wheezing. CARDIOVASCULAR: There is a regular rate and rhythm without any murmurs gallops or rubs. ABDOMEN: Soft and nontender with normal bowel sounds. SKIN: Skin is clear with no lesions or rashes and otherwise unremarkable. NEUROLOGIC: Patient is alert and oriented x3. Cranial nerves II through XII are grossly intact. Motor and sensory are also intact. Normal speech, volume and content. Symmetrical smile. MUSCULOSKELETAL: Normal extremities with adequate strength and full range of motion. No lower extremity swelling or edema. No calf tenderness. LYMPHATICS: No significant lymphadenopathy is noted PSYCHIATRIC: Normal psychiatric evaluation. Limitations: no limitations Course Vital Signs 10/21/21 10/21/21 18:24 19:26 Temperature 98.9 F Pulse Rate 121 H 110 H Respiratory 22 22 Rate Blood Pressure 117/68 134/89 O2 Sat by Pulse 97 97 Oximetry Medical Decision Making - Medical Decision Making Chest x-ray shows bilateral basilar infiltrates Disposition Clinical Impression: Pneumonia due to COVID-19 virus, Acute bronchospasm Disposition: HOME SELF-CARE Instructions (If sedation given, give patient instructions): Coronavirus Disease 2019 (COVID-19) Prescriptions: Dexamethasone [Decadron] 6 mg PO DAILY #7 tablet Albuterol Inhaler [Ventolin Hfa Inhaler] 2 puff INHALATION RT-QID #18 gm Is patient prescribed a controlled substance at d/c from ED?: No Referrals: Dionna Gonzalez MD [Primary Care Provider] - 1-2 days Time of Disposition: 19:58
[2021-10-21] MEDS ORDERED: SODIUM CHLORIDE 0.9% 50 ML IVPB ONE (20:15)
[2021-10-21] MEDS ORDERED: BAMLANIVIMAB (EUA) 700 MG, ETESEVIMAB (EUA) 1,400 MG in SODIUM CHLORIDE 0.9% 50 ML IVPB ONE (20:45)
[2021-10-21 22:20] VITALS: BP 122/65; PULSE 88; RESP 20; TEMP 98.6
== END 2021-10-21 22:17 | disposition home or self-care (01) ==
LOC: EC 17:39
DX: U07.1 COVID-19 (principal); J12.82 Pneumonia due to coronavirus disease 2019; J98.01 Acute bronchospasm; I10 Essential (primary) hypertension; F31.9 Bipolar disorder, unspecified; F41.9 Anxiety disorder, unspecified; F17.200 Nicotine dependence, unspecified, uncomplicated; F12.90 Cannabis use, unspecified, uncomplicated; Z79.51 Long term (current) use of inhaled steroids; Z79.1 Long term (current) use of non-steroidal anti-inflammatories (NSAID); Z79.52 Long term (current) use of systemic steroids; Z88.0 Allergy status to penicillin; Z79.899 Other long term (current) drug therapy
CPT/HCPCS: 94640; 71045; 99285; 96374; 96361; J1100; J3490

== ENCOUNTER 2021-11-19 09:23 | Day surgery (SDC) | payer MEDICARE, OTHER ==
[2021-11-19] MEDS ORDERED: ALPRAZolam 0.5 MG TAB PO PRN (09:36)
[2021-11-19 09:52] VITALS: TEMP 98.4
[2021-11-19 10:54] VITALS: BP 109/77; PULSE 96; RESP 16
--- NOTE | 2021-11-19 12:02 | US ---
ULTRASOUND GUIDED FNA THYROID BIOPSY: CLINICAL HISTORY: Calcified right thyroid nodule FINDINGS: The procedure was explained to the patient. The risks, complications, benefits and alternatives were discussed and any questions were answered. Informed consent was obtained. Patient was placed supin e on the ultrasound table and prepped and draped in the usual sterile fashion. Utilizing a 25 gauge needle, access into the right thyroid nodule attempted however the nodule is heavily calcified with a peripheral rim of calcification which prevented the needle from traversing into the nodule.. Patient was stable throughout the procedure. Pathology is pending. All elements of maximal barrier technique were utilized. IMPRESSION: 1. Unsuccessful ultrasound guided FNA secondary to dense peripheral calcification nodule preventing t he biopsy needle from traversing into the requested nodule..
== END 2021-11-19 10:45 | disposition home or self-care (01) ==
LOC: RADPROMAIN 09:23
PROVIDERS: ATTEND Nurse Practitioner Adult Health
DX: E07.89 Other specified disorders of thyroid (principal); E04.1 Nontoxic single thyroid nodule
CPT/HCPCS: 76536

== ENCOUNTER 2021-12-04 20:51 | Emergency (ER) | payer MEDICARE, OTHER ==
--- NOTE | 2021-12-04 21:31 | XR ---
EXAMINATION TYPE: XR ankle complete LT DATE OF EXAM: 12/04/2021 9:16 PM INDICATION: Patient age:Female; 41 years old; Reason for study: Injury/pain; PHH. COMPARISON: Radiograph 04/26/2021 TECHNIQUE: The left ankle is imaged in 3 projections. FINDINGS: There is no evidence of acute osseous pathology. The joint spaces are well-preserved without evidenc e of subluxation or dislocation. Kager's fat pad is intact. Mild soft tissue swelling around the ankl e. No radiopaque foreign bodies are identified. IMPRESSION: 1. No evidence of acute fracture. 2. Subcutaneous swelling around the ankle likely secondary to underlying soft tissue injury.
--- NOTE | 2021-12-04 21:32 | XR ---
EXAMINATION TYPE: XR foot complete LT DATE OF EXAM: 12/04/2021 9:16 PM INDICATION: Patient age:Female; 41 years old; Reason for study: Injury/pain; COMPARISON: 03/19/2020 TECHNIQUE: The left foot was examined in the AP, oblique, and lateral projections. FINDINGS: No evidence of any acute osseous pathology. Joints are preserved. Mild soft tissue swelling around th e ankle. IMPRESSION: 1. No evidence of acute fracture. 2. Soft tissue swelling of ankle likely underlying soft tissue injury.
[2021-12-04] MEDS ORDERED: KETOROLAC 15 MG/ML 1 ML VIAL IVP STA (22:11)
--- NOTE | 2021-12-04 22:12 | ED ---
Lower Extremity Injury HPI - General Chief Complaint: Extremity Injury, Lower Stated Complaint: Left Ankle Injury Time Seen by Provider: 12/04/21 21:04 Source: patient, RN notes reviewed Mode of arrival: ambulatory Limitations: no limitations - History of Present Illness Initial Comments: This is a pleasant 41-year-old female who injured her left ankle and foot when she twisted her ankle coming down steps at about 4 AM. Patient complaining pain to both the lateral and medial aspects of the ankle. He is able to walk with otalgia. Pain is exacerbated by movement, palpation, and ambulation. No other injuries. No distal paresthesias. No proximal injuries. No headache, no fever or chills, no changes in vision or hearing, no sore throat or difficulty with speech, no neck pain, no chest pain or shortness of breath, no abdominal pain, no nausea or vomiting, no changes in urination or bowel movements, no numbness or tingling, no extremity pain, no skin rashes or lesions. MD Complaint: ankle injury - Related Data Home Medications Medication Instructions Recorded Confirmed rOPINIRole HCL [Requip] 1 mg PO BID 06/24/19 11/19/21 Erenumab-Aooe [Aimovig 70 mg PO QMONTHLY 12/01/20 11/19/21 Autoinjector] clonazePAM [KlonoPIN] 3 mg PO HS 12/01/20 11/19/21 lisinopriL [Zestril] 5 mg PO DAILY 12/01/20 11/19/21 Gabapentin 600 mg PO TID 07/04/21 11/19/21 QUEtiapine FUMARATE [SEROquel XR] 400 mg PO HS 07/04/21 11/19/21 QUEtiapine FUMARATE [SEROquel] 400 mg PO HS 07/04/21 11/19/21 Budesonide-Formot 160-4.5 Mcg 2 puff INHALATION DAILY 11/13/21 11/19/21 [Symbicort 160-4.5 Mcg Inhaler] Cariprazine HCl [Vraylar] 3 mg PO DAILY 11/13/21 11/19/21 Doxepin HCl [SINEquan] 100 mg PO DAILY 11/13/21 11/19/21 Metoprolol Succinate [Toprol XL] 50 mg PO DAILY 11/13/21 11/19/21 SUMAtriptan SUCCINATE [Imitrex] 100 mg PO DAILY PRN 11/13/21 11/19/21 hydrOXYzine pamoate [Vistaril] 25 mg PO TID 11/13/21 11/19/21 Previous Rx's Medication Instructions Recorded Albuterol Inhaler [Ventolin Hfa 2 puff INHALATION RT-QID #18 gm 10/21/21 Inhaler] Acetaminophen [Tylenol] 500 mg PO Q4-6H PRN #24 tab 12/04/21 Allergies Allergy/AdvReac Type Severity Reaction Status Date / Time cefaclor [From Ceclor] Allergy Unknown Verified 12/04/21 20:59 Childhood Penicillins Allergy Unknown Verified 12/04/21 20:59 Childhood pineapple Allergy Rash/Hives Verified 12/04/21 20:59 montelukast [From Singulair] AdvReac Unknown Verified 12/04/21 20:59 topiramate [From Topamax] AdvReac Unknown Verified 12/04/21 20:59 Review of Systems ROS Statement: Those systems with pertinent positive or pertinent negative responses have been documented in the HPI. ROS Other: All systems not noted in ROS Statement are negative. Past Medical History Past Medical History: Atrial Fibrillation, Asthma, COPD, Hypertension, Pneumonia, Thyroid Disorder Additional Past Medical History / Comment(s): Chronic migraines, ARDS post Cholecysectomy History of Any Multi-Drug Resistant Organisms: None Reported Past Surgical History: Section, Cholecystectomy, Orthopedic Surgery Additional Past Surgical History / Comment(s): Left knee meniscus repair x3. Left knee replacement -Left Past Anesthesia/Blood Transfusion Reactions: No Reported Reaction Additional Past Anesthesia/Blood Transfusion Reaction / Comment(s): [place] [place] per pt Past Psychological History: Anxiety, Bipolar, Depression, PTSD Smoking Status: Current every day smoker Past Alcohol Use History: Occasional Past Drug Use History: Marijuana - Past Family History Mother Additional Family Medical History / Comment(s): Mom in 2004 from septic shock when she was 52 years old. Father Family Medical History: Cancer, COPD Additional Family Medical History / Comment(s): Pt. reports her father currently has prostate cancer General Exam Limitations: no limitations General appearance: alert, in no apparent distress Head exam: Present: atraumatic, normocephalic, normal inspection Eye exam: Present: normal appearance, EOMI. Absent: scleral icterus, conjunctival injection, periorbital swelling ENT exam: Present: normal exam, mucous membranes moist Neck exam: Present: normal inspection. Absent: tenderness, meningismus, lymphadenopathy Respiratory exam: Present: normal lung sounds bilaterally. Absent: respiratory distress, wheezes, rales, rhonchi, stridor Cardiovascular Exam: Present: regular rate, normal rhythm, normal heart sounds. Absent: systolic murmur, diastolic murmur, rubs, gallop, clicks GI/Abdominal exam: Present: soft. Absent: distended, tenderness Extremities exam: Present: tenderness, normal capillary refill, joint swelling, other (Tender over the lateral malleolus as well as the deltoid ligament. Tender over the ATF ligament as well. Pulses intact, skin intact, no infectious process). Absent: calf tenderness Back exam: Present: normal inspection. Absent: full ROM (Patient was limited, ligaments stable as tested. Capillary refill less than 2 seconds) Neurological exam: Present: alert, oriented X3, CN II-XII intact Psychiatric exam: Present: normal affect, normal mood Skin exam: Present: warm, dry, intact, normal color. Absent: rash Course Vital Signs 12/04/21 20:55 Temperature 98.9 F Pulse Rate 112 H Respiratory 16 Rate Blood Pressure 130/83 O2 Sat by Pulse 100 Oximetry Procedures - Orthopedic Splinting/Casting Injury #1 Side: left Lower Extremity Injury Location: ankle Lower Extremity Immobilizer: stirrup splint Additional Comments: Neurovascular assessment intact both pre-and post application of splint Medical Decision Making - Medical Decision Making Patient presents with symptoms consistent of a left ankle sprain. There is no definitive fracture seen on x-ray. I did review the films myself. No rashes sensory is intact. Ligaments were stable as tested on a limited basis. Ankle splint applied. Patient given follow-up with orthopedics. Patient has anti- inflammatory medication at home. We'll addend acetaminophen as directed. Patient has a doctor at orth[facility]. We'll have her follow-up on Tuesday. Follow-up with your regular physician as directed. Return to the ER immediately if any symptoms worsen, new symptoms arise, or any other problems develop. Disposition Clinical Impression: Sprain of anterior talofibular ligament of left ankle Disposition: HOME SELF-CARE Condition: Stable Instructions (If sedation given, give patient instructions): Ankle Sprain (ED) Additional Instructions: Follow-up with orthopedic associates as discussed. Call Tuesday morning for follow-up. Elevate, ice 20 minutes on and off, wear the splint as directed. Take your anti-inflammatory medication as directed by your physician. Use acetaminophen for additional pain control. Follow-up with your regular physician as directed. Return to the ER immediately if any symptoms worsen, new symptoms arise, or any other problems develop. Prescriptions: Acetaminophen [Tylenol] 500 mg PO Q4-6H PRN #24 tab PRN Reason: Pain Is patient prescribed a controlled substance at d/c from ED?: No Referrals: Osito Church DO [Doctor of Osteopathic Medicine] - 12/07/21 Time of Disposition: 22:12
[2021-12-04] MEDS ORDERED: KETOROLAC 15 MG/ML 1 ML VIAL IM STA (22:35)
[2021-12-04 22:46] VITALS: BP 128/80; PULSE 100; RESP 18; TEMP 98.1
== END 2021-12-04 22:39 | disposition home or self-care (01) ==
LOC: EC 20:51
DX: S93.492A Sprain of other ligament of left ankle, initial encounter (principal); I48.91 Unspecified atrial fibrillation; J45.909 Unspecified asthma, uncomplicated; I10 Essential (primary) hypertension; E07.9 Disorder of thyroid, unspecified; F41.9 Anxiety disorder, unspecified; F31.9 Bipolar disorder, unspecified; F43.12 Post-traumatic stress disorder, chronic; F17.200 Nicotine dependence, unspecified, uncomplicated; F12.90 Cannabis use, unspecified, uncomplicated; Z88.0 Allergy status to penicillin; Z88.1 Allergy status to other antibiotic agents; Z90.49 Acquired absence of other specified parts of digestive tract; X50.0XXA Overexertion from strenuous movement or load, initial encounter
CPT/HCPCS: 29515; 96372; 99283

== ENCOUNTER 2021-12-05 19:42 | Emergency (ER) | payer MEDICARE, OTHER ==
[2021-12-05 20:13] VITALS: BP 152/98; PULSE 117; RESP 20; TEMP 98
[2021-12-05] MEDS ORDERED: DIPH,PERTUS(ACELL)TETVAC-LF 0.5 ML VIAL IM ONE (20:42)
--- NOTE | 2021-12-05 20:43 | ED ---
General Adult HPI - General Source: patient, RN notes reviewed, old records reviewed Mode of arrival: ambulatory Limitations: no limitations <Los Zuñiga - Last Filed: 12/05/21 21:45> <Irineo Olivia - Last Filed: 12/06/21 00:55> - General Chief complaint: Psychiatric Symptoms Stated complaint: Mental Health Time Seen by Provider: 12/05/21 20:15 - History of Present Illness Initial comments: 41-year-old female presenting for mental health evaluation. Patient states she needs to go to [facility]. She states she's had anger issues and she has been cutting. She admits to cutting her left forearm today. She's had increased depression as well as suicidal ideation. She denies any illicit drugs but states that she did have some alcohol today. (Los Zuñiga) - Related Data Home Medications Medication Instructions Recorded Confirmed rOPINIRole HCL [Requip] 2 mg PO HS 06/24/19 12/05/21 Erenumab-Aooe [Aimovig 70 mg PO Q30D 12/01/20 12/05/21 Autoinjector] clonazePAM [KlonoPIN] 1 mg PO TID 12/01/20 12/05/21 lisinopriL [Zestril] 5 mg PO DAILY 12/01/20 12/05/21 Gabapentin 600 mg PO TID 07/04/21 12/05/21 QUEtiapine FUMARATE [SEROquel] 800 mg PO HS 07/04/21 12/05/21 Cariprazine HCl [Vraylar] 3 mg PO DAILY 11/13/21 12/05/21 Doxepin HCl [SINEquan] 100 mg PO HS 11/13/21 12/05/21 Metoprolol Succinate [Toprol XL] 50 mg PO DAILY 11/13/21 12/05/21 SUMAtriptan SUCCINATE [Imitrex] 100 mg PO DAILY PRN 11/13/21 12/05/21 hydrOXYzine pamoate [Vistaril] 25 mg PO TID 11/13/21 12/05/21 Butalb/Asprin/Caff 50-325-40Mg 1 - 2 cap PO Q4HR PRN 12/05/21 12/05/21 [Fiorinal 50-325-40 MG] Folic Acid 1 mg PO DAILY 12/05/21 12/05/21 Meloxicam [Mobic] 15 mg PO DAILY 12/05/21 12/05/21 Ondansetron [Zofran] 4 mg PO TID PRN 12/05/21 12/05/21 diphenhydrAMINE [Benadryl] 25 mg PO HS PRN 12/05/21 12/05/21 Previous Rx's Medication Instructions Recorded Albuterol Inhaler [Ventolin Hfa 2 puff INHALATION RT-QID #18 gm 10/21/21 Inhaler] Allergies Allergy/AdvReac Type Severity Reaction Status Date / Time cefaclor [From Ceclor] Allergy Unknown Verified 12/05/21 21:24 Childhood Penicillins Allergy Unknown Verified 12/05/21 21:24 Childhood pineapple Allergy Rash/Hives Verified 12/05/21 21:24 montelukast [From Singulair] AdvReac Unknown Verified 12/05/21 21:24 topiramate [From Topamax] AdvReac Unknown Verified 12/05/21 21:24 Review of Systems ROS Other: All systems not noted in ROS Statement are negative. <Los Zuñiga - Last Filed: 12/05/21 21:45> ROS Other: All systems not noted in ROS Statement are negative. <Irineo Olivia - Last Filed: 12/06/21 00:55> ROS Statement: Those systems with pertinent positive or pertinent negative responses have been documented in the HPI. Past Medical History Past Medical History: Atrial Fibrillation, Asthma, COPD, Hypertension, Pneumonia, Thyroid Disorder Additional Past Medical History / Comment(s): Chronic migraines, ARDS post Cholecysectomy History of Any Multi-Drug Resistant Organisms: None Reported Past Surgical History: Section, Cholecystectomy, Orthopedic Surgery Additional Past Surgical History / Comment(s): Left knee meniscus repair x3. Left knee replacement -Left Past Anesthesia/Blood Transfusion Reactions: No Reported Reaction Additional Past Anesthesia/Blood Transfusion Reaction / Comment(s): [facility] [place] per pt Past Psychological History: Anxiety, Bipolar, Depression, PTSD Smoking Status: Current every day smoker Past Alcohol Use History: Occasional Past Drug Use History: Marijuana - Past Family History Mother Additional Family Medical History / Comment(s): Mom in 2004 from septic shock when she was 54 years old. Father Family Medical History: Cancer, COPD Additional Family Medical History / Comment(s): Pt. reports her father currently has prostate cancer <Los Zuñiga - Last Filed: 12/05/21 21:45> General Exam Limitations: no limitations General appearance: alert, in no apparent distress Head exam: Present: atraumatic, normocephalic Eye exam: Present: normal appearance, PERRL Neck exam: Present: normal inspection. Absent: tenderness, meningismus Respiratory exam: Present: rhonchi. Absent: respiratory distress Cardiovascular Exam: Present: regular rate, normal rhythm GI/Abdominal exam: Present: soft. Absent: distended, tenderness, guarding Extremities exam: Present: normal capillary refill, other (Superficial laceration to the left forearm. No repairable laceration.) Neurological exam: Present: alert, oriented X3 Psychiatric exam: Present: depressed, suicidal ideation Skin exam: Present: warm, dry. Absent: cyanosis, diaphoretic <Los Zuñiga - Last Filed: 12/05/21 21:45> Course <Los Zuñiga - Last Filed: 12/05/21 21:45> Vital Signs 12/05/21 20:07 Temperature 98.0 F Pulse Rate 117 H Respiratory 20 Rate Blood Pressure 152/98 O2 Sat by Pulse 99 Oximetry - Reevaluation(s) Reevaluation #1: 12/05/21 20:42 Patient cleared for EPS. (Los Zuñiga) Reevaluation #2: 12/05/21 2200 Patient care signed out to Dr. Olivia shift change awaiting EPS evaluation. (Los Zuñiga) Medical Decision Making - Lab Data Lab Results 12/05/21 12/05/21 Range/Units 21:59 23:36 Urine Opiates Screen Not Detected (NotDetected) Ur Oxycodone Screen Not Detected (NotDetected) Urine Methadone Screen Not Detected (NotDetected) Ur Propoxyphene Screen Not Detected (NotDetected) Ur Barbiturates Screen Not Detected (NotDetected) U Tricyclic Antidepress Detected H (NotDetected) Ur Phencyclidine Scrn Not Detected (NotDetected) Ur Amphetamines Screen Not Detected (NotDetected) U Methamphetamines Scrn Not Detected (NotDetected) U Benzodiazepines Scrn Detected H (NotDetected) Urine Cocaine Screen Not Detected (NotDetected) U Marijuana (THC) Screen Detected H (NotDetected) Coronavirus (PCR) Not Detected (Not Detectd) Disposition <Los Zuñiga N - Last Filed: 12/05/21 21:45> Is patient prescribed a controlled substance at d/c from ED?: No <Irineo Olivia - Last Filed: 12/06/21 00:55> Clinical Impression: Depression Disposition: HOME SELF-CARE Condition: Fair Instructions (If sedation given, give patient instructions): Depression (ED) Referrals: Luis Gordillo MD [Primary Care Provider] - 1-2 days
[2021-12-05] MEDS ORDERED: LORazepam 1 MG TAB PO STA (20:52)
[2021-12-06] LABS: Amphetamine Screen,Urine Not Detected (NotDetected); Barbiturate Screen,Urine Not Detected (NotDetected); Benzodiazepines Screen,Urine Detected (NotDetected); Cocaine Screen,Urine Not Detected (NotDetected); Methadone Screen, Urine Not Detected (NotDetected); Opiate Screen,Urine Not Detected (NotDetected); Oxycodone Screen, Urine Not Detected (NotDetected); Phencyclidine Screen,Urine Not Detected (NotDetected); Tricyclic Antidepressant,Urine Detected (NotDetected); Urn Cannabinoid Scrn Detected (NotDetected)
== END 2021-12-06 01:06 | disposition home or self-care (01) ==
LOC: EC 19:42
DX: F32.A Depression, unspecified (principal); Z23 Encounter for immunization; I48.91 Unspecified atrial fibrillation; J44.9 Chronic obstructive pulmonary disease, unspecified; I10 Essential (primary) hypertension; G43.909 Migraine, unspecified, not intractable, without status migrainosus; F41.9 Anxiety disorder, unspecified; F43.10 Post-traumatic stress disorder, unspecified; F17.200 Nicotine dependence, unspecified, uncomplicated; F12.90 Cannabis use, unspecified, uncomplicated; Z20.822 Contact with and (suspected) exposure to COVID-19; Z72.89 Other problems related to lifestyle; Z79.51 Long term (current) use of inhaled steroids; Z79.899 Other long term (current) drug therapy
CPT/HCPCS: 80306; 82075; 87635; 90471; 90715; 99284

== ENCOUNTER → 2022-07-06 | Outpatient (CLI) | payer MEDICARE, OTHER ==
--- NOTE | 2022-07-07 07:26 | US ---
EXAMINATION TYPE: US thyroid st tissue head/neck DATE OF EXAM: 07/06/2022 COMPARISON: NONE CLINICAL HISTORY: E04.1 THYROID NODULE. Hx of thyroid nodule GLAND SIZE: Right Lobe: 4.7 x 2.2 x 1.7 cm Overall Parenchyma: heterogenous Left Lobe: 3.9 x 1.2 x 1.0 cm Overall Parenchyma: heterogeneous Isthmus Thickness: 0.47 cm NODULES RIGHT: # of nodules measured on right: 1 1. 1.3 1.0x 1.1m, upper mid/medialsolid or almost completely solid, very hypoechoic nodule, which is taller than wide, with smooth margins, with echogenic foci. LEFT: # of nodules measured on left: 0 ISTHMUS: # of nodules measured in the isthmus: 0 Bilateral neck scanned, no evidence of lymphadenopathy. IMPRESSION: Nonspecific thyroid nodularity with attempted sampling previously.
== END | disposition home or self-care (01) ==
LOC: RADUSWWP 16:58
PROVIDERS: ATTEND Surgery
DX: E04.1 Nontoxic single thyroid nodule (principal)
CPT/HCPCS: 76536

== ENCOUNTER 2022-07-08 09:07 | Day surgery (SDC) | payer MEDICARE, OTHER ==
[~2022-07-08 09:07] MED LIST: LACTATED RINGERS 1,000 ML IV SCH; LIDOCAINE 1% (10MG/ML) FOR IV START INTRADERMA PRN; ONDANSETRON 4 MG/2 ML VIAL IVP PRN
[2022-07-08 09:45] VITALS: RESP 16; TEMP 97.9
[2022-07-08] MEDS ORDERED: LIDOCAINE 2% INJ 20 MG/ML (2 ML VIAL) ONE (10:10)
[2022-07-08] MEDS ORDERED: PROPOFOL 10 MG/ML 20 ML VIAL IV ONE (10:10)
--- NOTE | 2022-07-08 10:12 | P.GSHP ---
History of Present Illness H&P Date: 07/08/22 Chief Complaint: GERD 's is a 42-year-old female presents today for EGD. She's had issues with GERD. Her BMI is 35. Past Medical History Past Medical History: Atrial Fibrillation, Asthma, COPD, GERD/Reflux, Hypertension, Pneumonia, Thyroid Disorder Additional Past Medical History / Comment(s): Chronic migraines, ARDS post Cholecystectomy, frequent nausea, past hx. ulcers, vomiting intermittently, occasional epigastric pain, occasional dysphagia, hx. tachycardia, has not heard term a-fib, RLS, thyroid nodule-just had U/S History of Any Multi-Drug Resistant Organisms: None Reported Past Surgical History: Section, Cholecystectomy, Joint Replacement, Orthopedic Surgery, Tubal Ligation Additional Past Surgical History / Comment(s): Left knee meniscus repair x3. Left knee replacement Past Anesthesia/Blood Transfusion Reactions: No Reported Reaction Additional Past Anesthesia/Blood Transfusion Reaction / Comment(s): [facility] [place] per pt Smoking Status: Current every day smoker - Past Family History Mother Additional Family Medical History / Comment(s): Mom in 2004 from septic shock when she was 52 years old. Father Family Medical History: Cancer, COPD Additional Family Medical History / Comment(s): Pt. reports her father currently has prostate cancer Medications and Allergies Home Medications Medication Instructions Recorded Confirmed Type rOPINIRole HCL [Requip] 4 mg PO HS 06/24/19 07/08/22 History Erenumab-Aooe [Aimovig 70 mg PO Q30D 12/01/20 07/08/22 History Autoinjector] lisinopriL [Zestril] 10 mg PO DAILY 12/01/20 07/08/22 History Gabapentin 600 mg PO TID 07/04/21 07/08/22 History QUEtiapine FUMARATE [SEROquel] 600 mg PO HS 07/04/21 07/08/22 History Metoprolol Succinate [Toprol XL] 50 mg PO BID 11/13/21 07/08/22 History SUMAtriptan succinate [Imitrex] 100 mg PO DAILY PRN 11/13/21 07/08/22 History hydrOXYzine pamoate [Vistaril] 25 mg PO TID PRN 11/13/21 07/08/22 History Butalb/Asprin/Caff 50-325-40Mg 1 - 2 cap PO Q4HR PRN 12/05/21 07/08/22 History [Fiorinal 50-325-40 MG] Ondansetron [Zofran] 4 mg PO TID PRN 12/05/21 07/08/22 History Albuterol Inhaler [Ventolin Hfa 2 puff INHALATION RT-QID PRN 07/07/22 07/08/22 History Inhaler] Ferrous Sulfate [Feosol] 325 mg PO DAILY 07/07/22 07/08/22 History Allergies Allergy/AdvReac Type Severity Reaction Status Date / Time cefaclor [From Ceclor] Allergy Unknown Verified 07/08/22 09:32 Childhood Penicillins Allergy Unknown Verified 07/08/22 09:32 Childhood pineapple Allergy Rash/Hives Verified 07/08/22 09:32 montelukast [From Singulair] AdvReac irritable Verified 07/08/22 09:32 topiramate [From Topamax] AdvReac Unknown Verified 07/08/22 09:32 Surgical - Exam Vital Signs Temp Pulse Resp BP Pulse Ox 97.9 F 93 16 117/70 97 07/08/22 09:44 07/08/22 09:44 07/08/22 09:44 07/08/22 09:44 07/08/22 09:44 - General well developed, well nourished, no distress - Eyes PERRL - ENT normal pinna - Neck no masses - Respiratory normal expansion - Cardiovascular Rhythm: regular - Abdomen Abdomen: soft, non tender Assessment and Plan Assessment: GERD We'll perform EGD.
--- NOTE | 2022-07-08 10:23 | P.OP ---
Date of Procedure: 07/08/22 Preoperative Diagnosis: GERD Postoperative Diagnosis: Antral gastritis Mild esophagitis Small sliding hiatal hernia Procedure(s) Performed: EGD Anesthesia: MAC Surgeon: Mendoza Nguyen Pathology: other (Antrum, esophagus) Condition: stable Disposition: PACU Description of Procedure: The patient's placed on the endoscopy table in the lateral position she received IV sedation. The gastroscope placed oropharynx passed in the esophagus and then into the stomach. Scope was placed through the pylorus. The first and second portion of the duodenum appeared normal. Scope was then brought back the antrum this. Mildly inflamed. A biopsies performed. Scope was then retroflexed and the remainder the stomach appeared normal. There was a small sliding hiatal hernia. The GE junction was at 38 cm. The distal esophagus appeared mildly inflamed. A biopsies performed. Scope was then withdrawn for patient.
[2022-07-08] MEDS ORDERED: ONDANSETRON 4 MG/2 ML VIAL IVP ONE (10:28)
[2022-07-08 10:45] VITALS: BP 118/76; PULSE 76
== END 2022-07-08 11:00 | disposition home or self-care (01) ==
LOC: ORWHC2ENDO 09:07
PROVIDERS: ATTEND Surgery
DX: K29.50 Unspecified chronic gastritis without bleeding (principal); K21.00 Gastro-esophageal reflux disease with esophagitis, without bleeding; K44.9 Diaphragmatic hernia without obstruction or gangrene; I48.91 Unspecified atrial fibrillation; J44.9 Chronic obstructive pulmonary disease, unspecified; I10 Essential (primary) hypertension; J18.9 Pneumonia, unspecified organism; E07.9 Disorder of thyroid, unspecified; G43.909 Migraine, unspecified, not intractable, without status migrainosus; G25.81 Restless legs syndrome; E04.1 Nontoxic single thyroid nodule; F41.9 Anxiety disorder, unspecified; F32.A Depression, unspecified; I49.3 Ventricular premature depolarization; F17.200 Nicotine dependence, unspecified, uncomplicated; F43.10 Post-traumatic stress disorder, unspecified; Z90.49 Acquired absence of other specified parts of digestive tract; Z98.890 Other specified postprocedural states; Z98.891 History of uterine scar from previous surgery; Z98.51 Tubal ligation status; Z80.9 Family history of malignant neoplasm, unspecified; Z82.5 Family history of asthma and other chronic lower respiratory diseases; Z88.0 Allergy status to penicillin; Z91.018 Allergy to other foods; Z88.1 Allergy status to other antibiotic agents; Z88.8 Allergy status to other drugs, medicaments and biological substances; Z79.899 Other long term (current) drug therapy
CPT/HCPCS: 81025; 88305; 43239; J2405; J2704; J2001

== ENCOUNTER → 2022-07-20 | Outpatient (CLI) | payer MEDICARE, OTHER ==
[2022-07-21 01:21] LABS: Basophils # (A) 0.06 X 10*3/uL (0.00-0.10); Basophils % (A) 0.5 %; Eosinophils # (A) 0.26 X 10*3/uL (0.04-0.35); Eosinophils % (A) 2.4 %; HCT 40.5 % (37.2-46.3); HGB 13.4 g/dL (12.0-15.0); Immature Grans, Automated 0.6 %; Lymphocytes # (A) 3.52 X 10*3/uL (0.90-5.00); Lymphocytes % (A) 32.1 %; MCH 31.5 pg (27.0-32.0); MCHC 33.1 g/dL (32.0-37.0); MCV 95.3 fL (80.0-97.0); Mean Platelet Volume 11.7 fL (9.5-12.2); Monocytes # (A) 0.64 X 10*3/uL (0.20-1.00); Monocytes % (A) 5.8 %; NRBC Per 100 WBC 0 /100 WBCS (0.0-0.0); Neutrophils % (A) 58.6 %; Platelet Count 263 X 10*3/uL (140-440); RBC 4.25 X 10*6/uL (4.10-5.20); RDW 12.5 % (11.5-14.5); WBC 10.95 X 10*3/uL (4.50-10.00)
== END | disposition home or self-care (01) ==
LOC: LABWHC1 15:49
PROVIDERS: ATTEND Surgery
DX: Z01.812 Encounter for preprocedural laboratory examination (principal); K21.00 Gastro-esophageal reflux disease with esophagitis, without bleeding
CPT/HCPCS: 36415; 85025

== ENCOUNTER 2022-07-26 08:47 | Observation (INO) | payer MEDICARE, OTHER ==
[~2022-07-26 08:47] MED LIST changes: +ACETAMINOPHEN TAB 500 MG TAB PO PRN; +DEXAMETHASONE SOD PHOSPHATE 4 MG/ML 1 ML VIAL IV ONE; +HEPARIN SODIUM,PORCINE/PF 5,000 UNIT/0.5 ML SYRINGE SQ PRN; -LACTATED RINGERS 1,000 ML IV SCH; +MIDAZOLAM 2 MG/2 ML VIAL IV PRN; +ONDANSETRON 4 MG/2 ML VIAL IVP ONE; -ONDANSETRON 4 MG/2 ML VIAL IVP PRN
[2022-07-26] MEDS: LACTATED RINGERS 1,000 ML IV SCH (09:41)
--- NOTE | 2022-07-26 10:35 | P.GSHP ---
History of Present Illness H&P Date: 07/26/22 Chief Complaint: GERD Is a 42-year-old female.The patient has had long-standing problems with reflux esophagitis. The patient underwent recent EGD is found have evidence of esophagitis. Patient has been well informed on the procedure of laparoscopic Maximo fundoplication. The patient is aware the risk of the conversion to the open procedure, risk of injury to the stomach, liver and spleen. The patient is also a risk of recurrent GERD and dysphagia symptoms. The patient understands there is a postoperative diet of full liquids for 2 weeks after surgery. Past Medical History Past Medical History: Asthma, COPD, Hypertension Additional Past Medical History / Comment(s): Chronic migraines, ARDS post Cholecysectomy, IRREGULAR HEART BEAT-BENIGN, HIATAL HERNIA History of Any Multi-Drug Resistant Organisms: None Reported Past Surgical History: Section, Cholecystectomy, Orthopedic Surgery, Tubal Ligation Additional Past Surgical History / Comment(s): Left knee meniscus repair x3. Left knee replacement -EGD, Past Anesthesia/Blood Transfusion Reactions: No Reported Reaction Additional Past Anesthesia/Blood Transfusion Reaction / Comment(s): [facility] [place] per pt Smoking Status: Current every day smoker - Past Family History Mother Additional Family Medical History / Comment(s): Mom in 2004 from septic shock when she was 52 years old. Father Family Medical History: Cancer, COPD Additional Family Medical History / Comment(s): Pt. reports her father currently has prostate cancer Medications and Allergies Home Medications Medication Instructions Recorded Confirmed Type rOPINIRole HCL [Requip] 4 mg PO HS 06/24/19 07/26/22 History Erenumab-Aooe [Aimovig 70 mg PO Q30D 12/01/20 07/26/22 History Autoinjector] lisinopriL [Zestril] 10 mg PO DAILY 12/01/20 07/22/22 History QUEtiapine FUMARATE [SEROquel] 600 mg PO HS 07/04/21 07/26/22 History Metoprolol Succinate [Toprol XL] 50 mg PO BID 11/13/21 07/22/22 History SUMAtriptan succinate [Imitrex] 100 mg PO DAILY PRN 11/13/21 07/26/22 History hydrOXYzine pamoate [Vistaril] 25 mg PO TID PRN 11/13/21 07/22/22 History Butalb/Asprin/Caff 50-325-40Mg 1 - 2 cap PO Q4HR PRN 12/05/21 07/26/22 History [Fiorinal 50-325-40 MG] Ondansetron [Zofran] 4 mg PO TID PRN 12/05/21 07/26/22 History Albuterol Inhaler [Ventolin Hfa 2 puff INHALATION RT-QID PRN 07/07/22 07/26/22 History Inhaler] Ferrous Sulfate [Feosol] 325 mg PO DAILY 07/07/22 07/26/22 History Gabapentin 800 mg PO TID 07/22/22 07/26/22 History Allergies Allergy/AdvReac Type Severity Reaction Status Date / Time cefaclor [From Ceclor] Allergy Unknown Verified 07/22/22 09:23 Childhood Penicillins Allergy Unknown Verified 07/22/22 09:23 Childhood pineapple Allergy Rash/Hives Verified 07/22/22 09:23 montelukast [From Singulair] AdvReac irritable Verified 07/22/22 09:23 topiramate [From Topamax] AdvReac Unknown Verified 07/26/22 09:58 Surgical - Exam Vital Signs Temp Pulse Resp BP Pulse Ox 97.6 F 60 16 106/69 95 07/26/22 09:55 07/26/22 09:55 07/26/22 09:55 07/26/22 09:55 07/26/22 09:55 - General well developed, well nourished, no distress - Eyes PERRL - ENT normal pinna - Neck no masses - Respiratory normal expansion - Cardiovascular Rhythm: regular - Abdomen Abdomen: soft, non tender Assessment and Plan Assessment: GERD. We'll perform laparoscopic Maximo fundoplication.
[2022-07-26] MEDS ORDERED: PROPOFOL 10 MG/ML 20 ML VIAL IV ONE (10:53)
[2022-07-26] MEDS ORDERED: KETAMINE 10 MG/ML 20 ML VIAL ONE (10:53)
[2022-07-26] MEDS ORDERED: fentaNYL (PF) 50 MCG/ML 2 ML AMP ONE (10:53)
[2022-07-26] MEDS ORDERED: LIDOCAINE 2% INJ 20 MG/ML (2 ML VIAL) ONE (10:53)
[2022-07-26] MEDS ORDERED: NEOSTIGMINE 1 MG/ML 10 ML VIAL ONE (10:53)
[2022-07-26] MEDS ORDERED: LIDOCAINE 4% LTA KIT (4 ML) TOPICAL ONE (10:53)
[2022-07-26] MEDS ORDERED: SUCCINYLCHOLINE CHLORIDE 200 MG/10 ML VIAL IV ONE (10:53)
[2022-07-26] MEDS ORDERED: HYDROmorphone (PF) 1 MG/ML ONE (10:53)
[2022-07-26] MEDS ORDERED: ROCURONIUM 10 MG/ML (5 ML VIAL) IV ONE (10:53)
[2022-07-26] MEDS ORDERED: MIDAZOLAM 2 MG/2 ML VIAL ONE (10:53)
[2022-07-26] MEDS ORDERED: GLYCOPYRROLATE 0.2 MG/ML 2 ML VIAL ONE (10:53)
[2022-07-26] MEDS ORDERED: KETOROLAC 15 MG/ML 1 ML VIAL ONE (10:53)
[2022-07-26] MEDS ORDERED: BUPIVACAIN-EPI 0.25%-1:200,000 30 ML VIAL SQ ONE (11:19)
[2022-07-26] MEDS ORDERED: ONDANSETRON 4 MG/2 ML VIAL IVP PRN (11:51)
--- NOTE | 2022-07-26 11:51 | P.OP ---
Date of Procedure: 07/26/22 Preoperative Diagnosis: GERD Postoperative Diagnosis: GERD Procedure(s) Performed: Laparoscopic Maximo fundal plication Anesthesia: KEIRA Surgeon: Mendoza Nguyen Estimated Blood Loss (ml): 5 Pathology: none sent Condition: stable Disposition: PACU Description of Procedure: HThe patient was placed on the operating table in the supine position. The patient received general anesthesia. And was placed in dorsal lithotomy position. The patient was prepped and draped in the usual sterile fashion. The skin incision sites were anesthetized with 1% local Xylocaine. The skin was incised in the left periumbilical area and then using a blade less 5 mm trocar under direct visualization panel cavity was entered. After adequate insufflation the laparoscope was then placed into the peritoneal cavity. Next a 5 mm trochars placed in the right epigastric position. Another 5 millimeter trocar the right lateral position. Another 5 millimeter trocar in the left lateral position a 5 mm trocar is placed in the left epigastric position. And then the initial 5 mm trocar was exchanged for a 10 mm trocar. The left lateral lobe liver was retracted. The hernia was seen. The crural defect was then dissected using the Harmonic scissors device. A 360 crural dissection was performed the esophagus stomach was reduced back into the peritoneal Cavity. The crural defect was then closed using 2-0 Ethibond suture. Next the fundus of the stomach was mobilized using the Fortescue scissors device. and then a 58- Togolese bougie dilator was placed oropharynx passed into the esophagus and stomach the fundal plication wrap was then performed by grasping the fundus post eriorly and bringing it around the esophagus and stomach fundoplication was then performed using 2-0 Ethibond suture. Care was taken that the fundal location rested over top of the intra-abdominal esophagus. There was no injury seen to the stomach or esophagus. The dilator was then withdrawn. The abdomen was irrigated there is no bleeding seen. The trochars were then withdrawn and then skin incision sites were closed using 3-0 Monocryl suture Steri-Strips are applied. Patient thought procedure well and sent to recovery room in stable condition.
[2022-07-26] MEDS ORDERED: diphenhydrAMINE 50 MG/ML 1 ML VIAL IVP ONE (12:15)
[2022-07-26] MEDS: HYDROmorphone 0.5 MG/0.5 ML SYRINGE IVP PRN ×4 (12:26→15:03)
[2022-07-26] MEDS ORDERED: LACTATED RINGERS 1,000 ML IV ONE ×2 (13:00)
[2022-07-26] MEDS: D5-0.45% NACL WITH KCL 20MEQ/L 1,000 ML IV SCH (16:10)
[2022-07-26] MEDS ORDERED: NICOTINE GUM (POLACRILEX) 2 MG GUM BUCCAL PRN (16:43)
[2022-07-26] MEDS ORDERED: ALBUTEROL NEBULIZED 2.5 MG/3 ML INHALATION PRN (16:45)
--- NOTE | 2022-07-26 17:01 | P.CONS ---
History of Present Illness - Reason for Consult Consult date: 07/26/22 HTN Requesting physician: Mendoza Nguyen - Chief Complaint GERD - History of Present Illness Patient is a 42-year-old female with asthma/COPD, hypertension, chronic jeanette everardo who presented for Maximo fundoplication secondary to long-standing GERD. Patient tolerated procedure well without any immediate postoperative complications. Patient seen and examined at bedside. Excoriation complains of pain in her abdomen, and throughout her chest feels a little outward pressure. She denies any current nausea or vomiting. She states that she was in her typical state of health prior to surgery. She elected against surgery due to her refractory GERD and continued nausea and vomiting. She denies having seen a clothes presser prior to the Maximo fundoplication. Pertinent positives and negatives as discussed in HPI, a complete review of systems was performed and all other systems are negative. Vital signs reviewed General: mild distress due to pain, appears at stated age Derm: warm, dry Head: atraumatic, normocephalic, symmetric Eyes: EOMI, no lid lag, anicteric sclera, pupils equal round reactive to light ENT: Nose and ears atraumatic, no thrush, no pharyngeal erythema Neck: No thyromegaly, no cervical lymphadenopathy, trachea midline, supple Mouth: no lip lesion, mucus membranes moist Cardiovascular: S1S2 reg, no murmur, positive posterior tibial pulse bilateral, no edema, capillary refill less than 2 seconds Lungs: clear to auscultation bilateral, no rhonchi, no rales, no wheeze, no accessory muscle use Abdominal: soft, +tender to palpation diffusely, no guarding, no appreciable organomegaly, normal bowel sounds Ext: no gross muscle atrophy, no contractures Neuro: CN II-XII grossly intact,no focal neuro deficits Psych: Alert, oriented, appropriate affect Assessment/Plan: 42-year-old female status post Maximo fundoplication Postoperative pain GERD - Add Tylenol patient does not believe Dilaudid helped - Get patient up to chair COPD without exacerbation - prn bronchdilators Tobacco dependency - cessation - nicotine replacement HTN - lisinopril and metoprolol - follow BP History of ARDS status post cholecystectomy Thank you for allowing us to participate in the care of this pleasant patient. Do not hesitate to contact us with questions. Someone can be reached from the [facility] hospitalist group all hours of the day at [phone] or via [employer]. Past Medical History Past Medical History: Asthma, COPD, Hypertension Additional Past Medical History / Comment(s): Chronic migraines, ARDS post Cholecysectomy, IRREGULAR HEART BEAT-BENIGN, HIATAL HERNIA History of Any Multi-Drug Resistant Organisms: None Reported Past Surgical History: Section, Cholecystectomy, Orthopedic Surgery, Tubal Ligation Additional Past Surgical History / Comment(s): Left knee meniscus repair x3. Left knee replacement -EGD, Past Anesthesia/Blood Transfusion Reactions: No Reported Reaction Additional Past Anesthesia/Blood Transfusion Reaction / Comm: [facility] [place] per pt Past Psychological History: Anxiety, Bipolar, Depression, PTSD Additional Psychological History / Comment(s): on disabitlity Smoking Status: Current every day smoker Past Alcohol Use History: None Reported Additional Past Alcohol Use History / Comment(s): NO ALCOHOL SINCE JANUARY 2022,. SMOKES 1 PPD SINCE AGE 17 Past Drug Use History: Marijuana Additional Drug Use History / Comment(s): OCCASIONAL MARIJUANA USE-INSTRUCTED TO REFRAIN FROM USE FOR AT LEAST 24 HOURS PRIOR TO PROCEDURE - Past Family History Mother Additional Family Medical History / Comment(s): Mom in 2004 from septic shock when she was 52 years old. Father Family Medical History: Cancer, COPD Additional Family Medical History / Comment(s): Pt. reports her father currently has prostate cancer Medications and Allergies Home Medications Medication Instructions Recorded Confirmed Type rOPINIRole HCL [Requip] 4 mg PO HS 06/24/19 07/26/22 History Erenumab-Aooe [Aimovig 70 mg PO Q30D 12/01/20 07/26/22 History Autoinjector] lisinopriL [Zestril] 10 mg PO DAILY 12/01/20 07/22/22 History QUEtiapine FUMARATE [SEROquel] 600 mg PO HS 07/04/21 07/26/22 History Metoprolol Succinate [Toprol XL] 50 mg PO BID 11/13/21 07/22/22 History SUMAtriptan succinate [Imitrex] 100 mg PO DAILY PRN 11/13/21 07/26/22 History hydrOXYzine pamoate [Vistaril] 25 mg PO TID PRN 11/13/21 07/22/22 History Butalb/Asprin/Caff 50-325-40Mg 1 - 2 cap PO Q4HR PRN 12/05/21 07/26/22 History [Fiorinal 50-325-40 MG] Ondansetron [Zofran] 4 mg PO TID PRN 12/05/21 07/26/22 History Albuterol Inhaler [Ventolin Hfa 2 puff INHALATION RT-QID PRN 07/07/22 07/26/22 History Inhaler] Ferrous Sulfate [Feosol] 325 mg PO DAILY 07/07/22 07/26/22 History Gabapentin 800 mg PO TID 07/22/22 07/26/22 History Allergies Allergy/AdvReac Type Severity Reaction Status Date / Time cefaclor [From Ceclor] Allergy Unknown Verified 07/22/22 09:23 Childhood Penicillins Allergy Unknown Verified 07/22/22 09:23 Childhood pineapple Allergy Rash/Hives Verified 07/22/22 09:23 montelukast [From Singulair] AdvReac irritable Verified 07/22/22 09:23 topiramate [From Topamax] AdvReac Unknown Verified 07/26/22 09:58 Physical Exam Osteopathic Statement: *. No significant issues noted on an osteopathic s tructural exam other than those noted in the History and Physical/Consult. Vitals: Vital Signs Temp Pulse Pulse Resp BP BP BP 07/26/22 15:30 75 16 111/66 07/26/22 15:00 73 18 124/73 07/26/22 14:30 75 18 114/66 07/26/22 14:12 68 14 120/77 07/26/22 14:00 71 16 117/69 07/26/22 13:44 65 16 113/78 07/26/22 13:30 68 16 109/59 07/26/22 13:00 67 14 138/63 07/26/22 12:45 68 18 111/68 07/26/22 12:30 65 16 119/69 07/26/22 12:15 70 18 124/76 07/26/22 11:58 97.8 F 91 16 133/77 07/26/22 09:55 97.6 F 60 16 106/69 Pulse Ox 07/26/22 15:30 95 07/26/22 15:00 94 L 07/26/22 14:30 94 L 07/26/22 14:12 96 07/26/22 14:00 96 07/26/22 13:44 96 07/26/22 13:30 94 L 07/26/22 13:00 96 07/26/22 12:45 96 07/26/22 12:30 98 07/26/22 12:15 97 07/26/22 11:58 97 07/26/22 09:55 95 Intake and Output 07/26/22 07/26/22 07/26/22 06:59 14:59 22:59 Intake Total 1150 700 Output Total 10 Balance 1140 700 Intake: IV 1150 700 Output: Estimated Blood Loss 10 Other: Weight 104.8 kg 104.8 kg
[2022-07-26] MEDS: ACETAMINOPHEN ORAL SUSP (PEDS) 3,840 MG/120 ML BOTTLE PO PRN ×2 (17:27→22:47)
[2022-07-26] MEDS: HYDROmorphone 1 MG/ML 1 ML SYRINGE IVP PRN ×2 (19:23→23:45)
[2022-07-26] MEDS ORDERED: QUEtiapine 200 MG TAB PO SCH (21:00)
[2022-07-26] MEDS ORDERED: rOPINIRole HCL 4 MG TABLET PO SCH (21:00)
[2022-07-26] MEDS: GABAPENTIN 400 MG CAP PO SCH (21:38)
[2022-07-26] MEDS: METOPROLOL SUCCINATE (ER) 50 MG TAB.ER.24H PO SCH (21:39)
[2022-07-27] MEDS: D5-0.45% NACL WITH KCL 20MEQ/L 1,000 ML IV SCH ×2 (03:08→11:33)
[2022-07-27] MEDS: HYDROmorphone 1 MG/ML 1 ML SYRINGE IVP PRN ×2 (06:45→10:19)
[2022-07-27] MEDS ORDERED: HYDROcodone/APAP 5-325MG 1 EACH TAB PO PRN (07:53)
[2022-07-27] MEDS: METOPROLOL SUCCINATE (ER) 50 MG TAB.ER.24H PO SCH (08:13)
[2022-07-27] MEDS: ACETAMINOPHEN ORAL SUSP (PEDS) 3,840 MG/120 ML BOTTLE PO PRN (08:13)
[2022-07-27] MEDS: GABAPENTIN 400 MG CAP PO SCH (08:13)
[2022-07-27 08:41] VITALS: BP 118/79; PULSE 82; RESP 18; TEMP 98.4
[2022-07-27] MEDS ORDERED: ENOXAPARIN 40 MG/0.4 ML SYRINGE SQ SCH (09:00)
[2022-07-27] MEDS ORDERED: NICOTINE 21MG/24HR PATCH TRANSDERM SCH (09:00)
[2022-07-27] MEDS: LACTATED RINGERS 1,000 ML IV SCH (09:03)
--- NOTE | 2022-07-27 11:31 | XR ---
EXAMINATION TYPE: XR chest 1V portable DATE OF EXAM: 07/27/2022 10:41 AM COMPARISON: Chest radiographs from TECHNIQUE: XR chest 1V portable 10/21/2021. CLINICAL INDICATION:Female, 42 years old with history of shortness of breath; FINDINGS: Lungs/Pleura: Bibasilar airspace opacities most pronounced in the right There is no evidence of pleur al effusion, focal consolidation, or pneumothorax. Pulmonary vascularity: Unremarkable. Heart/mediastinum: Cardiomediastinal silhouette is unremarkable. Musculoskeletal: No acute osseous pathology. IMPRESSION: Bibasilar airspace opacities most prominent in the right, Correlate for pneumonia.
[2022-07-27 13:49] VITALS: BMI 35.1
--- NOTE | 2022-07-27 13:50 | P.DS ---
Providers Date of admission: 07/27/22 08:21 Expected date of discharge: 07/27/22 Attending physician: Mendoza Garcia Consults: 07/26/22 11:51 Consult Physician Routine Consulting Provider: Kelle Michaels Consult Reason/Comments: Medical management Do you want consulting provider notified?: Yes Primary care physician: Lobo [facility] Course: Discharge diagnosis 1. GERD status post laparoscopic Maximo fundoplication Hospital course This is a 42-year-old female with a known history of GERD. She is status post laparoscopic Maximo fundoplication. She is tolerating clear liquid diet. Her pain is controlled. She has been up and ambulating. She is having flatus. Patient did have some shortness of breath after walking. She is on room air. Shortness breath has improved. She was seen evaluated by medicine service. Patient did have a chest x-ray completed. Medicine service recommending incentive spirometer and a repeat chest x-ray in 2-[address] garcia ration is stable and cleared for discharge. Patient will be discharged home today. Please refer to chart for any further details. Physician Meter Shop Supervisor note has been reviewed by physician. Signing provider agrees with the documented findings, assessment, and plan of care. Patient Condition at Discharge: Stable Plan - Discharge Summary Discharge Rx Participant: Yes New Discharge Prescriptions: New Ibuprofen [Motrin] 600 mg PO Q8HR PRN #30 tab PRN Reason: Pain oxyCODONE HCL [OxyIR] 5 mg PO Q6H PRN 3 Days #12 tab PRN Reason: Pain Acetaminophen Tab [Tylenol] 1,000 mg PO Q6HR PRN #30 tablet PRN Reason: Pain Continue rOPINIRole HCL [Requip] 4 mg PO HS lisinopriL [Zestril] 10 mg PO DAILY Erenumab-Aooe [Aimovig Autoinjector] 70 mg PO Q30D QUEtiapine FUMARATE [SEROquel] 600 mg PO HS SUMAtriptan succinate [Imitrex] 100 mg PO DAILY PRN PRN Reason: Headache Metoprolol Succinate [Toprol XL] 50 mg PO BID Butalb/Asprin/Caff 50-325-40Mg [Fiorinal 50-325-40 MG] 1 - 2 cap PO Q4HR PRN PRN Reason: Migraine Headache Ondansetron [Zofran] 4 mg PO TID PRN PRN Reason: Nausea Ferrous Sulfate [Iron (65 MG Elemental)] 325 mg PO DAILY Gabapentin 800 mg PO TID hydrOXYzine pamoate [Vistaril] 25 mg PO TID PRN PRN Reason: Anxiety Albuterol Inhaler [Ventolin Hfa Inhaler] 2 puff INHALATION RT-QID PRN PRN Reason: Shortness Of Breath Discharge Medication List rOPINIRole HCL [Requip] 4 mg PO HS 06/24/19 [History] Erenumab-Aooe [Aimovig Autoinjector] 70 mg PO Q30D 12/01/20 [History] lisinopriL [Zestril] 10 mg PO DAILY 12/01/20 [History] QUEtiapine FUMARATE [SEROquel] 600 mg PO HS 07/04/21 [History] Metoprolol Succinate [Toprol XL] 50 mg PO BID 11/13/21 [History] SUMAtriptan succinate [Imitrex] 100 mg PO DAILY PRN 11/13/21 [History] hydrOXYzine pamoate [Vistaril] 25 mg PO TID PRN 11/13/21 [History] Butalb/Asprin/Caff 50-325-40Mg [Fiorinal 50-325-40 MG] 1 - 2 cap PO Q4HR PRN 12/05/21 [History] Ondansetron [Zofran] 4 mg PO TID PRN 12/05/21 [History] Albuterol Inhaler [Ventolin Hfa Inhaler] 2 puff INHALATION RT-QID PRN 07/07/22 [History] Ferrous Sulfate [Iron (65 MG Elemental)] 325 mg PO DAILY 07/07/22 [History] Gabapentin 800 mg PO TID 07/22/22 [History] Acetaminophen Tab [Tylenol] 1,000 mg PO Q6HR PRN #30 tablet 07/27/22 [Rx] Ibuprofen [Motrin] 600 mg PO Q8HR PRN #30 tab 07/27/22 [Rx] oxyCODONE HCL [OxyIR] 5 mg PO Q6H PRN 3 Days #12 tab 07/27/22 [Rx] Follow up Appointment(s)/Referral(s): Bora Diaz MD [REFERRING] - 1-2 Days (Patient needs to call to set up appointment ) Mendoza Garcia MD [STAFF PHYSICIAN] - 08/10/22 1:30 pm Ambulatory/Diagnostic Orders: XR chest 2V [RAD.AMB] Time Frame: 3 Days, Location: None Selected Patient Instructions/Handouts: *Surgery [facility] - (Patrick & Jose J) Lap Maximo Fundiplication Post-Op Instructions, GERD (Gastroesophageal Reflux Disease) (DC) Activity/Diet/Wound Care/Special Instructions: Special Instructions: Recommend repeat CXR in 3-4 DX: Atelectasis Use Incentive spirometer 10 times per hours while awake. No driving while taking OxyIR No lifting over 10 pounds Shower daily. No soaking or tub baths for 2 weeks Very light activity until you are reevaluated at your follow up appointment with your surgeon No straws or carbonated beverages Continue a full liquid diet/soft diet until seen by surgeon Hold lisinopril for SBP less than 120 Discharge Disposition: HOME SELF-CARE
--- NOTE | 2022-07-27 16:03 | P.PN ---
Subjective Progress Note Date: 07/27/22 (seen at 0930) Patient is a 42-year-old female with asthma/COPD, hypertension, chronic migraines who presented for Maximo fundoplication secondary to long-standing GERD. Patient tolerated procedure well without any immediate postoperative complications. Patient seen and examined at bedside. She reports that she was feeling somewhat short of breath yesterday evening. She reports that her O2 sat overnight was down into the 80s. She states that her pain in her anterior chest has moved her upper shoulders. She is still having significant amounts of abdominal pain. Her breathing may be improved. She is somewhat concerned because she has a history of ARDS after cholecystectomy. General: nontoxic, mild distress likely secondary to pain, appears at stated age Derm: warm, dry Head: atraumatic, normocephalic, symmetric Eyes: EOMI, no lid lag, anicteric sclera Mouth: no lip lesion, mucus membranes moist Cardiovascular: S1S2 reg, no murmur, positive posterior tibial pulse bilateral, Lungs: Course breath sounds bilateral , no accessory muscle use Abdominal: soft, tender to palpation diffusely, no guarding, no appreciable organomegaly Ext: no gross muscle atrophy, no edema, no contractures Neuro: CN II-XI grossly intact, no focal neuro deficits Psych: Alert, oriented, appropriate affect Assessment/plan: Hypoxia with hx of ARDS after cholesystectomy surgery -Chest x-ray was ordered and was reviewed. It does show bilateral interstitial infiltrates at the bases. This coupled with her oxygen saturations in the 80s lead me to asked nursing to ambulate the patient and her O2 sat greater than 90%. Patient stable for dsicharge home once respiratory status optimized. - On discharge I recommend that she continue to use incentive spirometer 10 times per hour at home and wrote for her to have a chest x-ray obtained in 3-4 days with results to her primary physician. COPD without exacerbation - prn bronchdilators Tobacco dependency - cessation - nicotine replacement HTN - lisinopril and metoprolol History of ARDS status post cholecystectomy Thank you for allowing us to participate in the care of this pleasant patient. Do not hesitate to contact us with questions. Someone can be reached from the [facility] hospitalist group all hours of the day at [phone] or via perfect serve. Objective - Vital Signs Vital signs: Vital Signs Temp 98.4 F 07/27/22 08:00 Pulse 82 07/27/22 08:00 Resp 18 07/27/22 08:00 BP 118/79 07/27/22 08:00 Pulse Ox 93 L 07/27/22 08:00 FiO2 Intake & Output 07/26/22 07/27/22 07/27/22 18:59 06:59 18:59 Intake Total 1968 1500 Output Total 10 Balance 1957 1499 Weight 104.8 kg 104.8 kg Intake: IV 1850 Intake, IV Titration 1500 Amount D5-0.45% NaCl with KCl 1500 20Meq/l 1,000 ml @ 125 mls/hr IV .Q8H ANSLEY Rx#: [id number] Oral 118 Output: Estimated Blood Loss 10 Other: Voiding Method Toilet # Voids 1 3 # Bowel Movements 0
== END 2022-07-27 14:39 | disposition home or self-care (01) ==
LOC: OR 08:47 → 4SSUR 11:58 → OR 07-27 08:21 → 4SSUR 07-27 08:21
PROVIDERS: ADMIT Surgery; ATTEND Surgery
DX: K21.00 Gastro-esophageal reflux disease with esophagitis, without bleeding (principal); J45.909 Unspecified asthma, uncomplicated; J44.9 Chronic obstructive pulmonary disease, unspecified; I10 Essential (primary) hypertension; G43.909 Migraine, unspecified, not intractable, without status migrainosus; Z90.49 Acquired absence of other specified parts of digestive tract; K44.9 Diaphragmatic hernia without obstruction or gangrene; Z98.891 History of uterine scar from previous surgery; Z87.09 Personal history of other diseases of the respiratory system; Z98.51 Tubal ligation status; Z98.890 Other specified postprocedural states; Z96.652 Presence of left artificial knee joint; F41.9 Anxiety disorder, unspecified; F31.9 Bipolar disorder, unspecified; F43.10 Post-traumatic stress disorder, unspecified; F17.210 Nicotine dependence, cigarettes, uncomplicated; Z83.1 Family history of other infectious and parasitic diseases; R10.9 Unspecified abdominal pain; R06.02 Shortness of breath; M25.512 Pain in left shoulder; M25.511 Pain in right shoulder; Z82.5 Family history of asthma and other chronic lower respiratory diseases; Z80.42 Family history of malignant neoplasm of prostate; Z79.899 Other long term (current) drug therapy; Z88.1 Allergy status to other antibiotic agents; Z88.0 Allergy status to penicillin; Z88.8 Allergy status to other drugs, medicaments and biological substances; Z91.018 Allergy to other foods; R91.8 Other nonspecific abnormal finding of lung field
CPT/HCPCS: 43280; 81025; 71045; G0378; S4990; J2250; J1200; J1100; J0690; J2405; J1650; J1170 ×3; J1644

== ENCOUNTER 2022-08-03 13:45 | Emergency (ER) | payer MEDICARE, OTHER ==
[2022-08-03 14:55] VITALS: TEMP 98.3
--- NOTE | 2022-08-03 15:30 | XR ---
EXAMINATION TYPE: XR chest 2V DATE OF EXAM: 08/03/2022 COMPARISON: 07/27/2022 HISTORY: Difficulty in breathing TECHNIQUE: Frontal and lateral views of the chest are obtained. FINDINGS: There is no focal air space opacity. No evidence for pneumothorax. No pleural effusion. The cardiac silhouette size is within normal limits. The osseous structures are grossly intact. IMPRESSION: 1. No acute cardiopulmonary process.
--- NOTE | 2022-08-03 15:32 | XR ---
EXAMINATION TYPE: XR abdomen 2V DATE OF EXAM: 08/03/2022 COMPARISON: NONE HISTORY: Pain TECHNIQUE: Single supine KUB image of the abdomen is obtained FINDINGS: Small bowel demonstrates no evidence for dilatation or air fluid levels. Gas and fecal material is seen in non-distended colon. No convincing evidence for pneumoperitoneum. No unusual calcifications. The lung bases are clear. The osseous structures are intact. IMPRESSION: 1. Overall nonobstructive bowel gas pattern.
[2022-08-03 15:47] LABS: Appearance,Urine Cloudy (Clear); Bilirubin,Urine Negative (Negative); Blood,Urine Negative (Negative); Color,Urine Yellow; Glucose,Urine (UA) Negative (Negative); Hyaline Casts,Urine 1 /lpf (0-2); Ketones,Urine Negative (Negative); Leukocyte Esterase,Urine Trace (Negative); Mucus,Urine Rare /hpf; Nitrite,Urine Negative (Negative); PH, Urine 6.5 (5.0-8.0); Protein,Urine Negative (Negative); RBC,Urine 4 /hpf (0-5); Specific Gravity,Urine 1.017 (1.001-1.035); Squamous Epithelial Cell,Urine 7 /hpf (0-4); Urobilinogen,Urine <2.0 mg/dL (<2.0); WBC,Urine 2 /hpf (0-5)
[2022-08-03 16:29] LABS: ALT 14 U/L (4-34); AST 20 U/L (14-36); African American GFR (CKD) >90 (>60 ml/min/1.73 sqM); Albumin 4.4 g/dL (3.5-5.0); Alkaline Phosphatase 96 U/L (38-126); Anion Gap 10 mmol/L; Basophils # (A) 0.1 k/uL (0-0.2); Basophils % (A) 0 %; Blood Urea Nitrogen 9 mg/dL (7-17); Calcium 9.3 mg/dL (8.4-10.2); Carbon Dioxide 22 mmol/L (22-30); Chloride 105 mmol/L (98-107); Eosinophils # (A) 0.4 k/uL (0-0.7); Eosinophils % (A) 3 %; Glucose 80 mg/dL (74-99); HCT 42.7 % (34.0-46.0); HGB 14.1 gm/dL (11.4-16.0); Lymphocytes # (A) 2.6 k/uL (1.0-4.8); Lymphocytes % (A) 23 %; MCH 31.2 pg (25.0-35.0); MCHC 33.1 g/dL (31.0-37.0); MCV 94.3 fL (80.0-100.0); Mean Platelet Volume 8.8; Monocytes # (A) 0.3 k/uL (0-1.0); Monocytes % (A) 3 %; Neutrophils # (A) 7.5 k/uL (1.3-7.7); Neutrophils % (A) 68 %; Non-African American GFR(CKD) >90 (>60 ml/min/1.73 sqM); Platelet Count 280 k/uL (150-450); Potassium 4.4 mmol/L (3.5-5.1); RBC 4.53 m/uL (3.80-5.40); RDW 12.7 % (11.5-15.5); Sodium 137 mmol/L (137-145); Total Bilirubin 0.4 mg/dL (0.2-1.3); Total Protein 6.9 g/dL (6.3-8.2); WBC 11.1 k/uL (3.8-10.6)
[2022-08-03 16:46] LABS: Partial Thromboplastin Time 24.4 sec (22.0-30.0); Prothrombin Time 11.2 sec (9.0-12.0)
[2022-08-03] MEDS ORDERED: MORPHINE SULFATE 2 MG/ML SYRINGE IVP STA (17:49)
--- NOTE | 2022-08-03 18:39 | ED ---
General Adult HPI - General Chief complaint: Shortness of Breath Stated complaint: Coughing up blood clots Time Seen by Provider: 08/03/22 17:35 Source: patient, RN notes reviewed, old records reviewed Mode of arrival: ambulatory Limitations: no limitations - History of Present Illness Initial comments: Patient is a 42-year-old female with past medical history remarkable for recent Niesen fundoplication with Dr. Nguyen, asthma, atrial fibrillation not on blood thinners who presents here to department over concern for coughing up possible blood. States she thinks she had 2 episodes of hematemesis this morning. Describes it as mucus with bright red blood in it. Is pretty certain she coughed it up that she has been coughing and that her asthma was flaring up. States her breathing has improved. Has not had any further episodes of coughing up blood. However she did call be surgeon's office who instructed her to come in for further evaluation. She has been tolerating oral intake. She currently denies any shortness of breath. She currently denies any chest pain. She denies any blood in her stool. Has had some mild abdominal pain since the surgery. This is under control. No other acute complaints. Workup was started in triage prior to me evaluating the patient. Denies any fevers, chills, sick contacts. His no other acute complaints at this time. No history of blood clots. - Related Data Home Medications Medication Instructions Recorded Confirmed rOPINIRole HCL [Requip] 4 mg PO HS 06/24/19 07/26/22 Erenumab-Aooe [Aimovig 70 mg PO Q30D 12/01/20 07/26/22 Autoinjector] lisinopriL [Zestril] 10 mg PO DAILY 12/01/20 07/22/22 QUEtiapine FUMARATE [SEROquel] 600 mg PO HS 07/04/21 07/26/22 Metoprolol Succinate [Toprol XL] 50 mg PO BID 11/13/21 07/22/22 SUMAtriptan succinate [Imitrex] 100 mg PO DAILY PRN 11/13/21 07/26/22 hydrOXYzine pamoate [Vistaril] 25 mg PO TID PRN 11/13/21 07/22/22 Butalb/Asprin/Caff 50-325-40Mg 1 - 2 cap PO Q4HR PRN 12/05/21 07/26/22 [Fiorinal 50-325-40 MG] Ondansetron [Zofran] 4 mg PO TID PRN 12/05/21 07/26/22 Albuterol Inhaler [Ventolin Hfa 2 puff INHALATION RT-QID PRN 07/07/22 07/26/22 Inhaler] Ferrous Sulfate [Iron (65 MG 325 mg PO DAILY 07/07/22 07/26/22 Elemental)] Gabapentin 800 mg PO TID 07/22/22 07/26/22 Previous Rx's Medication Instructions Recorded Acetaminophen Tab [Tylenol] 1,000 mg PO Q6HR PRN #30 tablet 07/27/22 Ibuprofen [Motrin] 600 mg PO Q8HR PRN #30 tab 07/27/22 oxyCODONE HCL [OxyIR] 5 mg PO Q6H PRN 3 Days #12 tab 07/27/22 Allergies Allergy/AdvReac Type Severity Reaction Status Date / Time cefaclor [From Ceclor] Allergy Unknown Verified 08/03/22 14:54 Childhood Penicillins Allergy Unknown Verified 08/03/22 14:54 Childhood pineapple Allergy Rash/Hives Verified 08/03/22 14:54 montelukast [From Singulair] AdvReac irritable Verified 08/03/22 14:54 topiramate [From Topamax] AdvReac Unknown Verified 08/03/22 14:54 Review of Systems ROS Statement: Those systems with pertinent positive or pertinent negative responses have been documented in the HPI. Review of Systems: CONST: Denies fever EYES: Denies blurry vision ENT: Denies nasal congestion C/V: Denies Chest pain RESP: Denies shortness of breath GI: Denies abdominal pain : Denies dysuria SKIN: Denies rash. MSK: Denies joint pain. NEURO: Denies headache ROS Other: All systems not noted in ROS Statement are negative. Past Medical History Past Medical History: Atrial Fibrillation, Asthma, COPD, Hypertension, Pneumonia, Thyroid Disorder Additional Past Medical History / Comment(s): Chronic migraines, ARDS post Cholecysectomy History of Any Multi-Drug Resistant Organisms: None Reported Past Surgical History: Section, Cholecystectomy, Orthopedic Surgery Additional Past Surgical History / Comment(s): Left knee meniscus repair x3. Left knee replacement -Left Past Anesthesia/Blood Transfusion Reactions: No Reported Reaction Additional Past Anesthesia/Blood Transfusion Reaction / Comment(s): [place]ds post [place] per pt Past Psychological History: Anxiety, Bipolar, Depression, PTSD Smoking Status: Former smoker, Vaper Past Alcohol Use History: Occasional Past Drug Use History: Marijuana - Past Family History Mother Additional Family Medical History / Comment(s): Mom in 2004 from septic shock when she was 52 years old. Father Family Medical History: Cancer, COPD Additional Family Medical History / Comment(s): Pt. reports her father currently has prostate cancer General Exam - General Exam Comments Initial Comments: General: Appears in no acute distress. HEAD: Normal with no signs of head trauma. EYES: PERRLA, EOMI, conjunctiva normal, no discharge. ENT: Hearing grossly intact, normal oropharynx. RESPIRATORY: Clear breath sounds bilaterally. No wheezes, rales, or rhonchi. No respiratory distress. No hypoxia. C/V: Regular rate and rhythm. S1 and S2 auscultated, no edema, peripheral pulses 2+ and intact throughout ABD: Abd is soft, nontender, nondistended. Surgical sites appear noninfected. Healing well. EXT: Normal range of motion, no obvious deformity SKIN: No rashes or lesions observed on exposed skin. NEURO: Alert and oriented 4. Limitations: no limitations Course Vital Signs 08/03/22 08/03/22 08/03/22 14:49 18:51 19:49 Temperature 98.3 F Pulse Rate 85 85 89 Respiratory 20 16 16 Rate Blood Pressure 104/69 117/85 108/63 O2 Sat by Pulse 100 100 100 Oximetry Medical Decision Making - Medical Decision Making Based on the patient's presentation and physical exam, I am concerned for possible surgical abnormality causing the bleeding. Does appear she had a hemoptysis and cannot rule out PE in the setting of recent surgery. She currently has no acute complaints at this time other than postsurgical pain. Vital signs are within normal limits. No respiratory distress. Workup was started in triage. EKG showed no signs of acute ischemia. Chest x-ray showed no acute cardio pulmonary process. Abdominal x-ray revealed no acute intra-abdominal process. Laboratory studies were remarkable for mild leukocytosis of 11.1 which is likely reactive. D-dimer was elevated to 5.04. Troponin undetectable. Urinalysis unremarkable. No other findings on laboratory studies. Vital signs remained within normal limits. Due to the elevated d-dimer I did recommend that we obtain CT imaging of the chest rule out PE. We will also obtain CT imaging of the abdomen and pelvis to evaluate the surgical site for any gross abnormalities. She was in agreement this plan. She'll be sent medically treated and IV will be placed at this time and she was placed in room. CT PE was negative for pulmonary embolism. No pulmonary findings. CT abdomen and pelvis reveals prior surgery. There is fatty infiltration of the liver which is improved. Possible diarrhea present. No other acute findings. I did discuss the imaging and findings with the patient's surgeon, Dr. Nguyen was in agreement with follow-up outpatient the office. Patient is due to follow up next week. I discussed this with the patient was in agreement this plan. Symptoms are improved at this time. I believe it is safer to be discharged home with strict return precautions. She was in agreement with this plan. Is tolerating oral intake. Vitals remain wnl. I instructed the patient to follow up with their PCP in the next 1-3 days. I explained that the patient should return to the emergency department if they experience any worsening symptoms. Strict return precautions were discussed with the patient. The patient expressed understanding of these instructions. I answered all questions that the patient had. The patient was discharged home in good condition with their prescriptions and follow up information. - Lab Data Result diagrams: 08/03/22 15:37 08/03/22 15:37 Lab Results 08/03/22 08/03/22 08/03/22 Range/Units 14:59 15:37 15:37 WBC 11.1 H (3.8-10.6) k/uL RBC 4.53 (3.80-5.40) m/uL Hgb 14.1 (11.4-16.0) gm/dL Hct 42.7 (34.0-46.0) % MCV 94.3 (80.0-100.0) fL MCH 31.2 (25.0-35.0) pg MCHC 33.1 (31.0-37.0) g/dL RDW 12.7 (11.5-15.5) % Plt Count 280 (150-450) k/uL MPV 8.8 Neutrophils % 68 % Lymphocytes % 23 % Monocytes % 3 % Eosinophils % 3 % Basophils % 0 % Neutrophils # 7.5 (1.3-7.7) k/uL Lymphocytes # 2.6 (1.0-4.8) k/uL Monocytes # 0.3 (0-1.0) k/uL Eosinophils # 0.4 (0-0.7) k/uL Basophils # 0.1 (0-0.2) k/uL PT 11.2 (9.0-12.0) sec INR 1.0 (<1.2) APTT 24.4 (22.0-30.0) sec D-Dimer 5.04 H (<0.60) mg/L FEU Sodium (137-145) mmol/L Potassium (3.5-5.1) mmol/L Chloride (98-107) mmol/L Carbon Dioxide (22-30) mmol/L Anion Gap mmol/L BUN (7-17) mg/dL Creatinine (0.52-1.04) mg/dL Est GFR (CKD-EPI)AfAm (>60 ml/min/1.73 sqM) Est GFR (CKD-EPI)NonAf (>60 ml/min/1.73 sqM) Glucose (74-99) mg/dL Calcium (8.4-10.2) mg/dL Total Bilirubin (0.2-1.3) mg/dL AST (14-36) U/L ALT (4-34) U/L Alkaline Phosphatase (38-126) U/L Troponin I (0.000-0.034) ng/mL Total Protein (6.3-8.2) g/dL Albumin (3.5-5.0) g/dL Urine Color Yellow Urine Appearance Cloudy H (Clear) Urine pH 6.5 (5.0-8.0) Ur Specific [place] 1.017 (1.001-1.035) Urine Protein Negative (Negative) Urine Glucose (UA) Negative (Negative) Urine Ketones Negative (Negative) Urine Blood Negative (Negative) Urine Nitrite Negative (Negative) Urine Bilirubin Negative (Negative) Urine Urobilinogen <2.0 (<2.0) mg/dL Ur Leukocyte Esterase Trace H (Negative) Urine RBC 4 (0-5) /hpf Urine WBC 2 (0-5) /hpf Ur Squamous Epith Cells 7 H (0-4) /hpf Hyaline Casts 1 (0-2) /lpf Urine Mucus Rare H (None) /hpf 08/03/22 08/03/22 Range/Units 15:37 15:37 WBC (3.8-10.6) k/uL RBC (3.80-5.40) m/uL Hgb (11.4-16.0) gm/dL Hct (34.0-46.0) % MCV (80.0-100.0) fL MCH (25.0-35.0) pg MCHC (31.0-37.0) g/dL RDW (11.5-15.5) % Plt Count (150-450) k/uL MPV Neutrophils % % Lymphocytes % % Monocytes % % Eosinophils % % Basophils % % Neutrophils # (1.3-7.7) k/uL Lymphocytes # (1.0-4.8) k/uL Monocytes # (0-1.0) k/uL Eosinophils # (0-0.7) k/uL Basophils # (0-0.2) k/uL PT (9.0-12.0) sec INR (<1.2) APTT (22.0-30.0) sec D-Dimer (<0.60) mg/L FEU Sodium 137 (137-145) mmol/L Potassium 4.4 (3.5-5.1) mmol/L Chloride 105 (98-107) mmol/L Carbon Dioxide 22 (22-30) mmol/L Anion Gap 10 mmol/L BUN 9 (7-17) mg/dL Creatinine 0.72 (0.52-1.04) mg/dL Est GFR (CKD-EPI)AfAm >90 (>60 ml/min/1.73 sqM) Est GFR (CKD-EPI)NonAf >90 (>60 ml/min/1.73 sqM) Glucose 80 (74-99) mg/dL Calcium 9.3 (8.4-10.2) mg/dL Total Bilirubin 0.4 (0.2-1.3) mg/dL AST 20 (14-36) U/L ALT 14 (4-34) U/L Alkaline Phosphatase 96 (38-126) U/L Troponin I <0.012 (0.000-0.034) ng/mL Total Protein 6.9 (6.3-8.2) g/dL Albumin 4.4 (3.5-5.0) g/dL Urine Color Urine Appearance (Clear) Urine pH (5.0-8.0) Ur Specific [place] (1.001-1.035) Urine Protein (Negative) Urine Glucose (UA) (Negative) Urine Ketones (Negative) Urine Blood (Negative) Urine Nitrite (Negative) Urine Bilirubin (Negative) Urine Urobilinogen (<2.0) mg/dL Ur Leukocyte Esterase (Negative) Urine RBC (0-5) /hpf Urine WBC (0-5) /hpf Ur Squamous Epith Cells (0-4) /hpf Hyaline Casts (0-2) /lpf Urine Mucus (None) /hpf - EKG Data -: EKG Interpreted by Me EKG Comments: 12-lead Electrocardiogram Interpretation Note EKG was reviewed and interpreted by myself. 12-lead ECG performed at 1537 is interpreted by me as revealing normal sinus rhythm at a rate of 84 beats per minute. [place] is normal. MI interval is 156 ms, QRS duration is 99 ms, QTc is 402 ms.. There were no ST or T wave abnormalities to suggest myocardial ischemia or injury. R wave progression across the precordium was satisfactory. By my interpretation this EKG is non-diagnostic for acute ischemia. Disposition Clinical Impression: Cough, Hemoptysis Disposition: HOME SELF-CARE Condition: Good Instructions (If sedation given, give patient instructions): Coughing Up Blood (Hemoptysis) (ED) Is patient prescribed a controlled substance at d/c from ED?: No Referrals: Ross Garcia MD [Primary Care Provider] - 1-2 days Time of Disposition: 20:00
[2022-08-03 19:24] VITALS: RESP 16
--- NOTE | 2022-08-03 19:37 | CT ---
EXAMINATION TYPE: CT abdomen pelvis w con DATE OF EXAM: 08/03/2022 COMPARISON: 06/24/2019 HISTORY: recent sherita fundo. pt states shes been vominting and coughed up blood today CT DLP: 2212.2 mGycm Automated exposure control for dose reduction was used. CONTRAST: Performed with IV Contrast, patient injected with mL of Isovue 370. Images obtained from the diaphragm to the floor of the pelvis with the IV contrast. The lung bases are clear of consolidation. No pleural effusion. Heart size is normal. No pericardial effusion. There are surgical clips at the gastric fundus. Liver and spleen are intact. The bile ducts are not dilated. There are clips from cholecystectomy. There is no pancreatic mass. There is no adrenal mass. Kidneys show satisfactory contrast opacification. No hydronephrosis. Ureter s are not dilated. No retroperitoneal adenopathy. The bladder distends smoothly. No inguinal hernia. No free fluid in the pelvis. No pelvic mass. Appendix is posterior and appears normal. The uterus is anteverted. There is no mesenteric edema. No ascites or free air. No sign of a bowel obstruction. There is large bowel fluid down to the rectum. The lumbar spine is intact. No compression fracture. There is T11-12 degenerative spur formation. The bony pelvis is intact. The hip joints are intact. IMPRESSION: Previous surgery. There is clearing of the fatty infiltration of the liver compared to old exam. Ther e is clearing of the retroperitoneal fluid and apparent pancreatitis compared to old exams there is l arge bowel fluid down to the rectum that could relate to diarrhea. No bowel obstruction.
--- NOTE | 2022-08-03 19:41 | CT ---
EXAMINATION TYPE: CT chest angio for PE DATE OF EXAM: 08/03/2022 COMPARISON: 03/19/2020 HISTORY: recent sherita fundo. pt states shes been vominting and coughed up blood today. elevated D-DI leroy CT DLP: 2212.2 mGycm Automated exposure control for dose reduction was used. CONTRAST: Performed with IV Contrast, patient injected with 100 mL of Isovue 370. There are Three-D postprocessed images. There is mild subsegmental atelectasis in the posterior lung kelly. No pulmonary mass. No pulmonary consolidation. No mediastinal adenopathy. There are no hilar masses. There is normal contrast opacifi cation of the pulmonary arteries. No filling defect. The thoracic aorta is intact. Aneurysm The thoracic spine is intact. There is T11-12 degenerative spurring and disc space narrowing. There i s mild narrowing of the spinal canal T11-12. No focal bone destruction. Sternum is intact. IMPRESSION: No evidence of pulmonary embolism. Mild subsegmental atelectasis. No suspicious pulmonary mass.
[2022-08-03 19:51] VITALS: BP 108/63; PULSE 89
== END 2022-08-03 20:29 | disposition home or self-care (01) ==
LOC: EC 13:45
DX: R04.2 Hemoptysis (principal); I48.91 Unspecified atrial fibrillation; I10 Essential (primary) hypertension; J44.9 Chronic obstructive pulmonary disease, unspecified; E07.9 Disorder of thyroid, unspecified; F31.9 Bipolar disorder, unspecified; F41.9 Anxiety disorder, unspecified; Z87.891 Personal history of nicotine dependence; F12.90 Cannabis use, unspecified, uncomplicated; Z88.0 Allergy status to penicillin; Z88.1 Allergy status to other antibiotic agents; Z91.018 Allergy to other foods; Z88.8 Allergy status to other drugs, medicaments and biological substances; Z79.51 Long term (current) use of inhaled steroids; Z79.899 Other long term (current) drug therapy
CPT/HCPCS: 99285 ×2; 96374 ×2; 36415; 93005; 85379; 80053; 84484; 85025; 85610; 85730; 81001; 71046; 74019; 71275; 74177; J2270; Q9967

== ENCOUNTER → 2023-02-01 | Outpatient (CLI) | payer MEDICARE, OTHER ==
--- NOTE | 2023-02-01 14:02 | US ---
EXAMINATION TYPE: US thyroid st tissue head/neck DATE OF EXAM: 02/01/2023 COMPARISON: Thyroid ultrasound July 06, 2022 CLINICAL HISTORY: R22.1 Localized swelling, mass and lump, neck. lump left neck GLAND SIZE: Right Lobe: 6.0 x 2.1 x 2.0 cm Overall Parenchyma: heterogenous Left Lobe: 3.4 x .8 x 1.4 cm Overall Parenchyma: heterogeneous Isthmus Thickness: .4 cm NODULES RIGHT: # of nodules measured on right: 1 1. 1.3 x 1.0 x 1.1 cm mid , Calcified, hyperechoic nodule, which is wider than tall, with smooth ma rgins, without echogenic foci. Prior size: 1.3 x 1.0 x 1.1 cm LEFT: # of nodules measured on left: 0 ISTHMUS: # of nodules measured in the isthmus: 0 Bilateral neck scanned, no evidence of lymphadenopathy. Heterogeneous thyroid with asymmetric right thyroid enlargement is redemonstrated. There is stable 1. 3 cm rim calcified right thyroid nodule. IMPRESSION: As above. No new greater than 1.0 cm solid nodules are seen.
== END | disposition home or self-care (01) ==
LOC: RADUSWWP 13:23
PROVIDERS: ATTEND Surgery
DX: E04.2 Nontoxic multinodular goiter (principal); R22.1 Localized swelling, mass and lump, neck
CPT/HCPCS: 76536

== ENCOUNTER → 2023-03-23 | Outpatient (CLI) | payer MEDICARE, OTHER ==
--- NOTE | 2023-03-23 12:30 | MM ---
Reason for Exam: Clinical finding. Baseline mammogram. Indicated Problems: Lump or thickening of the right side (size 5) for 2 Month(s). Patient History: Menarche at age 18. First Full-Term at age 25. Patient has history of breast feeding. Last menstrual period: 02/25/2023 Risk Values: Filomena 5 year model risk: 0.5%. NCI Lifetime model risk: 8.3%. Prior Study Comparison: Patient's first Mammogram. Tissue Density: The breast tissue is heterogeneously dense. This may lower the sensitivity of mammography. Findings: Analyzed By CAD. Palpable abnormality associated with a asymmetry measuring 10 mm in the lateral aspect 7.2 cm from nipple on CC view. On MLO view the palpable marker is 5.6 cm from the nipple. No suspicious calcifications distortions or masses in the left breast. Overall Assessment: Incomplete: need additional imaging evaluation, BI-RAD 0 Management: Diagnostic Breast Ultrasound of the right breast. Results were given to the patient verbally at the time of exam. Patient should continue monthly self-breast exams. A clinical breast exam by your physician is recommended on an annual basis. This exam should not preclude additional follow-up of suspicious palpable abnormalities. Note on Filomena scores and lifetime risk: 1. A Filomena score greater than 3% is considered moderate risk. If this is the case, consider specialist referral to assess eligibility for a risk reducing agent. 2. If overall lifetime risk for the development of breast cancer is 20% or higher, the patient may qualify for future screening with alternating mammogram and breast MRI. Electronically signed and approved by: Los Zaidi DO
--- NOTE | 2023-03-23 12:37 | USB ---
Reason for Exam: Clinical finding. Patient History: Menarche at age 18. First Full-Term at age 25. Patient has history of breast feeding. Risk Values: Filomena 5 year model risk: 0.5%. NCI Lifetime model risk: 8.3%. Technique: Method: Targeted. Findings: The area of palpable concern of the right breast, the axilla of the right breast and the retroareolar of the right breast were scanned. Imaged: Ultrasound imaging of: Area of concern, retroareolar region and axilla. No evidence for organizing fluid collection or mass. Overall Assessment: Negative, BI-RAD 1 Management: Screening Mammogram of both breasts in 1 year. A clinical breast exam by your physician is recommended on an annual basis and results should be correlated with mammographic findings. This exam should not preclude additional follow-up of suspicious palpable abnormalities. Results were given to the patient verbally at the time of exam. Electronically signed and approved by: Los Zaidi DO
== END | disposition home or self-care (01) ==
LOC: RADMAMWWP 10:57
PROVIDERS: ATTEND Obstetrics & Gynecology
DX: N63.10 Unspecified lump in the right breast, unspecified quadrant (principal)
CPT/HCPCS: 77062; 77066

== ENCOUNTER → 2023-06-30 | Outpatient (CLI) | payer MEDICARE, OTHER ==
--- NOTE | 2023-06-30 14:26 | CT ---
EXAMINATION TYPE: CT right knee - [facility] Protocol CT DLP: 598 mGycm, Automated exposure control for dose reduction was used. DATE OF EXAM: 06/30/2023 2:04 PM COMPARISON: . Extremity radiograph same day. 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 Additional c oronal and sagittal reformatted images and soft tissue and bone window were obtained for review. Imag ing included both hips and ankles as well. FINDINGS: No dislocation. No significant soft tissue swelling. Moderate to large suprapatellar joint effusion o f the right knee. Osteonecrosis involving the medial femoral condyle with additional regions involvin g the posterior aspect of the lateral femoral condyle and medial tibial plateau. Large 2.6 cm osteoch ondral defect involving the posterior aspect of the medial femoral condyle with multiple osseous frag ments identified extending into the joint space. Largest osseous fragment measures up to 6 mm (series 10, image 39). Both hips and ankles appear intact. IMPRESSION: Imaging for surgical planning purposes. Osteonecrosis involving the bilateral femoral condyles and medial tibial plateau. This is most promin ent involving the medial femoral condyle with large osteochondral defect and osseous fragments within the joint space. There is associated moderate to large suprapatellar joint effusion.
== END | disposition home or self-care (01) ==
LOC: RADCTMAIN 13:23
PROVIDERS: ATTEND Orthopaedic Surgery
DX: M87.08 Idiopathic aseptic necrosis of bone, other site (principal); M25.462 Effusion, left knee; M87.052 Idiopathic aseptic necrosis of left femur; M87.051 Idiopathic aseptic necrosis of right femur

== ENCOUNTER 2023-08-05 08:42 | Observation (INO) | payer MEDICARE, OTHER ==
[2023-08-04 15:32] VITALS: BMI 25.4
[~2023-08-05 08:42] MED LIST changes: +DEXAMETHASONE SOD PHOSPHATE 10 MG/ML 1 ML VIAL IV PRN; -DEXAMETHASONE SOD PHOSPHATE 4 MG/ML 1 ML VIAL IV ONE; +DOCUSATE 100 MG CAP PO PRN; +FAMOTIDINE 20 MG/2 ML VIAL IVP PRN; -HEPARIN SODIUM,PORCINE/PF 5,000 UNIT/0.5 ML SYRINGE SQ PRN; +HYDROmorphone 0.5 MG/0.5 ML SYRINGE IVP PRN; +KETOROLAC 15 MG/ML 1 ML VIAL IVP PRN; -ONDANSETRON 4 MG/2 ML VIAL IVP ONE; +ONDANSETRON 4 MG/2 ML VIAL IVP PRN; +ROPIVACAINE/EPI/CLONIDINE/KET 50 ML SYRINGE MISCELLANE PRN; +TRANEXAMIC 1,000 MG/100ML-NACL 1,000 MG in SALINE 1 100ML.BAG IV PRN; +TRANEXAMIC 1,000 MG/100ML-NACL 1,000 MG in SALINE 1 100ML.BAG IVPB PRN; +fentaNYL (PF) 50 MCG/ML 2 ML AMP IVP PRN; +oxyCODONE ER 10 MG TAB.ER.12H PO PRN
[2023-08-05] MEDS: LACTATED RINGERS 1,000 ML IV SCH ×2 (09:55→15:07)
[2023-08-05] MEDS ORDERED: MIDAZOLAM 2 MG/2 ML VIAL IVP ONE (10:09)
[2023-08-05] MEDS ORDERED: ROPIVACAINE 5 MG/ML 30 ML VIAL ONE (10:55)
[2023-08-05] MEDS ORDERED: TRANEXAMIC 1,000 MG/100ML-NACL PREMIX BAG ONE (10:55)
[2023-08-05] MEDS ORDERED: KETAMINE HCL IN 0.9 % NACL 50 MG/5 ML SYRINGE ONE (10:55)
[2023-08-05] MEDS ORDERED: DEXAMETHASONE SOD PHOSPHATE 4 MG/ML 1 ML VIAL ONE (10:55)
[2023-08-05] MEDS ORDERED: PROPOFOL 10 MG/ML 20 ML VIAL IV ONE (10:55)
[2023-08-05] MEDS ORDERED: LIDOCAINE 2% INJ 20 MG/ML (2 ML VIAL) ONE (10:55)
[2023-08-05] MEDS ORDERED: MIDAZOLAM 2 MG/2 ML VIAL ONE (10:55)
[2023-08-05] MEDS ORDERED: LACTATED RINGERS 1,000 ML IV ONE (13:08)
[2023-08-05] MEDS ORDERED: NALOXONE 0.4 MG/ML 1 ML VIAL IV PRN ×2 (13:25→13:28)
[2023-08-05] MEDS ORDERED: hydrOXYzine pamoate 25 MG CAP PO PRN (13:25)
--- NOTE | 2023-08-05 13:25 | P.OP ---
Date of Procedure: 08/05/23 Preoperative Diagnosis: 1. Severe right knee osteoarthritis with large cavitary defect in the medial femoral condyle 2. 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 Chronic opioid addiction 4. Asthma Postoperative Diagnosis: Right total knee arthroplasty Procedure(s) Performed: 1. Right total knee arthroplasty 2. Computer assisted musculoskeletal navigation using CT/MRI images Implants: 1. Pawan Triathlon CR Femur Size #4 2. Tucker Triathlon [place] Tibial Base Size #3 3. Pawan Triathlon CS poly Size #3, 9-mm 4. Pawan Triathlon all poly patella, Size #29 Anesthesia: regional, local, spinal Surgeon: Shane Saldaña Marketing Senior Recruiter #1: Rema Small Estimated Blood Loss (ml): 100 IV fluids (ml): 100 Pathology: other (Distal femur sent for pathology) Condition: stable Disposition: PACU Indications for Procedure: I had a long discussion with the patient on treatment of her symptomatic right knee pain. She had x-rays and an MRI which showed a large, unstable osteo chondral defect in the distal femur as well as diffuse arthritic changes and bone infarcts in the distal femur and proximal tibia. Given the severity of the cystic defect and diffuse arthritic changes I did not think that any joint sparing procedures would help her. My recommendation was total knee replacement given the diffuse nature of her arthritic changes and the large cystic changes in her medial femoral condyle. I also recommended cemented fixation due to the cystic lesion and areas of bone infarct. The patient understands the limitations in a total knee replacement given her age particularly the possibility of wear and/or aseptic loosening requiring a revision. She also understands that she may have issues with pain given her history of chronic pain and opioid dependence. I met with the patient preoperatively in the office setting and discussed treatment of their symptomatic knee arthritis. They failed a long course of nonsurgical treatment and elected to proceed with an elective total knee replacement. I discussed the potential risks and complications at length and gave them ample time to ask questions. Risks discussed included: risks from anesthesia, superficial site surgical infection, acute and/or chronic periprosthetic joint infection, delayed wound healing, drainage, wound necrosis, instability, stiffness, stiffness requiring manipulation and/or revision s urgery, damage to local blood vessels or nerves, aseptic loosening of the implants, extensor mechanism issues including disruption, patellar maltracking, avascular necrosis etc., continued or worsened knee pain, generalized dissatisfaction with surgical outcome, need for revision surgery, an inability to regain preinjury level of function, DVT, PE, other medical complications, and possibly loss of life or limb. The patient voiced their understanding that while these are the most common complications other less common complications are possible. They provided both their verbal and written consent to go forward with surgery. Operative Findings: Severe arthritic changes with a large cavitary defect in the posteromedial femoral condyle. Full-thickness cartilage loss on both the medial and lateral facet of the patella which in my opinion necessitated resurfacing. Description of Procedure: The patient was identified in preoperative holding and the correct operative extremity was verified and marked with a marker. I reviewed the consent form with the patient at length. All of their questions were answered. The patient was given a block by anesthesia. They were then brought back to the operating room. They were transferred onto the operating room table where a general anesthetic, preoperative antibiotics, and tranexamic acid were administered by anesthesia. A tourniquet was applied to the proximal aspect of the operative extremity. The contralateral extremity was padded under the heel and secured to the operating room table with a nonsterile blue towel and tape. The ipsilateral arm was carefully draped across the patient's chest and secured with a pillow and foam. A post was applied over the lateral aspect of the ipsilateral thigh and a bolster was placed under the ipsilateral foot. I verified that the operative extremity was stable and the knee was flexed to 90. The operative extremity was then placed in a leg ochoa, nonsterile drapes were applied, and the extremity was prepped and draped sterilely in the standard sterile fashion. Prior to starting surgery timeout was performed identifying the correct patient, operative extremity, and procedure. The leg was then elevated, exsanguinated with an Esmarch bandage, and the tourniquet was inflated. An anterior midline incision was made sharply with a scalpel. Once I had dissected deep to the superficial fascial layer medial and lateral flaps were elevated. A medial parapatellar arthrotomy was created. Upon opening the knee joint there were diffuse arthritic changes in all 3 compartments. The anterior horn of the medial meniscus were sharply released and a medial release was performed around the posterior medial corner of the knee to facilitate retractor placement. The fat pad was excised with electrocautery. The patella was found to be severely arthritic and a provisional cut was made with a sagittal saw to facilitate mobilization of the extensor mechanism during the procedure. Remnants of the ACL and PCL were then excised from the notch. 4 mm pins were then placed within the incision in the medial distal femur and proximal tibia. Arrays were applied to the pins and I verified they were completely tightened. The knee was then registered with the AcceloWeb robot and manipulations in implant position were made to balance the knee and opitmize implant position. Using the Charlie robotic saw all cuts were made in accordance with our plan. After all bony fragments had been removed the cuts were verified with the planar probe. The tibia was then subluxed forward and sized. The knee was brought into flexion and a lamina doughnut machine operator helper was placed to allow removal of the meniscal remnants both medially and laterally as well as posterior osteophytes. Local anesthetic was then infiltrated around the joint capsule. Trial implants were then placed within the knee. Range of motion and collateral ligament tension was then evaluated. Adjustments in implant size and position were then made accordingly. Once the knee was felt to be appropriately balanced the Charlie pins were removed. The patella was then recut, sized, and punched. A trial patellar button was then placed. With the trial components in place, the patella tracked midline. The femur was then drilled and the trial component removed. The trial tibial component was then appropriately rotated, pinned, and prepared for the keel. All trial components were then removed from the knee. The knee was thoroughly irrigated with pulsatile lavage. Cement was prepared via vacuum mixing in a bowl on the back table. I then hand pressurized cement into the femur and tibia and placed the implants beginning with the tibial base tray and poly liner, femoral component, and finally the patellar button. All extruded cement was removed including from the pin sites. Once the cement had hardened the knee was evaluated one final time with the final polyethylene liner in place. The knee had full extension and flexion and felt stable to varus and valgus stress throughout the arc of motion. The tourniquet was released and with the tourniquet down the patella tracked midline. All bleeders were controlled with electrocautery. The knee was then soaked for 3 minutes with a dilute Betadine soak. The knee was thoroughly irrigated using 3 L of sterile saline and pulsat ile lavage. The extensor mechanism was then reapproximated using pop off Vicryl sutures followed by a running barbed suture. The knee was then closed in layers with a 0 strata fix for the deep fascial layer, 2-0 strata fix for the superficial subcutaneous layer and Monocryl and Steri-Strips for the skin. A sterile dressing was applied. I verified that all instrument, sponge, and sharp counts were correct. The patient was then transferred off the operating room table, extubated, and brought to recovery having tolerated the procedure well. Rema Small PA-C was required as a skilled nutrition assistant due to the complexity of the procedure for patient positioning, draping, retraction, placement of hardware, and closure of wound. PLAN: The patient can weight-bear as tolerated on the operative extremity. DVT prophylaxis with aspirin 81 mg twice a day based on preoperative risk stratification. Given the patient's history of chronic pain and opioid dependence we will order her a MOLD STAMPER and high-dose oral pain medications. We will also consult the pain service for assistance while she is an inpatient. Her pain doctor will resume pain management on postoperative day #8. Follow-up in the office in 2 weeks for wound check and x-rays of the knee including an AP and lateral.
--- NOTE | 2023-08-05 13:53 | XR ---
EXAMINATION TYPE: XR knee limited RT DATE OF EXAM: 08/05/2023 COMPARISON: NONE TECHNIQUE: Two views submitted HISTORY: Post op FINDINGS: There is a prosthetic knee in near anatomic alignment. There is soft tissue edema and soft tissue e mphysema\air. IMPRESSION: 1. Postoperative change. Appears in near-anatomic alignment
[2023-08-05] MEDS: HYDROmorphone PCA 10 MG/50 ML BAG IV PRN (14:58)
[2023-08-05] MEDS ORDERED: ALBUTEROL NEBULIZED 2.5 MG/3 ML INHALATION PRN (15:34)
[2023-08-05] MEDS: NICOTINE 21MG/24HR PATCH TRANSDERM SCH (15:56)
[2023-08-05] MEDS: GABAPENTIN 400 MG CAP PO SCH ×2 (15:56→21:04)
[2023-08-05] MEDS: NON FORMULARY DRUG (Cariprazine Hcl [Vraylar] 1.5 MG Capsule) PO SCH ×2 (19:42→21:06)
[2023-08-05] MEDS: SENNOSIDES-DOCUSATE SODIUM 1 EACH TAB PO SCH (21:04)
[2023-08-05] MEDS: ASPIRIN 81 MG PO SCH (21:04)
[2023-08-05] MEDS: oxyCODONE-APAP 10-325MG 1 EACH TAB PO PRN (23:30)
[2023-08-06] MEDS: LACTATED RINGERS 1,000 ML IV SCH ×4 (00:19→20:02)
[2023-08-06] MEDS: oxyCODONE-APAP 10-325MG 1 EACH TAB PO PRN ×3 (05:19→16:23)
[2023-08-06] MEDS: ONDANSETRON 4 MG/2 ML VIAL IVP PRN ×2 (05:28→21:13)
[2023-08-06] MEDS ORDERED: oxyCODONE-APAP 10-325MG 1 EACH TAB PO PRN (06:36)
[2023-08-06] MEDS: diazePAM 5 MG TAB PO PRN ×2 (06:37→23:43)
--- NOTE | 2023-08-06 07:03 | P.PN ---
Subjective Progress Note Date: 08/06/23 Patient was seen and evaluated at bedside this morning. Initially following surgery she was doing well with minimal pain and been up and walking. After her nerve block and local has started to wear off she's become increasingly painful in the knee. This morning she is complaining of pain mostly behind the knee. She has no other complaints. Objective - Vital Signs Vital signs: Vital Signs Temp 98.1 F 08/06/23 01:37 Pulse 103 H 08/06/23 01:37 Resp 18 08/06/23 01:37 BP 98/64 08/06/23 01:37 Pulse Ox 96 08/06/23 01:37 FiO2 Intake & Output 08/05/23 08/06/23 08/06/23 18:59 06:59 18:59 Intake Total 1830 Output Total 100 Balance 1730 Weight 75.4 kg Intake: IV 1350 Oral 480 Output: Estimated Blood Loss 100 Other: # Voids 2 - Exam The patient is alert and able to answer questions. She is in mild distress secondary to pain. A focused exam of the right lower extremity was conducted. On inspection there is a clean and intact dressing over the anterior aspect of the knee. There is mild swelling. The thigh and calf are soft. Motor and sensory function are intact in the right foot. Her foot is warm and well perfused with palpable pulses. Assessment and Plan Assessment: Postoperative day #1 status post right total knee arthroplasty Chronic pain on opioids prior to surgery Plan: 1. Weight-bear as tolerated right lower extremity, up with assistance and a walker 2. DVT prophylaxis with aspirin 81 mg twice a day 3. Physical therapy 4. Pain control - her main issue is going to be pain control. She has a history of chronic pain and is on high doses of pain medications at baseline. 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 We have increased the frequency of her Percocet to every 4 hours and have added Toradol. The pain service has been consulted, but I'm not sure if they are available on weekends. If they're available we discussed placing an indwelling catheter. The patient understands she is going to have pain and that we will work her best to make her comfortable while keeping her safe 5. Disposition: The patient is going to stay at least another night and possibly to Tuesday for pain control.
[2023-08-06] MEDS ORDERED: HYDROcodone/APAP 10-325MG 1 EACH TAB PO PRN ×2 (07:34)
[2023-08-06 07:53] LABS: Basophils % (A) 0 %; Eosinophils # (A) 0.1 k/uL (0-0.7); Eosinophils % (A) 1 %; HCT 35.7 % (34.0-46.0); HGB 11.5 gm/dL (11.4-16.0); Lymphocytes # (A) 3.1 k/uL (1.0-4.8); Lymphocytes % (A) 24 %; MCH 31.3 pg (25.0-35.0); MCHC 32.1 g/dL (31.0-37.0); MCV 97.4 fL (80.0-100.0); Mean Platelet Volume 8.7; Monocytes # (A) 0.6 k/uL (0-1.0); Monocytes % (A) 4 %; Neutrophils % (A) 69 %; Platelet Count 250 k/uL (150-450); RBC 3.67 m/uL (3.80-5.40); RDW 12.7 % (11.5-15.5); WBC 13.1 k/uL (3.8-10.6)
[2023-08-06 08:14] LABS: African American GFR (CKD) >90 (>60 ml/min/1.73 sqM); Anion Gap 9 mmol/L; Blood Urea Nitrogen 15 mg/dL (7-17); Calcium 8.7 mg/dL (8.4-10.2); Carbon Dioxide 25 mmol/L (22-30); Chloride 103 mmol/L (98-107); Glucose 112 mg/dL (74-99); Non-African American GFR(CKD) >90 (>60 ml/min/1.73 sqM); Potassium 4.3 mmol/L (3.5-5.1); Sodium 137 mmol/L (137-145)
[2023-08-06] MEDS: CITALOPRAM HYDROBROMIDE 20 MG TAB PO SCH (09:06)
[2023-08-06] MEDS: oxyCODONE ER 10 MG TAB.ER.12H PO SCH ×2 (09:06→20:43)
[2023-08-06] MEDS: METOPROLOL SUCCINATE (ER) 50 MG TAB.ER.24H PO SCH (09:06)
[2023-08-06] MEDS: ASPIRIN 81 MG PO SCH ×2 (09:06→20:44)
[2023-08-06] MEDS: GABAPENTIN 400 MG CAP PO SCH ×3 (09:06→21:12)
[2023-08-06] MEDS: NICOTINE 21MG/24HR PATCH TRANSDERM SCH (09:07)
[2023-08-06] MEDS: SYMBICORT 80-4.5 MCG INHALER INHALATION SCH ×2 (09:41→22:34)
[2023-08-06] MEDS: IPRATROPIUM 0.5 MG/2.5 ML NEBU INHALATION SCH ×4 (09:41→22:34)
[2023-08-06] MEDS: KETOROLAC 15 MG/ML 1 ML VIAL IVP SCH ×3 (12:29→23:43)
--- NOTE | 2023-08-06 13:49 | P.CONS ---
History of Present Illness - Reason for Consult Consult date: 08/05/23 Medical management - Chief Complaint Severe right knee pain - History of Present Illness 43-year-old female patient with history of severe right knee osteoarthritis with large cavitary defect in the medial femoral condyle, right knee bone infarcts distal femur and proximal tibia, history of asthma, chronic opioid use, admitted to the hospital after patient failed out patient treatment of her symptomatic right knee pain. She had x-rays and an MRI which showed a large, unstable osteochondral defect in the distal femur as well as diffuse arthritic changes and bone infarcts in the distal femur and proximal tibia. Given the severity of the cystic defect and diffuse arthritic changes Orthopedic recommendation was total knee replacement given the diffuse nature of her arthritic changes and the large cystic changes in her medial femoral condyle and cemented fixation due to the cystic lesion and areas of bone infarct. Patient is status post right total knee arthroplasty; POD # 0 Review of Systems REVIEW OF SYSTEMS: CONSTITUTIONAL: No fever, no malaise, no fatigue. HEENT: No recent visual problems or hearing problems. Denied any sore throat. CARDIOVASCULAR: No chest pain, orthopnea, PND, no palpitations, no syncope. PULMONARY: No shortness of breath, no cough, no hemoptysis. GASTROINTESTINAL: No diarrhea, no nausea, no vomiting, no abdominal pain. NEUROLOGICAL: No headaches, no weakness, no numbness. HEMATOLOGICAL: Denies any bleeding or petechiae. GENITOURINARY: Denies any burning micturition, frequency, or urgency. MUSCULOSKELETAL/RHEUMATOLOGICAL: Severe right knee joint pain, swelling and muscle pain. ENDOCRINE: Denies any polyuria or polydipsia. The rest of the 14-point review of systems is negative. Past Medical History Past Medical History: Atrial Fibrillation, Asthma, COPD, Hypertension, Pneumonia Additional Past Medical History / Comment(s): Chronic migraines, ARDS post [place], pancreatitis History of Any Multi-Drug Resistant Organisms: None Reported Past Surgical History: Section, Cholecystectomy, Joint Replacement, Orthopedic Surgery Additional Past Surgical History / Comment(s): Left knee meniscus repair x3. Left knee replacement Past Anesthesia/Blood Transfusion Reactions: No Reported Reaction Additional Past Anesthesia/Blood Transfusion Reaction / Comm: Ards post [place] per pt Smoking Status: Vaper - Past Family History Mother Additional Family Medical History / Comment(s): Mom in 2004 from septic shock when she was 54 years old. Father Family Medical History: Cancer, COPD Additional Family Medical History / Comment(s): Pt. reports her father currently has prostate cancer Medications and Allergies Home Medications Medication Instructions Recorded Confirmed Type Erenumab-Aooe [Aimovig 70 mg PO Q30D 12/01/20 08/05/23 History Autoinjector] Metoprolol Succinate [Toprol XL] 50 mg PO DAILY 11/13/21 08/05/23 History SUMAtriptan succinate [Imitrex] 100 mg PO DAILY PRN 11/13/21 08/05/23 History hydrOXYzine pamoate [Vistaril] 25 mg PO TID PRN 11/13/21 08/05/23 History Butalb/Asprin/Caff 50-325-40Mg 1 - 2 cap PO Q4HR PRN 12/05/21 08/05/23 History [Fiorinal 50-325-40 MG] Ondansetron [Zofran] 4 mg PO TID PRN 12/05/21 08/05/23 History Albuterol Inhaler [Ventolin Hfa 2 puff INHALATION RT-QID PRN 07/07/22 08/05/23 History Inhaler] Gabapentin 800 mg PO TID 07/22/22 08/05/23 History Acetaminophen Tab [Tylenol] 1,000 mg PO Q6HR PRN #30 tablet 07/27/22 08/05/23 Rx Buprenorphine HCl/Naloxone HCl 1 - 2 film SL DAILY 08/04/23 08/05/23 History [Suboxone 8 mg-2 mg Sl Film] Cariprazine HCl [Vraylar] 1.5 mg PO HS 08/04/23 08/05/23 History Celecoxib [CeleBREX] 100 mg PO BID 08/04/23 08/05/23 History Citalopram Hydrobromide [CeleXA] 40 mg PO DAILY 08/04/23 08/05/23 History Cyclobenzaprine [Flexeril] 10 mg PO BID 08/04/23 08/05/23 History Fluticasone/Umeclidin/Vilanter 1 puff INHALATION DAILY 08/04/23 08/05/23 History [Trelegy Ellipta 200-62.5-25] Aspirin 81 mg PO BID 30 Days #60 tab 08/05/23 Rx Celecoxib [CeleBREX] 100 mg PO BID 30 Days #60 cap 08/05/23 Rx Docusate [Colace] 100 mg PO BID #60 capsule 08/05/23 Rx Omeprazole 40 mg PO DAILY 30 Days #30 cap 08/05/23 Rx oxyCODONE HCL/ACETAMINOPHEN 1 tab PO Q6HR PRN 7 Days #30 tab 08/05/23 Rx [Percocet 10-325 mg] Allergies Allergy/AdvReac Type Severity Reaction Status Date / Time cefaclor [From Ceclor] Allergy Unknown Verified 08/05/23 09:11 Childhood Penicillins Allergy Unknown Verified 08/05/23 09:11 Childhood pineapple Allergy Rash/Hives Verified 08/05/23 09:11 montelukast [From Singulair] AdvReac irritable Verified 08/05/23 09:11 topiramate [From Topamax] AdvReac Unknown Verified 08/05/23 09:11 Physical Exam Vitals: Vital Signs Temp Pulse Resp BP Pulse Ox 08/05/23 14:15 82 12 114/69 95 08/05/23 14:00 80 12 111/70 95 08/05/23 13:45 79 12 104/71 95 08/05/23 13:30 84 12 100/72 99 08/05/23 13:17 97 F L 87 12 117/60 99 08/05/23 09:53 97.1 F L 82 16 110/71 99 Intake and Output 08/05/23 08/05/23 08/05/23 06:59 14:59 22:59 Intake Total 1350 Output Total 100 Balance 1250 Intake: IV 1350 Output: Estimated Blood Loss 100 Other: Weight 75.4 kg PHYSICAL EXAMINATION: GENERAL: The patient is alert and oriented x3, not in any acute distress. Well developed, well nourished. HEENT: Pupils are round and equally reacting to light. EOMI. No scleral icterus. No conjunctival pallor. Normocephalic, atraumatic. No pharyngeal erythema. No thyromegaly. CARDIOVASCULAR: S1 and S2 present. No murmurs, rubs, or gallops. PULMONARY: Chest is clear to auscultation, no wheezing or crackles. ABDOMEN: Soft, nontender, nondistended, normoactive bowel sounds. No palpable organomegaly. MUSCULOSKELETAL: No joint swelling or deformity. EXTREMITIES: No cyanosis, clubbing, or pedal edema. NEUROLOGICAL: Gross neurological examination did not reveal any focal deficits. SKIN: No rashes. Results CBC & Chem 7: 08/06/23 07:10 08/06/23 07:10 Assessment and Plan Assessment: 1. Severe right knee osteoarthritis with large cavitary defect in the medial femoral condyle 2. Right knee bone infarcts, distal femur and proximal tibia 3. Chronic opioid use 4. History of asthma/COPD 5. Hypertension -- Patient had x-rays and an MRI which showed a large, unstable osteochondral defect in the distal femur as well as diffuse arthritic changes and bone infarcts in the distal femur and proximal tibia. Given the severity of the cystic defect and diffuse arthritic changes Orthopedic recommendation was total knee replacement given the diffuse nature of her arthritic changes and the large cystic changes in her medial femoral condyle and cemented fixation due to the cystic lesion and areas of bone infarct. 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
--- NOTE | 2023-08-06 20:16 | P.PN ---
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 She had x-rays and an MRI which showed a large, unstable osteochondral defect in the distal femur as well as diffuse arthritic changes and bone infarcts in the distal femur and proximal tibia. Given the severity of the cystic defect and diffuse arthritic changes Orthopedic recommendation was total knee replacement given the diffuse nature of her arthritic changes and the large cystic changes in her medial femoral condyle and cemented fixation due to the cystic lesion and areas of bone infarct. Patient is status post right total knee arthroplasty; POD # 1 --- doing well with minimal pain and been up and walking. After her nerve block and local has started to wear off she's become increasingly painful in the knee. This morning she is complaining of pain mostly behind the knee. She has no other complaints. Objective - Vital Signs Vital signs: Vital Signs Temp 98.1 F 08/06/23 01:37 Pulse 103 H 08/06/23 01:37 Resp 18 08/06/23 01:37 BP 98/64 08/06/23 01:37 Pulse Ox 96 08/06/23 01:37 FiO2 Intake & Output 08/05/23 08/06/23 08/06/23 18:59 06:59 18:59 Intake Total 1830 Output Total 100 Balance 1730 Weight 75.4 kg Intake: IV 1350 Oral 480 Output: Estimated Blood Loss 100 Other: # Voids 2 - Exam GENERAL: The patient is alert and oriented x3, not in any acute distress. Well developed, well nourished. HEENT: Pupils are round and equally reacting to light. EOMI. No scleral icterus. No conjunctival pallor. Normocephalic, atraumatic. No pharyngeal erythema. No thyromegaly. CARDIOVASCULAR: S1 and S2 present. No murmurs, rubs, or gallops. PULMONARY: Chest is clear to auscultation, no wheezing or crackles. ABDOMEN: Soft, nontender, nondistended, normoactive bowel sounds. No palpable organomegaly. MUSCULOSKELETAL: No joint swelling or deformity. EXTREMITIES: No cyanosis, clubbing, or pedal edema. NEUROLOGICAL: Gross neurological examination did not reveal any focal deficits. SKIN: No rashes. - Labs CBC & Chem 7: 08/06/23 07:10 08/06/23 07:10 Labs: Abnormal Lab Results - Last 24 Hours (Table) 08/06/23 Range/Units 07:10 WBC 13.1 H (3.8-10.6) k/uL RBC 3.67 L (3.80-5.40) m/uL Neutrophils # 9.0 H (1.3-7.7) k/uL Assessment and Plan Assessment: 1. Severe right knee osteoarthritis with large cavitary defect in the medial femoral condyle 2. Right knee bone infarcts, distal femur and proximal tibia 3. Chronic opioid use 4. History of asthma/COPD 5. Hypertension -- Patient had x-rays and an MRI which showed a large, unstable osteochondral defect in the distal femur as well as diffuse arthritic changes and bone infarcts in the distal femur and proximal tibia. Given the severity of the cystic defect and diffuse arthritic changes Orthopedic recommendation was total knee replacement given the diffuse nature of her arthritic changes and the large cystic changes in her medial femoral condyle and cemented fixation due to the cystic lesion and areas of bone infarct. Patient is status post right total knee arthroplasty; POD # 0is status post --Patient can be weightbearing as tolerated right lower extremity; orthopedic surgery recommending DVT prophylaxis at 81 mg aspirin daily -- Patient is currently on DATA ENTRY PROCESSOR and high dose oral pain medications; primary service managing pain -- We'll continue with home dose of metoprolol 50 mg daily; Neurontin 800 mg 3 times a day; continue with home inhaler therapy - Patient remains on Celexa and Vraylar 1.5 mg daily at bedtime DVT prophylaxis; aspirin 81 mg daily CODE STATUS; full code
[2023-08-06] MEDS: HYDROmorphone PCA 10 MG/50 ML BAG IV PRN (20:30)
[2023-08-06] MEDS: SENNOSIDES-DOCUSATE SODIUM 1 EACH TAB PO SCH (20:43)
[2023-08-06] MEDS: NON FORMULARY DRUG (Cariprazine Hcl [Vraylar] 1.5 MG Capsule) PO SCH (20:44)
[2023-08-07] MEDS: LACTATED RINGERS 1,000 ML IV SCH ×3 (03:47→18:01)
[2023-08-07] MEDS: oxyCODONE-APAP 10-325MG 1 EACH TAB PO PRN ×4 (05:59→22:53)
[2023-08-07] MEDS: KETOROLAC 15 MG/ML 1 ML VIAL IVP SCH ×4 (06:00→23:27)
[2023-08-07] MEDS: ASPIRIN 81 MG PO SCH ×2 (07:07→20:41)
[2023-08-07] MEDS: CITALOPRAM HYDROBROMIDE 20 MG TAB PO SCH (07:07)
[2023-08-07] MEDS: NICOTINE 21MG/24HR PATCH TRANSDERM SCH (07:07)
[2023-08-07] MEDS: METOPROLOL SUCCINATE (ER) 50 MG TAB.ER.24H PO SCH (07:12)
[2023-08-07] MEDS: GABAPENTIN 400 MG CAP PO SCH ×3 (07:12→21:46)
[2023-08-07] MEDS: IPRATROPIUM 0.5 MG/2.5 ML NEBU INHALATION SCH ×4 (08:13→19:14)
[2023-08-07] MEDS: SYMBICORT 80-4.5 MCG INHALER INHALATION SCH ×2 (08:13→19:14)
[2023-08-07] MEDS: diazePAM 5 MG TAB PO PRN ×2 (08:35→18:02)
[2023-08-07] MEDS: oxyCODONE ER 10 MG TAB.ER.12H PO SCH ×2 (09:33→20:41)
[2023-08-07 12:53] LABS: Basophils % (A) 0 %; Eosinophils # (A) 0.2 k/uL (0-0.7); Eosinophils % (A) 2 %; HCT 31.7 % (34.0-46.0); HGB 10.7 gm/dL (11.4-16.0); Lymphocytes # (A) 2.4 k/uL (1.0-4.8); Lymphocytes % (A) 30 %; MCH 32.3 pg (25.0-35.0); MCHC 33.7 g/dL (31.0-37.0); MCV 95.6 fL (80.0-100.0); Mean Platelet Volume 8.6; Monocytes # (A) 0.4 k/uL (0-1.0); Monocytes % (A) 5 %; Neutrophils # (A) 4.9 k/uL (1.3-7.7); Neutrophils % (A) 61 %; Platelet Count 233 k/uL (150-450); RBC 3.32 m/uL (3.80-5.40); RDW 12.5 % (11.5-15.5)
[2023-08-07 13:06] LABS: African American GFR (CKD) >90 (>60 ml/min/1.73 sqM); Anion Gap 7 mmol/L; Blood Urea Nitrogen 11 mg/dL (7-17); Calcium 8.5 mg/dL (8.4-10.2); Carbon Dioxide 26 mmol/L (22-30); Chloride 104 mmol/L (98-107); Glucose 161 mg/dL (74-99); Non-African American GFR(CKD) >90 (>60 ml/min/1.73 sqM); Potassium 4.3 mmol/L (3.5-5.1); Sodium 137 mmol/L (137-145)
--- NOTE | 2023-08-07 14:54 | P.PN ---
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 She had x-rays and an MRI which showed a large, unstable osteochondral defect in the distal femur as well as diffuse arthritic changes and bone infarcts in the distal femur and proximal tibia. Given the severity of the cystic defect and diffuse arthritic changes Orthopedic recommendation was total knee replacement given the diffuse nature of her arthritic changes and the large cystic changes in her medial femoral condyle and cemented fixation due to the cystic lesion and areas of bone infarct. Patient is status post right total knee arthroplasty; POD # 1 --- doing well with minimal pain and been up and walking. After her nerve block and local has started to wear off she's become increasingly painful in the knee. This morning she is complaining of pain mostly behind the knee. She has no other complaints. 08/07/2023 Patient seen and evaluated in room at bedside; appears to be comfortable; reports fair pain control; patient reports no bowel movement for 5-6 days; claims she has to take laxative and a suppository to get the most of the time Vital signs are reviewed and stable; patient is afebrile Lab review shows WBC of 8.0 which is down from 13.1 yesterday, hemoglobin 10.7 and platelet count of 233, sodium 137, potassium 4.3, BUN/creatinine of 11/0.45 -- Patient is status post right total knee arthroplasty POD #2; orthopedic surgery recommending weightbearing as tolerated to right lower extremity and upper with assistance and walker; patient remains on DVT prophylaxis with aspirin -- PT to evaluate and make recommendations Objective - Vital Signs Vital signs: Vital Signs Temp 98.6 F 08/07/23 07:23 Pulse 85 08/07/23 07:23 Resp 17 08/07/23 07:23 BP 135/87 08/07/23 07:23 Pulse Ox 100 08/07/23 08:12 FiO2 Intake & Output 08/06/23 08/07/23 08/07/23 18:59 06:59 18:59 Other: Voiding Method Toilet # Voids 1 3 - Exam GENERAL: The patient is alert and oriented x3, not in any acute distress. Well developed, well nourished. HEENT: Pupils are round and equally reacting to light. EOMI. No scleral icterus. No conjunctival pallor. Normocephalic, atraumatic. No pharyngeal erythema. No thyromegaly. CARDIOVASCULAR: S1 and S2 present. No murmurs, rubs, or gallops. PULMONARY: Chest is clear to auscultation, no wheezing or crackles. ABDOMEN: Soft, nontender, nondistended, normoactive bowel sounds. No palpable organomegaly. MUSCULOSKELETAL: No joint swelling or deformity. EXTREMITIES: No cyanosis, clubbing, or pedal edema. NEUROLOGICAL: Gross neurological examination did not reveal any focal deficits. SKIN: No rashes. - Labs CBC & Chem 7: 08/07/23 12:21 08/07/23 12:21 Assessment and Plan Assessment: 1. Severe right knee osteoarthritis with large cavitary defect in the medial femoral condyle 2. Right knee bone infarcts, distal femur and proximal tibia 3. Chronic opioid use 4. History of asthma/COPD 5. Hypertension -- Patient had x-rays and an MRI which showed a large, unstable osteochondral defect in the distal femur as well as diffuse arthritic changes and bone infarcts in the distal femur and proximal tibia. Given the severity of the cystic defect and diffuse arthritic changes Orthopedic recommendation was total knee replacement given the diffuse nature of her arthritic changes and the large cystic changes in her medial femoral condyle and cemented fixation due to the cystic lesion and areas of bone infarct. Patient is status post right total knee arthroplasty; POD # 0is status post --Patient can be weightbearing as tolerated right lower extremity; orthopedic surgery recommending DVT prophylaxis at 81 mg aspirin daily -- Patient is currently on ADMINISTRATIVE LIBRARY ASSISTANT and high dose oral pain medications; primary service managing pain -- We'll continue with home dose of metoprolol 50 mg daily; Neurontin 800 mg 3 times a day; continue with home inhaler therapy - Patient remains on Celexa and Vraylar 1.5 mg daily at bedtime DVT prophylaxis; aspirin 81 mg daily CODE STATUS; full code
--- NOTE | 2023-08-07 17:49 | P.ANPRN ---
Procedure Note - Anesthesia - Nerve Block Performed Right Adductor Canal Single Time Out Performed: Yes Date of Procedure: 08/05/23 Procedure Start Time: 10:08 Procedure Stop Time: 10:15 Location of Patient: PreOp Indication: Acute Post-Operative Pain, Requested by Surgeon Sedation Type: Sedate with meaningful contact maintained Preparation: Sterile Prep Position: Supine Needle Types: Pajunk Needle Gauge: 21 Ultrasound used to visualize needle placement: Yes Ultrasound used to observe medication spread: Yes Blood Aspirated: No Pain Paresthesia on Injection Noted: No Resistance on Injection: Normal Image Stored and Saved: Yes Events: Uneventful and Well Tolerated (Ropivacaine 0.5% plus dexamethasone 4 mg)
--- NOTE | 2023-08-07 17:50 | P.ANPRN ---
Procedure Note - Anesthesia - Nerve Block Performed Right Danielck Single Time Out Performed: Yes Date of Procedure: 08/05/23 Procedure Start Time: 10:13 Procedure Stop Time: 10:15 Location of Patient: PreOp Indication: Acute Post-Operative Pain, Requested by Surgeon Sedation Type: Sedate with meaningful contact maintained Preparation: Sterile Prep Position: Supine Needle Types: Pajunk Needle Gauge: 21 Ultrasound used to visualize needle placement: Yes Ultrasound used to observe medication spread: Yes Blood Aspirated: No Pain Paresthesia on Injection Noted: No Resistance on Injection: Normal Image Stored and Saved: Yes Events: Uneventful and Well Tolerated (Ropivacaine 0.5% 25 mL plus dexamethasone 4 mg)
--- NOTE | 2023-08-07 19:01 | P.PN ---
Subjective Progress Note Date: 08/07/23 Principal diagnosis: Right TKA Patient is seen at bedside this morning. She is postop day #2 from right total knee arthroplasty. She has pain at the surgical site as expected but denies any new complaints. She denies numbness, tingling or calf pain. Review of systems is negative for fever, chills, chest pain, shortness of breath or other Objective - Vital Signs Vital signs: Vital Signs Temp 98.6 F 08/07/23 07:23 Pulse 85 08/07/23 07:23 Resp 17 08/07/23 07:23 BP 135/87 08/07/23 07:23 Pulse Ox 100 08/07/23 08:12 FiO2 Intake & Output 08/06/23 08/07/23 08/07/23 18:59 06:59 18:59 Other: Voiding Method Toilet # Voids 1 3 - Exam Inspection reveals a benign surgical wound. There is no active bleeding or drainage. Neurovascular status is intact throughout the lower extremity with motor and sensation fully intact. Calf is soft and nontender. 2+ dorsalis pedis pulse and less than 2 second cap refill is present. - Constitutional General appearance: Present: no acute distress - Labs CBC & Chem 7: 08/07/23 12:21 08/07/23 12:21 Assessment and Plan (1) Osteoarthritis of right knee Narrative/Plan: She will continue with routine postop orthopedic protocol including pain managem ent, wound care, PT, DVT prophylaxis and medical management. Expect that she will transfer to home tomorrow Current Visit: Yes Status: Acute Priority: Medium Code(s): M17.11 - UNILATERAL PRIMARY OSTEOARTHRITIS, RIGHT KNEE SNOMED Code(s): 011409749470830 Time with Patient: Less than 30
[2023-08-07] MEDS: SENNOSIDES-DOCUSATE SODIUM 1 EACH TAB PO SCH (20:41)
[2023-08-07] MEDS: NON FORMULARY DRUG (Cariprazine Hcl [Vraylar] 1.5 MG Capsule) PO SCH (20:43)
[2023-08-08 02:53] VITALS: RESP 17
[2023-08-08] MEDS: LACTATED RINGERS 1,000 ML IV SCH ×2 (03:10→05:07)
[2023-08-08] MEDS: KETOROLAC 15 MG/ML 1 ML VIAL IVP SCH ×2 (05:52→11:47)
[2023-08-08] MEDS: diazePAM 5 MG TAB PO PRN (05:54)
[2023-08-08] MEDS: oxyCODONE-APAP 10-325MG 1 EACH TAB PO PRN ×2 (06:17→11:52)
[2023-08-08] MEDS: SYMBICORT 80-4.5 MCG INHALER INHALATION SCH (07:44)
[2023-08-08] MEDS: IPRATROPIUM 0.5 MG/2.5 ML NEBU INHALATION SCH ×2 (07:44→13:13)
[2023-08-08] MEDS: GABAPENTIN 400 MG CAP PO SCH (08:35)
[2023-08-08] MEDS: METOPROLOL SUCCINATE (ER) 50 MG TAB.ER.24H PO SCH (08:35)
[2023-08-08] MEDS: CITALOPRAM HYDROBROMIDE 20 MG TAB PO SCH (08:35)
[2023-08-08] MEDS: ASPIRIN 81 MG PO SCH (08:35)
[2023-08-08] MEDS: oxyCODONE ER 10 MG TAB.ER.12H PO SCH (08:35)
[2023-08-08] MEDS: NICOTINE 21MG/24HR PATCH TRANSDERM SCH (08:40)
[2023-08-08 08:57] LABS: HCT 31.7 % (37.2-46.3); HGB 10.4 d/dL (12.0-15.0); MCHC 32.8 d/dL (32.0-37.0); MCV 94.3 FL (80.0-97.0); Mean Platelet Volume 10.8 FL (9.5-12.2); NRBC Per 100 WBC 0 X 10*3/uL (0.00-0.01); Platelet Count 254 X 10*3/uL (140-440); RBC 3.36 X 10*6/uL (4.10-5.20); RDW 12.4 % (11.5-14.5); WBC 7.06 X 10*3/uL (4.50-10.00)
[2023-08-08 08:58] LABS: Basophils # (A) 0.03 X 10*3/uL (0.00-0.10); Basophils % (A) 0.4 %; Eosinophils # (A) 0.23 X 10*3/uL (0.04-0.35); Eosinophils % (A) 3.3 %; Lymphocytes # (A) 2.68 X 10*3/uL (0.90-5.00); Monocytes # (A) 0.58 X 10*3/uL (0.20-1.00); Monocytes % (A) 8.2 %; Neutrophils # (A) 3.52 X 10*3/uL (1.80-7.70); Neutrophils % (A) 49.8 %
[2023-08-08 10:19] LABS: Blood Urea Nitrogen 10.9 mg/dL (9.0-27.0); Calcium 8.9 mg/dL (8.7-10.3); Carbon Dioxide 28.7 mmol/L (21.6-31.8); Chloride 102 mmol/L (96-109); Glucose 92 mg/dL (70-110); Potassium 4.7 mmol/L (3.5-5.5); Sodium 139 mmol/L (135-145)
[2023-08-08 12:27] VITALS: BP 124/84; PULSE 86; TEMP 98.4
--- NOTE | 2023-08-08 12:50 | P.DS ---
Providers Expected date of discharge: 08/08/23 Attending physician: Shane Saldaña Consults: 08/05/23 13:25 Consult Physician Routine Consulting Provider: Amita Villegas Consult Reason/Comments: medical management Do you want consulting provider notified?: Yes Primary care physician: Dany Ahmadi [facility] Course: This is a 43-year-old female who has been followed in our office by Dr. Saldaña for continued complaints of right knee pain due to right knee osteoarthritis. Treatment options were discussed, and patient elected to undergo a right total knee arthroplasty. Patient was seen pre-operatively by Dr. Ahmadi and cleared for surgery. Patient underwent a right total knee arthroplasty on 08/05/[address] Saldaña. The procedure was performed without complication or sequelae. The patient is doing fairly well postoperatively. Vital signs and labs are stable on postoperative day #3. Patient was examined bedside this morning with Dr. Saldaña. She is up to the bedside chair. Patient states she is overall doing well and the pain in her right knee is controlled on her current medications. She has been ambulating with a walker with minimal assistance. Patient has passed physical therapy to return home. Patient is comfortable being discharged home today. Patient has no new complaints this morning. On examination, the patient is sitting up in the bedside chair in no apparent distress. She is alert and orientated 3. On inspection of the right knee, there is a clean, dry, intact surgical dressing in place with no bleeding or drainage through the dressing. Patient has good strength and ROM of the right ankle and toes. Motor and sensory function is intact of the right lower extremity. The dorsalis pedis pulse is easily palpable, the right lower extremity is warm and well perfused with brisk capillary refill. Calf is soft and non-tender to palpation. Patient is discharged home with home health care today in good condition, pending medical clearance. Patient will follow-up in the office at [facility] in 2 weeks. Please see med rec for accurate list of discharge medication. Further pain medications will be addressed by patient's pain management doctor, Dr. Ahmadi. Plan - Discharge Summary Discharge Rx Participant: Yes New Discharge Prescriptions: New Omeprazole 40 mg PO DAILY 30 Days #30 cap Aspirin 81 mg PO BID 30 Days #60 tab Docusate [Colace] 100 mg PO BID #60 capsule Celecoxib [CeleBREX] 100 mg PO BID 30 Days #60 cap oxyCODONE HCL/ACETAMINOPHEN [Percocet 10-325 mg] 1 tab PO Q4HR PRN 5 Days #30 tab PRN Reason: Pain oxyCODONE ER [OxyCONTIN] 10 mg PO Q12HR 5 Days #10 tab No Action Erenumab-Aooe [Aimovig Autoinjector] 70 mg PO Q30D SUMAtriptan succinate [Imitrex] 100 mg PO DAILY PRN PRN Reason: Headache Metoprolol Succinate [Toprol XL] 50 mg PO DAILY Butalb/Asprin/Caff 50-325-40Mg [Fiorinal 50-325-40 MG] 1 - 2 cap PO Q4HR PRN PRN Reason: Migraine Headache Ondansetron [Zofran] 4 mg PO TID PRN PRN Reason: Nausea Gabapentin 800 mg PO TID Acetaminophen Tab [Tylenol] 1,000 mg PO Q6HR PRN #30 tablet PRN Reason: Pain Citalopram Hydrobromide [CeleXA] 40 mg PO DAILY Cariprazine HCl [Vraylar] 1.5 mg PO HS Celecoxib [CeleBREX] 100 mg PO BID Buprenorphine HCl/Naloxone HCl [Suboxone 8 mg-2 mg Sl Film] 1 - 2 film SL DAILY hydrOXYzine pamoate [Vistaril] 25 mg PO TID PRN PRN Reason: Anxiety Albuterol Inhaler [Ventolin Hfa Inhaler] 2 puff INHALATION RT-QID PRN PRN Reason: Shortness Of Breath Fluticasone/Umeclidin/Vilanter [Trelegy Ellipta 200-62.5-25] 1 puff INHALATION DAILY Cyclobenzaprine [Flexeril] 10 mg PO BID Discharge Medication List Erenumab-Aooe [Aimovig Autoinjector] 70 mg PO Q30D 12/01/20 [History] Metoprolol Succinate [Toprol XL] 50 mg PO DAILY 11/13/21 [History] SUMAtriptan succinate [Imitrex] 100 mg PO DAILY PRN 11/13/21 [History] hydrOXYzine pamoate [Vistaril] 25 mg PO TID PRN 11/13/21 [History] Butalb/Asprin/Caff 50-325-40Mg [Fiorinal 50-325-40 MG] 1 - 2 cap PO Q4HR PRN 12/05/21 [History] Ondansetron [Zofran] 4 mg PO TID PRN 12/05/21 [History] Albuterol Inhaler [Ventolin Hfa Inhaler] 2 puff INHALATION RT-QID PRN 07/07/22 [History] Gabapentin 800 mg PO TID 07/22/22 [History] Acetaminophen Tab [Tylenol] 1,000 mg PO Q6HR PRN #30 tablet 07/27/22 [Rx] Buprenorphine HCl/Naloxone HCl [Suboxone 8 mg-2 mg Sl Film] 1 - 2 film SL DAILY 08/04/23 [History] Cariprazine HCl [Vraylar] 1.5 mg PO HS 08/04/23 [History] Celecoxib [CeleBREX] 100 mg PO BID 08/04/23 [History] Citalopram Hydrobromide [CeleXA] 40 mg PO DAILY 08/04/23 [History] Cyclobenzaprine [Flexeril] 10 mg PO BID 08/04/23 [History] Fluticasone/Umeclidin/Vilanter [Trelegy Ellipta 200-62.5-25] 1 puff INHALATION DAILY 08/04/23 [History] Aspirin 81 mg PO BID 30 Days #60 tab 08/05/23 [Rx] Celecoxib [CeleBREX] 100 mg PO BID 30 Days #60 cap 08/05/23 [Rx] Docusate [Colace] 100 mg PO BID #60 capsule 08/05/23 [Rx] Omeprazole 40 mg PO DAILY 30 Days #30 cap 08/05/23 [Rx] oxyCODONE ER [OxyCONTIN] 10 mg PO Q12HR 5 Days #10 tab 08/08/23 [Rx] oxyCODONE HCL/ACETAMINOPHEN [Percocet 10-325 mg] 1 tab PO Q4HR PRN 5 Days #30 tab 08/08/23 [Rx] Follow up Appointment(s)/Referral(s): Shane Saldaña MD [Medical Doctor] - 2 Weeks Activity/Diet/Wound Care/Special Instructions: Weight bear to tolerance on operative extremity with a walker. Keep operative dressing in place until follow-up in the office. Call the office if dressing becomes saturated or falls off. May shower over dressing. Take pain medications as needed. Following post-op day #8, please contact Dr. Ahmadi for pain medication. Take aspirin 81mg BID x 4 weeks for blood clot prevention. Follow-up in the office in two weeks at [facility]. Call the office with any questions or concerns, Discharge Disposition: HOME WITH HOME HEALTH SERVICES
== END 2023-08-08 14:09 | disposition home health service (06) ==
LOC: OR 08:42 → 4SSUR 13:17 → OR 08-08 08:04 → 4SSUR 08-08 12:19
PROVIDERS: ADMIT Orthopaedic Surgery; ATTEND Orthopaedic Surgery
DX: M17.11 Unilateral primary osteoarthritis, right knee (principal); M25.761 Osteophyte, right knee; G89.18 Other acute postprocedural pain; F11.20 Opioid dependence, uncomplicated; I48.91 Unspecified atrial fibrillation; J44.9 Chronic obstructive pulmonary disease, unspecified; I10 Essential (primary) hypertension; Z96.652 Presence of left artificial knee joint; Z79.899 Other long term (current) drug therapy; Z79.1 Long term (current) use of non-steroidal anti-inflammatories (NSAID); Z79.82 Long term (current) use of aspirin; Z88.0 Allergy status to penicillin; Z88.1 Allergy status to other antibiotic agents
CPT/HCPCS: 0055T; 27447; 64447; 64999; 80048; 81025; 85025; 88304; 88311

== ENCOUNTER → 2023-11-30 | Outpatient (CLI) | payer MEDICARE, OTHER ==
[2023-11-30 12:25] LABS: Basophils % (A) 1 %; Eosinophils # (A) 0.2 k/uL (0-0.7); Eosinophils % (A) 2 %; HGB 13.1 gm/dL (11.4-16.0); Lymphocytes # (A) 2.1 k/uL (1.0-4.8); Lymphocytes % (A) 25 %; MCH 31.2 pg (25.0-35.0); MCHC 32.9 g/dL (31.0-37.0); Mean Platelet Volume 8.6; Monocytes # (A) 0.4 k/uL (0-1.0); Monocytes % (A) 5 %; Neutrophils # (A) 5.5 k/uL (1.3-7.7); Neutrophils % (A) 66 %; Platelet Count 242 k/uL (150-450); RBC 4.21 m/uL (3.80-5.40); RDW 13.6 % (11.5-15.5); WBC 8.3 k/uL (3.8-10.6)
[2023-11-30 12:32] LABS: Total Eosinophil Count 149 #EOS/uL (150-300)
[2023-11-30 19:15] LABS: Immunoglobulin E 9.24 IU/mL (0.00-114.00)
[2023-12-01 10:53] LABS: IgG Subclass 1 316.6 mg/dL (382.40-928.60); IgG Subclass 2 163.6 mg/dL (241.80-700.30); IgG Subclass 3 49.5 mg/dL (21.82-176.00); IgG Subclass 4 26.9 mg/dL (3.92-86.40)
== END | disposition home or self-care (01) ==
LOC: LABWHC1 11:28
PROVIDERS: ATTEND Internal Medicine
DX: J18.1 Lobar pneumonia, unspecified organism (principal); J30.9 Allergic rhinitis, unspecified
CPT/HCPCS: 36415; 82784; 82785; 82787; 85008; 85025

== ENCOUNTER 2023-12-01 12:16 | Day surgery (SDC) | payer MEDICARE, OTHER ==
[~2023-12-01 12:16] MED LIST changes: -ACETAMINOPHEN TAB 500 MG TAB PO PRN; -DEXAMETHASONE SOD PHOSPHATE 10 MG/ML 1 ML VIAL IV PRN; -DOCUSATE 100 MG CAP PO PRN; -FAMOTIDINE 20 MG/2 ML VIAL IVP PRN; -HYDROmorphone 0.5 MG/0.5 ML SYRINGE IVP PRN; -KETOROLAC 15 MG/ML 1 ML VIAL IVP PRN; +LACTATED RINGERS 1,000 ML IV SCH; -LIDOCAINE 1% (10MG/ML) FOR IV START INTRADERMA PRN; -MIDAZOLAM 2 MG/2 ML VIAL IV PRN; -ONDANSETRON 4 MG/2 ML VIAL IVP PRN; -ROPIVACAINE/EPI/CLONIDINE/KET 50 ML SYRINGE MISCELLANE PRN; -TRANEXAMIC 1,000 MG/100ML-NACL 1,000 MG in SALINE 1 100ML.BAG IV PRN; -TRANEXAMIC 1,000 MG/100ML-NACL 1,000 MG in SALINE 1 100ML.BAG IVPB PRN; -fentaNYL (PF) 50 MCG/ML 2 ML AMP IVP PRN; -oxyCODONE ER 10 MG TAB.ER.12H PO PRN
[2023-12-01 12:48] LABS: Glucose,Whole Blood 88 mg/dL (70-110)
[2023-12-01 13:01] VITALS: TEMP 97.7
[2023-12-01] MEDS ORDERED: fentaNYL (PF) 50 MCG/ML 2 ML AMP ONE (13:29)
[2023-12-01] MEDS ORDERED: MIDAZOLAM 2 MG/2 ML VIAL ONE (13:29)
[2023-12-01] MEDS ORDERED: PROPOFOL 10 MG/ML 20 ML VIAL IV ONE (13:29)
[2023-12-01] MEDS ORDERED: KETAMINE HCL IN 0.9 % NACL 50 MG/5 ML SYRINGE ONE (13:29)
[2023-12-01] MEDS ORDERED: LIDOCAINE 2% INJ 20 MG/ML INTRATRACH ONE (13:52)
[2023-12-01 14:44] VITALS: BP 110/71; PULSE 81; RESP 18
--- NOTE | 2023-12-01 20:52 | OP ---
OPERATIVE REPORT DATE OF SERVICE : PROCEDURE PERFORMED: Bronchoscopy and random bronchial washing and BAL of the right middle lobe. PREOPERATIVE DIAGNOSIS: Recurrent right middle lobe pneumonia. 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 ANESTHESIA USED: IV conscious sedation. DESCRIPTION OF PROCEDURE: The patient was prepared according to the bronchoscopy protocol. O2 was applied via Ventimask, the patient was placed in the supine position, we monitored her O2 saturation continuously. Cardiac rhythm was continuously monitored. Blood pressure was intermittently monitored. After adequate IV conscious sedation, a bite block was placed, the bronchoscope was advanced through the bite block down to the area of the vocal cords. Vocal cords were noted to be normal. Lidocaine applied over the vocal cords, and the bronchoscope was advanced further down. Thorough examination was done of the trachea, right upper lobe right middle lobe, right lower lobe, left upper lobe, lingula, and left lower lobe. There was evidence of very thick significant purulent secretions noted throughout the airways and in the different lobes. Washings of the secretions were done from the different lobes, and lavage of the right middle lobe was done. As I examined the right middle lobe bronchus, there is definitely a narrow slid leading to the medial and lateral segment of the right middle lobe, I was able to visualize the segments nicely, again there is clearly a narrow slit of the right middle lobe bronchus highly consistent with what seems to be a right middle lobe syndrome causing right middle lobe pneumonia/recurrence. The fluid obtained was sent for different cultures, procedure was well tolerated, no endobronchial tumors noted and no complications. The patient was updated on her condition and findings. MMODL / IJN: [id number] /
== END 2023-12-01 14:58 | disposition home or self-care (01) ==
LOC: ORWHC2ENDO 12:16
PROVIDERS: ATTEND Internal Medicine
DX: J18.9 Pneumonia, unspecified organism (principal); I10 Essential (primary) hypertension; I48.91 Unspecified atrial fibrillation; J44.89 Other specified chronic obstructive pulmonary disease; F31.9 Bipolar disorder, unspecified; F43.10 Post-traumatic stress disorder, unspecified; G43.909 Migraine, unspecified, not intractable, without status migrainosus; F17.290 Nicotine dependence, other tobacco product, uncomplicated; Z88.0 Allergy status to penicillin; Z88.8 Allergy status to other drugs, medicaments and biological substances; Z88.1 Allergy status to other antibiotic agents; Z79.899 Other long term (current) drug therapy; Z79.52 Long term (current) use of systemic steroids
CPT/HCPCS: 81025; 87070; 87205; 87116; 87102; 87206; 31624; J2001; J2250; J3010; J2704

== ENCOUNTER → 2024-03-08 | Outpatient (CLI) | payer MEDICARE, OTHER ==
--- NOTE | 2024-03-08 19:50 | CT ---
EXAMINATION TYPE: CT angio chest DATE OF EXAM: 03/08/2024 4:46 PM COMPARISON: 08/03/2022 HISTORY: SOB CT DLP: 240 mGycm Automated exposure control for dose reduction was used. CONTRAST: CTA scan of the thorax is performed with IV Contrast, patient injected with 100 mL of Isovue 370, pul monary embolism protocol. 3-D postprocessing was performed. FINDINGS: There is mild interstitial density in the right middle lobe otherwise the lungs are clear. There is n o suspicious mass or nodule. There is no airspace consolidation. There is no pleural effusion, pleural thickening or pneumothorax. The great vessels chest are normal and there is no mediastinal, hilar or axillary adenopathy. There are no filling defects within the pulmonary arterial circulation to suggest pulmonary embolism. Limited scanning through the upper abdomen reveals cholecystectomy and fatty infiltration of liver. The osseous structures are intact IMPRESSION: 1. No evidence of pulmonary embolus. 2. Mild chronic interstitial changes in the right middle lobe. 3. No acute cardiopulmonary disease
== END | disposition home or self-care (01) ==
LOC: RADCTMAIN 16:02
PROVIDERS: ATTEND Internal Medicine
DX: J84.9 Interstitial pulmonary disease, unspecified (principal); I26.99 Other pulmonary embolism without acute cor pulmonale
CPT/HCPCS: 71275; Q9967

== ENCOUNTER 2024-04-12 18:15 | Emergency (ER) | payer MEDICARE, OTHER ==
--- NOTE | 2024-04-12 18:37 | ED ---
Chest Pain HPI - General Chief Complaint: Chest Pain Stated Complaint: SOB chest pain Time Seen by Provider: 04/12/24 18:35 Source: patient, RN notes reviewed, old records reviewed Mode of arrival: ambulatory Limitations: no limitations - History of Present Illness Initial Comments: This is a 44-year-old female to the ER for chest pain multiple episodes of chest pain today second 1 was involved with significant diaphoresis elevated heart rate elevated blood pressure which made her significantly concerned. Patient does suffer from anxiety but did not do anything out of the ordinary today. She does have high blood pressure does have history of smoking and COPD and occasionally does wear oxygen when she feels short of breath. MD Complaint: chest pain, other (Shortness of breath dyspnea and anxiety) -: hour(s) Onset: during rest, during exertion Pain Location: substernal Quality: tightness, heaviness Consistency: constant Improves With: nothing Worsens With: nothing Context: recent illness Anginal Symptoms: sense of impending doom Other Symptoms: palpitations Treatments Prior to Arrival: none - Related Data Home Medications Medication Instructions Recorded Confirmed Buprenorphine HCl/Naloxone HCl 1 film SL DAILY 08/04/23 04/12/24 [Suboxone 8 mg-2 mg Sl Film] Cyclobenzaprine [Flexeril] 10 mg PO BID PRN 08/04/23 04/12/24 Fluticasone/Umeclidin/Vilanter 1 puff INHALATION RT-DAILY 08/04/23 04/12/24 [Trelegy Ellipta 200-62.5-25] Albuterol Inhaler [Ventolin Hfa 2 puff INHALATION RT-QID PRN 04/12/24 04/12/24 Inhaler] Buprenorphine (Sublocade) 300 mg SQ DIRECTED 04/12/24 04/12/24 300mg/1.5ml Solution Er Butalb/APAP/Caff 50-325-40Mg 1 tab PO Q4-6H PRN 04/12/24 04/12/24 [Fioricet 50-325-40] Cariprazine HCl [Vraylar] 1.5 mg PO BID 04/12/24 04/12/24 Ciprofloxacin HCl [Cipro] 500 mg PO Q12HR 04/12/24 04/12/24 Citalopram Hydrobromide [CeleXA] 20 mg PO DAILY 04/12/24 04/12/24 Dextroamphetamine/Amphetamine 15 mg PO DAILY@1300 04/12/24 04/12/24 [Adderall] Dextroamphetamine/Amphetamine 20 mg PO DAILY@0600 04/12/24 04/12/24 [Adderall] Erenumab-Aooe [Aimovig 30 mg SQ Q30D 04/12/24 04/12/24 Autoinjector] Gabapentin 900 mg PO TID 04/12/24 04/12/24 Metoprolol Tartrate [Lopressor] 50 mg PO BID 04/12/24 04/12/24 Ondansetron Odt [Zofran Odt] 4 mg PO Q8HR PRN 04/12/24 04/12/24 SUMAtriptan succinate [Imitrex] 100 mg PO DAILY PRN 04/12/24 04/12/24 Ubrogepant [Ubrelvy] 100 mg PO DAILY PRN 04/12/24 04/12/24 hydrOXYzine pamoate [Vistaril] 25 mg PO BID PRN 04/12/24 04/12/24 lamoTRIgine [LaMICtal] 50 mg PO DAILY 04/12/24 04/12/24 methylPREDNISolone Dose Pack See Taper PO DIRECTED 04/12/24 04/12/24 [Medrol Dose Pack] Allergies Allergy/AdvReac Type Severity Reaction Status Date / Time cefaclor [From Ceclor] Allergy Unknown Verified 04/12/24 20:22 Childhood Penicillins Allergy Rash/Hives Verified 04/12/24 20:22 pineapple Allergy Rash/Hives Verified 04/12/24 20:22 montelukast [From Singulair] AdvReac irritable Verified 04/12/24 20:22 topiramate [From Topamax] AdvReac fingers Verified 04/12/24 20:22 felt tingly Review of Systems ROS Statement: Those systems with pertinent positive or pertinent negative responses have been documented in the HPI. ROS Other: All systems not noted in ROS Statement are negative. Past Medical History Past Medical History: Atrial Fibrillation, Asthma, COPD, Hypertension, Pneumonia Additional Past Medical History / Comment(s): Chronic migraines, ARDS post Cholecysectomy History of Any Multi-Drug Resistant Organisms: None Reported Past Surgical History: Section, Cholecystectomy, Hernia Repair, Orthopedic Surgery, Tubal Ligation Additional Past Surgical History / Comment(s): Left knee meniscus repair x3. Left knee replacement -Left, rt knee replaced sherita fundiplication Past Anesthesia/Blood Transfusion Reactions: No Reported Reaction Additional Past Anesthesia/Blood Transfusion Reaction / Comment(s): [place] post [place] per pt, Past Psychological History: Anxiety, Bipolar, Depression, PTSD Smoking Status: Former smoker - Past Family History Mother Additional Family Medical History / Comment(s): Mom in 2004 from septic shock when she was 52 years old. Father Family Medical History: Cancer, COPD Additional Family Medical History / Comment(s): Pt. reports her father currently has prostate cancer General Exam Limitations: no limitations General appearance: alert, in no apparent distress, anxious, in distress Head exam: Present: atraumatic, normocephalic, normal inspection Eye exam: Present: normal appearance, PERRL, EOMI. Absent: scleral icterus, conjunctival injection, periorbital swelling ENT exam: Present: normal exam, mucous membranes moist Neck exam: Present: normal inspection. Absent: tenderness, meningismus, lymphadenopathy Respiratory exam: Present: normal lung sounds bilaterally. Absent: respiratory distress, wheezes, rales, rhonchi, stridor Cardiovascular Exam: Present: regular rate, normal rhythm, normal heart sounds. Absent: systolic murmur, diastolic murmur, rubs, gallop, clicks GI/Abdominal exam: Present: soft, normal bowel sounds. Absent: distended, tenderness, guarding, rebound, rigid Extremities exam: Present: normal inspection, full ROM, normal capillary refill. Absent: tenderness, pedal edema, joint swelling, calf tenderness Back exam: Present: normal inspection Neurological exam: Present: alert, oriented X3, CN II-XII intact Psychiatric exam: Present: normal affect, normal mood Skin exam: Present: warm, dry, intact, normal color. Absent: rash Course Vital Signs 04/12/24 04/12/24 04/12/24 18:27 19:32 19:40 Temperature 98.3 F Pulse Rate 92 79 82 Respiratory 18 Rate Blood Pressure 122/96 O2 Sat by Pulse 100 Oximetry 04/12/24 22:45 Temperature 98.4 F Pulse Rate 91 Respiratory 19 Rate Blood Pressure 97/62 O2 Sat by Pulse 99 Oximetry - Reevaluation(s) Reevaluation #1: 06/06/24 20:05 Record is reviewed Reevaluation #2: 04/12/24 20:05 Improved Reevaluation #3: 04/12/24 20:05 Informed of results and questions answered Studies chest x-ray and CTA chest are negative for acute disease Reevaluation #4: Was pt. sent in by a medical professional or institution (DIAN Carter, ROLLED SE[employer]IMMER, urgent care, hospital, or custodial...) When possible be specific @ -no Did you speak to anyone other than the patient for history (EMS, parent, family, police, friend...)? What history was obtained from this source @ -no Did you review nursing and triage notes (agree or disagree)? Why? @ -agree Are old charts reviewed (outside hosp., previous admission, EMS record, old EKG, old radiological studies, urgent care reports/EKG's, custodial records)? Report findings @ -yes Differential Diagnosis (chest pain, altered mental status, abdominal pain women, abdominal pain men, vaginal bleeding, weakness, fever, dyspnea, syncope, headache, dizziness, GI bleed, back pain, seizure, CVA, palpatations, mental health, musculoskeletal)? @ -prior EKG interpreted by me (3pts min.). @ -yes X-rays interpreted by me (1pt min.). @ -yes negative for acute disease CT interpreted by me (1pt min.). @ -Yes negative for acute disease U/S interpreted by me (1pt. min.). @ -no What testing was considered but not performed or refused? (CT, X-rays, U/S, labs)? Why? @ -none What meds were considered but not given or refused? Why? @ -none Did you discuss the management of the patient with other professionals (professionals i.e. DIAN Carter, ROLLED SEAT TR[employer]MER, lab, RT, psych nurse, social insurance adviser, mold washer, teacher, seal delivery vehicle officer, case liner)? Give summary @ -no Was smoking cessation discussed for >3mins.? @ -no Were there social determinants of health that impacted care today? How? (Homelessness, low income, unemployed, alcoholism, drug addiction, transportation, low edu. Level, literacy, decrease access to med. care, nursing home, rehab)? @ -none Was there de-escalation of care discussed even if they declined (Discuss DNR or withdrawal of care, Hospice)? DNR status @ -no What co-morbidities impacted this encounter? (DM, HTN, Smoking, COPD, CAD, Cancer, CVA, ARF, Chemo, Hep., AIDS, mental health diagnosis, sleep apnea, morbid obesity)? @ -none Was patient admitted / discharged? Hospital course, mention meds given and route, prescriptions, significant lab abnormalities, going to OR and other pertinent info. @ - 44 female to ER with anxiety attack panic attack and chest pain. Although symptoms are currently resolved patient feels well can be discharged home no recent drugs or alcohol and not suicidal or homicidal no depression Discharge Was critical care preformed (if so, how long)? @ -no Undiagnosed new problem with uncertain prognosis? @ -no Drug Therapy requiring intensive monitoring for toxicity (Heparin, Nitro, Insulin, Cardizem)? @ -no Were any procedures done? @ -no Diagnosis/symptom? @ -Chest pain and anxiety Acute, or Chronic, or Acute on Chronic? @ -Acute Uncomplicated (without systemic symptoms) or Complicated (systemic symptoms)? @ -Complicated Side effects of treatment? @ -no Exacerbation, Progression, or Severe Exacerbation? @ -exacerbation Poses a threat to life or bodily function? How? (Chest pain, [place], [place], pneumonia, PE, COPD, DKA, ARF, appy, cholecystitis, CVA, Diverticulitis, Homicidal, Suicidal, threat to staff... and all critical care pts) @ -yes with chest pain and anxiety Reevaluation #5: Differential Chest Pain: Stable Angina, Unstable Angina, STEMI, NSTEMI Aortic Dissection, Pneumothorax, Musculoskeletal, Esophageal Spasm GERD, Cholecystitis, Pancreatitis, Zoster, this is not meant to be an all-inclusive list. Chest Pain MDM - MDM 44 female to ER with anxiety attack panic attack and chest pain. Although symptoms are currently resolved patient feels well can be discharged home no recent drugs or alcohol and not suicidal or homicidal no depression Disposition Clinical Impression: Panic attack, Atypical chest pain, Chest pain Disposition: HOME SELF-CARE Condition: Good Instructions (If sedation given, give patient instructions): Chest Pain (ED) Is patient prescribed a controlled substance at d/c from ED?: No Referrals: Nonstaff,Physician [REFERRING] - 1-2 days
[2024-04-12] MEDS: KETOROLAC 15 MG/ML 1 ML VIAL IVP STA (19:10)
[2024-04-12] MEDS: SODIUM CHLORIDE 0.9% 1,000 ML IV STA (19:10)
[2024-04-12] MEDS: LORazepam 1 MG TAB PO STA (19:11)
[2024-04-12 19:14] LABS: Basophils % (A) 0 %; Eosinophils # (A) 0.1 k/uL (0-0.7); Eosinophils % (A) 1 %; HCT 38.5 % (34.0-46.0); HGB 12.8 gm/dL (11.4-16.0); Lymphocytes # (A) 2.6 k/uL (1.0-4.8); Lymphocytes % (A) 24 %; MCH 31.1 pg (25.0-35.0); MCHC 33.3 g/dL (31.0-37.0); MCV 93.3 fL (80.0-100.0); Mean Platelet Volume 8.2; Monocytes # (A) 0.4 k/uL (0-1.0); Monocytes % (A) 4 %; Neutrophils # (A) 7.6 k/uL (1.3-7.7); Neutrophils % (A) 70 %; Platelet Count 300 k/uL (150-450); RBC 4.13 m/uL (3.80-5.40); RDW 12.6 % (11.5-15.5); WBC 10.8 k/uL (3.8-10.6)
[2024-04-12 19:26] LABS: ALT 15 U/L (4-34); AST 23 U/L (14-36); African American GFR (CKD) >90 (>60 ml/min/1.73 sqM); Albumin 4.3 g/dL (3.5-5.0); Alkaline Phosphatase 74 U/L (38-126); Anion Gap 3 mmol/L; Blood Urea Nitrogen 16 mg/dL (7-17); Calcium 9.1 mg/dL (8.4-10.2); Carbon Dioxide 32 mmol/L (22-30); Chloride 103 mmol/L (98-107); Glucose 129 mg/dL (74-99); Lipase 32 U/L (23-300); Magnesium 1.7 mg/dL (1.6-2.3); Non-African American GFR(CKD) >90 (>60 ml/min/1.73 sqM); Potassium 4.3 mmol/L (3.5-5.1); Sodium 138 mmol/L (137-145); Total Bilirubin 0.5 mg/dL (0.2-1.3); Total Protein 7.1 g/dL (6.3-8.2)
[2024-04-12] MEDS: IPRATROPIUM-ALBUTEROL 3 ML NEB INHALATION STA (19:31)
[2024-04-12 19:33] LABS: NT-Pro-B-Type Natriuretic Pept 92 pg/mL
[2024-04-12 19:43] LABS: INR 0.9 (<1.2); Partial Thromboplastin Time 22.2 sec (22.0-30.0); Prothrombin Time 10.3 sec (10.0-12.5)
--- NOTE | 2024-04-12 20:04 | XR ---
EXAM: XR chest 1V portable CLINICAL INDICATION:Female, 44 years old with history of chest pain; [facility] COMPARISON: Chest x-ray 2 views 04/10/2024 TECHNIQUE: Chest single view. FINDINGS: Lines/tubes/devices: None. Cardiomediastinum: Cardiac silhouette appears normal in size. Stable mediastinal silhouette. Vasculature: No increased pulmonary vasculature. Lungs/pleura: No consolidation, sizeable effusion, or visible pneumothorax. Bones/soft tissues: Bony thorax appears grossly unchanged as seen. Carlyle right scoliosis of the lower thoracic region. Reg ional soft tissues appear unremarkable. IMPRESSION: No acute cardiopulmonary abnormality.
--- NOTE | 2024-04-12 22:44 | CT ---
EXAMINATION TYPE: CT angio chest CT DLP: 352.2 mGycm, Automated exposure control for dose reduction was used. DATE OF EXAM: 04/12/2024 8:05 PM COMPARISON: CLINICAL INDICATION:Female, 44 years old with history of cp; CP. SOB. Elevated D-dimer. TECHNIQUE/CONTRAST: CTA scan of the thorax is performed with IV Contrast, patient injected with 100ML mL of Isovue 370, M IP images are created and reviewed these are created on a separate workstation.. FINDINGS: There is adequate contrast bolus and timing. PULMONARY ARTERIES: There is no evidence for a filling defect within the pulmonary vasculature to sug gest acute pulmonary embolism. The pulmonary trunk is enlarged, this can be seen with pulmonary hyper tension. Trunk measures 3.3 CM. AORTA: No significant atherosclerotic disease.. Ascending aorta is 3.4 CM, descending is 2.3 cm. No dissection flap is seen. HEART: Normal heart size. No coronary artery calcifications appreciated. No appreciable pericardial effusion. LOWER NECK: Partially seen peripherally calcified 10 mm right thyroid nodule.. MEDIASTINUM: No enlarged nodes by CT size criteria. SOFT TISSUES/AXILLA: Unremarkable soft tissues. No axillary adenopathy. LUNGS/ PLEURA: The lung parenchyma appears unremarkable for acute process. A few upper lobe emphysem atous changes. AIRWAY: Central airways are patent. MUSCULOSKELETAL: No acute osseous abnormality. Generally mild degenerative changes throughout the do rsal spine, however greatest at the T11-T12 level where there is medium sized posterior disc osteophy te complex mildly narrowing the canal and neuroforamina. If there are referable symptoms, MRI could b e obtained. UPPER ABDOMEN: No acute abnormality. Postoperative changes in the GE junction region. IMPRESSION: 1. No evidence of pulmonary embolism. 2. No other acute chest process demonstrated. 3. Enlarged pulmonary trunk, can be seen with pulmonary hypertension.
[2024-04-13 00:51] VITALS: BP 97/62; PULSE 91; RESP 19; TEMP 98.4
== END 2024-04-12 22:52 | disposition home or self-care (01) ==
LOC: EC 18:15
DX: F41.0 Panic disorder [episodic paroxysmal anxiety] (principal); R07.89 Other chest pain; Z88.1 Allergy status to other antibiotic agents; Z88.0 Allergy status to penicillin; Z91.018 Allergy to other foods; Z88.8 Allergy status to other drugs, medicaments and biological substances; Z87.891 Personal history of nicotine dependence
CPT/HCPCS: 36415; 94640; 93005; 85379; 83880; 80053; 83690; 83735; 84484; 85025; 85610; 85730; 71045; 71275; 99285; 96374; 96361 ×4; J1885; Q9967

== ENCOUNTER → 2024-08-30 | Outpatient (CLI) | payer MEDICARE, OTHER | END | disposition home or self-care (01) | LOC: LABWHC1 10:33 | PROVIDERS: ATTEND Nurse Practitioner | DX: E03.9 Hypothyroidism, unspecified (principal) | CPT/HCPCS: 36415; 84443 ==

== ENCOUNTER → 2024-08-30 | Outpatient (CLI) | payer MEDICARE, OTHER ==
--- NOTE | 2024-08-30 10:50 | CT ---
EXAMINATION TYPE: CT sinus wo con DATE OF EXAM: 08/30/2024 COMPARISON: None HISTORY: sinus infections CT DLP: 468 mGycm. Automated Exposure Control for Dose Reduction was Utilized. TECHNIQUE: CT scan of the sinuses is performed without contrast, axial images are obtained, coronal r eformatted images are also reviewed. FINDINGS: The paranasal sinuses including the frontal, ethmoid, sphenoid, and maxillary sinuses bila terally are well-aerated without abnormal opacification. The ostiomeatal complex is patent bilateral ly on the coronal images. Visualized portion of mastoid air cells show no abnormal opacification. The globes are intact bilate rally. IMPRESSION: The sinuses are clear and the ostiomeatal complex is patent bilaterally. [facility], Workstation: [id number] 08/30/2024 10:48 AM
== END | disposition home or self-care (01) ==
LOC: RADCTMAIN 10:07
PROVIDERS: ATTEND Internal Medicine
DX: J32.9 Chronic sinusitis, unspecified (principal)
CPT/HCPCS: 70486

== ENCOUNTER → 2025-01-30 | Outpatient (CLI) | payer MEDICARE, OTHER ==
--- NOTE | 2025-01-30 15:06 | NM ---
EXAMINATION TYPE: NM bone scan whole body DATE OF EXAM: 01/30/2025 COMPARISON: NONE CLINICAL INDICATION: Female, 44 years old with history of M84.375G stress fx L foot; Delayed whole-body scanning was performed following the injection of 21.5 mCi Tc 99m MDP. Images acq uired 4 hours post injection. Whole body images are obtained along with additional spot images of the abdomen and bilateral feet. FINDINGS: Symmetric increased uptake in first metatarsophalangeal joint of both feet likely reflects degenerati ve change related to bunion. There is asymmetric increased radiotracer uptake in the third metatarsal of the left foot most prominent distally and in the distal second metatarsal. Findings could be prod uct of stress fracture. Correlate clinically and with radiographs. There is asymmetric increased radiotracer uptake in region of the right L3 vertebra and left lumbosac ral junction. Findings are nonspecific and should be correlated clinically and with radiographs. Lucency from prosthesis in the right knee is noted. IMPRESSION: As above. [facility], , 01/30/2025 3:03 PM
== END | disposition home or self-care (01) ==
LOC: RADNMMAIN 10:13
PROVIDERS: ATTEND Student in an Organized Health Care Education/Training Program
DX: M84.375G Stress fracture, left foot, subsequent encounter for fracture with delayed healing (principal)
CPT/HCPCS: 78306; A9503

== ENCOUNTER → 2025-03-19 | Outpatient (CLI) | payer MEDICARE, OTHER ==
[2025-03-19 15:45] LABS: Streptolysin O Ab(ASO) 173 IntlUnit/L (0-200)
[2025-03-19 15:59] LABS: Basophils # (A) 0.05 X 10*3/uL (0.00-0.10); Basophils % (A) 0.7 %; Eosinophils # (A) 0.17 X 10*3/uL (0.04-0.35); Eosinophils % (A) 2.4 %; HCT 38.9 % (37.2-46.3); HGB 12.4 g/dL (12.0-15.0); Lymphocytes # (A) 2.38 X 10*3/uL (0.90-5.00); Lymphocytes % (A) 33.2 %; MCH 30.7 pg (27.0-32.0); MCHC 31.9 g/dL (32.0-37.0); MCV 96.3 FL (80.0-97.0); Mean Platelet Volume 11.1 FL (9.5-12.2); Monocytes # (A) 0.47 X 10*3/uL (0.20-1.00); Monocytes % (A) 6.6 %; NRBC Per 100 WBC 0 X 10*3/uL (0.00-0.01); Neutrophils # (A) 4.06 X 10*3/uL (1.80-7.70); Neutrophils % (A) 56.7 %; Platelet Count 257 X 10*3/uL (140-440); RBC 4.04 X 10*6/uL (4.10-5.20); WBC 7.16 X 10*3/uL (4.50-10.00)
[2025-03-19 16:06] LABS: C Reactive Protein <0.30 mg/dL (0.00-0.80); Rheumatoid Factor, Qnt <15 IU/mL (0-15)
[2025-03-19 17:05] LABS: Erythrocyte Sedimentation Rate 4 mm/Hr (0-20)
[2025-03-20 08:31] LABS: HLA B27 NEGATIVE
== END | disposition home or self-care (01) ==
LOC: LABWHC1 10:41
PROVIDERS: ATTEND Orthopaedic Surgery
DX: M25.552 Pain in left hip (principal); M70.62 Trochanteric bursitis, left hip
CPT/HCPCS: 36415; 84443; 85025; 85652; 86038; 86060; 86140; 86431; 86618; 86812

== ENCOUNTER → 2025-03-22 | Outpatient (CLI) | payer MEDICARE, OTHER ==
[2025-03-22 15:11] LABS: Basophils # (A) 0.04 X 10*3/uL (0.00-0.10); Basophils % (A) 0.5 %; Eosinophils # (A) 0.11 X 10*3/uL (0.04-0.35); Eosinophils % (A) 1.5 %; HGB 12.1 g/dL (12.0-15.0); Lymphocytes # (A) 2.51 X 10*3/uL (0.90-5.00); Lymphocytes % (A) 34.2 %; MCH 30.7 pg (27.0-32.0); MCHC 31.8 g/dL (32.0-37.0); MCV 96.4 FL (80.0-97.0); Mean Platelet Volume 11.5 FL (9.5-12.2); Monocytes % (A) 6.8 %; NRBC Per 100 WBC 0 X 10*3/uL (0.00-0.01); Neutrophils # (A) 4.14 X 10*3/uL (1.80-7.70); Neutrophils % (A) 56.6 %; Platelet Count 256 X 10*3/uL (140-440); RBC 3.94 X 10*6/uL (4.10-5.20); RDW 11.9 % (11.5-14.5); WBC 7.33 X 10*3/uL (4.50-10.00)
[2025-03-22 15:31] LABS: ALT 28 U/L (8-44); AST 25 U/L (13-35); Albumin 4.2 g/dL (3.8-4.9); Albumin/Globulin Ratio 1.83 Ratio (1.60-3.17); Alkaline Phosphatase 82 U/L (41-126); BUN/Creat Ratio 22.25 Ratio (12.00-20.00); Blood Urea Nitrogen 17.8 mg/dL (9.0-27.0); Calcium 9.1 mg/dL (8.7-10.3); Carbon Dioxide 27.7 mmol/L (21.6-31.8); Chloride 101 mmol/L (96-109); Globulin 2.3 g/dL (1.6-3.3); Glucose 103 mg/dL (70-110); Potassium 4.2 mmol/L (3.5-5.5); Rheumatoid Factor, Qnt <15 IU/mL (0-15); Sodium 140 mmol/L (135-145); T4, Free (Free Thyroxine) 0.72 ng/dL (0.80-1.80); Total Bilirubin <0.2 mg/dL (0.3-1.2); Total Protein 6.5 g/dL (6.2-8.2)
[2025-03-22 15:36] LABS: Erythrocyte Sedimentation Rate 7 mm/Hr (0-20)
== END | disposition home or self-care (01) ==
LOC: LABWHC1 10:29
PROVIDERS: ATTEND Internal Medicine
DX: M35.00 Sjogren syndrome, unspecified (principal); M13.80 Other specified arthritis, unspecified site
CPT/HCPCS: 36415; 80053; 84439; 84443; 85025; 85652; 86038; 86235; 86431

== ENCOUNTER → 2025-05-24 | Outpatient (CLI) | payer MEDICARE, OTHER ==
--- NOTE | 2025-05-25 14:46 | MR ---
MR foot LT wo con CLINICAL INDICATION: Female, 45 years old with history of M76.72 PERONEAL TENDINITIS, LEFT LEG; [facility], Left foot pain, swelling, limited movement x4-5 months, No known injury, Evaluate left peroneus longu s tendon, and fracture of second metatarsal bone. COMPARISON: None. TECHNIQUE: Noncontrast multiplanar, multiecho imaging of the left foot was performed, including T1-we ighted and fluid sensitive sequences. FINDINGS: Alignment: Anatomic. Bones: Diffuse edema-like marrow signal within the cuboid which surrounds transversely oriented T1 hy pointense linearity compatible with fracture. Similar finding is also seen in the lateral cuneiform b one, however the distal fragment of the lateral cuneiform demonstrates marked T1 hypointense marrow r eplacement raising suspicion for osteonecrosis. Diffuse edema-like marrow signal in the proximal half of the third metatarsal without discrete T1 hypointense linearity to suggest fracture; probable cont usion versus stress reaction. Similar though much less conspicuous signal abnormality at the base of the second metatarsal. Joint spaces: High-grade cartilage loss of the first MTP joint with diffuse subchondral cystic change of the first metatarsal head and proximal phalange of the great toe. Additional first MTP complex [place]alea int effusion and synovitis. Moderate arthrosis of the great toe interphalangeal joint with small effu omayra. Third TMT joint effusion, nonspecific. Ligaments: Lisfranc ligament is intact within the constraints of a nondedicated exam. IM spaces: No intermetatarsal abnormality. Flexor tendons: Intact. Specifically the partially visualized portions of the peroneal tendons appear grossly intact within the constraints of nondedicated imaging, with tendinosis of both longus and br vasyl as they course past the anterior calcaneus and calcaneocuboid joints. Extensor tendons: Intact. Muscles: Preserved bulk and signal intensity. Other: No other abnormality. IMPRESSION: 1. Nondisplaced fractures of the lateral cuneiform and cuboid bones. Findings suspicious for osteone crosis of the distal fragment of the lateral cuneiform. 2. Diffuse edema-like marrow signal throughout the proximal half of the third metatarsal without def initive fracture; likely contusion considering impression #1, however stress reaction could appear si milarly. Similar findings though less severe are also seen at the second metatarsal base. 3. Peroneal tendons are grossly intact within the constraints of nondedicated exam; if clinically co ncern remains formal noncontrast MRI of the ankle is recommended. 4. Severe first MTP hallux sesamoid complex joint arthrosis with joint effusion and synovitis. [facility], , 05/25/2025 2:43 PM
== END | disposition home or self-care (01) ==
LOC: RADMRIMAIN 03-30 14:41
PROVIDERS: ATTEND Podiatrist Foot & Ankle Surgery
DX: M76.72 Peroneal tendinitis, left leg (principal); S92.352D Displaced fracture of fifth metatarsal bone, left foot, subsequent encounter for fracture with routine healing; M79.672 Pain in left foot